=== PATIENT | male | born 1930 | race Caucasian/White ===

== ENCOUNTER 2017-07-09 13:32 | Inpatient (IN) ==
[2017-07-09] MEDS ORDERED: *HR* HYDROmorphone (PF) 1 MG/ML SYRINGE IM ONE (16:21)
--- NOTE | 2017-07-09 16:21 | Emergency Department Note ---
Disposition Clinical Impression: Fracture of hip Qualifiers: Encounter type: initial encounter Fracture type: closed Laterality: left Qualified Code(s): S72.002A - Fracture of unspecified part of neck of left femur , initial encounter for closed fracture Disposition: Admitted As Inpatient Condition: Good [facility]Primary Care Provider[facility] - Forms: ED Satisfaction Letter Time of Disposition: 19:13 General Adult HPI - General Chief complaint: ED Extremity Injury, Lower Stated complaint: Fall,left thigh pain Time Seen by Provider: 07/09/17 16:19 Source: patient Limitations: no limitations Nursing Notes Reviewed: Yes Vital Signs Reviewed: Yes - History of Present Illness HPI Narrative: Patient complaining of left hip pain after a fall that was about a week ago. He states today he was ambulating the felt a catch in the lateral part of his leg and fell. He denies any other trauma but does complain of pain to his left thigh area. Denies striking his head Denies any loss of consciousness. Since this was a mechanical fall. Pain Scale: 5 - Related Data Allergies Allergy/AdvReac Type Severity Reaction Status Date / Time No Known Allergies Allergy Verified 07/09/17 14:16 All systems ED: reviewed and negative except as stated. Constitutional: Denies: fever, chills ENT ED: Denies: congestion Cardiovascular: Denies: chest pain, palpitations, syncope Respiratory: Denies: cough, dyspnea, sputum production Gastrointestinal: Denies: abdominal pain, nausea, vomiting, diarrhea Genitourinary: Denies: urgency, dysuria, frequency, hematuria Musculoskeletal: Reports: other (Left thigh pain.). Denies: back pain, neck pain Integumentary: Denies: rash Neurological: Denies: headache, weakness Past Medical History - Past Medical History Attestation: Yes The following information was validated with the patient. Source: patient Medical history: Reports: diabetes, hypertension Psychiatric history: Reports: no psych history - Social History Smoking Status: Former smoker Smokeless Tobacco Status: No Alcohol use: Reports: none Drug use: Reports: none Physical Exam - General Limitations: no limitations General appearance: alert, in no apparent distress - Head Head exam: atraumatic, normocephalic, normal inspection - Eye Eye exam: Present: normal appearance, PERRL, EOMI - ENT ENT exam: normal exam, normal oropharynx, mucous membranes moist - Neck Neck exam: Present: normal inspection, full ROM, trachea midline - Chest Chest inspection: Present: normal inspection, symmetric chest wall rise - Respiratory Respiratory exam: Present: normal lung sounds bilaterally. Absent: respiratory distress - Cardiovascular Cardiovascular exam: Present: regular rate, normal rhythm, normal heart sounds - Abdominal Exam Abdominal exam: Present: soft, Non-Tender, normal bowel sounds. Absent: tenderness, distention, guarding, rebound, rigidity, organomegaly - Expanded Upper Extremity Exam Shoulder exam: Present: normal inspection, full ROM Arm exam: Present: normal inspection, full ROM Elbow exam: Present: normal inspection, full ROM Forearm/Wrist exam: Present: normal inspection, full ROM Hand exam: Present: normal inspection, full ROM Vascular exam: Normal: capillary refill, radial pulse - Expanded Lower Extremity Exam Hip/Pelvis exam: Present: normal inspection, full ROM, tenderness (To movement of left hip.) Upper leg exam: Present: normal inspection, full ROM, tenderness (To palpation of lateral aspect of left thigh.). Absent: swelling, abrasion, ecchymosis Knee exam: Present: normal inspection, full ROM Lower leg exam: Present: normal inspection, full ROM Ankle exam: Present: normal inspection, full ROM Foot/toe exam: Present: normal inspection, full ROM Neurovascular/Tendon exam: Absent: motor deficit, sensory deficit, tendon deficit - Back Exam Back exam: Present: normal inspection, full ROM. Absent: tenderness, CVA tenderness (R), CVA tenderness (L) - Neurological Exam Neurological exam: Present: alert, oriented X3 - Psychiatric Psychiatric exam: Present: normal affect, normal mood - Skin Skin exam: Present: warm, dry, intact, normal color. Absent: rash, cyanosis, diaphoresis, erythema Course Course Narrative: Male patient presenting to the emergency room complaining of left pain. He states that this began today after he fell. He states he has had a chronic hip pain since he fell one week ago. It has been x-rayed since he fell with no break noted. He states today he was ambulating and felt a pull in his thigh and he fell to the ground. He denies striking his head. He denies any other injuries. He denies any loss of consciousness. This was a mechanical fall. He reports to pain to his left thigh area. He grimaces whenever I attempt to flex his hip. He has strong pulses in both lower extremities. He is able to move his right lower extremity with no complication. I do not appreciate any swelling. We will provide patient pain medication and get an x-ray of this limb. He is agreeable to this at this time. He states that he does take an aspirin a day because he only blood thinner he takes. - Reevaluation(s) Reevaluation #1: Patient reassessed. He states that his pain has eased significantly with the pain medication. He believes that it is a pulled muscle. X-rays did not show an acute fracture however they are recommending further imaging due to the patient's significant osteopenia. We will order a CT of patient's left hip and left femur. He is agreeable to this at this time. Time: 17:43 Reevaluation #2: Patient has a left peritrochanteric fracture. We will admit patient to the hospital for this. I will consult orthopedics. He is agreeable to this. Time: 19:12 - Consultations Consultation #1: I spoke with Dr. Nagy. He states to admit the patient to the hospitalist and he will see the patient in the morning. Time: 19:14 Consultation #2: Rosio VAUGHN accepted Pt in stable condition. Time: 19:23 Vital Signs Temperature 97.4 F L 07/09/17 14:16 Pulse Rate 67 07/09/17 14:16 Respiratory Rate 18 07/09/17 14:16 Blood Pressure 173/74 07/09/17 14:16 O2 Sat by Pulse Oximetry 94 07/09/17 14:16 Temperature 97.4 F L 07/09/17 14:16 Pulse Rate 67 07/09/17 14:16 Respiratory Rate 18 07/09/17 14:16 Blood Pressure 173/74 07/09/17 14:16 O2 Sat by Pulse Oximetry 94 07/09/17 14:16 Oxygen Delivery Oxygen Delivery Room Air Medical Decision Making - Medical Records Medical records reviewed: Yes I reviewed the patient's medical records. - Radiology Data Radiology results reviewed: Yes I reviewed the patient's radiology results. Femur X-Ray 07/09/17 14:22 IMPRESSION: Osteopenia. No displaced fracture. Given the degree of osteopenia, nondisplaced fractures may be radiographically occult. If pain or concern for fracture persists, consider MR imaging. D/ / 07/09/2017 17:18:18 Timur Faulkner MD / ashlee Interpreting Provider: Timur Faulkner MD Pelvis X-Ray 07/09/17 14:22 IMPRESSION: Osteopenia. No displaced fracture. Given the degree of osteopenia, nondisplaced fractures may be radiographically occult. If pain or concern for fracture persists, consider MR imaging. D/ / 07/09/2017 17:18:18 Timur Faulkner MD / ashlee Interpreting Provider: Timur Faulkner MD Attestation Statement - Attestation Attestation: I examined this patient and my medical decision-making was reviewed with the Resident Physician. I agree with the documented findings, disposition and treatment plan as described except to the extent set forth below. 87-year-old male with leg pain after a fall. X-ray cannot exclude fracture. We will obtain CT scan to rule out a missed fracture on x-ray. There is evidence of fracture. We will proceed with admission and evaluation by orthopedics
[2017-07-09] MEDS ORDERED: hydrOXYzine pamoate 25 MG CAPSULE PO PRN (21:23)
--- NOTE | 2017-07-09 21:38 | Internal Med History&Physical ---
<Jonathan Washington - Last Filed: 07/09/17 21:43> Date of Encounter: 07/09/17 Time of Encounter: 21:37 Assessment and Plan (1) Fracture of hip Current visit: Yes Status: Acute Acute fracture of left greater trochanter status post fall today. Additionally patient reports swelling last week as well. Ortho has been consulted and is planning for surgery in the morning. Nothing by mouth Every 6 hours Accu-Cheks Bed rest Stat CBC, CMP, chest x-ray Consult psych social worker, PT/OT q4 vs Continuous telemetry continuous spo2 falls precautions Manage pain patient denies taking any narcotics, reports pain 2 out of 10 at this time. We will use acetaminophen and escalate as necessary. Qualifiers: Encounter type: initial encounter Fracture type: closed Laterality: left Qualified Code(s): S72.002A - Fracture of unspecified part of neck of left femur, initial encounter for closed fracture (2) Diabetes mellitus Current visit: Yes Status: Chronic Chronic type 2 diabetes with oral glycemic agents for management. Discontinue oral glycemic agents. He remains nothing by mouth for surgical intervention for fracture of left hip tomorrow. Every 6 hours Accu-Cheks with low-dose sliding scale insulin coverage. Hemoglobin A1c. Qualifiers: Diabetes mellitus type: type 2 Diabetes mellitus complication status: without complication Diabetes mellitus detention insulin use: without detention use Qualified Code(s): E11.9 - Type 2 diabetes mellitus without complications (3) HTN (hypertension) Current visit: Yes Status: Chronic History of essential hypertension. Blood pressure is mildly elevated at this time we will continue home doses of beta trice, Solomon inhibitor, and thiazide diuretics. Continue titrating blood pressure medications based on hemodynamic status Qualifiers: Hypertension type: essential hypertension Qualified Code(s): I10 - Essential (primary) hypertension (4) Frequent falls Current visit: Yes Status: Acute Patient reports 3-4 falls in the last 6 months. Most recently fell twice within the last week resulting in a left nondisplaced fracture through greater trochanter requiring surgical intervention. Consult psych social worker for potential placement consulting PT OT for evaluation (5) DVT prophylaxis Current visit: Yes Status: Acute Patient is at risk for DVT due to prolonged immobility, fracture, surgical intervention. We will start Lovenox per hip surgery protocol tomorrow following surgery. Internal Medicine - H&P: HPI Chief complaint: hip s/p fall today Admitted From: Home Plans for Post Hospital Care: Transfer Inp Rehab Fac History of present illness: Mr. Manzo is a 87 year old male with a PMH of fatality, DM 2, hypothyroidism, hypertension, polio, and GERD. He presents to [facility] today status post fall on left hip. Patient reports fall on left hip one week ago without head trauma. Admits that he was mildly sore status post fall from 1 week ago. However, today while at the [facility] he fell again striking his left knee and thigh area. Again he denies striking his head. Denies any dizziness, syncope, palpitations, vision changes, new fatigue or weakness. Admits that he has fallen 3-4 times in the last [address] completed in the emergency department revealed an acute nondisplaced fracture through left greater trochanter with adjacent soft tissue edema. Orthopedics has been consult and the plan is to do surgery in the morning. He is being admitted to [facility] for further monitoring Past Med Surg Social Fam HX - Past Medical History Medical history: diabetes, hypertension Psychiatric history: no psych history - Social History Smoking Status: Former smoker Smokeless Tobacco Status: No Alcohol use: none Drug use: none - Family History Mother Living Status: Hx Family Endocrine Disorder: Yes (DM) Internal Medicine - H&P: Meds Albuterol Sulfate [Albuterol Inhaler] 2 puff IH QID PRN 07/09/17 [History] Aspirin 325 mg PO DAILY 07/09/17 [History] Atenolol 100 mg PO DAILY 07/09/17 [History] Atorvastatin [Lipitor] 10 mg PO HS 07/09/17 [History] Betamethasone Dipropionate 1 appl TP TID 07/09/17 [History] Cyclobenzaprine [Flexeril] 10 mg PO BID 07/09/17 [History] Hydrocortisone 1% CREAM [Cortaid] 1 appl TP TID 07/09/17 [History] Ipratropium [Atrovent Inhaler] 2 puff IH QID 07/09/17 [History] Levothyroxine [Synthroid] 25 mcg PO 0630 07/09/17 [History] Lidocaine Viscous Oral Soln 15 ml MM TID PRN 07/09/17 [History] Lisinopril [Zestril] 10 mg PO DAILY 07/09/17 [History] Mag Hydrox/Al Hydrox/Simeth [Antacid Suspension] 15 ml PO TID PRN 07/09/17 [ History] Metformin HCl [Glucophage] 1,000 mg PO BID 07/09/17 [History] MethylPREDNISolone [MethylPREDNISolone Dose Pack] 4 mg PO PER PKG DI 07/09/17 [ History] Naproxen [Naprosyn] 500 mg PO BID PRN 07/09/17 [History] Omeprazole [PriLOSEC] 40 mg PO DAILY 07/09/17 [History] Pioglitazone [Actos] 30 mg PO DAILY 07/09/17 [History] Polyvinyl Alcohol [Artificial Tears] 1 drop OP QID PRN 07/09/17 [History] Potassium Chloride [K-Tab ER] 20 meq PO DAILY 07/09/17 [History] Rabeprazole Sodium [Aciphex] 20 mg PO DAILY 07/09/17 [History] Simethicone [Gas-X] 80 mg PO QID PRN 07/09/17 [History] Triamcinolone Acet 0.1% OINT [Kenalog] 1 appl TP BID PRN 07/09/17 [History] Triamterene/Hydrochlorothiazid [Triamterene-Hctz 75-50 mg Tab] 1 each PO DAILY 07/09/17 [History] glipiZIDE [Glucotrol] 5 mg PO 0800 07/09/17 [History] hydrOXYzine pamoate [HydrOXYzine Pamoate] 25 mg PO QID PRN 07/09/17 [History] 3 Allergy/AdvReac Type Severity Reaction Status Date / Time chlorhexidine AdvReac See Verified 07/09/17 20:13 Comments gabapentin AdvReac See Verified 07/09/17 20:13 Comments All Systems PM: A 10-system review of systems was performed and is negative for pertinent findings except as documented above in the HPI. - Constitutional Constitutional: falls (3-4 last 6 months), no chills, no fatigue, no fever(s), no night sweats, no weakness - EENT Eyes: no blurry vision, no change in vision, no discharge, no loss of peripheral vision, no loss of vision, no pain, no photophobia Ears: no ear discharge, no ear pain, no tinnitus Nose, mouth and throat: no dysphagia, no nasal discharge, no neck pain, no sore throat - Cardiovascular Cardiovascular ROS IM: no chest pain, no diaphoresis, no dyspnea, no lightheadedness, no palpitations, no syncope - Respiratory Respiratory: no cough, no dyspnea, no wheezing, no excessive phlegm production - Gastrointestinal Gastrointestinal: no abdominal pain, no diarrhea, no hematemesis, no hematochezia, no melena, no nausea, no vomiting - Musculoskeletal Musculoskeletal ROS IM: limited range of motion, myalgias, no joint swelling, no muscle cramps, no numbness, no stiffness, no tingling Additional comments: Admits to mild, limitations of range of motion, and pain status post fall on left hip. - Integumentary Integumentary IM: no rash, no unusual bruising - Neurological Neurological ROS: frequent falls, no abnormal gait, no abnormal movements, no confusion, no convulsions, no disequilibrium, no dizziness, no focal weakness, no lack of coordination, no loss of vision, no numbness, no tingling, no tremor( s), no vertigo, no weakness (3-4 in the last 6 months) - Hematologic/Lymphatic Hematologic/Lymphatic: no easy bruising - Constitutional Vitals: Temp Pulse Resp BP Pulse Ox 97.4 F L 67 18 149/86 94 07/09/17 14:16 07/09/17 14:16 07/09/17 19:35 07/09/17 19:35 07/09/17 14:16 General appearance: Present: cooperative, A&O X 3, no acute distress, answers questions appropriately - Head Head exam: Present: atraumatic, normocephalic - Eye Eye exam: Present: PERRL, conjuntiva pink, sclera anicteric Pupils: Present: PERRL - Neck Neck exam general surgery: Present: full ROM, normal inspection, supple, trachea midline. Absent: lymphadenopathy, tenderness - Respiratory Respiratory exam: Present: CTAB. Absent: accessory muscle use, rales, rhonchi, wheezes - Cardiovascular Cardiovascular exam: Present: RRR, +S1, +S2. Absent: diastolic murmur, gallop, rubs, systolic murmur - GI/Abdominal GI/Abdominal exam: Present: normal bowel sounds, soft, no peritoneal signs. Absent: distended, tenderness - Extremities Exam Extremities exam: Present: normal capillary refill, tenderness (Tenderness noted to left lower extremity from lateral left hip to left knee), warm, radial pulses palpable and symmetrical. Absent: calf tenderness, cyanotic, joint swelling, pedal edema - Expanded Lower Extremities Exam Lower Leg exam: Absent: crepitus, ecchymosis, full ROM (Limitations to range of motion due to pain status post fall and left femur fracture), swelling Gait: Present: not tested/not observed - Neurological Exam Neurological exam: Present: alert, CN II-XII intact, oriented X3, no focal deficits. Absent: pronater drift, facial droop, speech deficit - Skin Skin exam: Present: dry, intact Internal Med - H&P Results - Diagnostic Studies CT scan - pelvis Additional comments: Acute nondisplaced fracture through left greater trochanter <Connor Olivarez - Last Filed: 07/09/17 22:54> Date of Encounter: 07/09/17 Internal Medicine - H&P: HPI History of present illness: Mr. Manzo is a 87 year old male All Systems PM: A 10-system review of systems was performed and is negative for pertinent findings except as documented above in the HPI. - Constitutional Vitals: Temp Pulse Resp BP Pulse Ox 97.6 F 60 17 150/76 90 07/09/17 21:47 07/09/17 21:47 07/09/17 21:47 07/09/17 21:47 07/09/17 21:47 Internal Med - H&P Results - Labs CBC & Chem 7: 07/09/17 22:20 07/09/17 22:20 Labs: Short CBC 07/09/17 Range/Units 22:20 WBC 14.2 H (4.3-11.1) K/mcL Hgb 14.4 (12.9-16.9) g/dL Hct 44.5 (37.5-50.1) % Plt Count 239 (140-400) K/mcL Neutrophils # 8.1 (1.6-8.9) K/mcL BMP 07/09/17 22:20 Sodium 138 Potassium 4.4 Chloride 106 Carbon Dioxide 23 BUN 19 Creatinine 0.99 Glucose 181 H Calcium 8.9 Liver Function 07/09/17 Range/Units 22:20 Total Bilirubin 0.5 (0.2-1.2) mg/dL AST 14 (5-34) Units/L ALT 11 (0-55) Units/L Alkaline Phosphatase 95 (38-126) Units/L Albumin 3.3 L (3.5-5.0) g/dL - Impressions ITS Impressions Chest X-Ray 07/09/17 21:57 IMPRESSION: No acute process. D/ / Robert Rios MD / Robert Rios MD Interpreting Provider: Robert Rios MD - Attending Attestation I independently obtained history and examined this patient and my medical decision-making was reviewed with the nurse practitioner, Omega Washington. I agree with the documented findings, disposition and treatment plan as described. My findings are summarized below: Patient is in no acute distress, awake alert alert and oriented. Heart exam is regular S1-S2 no murmurs, lungs are clear extremities with no edema clubbing or cyanosis. Left hip CT reveals acute peritrochanteric fracture. Plan: We will check chemistries CBC and coags. Chest x-ray. Pain control. Nonweightbearing. Orthopedic consult. Nothing by mouth after midnight for surgical repair. High risk for morbidity and complications due to treatment with IV opiates. Otherwise patient is medically clear for surgery, no further workup needed other than mentioned above.
[2017-07-09] MEDS ORDERED: D5% in Water 1,000 ML IVC PRN (22:01)
[2017-07-09] MEDS ORDERED: *HR* Dextrose 50 % in Water (Syg) 50 ML SYRINGE IVP PRN (22:01)
[2017-07-09] MEDS ORDERED: Dextrose Gel 15 GM PO PRN ×2 (22:01)
[2017-07-09] MEDS ORDERED: Naloxone 0.4 MG/ML INJ IVP PRN (22:02)
[2017-07-09] MEDS ORDERED: Acetaminophen 325 MG TABLET PO PRN (22:02)
[2017-07-09 22:32] LABS: Basophils # 0.1 K/mcL (0.0-0.2); Basophils % 0.8 %; Eosinophils # 1.2 K/mcL (0.0-0.6); Eosinophils % 8.5 %; Hematocrit 44.5 % (37.5-50.1); Hemoglobin 14.4 g/dL (12.9-16.9); Immature Granulocytes % 0.8 % (0-4); Lymphocytes # 2.8 K/mcL (0.6-4.6); Lymphocytes % 19.9 %; Mean Corpuscular HGB Conc 32.4 g/dL (31.6-35.5); Mean Corpuscular Hemoglobin 28.9 pg (28.0-33.3); Mean Corpuscular Volume 89.4 fL (83.0-100.0); Monocytes # 1.8 K/mcL (0.0-1.3); Monocytes % 12.9 %; Neutrophils # 8.1 K/mcL (1.6-8.9); Platelet Count 239 K/mcL (140-400); Red Blood Count 4.98 M/mcL (4.19-5.50); Red Cell Distribution Width 12.8 % (11.5-14.5); Segmented Neutrophils % 57.1 %
[2017-07-09 22:46] LABS: Alanine Aminotransferase 11 Units/L (0-55); Albumin 3.3 g/dL (3.5-5.0); Albumin/Globulin Ratio 0.8 (1.1-2.2); Alkaline Phosphatase 95 Units/L (38-126); Aspartate Amino Transferase 14 Units/L (5-34); BUN/Creatinine Ratio 19 (6-26); Bilirubin,Total 0.5 mg/dL (0.2-1.2); Blood Urea Nitrogen 19 mg/dL (8-26); Calcium 8.9 mg/dL (8.6-10.8); Carbon Dioxide 23 mEq/L (19-29); Chloride 106 mEq/L (98-109); Globulin 3.9 g/dL (2.4-3.5); Glucose 181 mg/dL (70-99); Osmolality,Calculated 293 (280-300); Potassium 4.4 mEq/L (3.5-4.5); Sodium 138 mEq/L (136-145); Total Protein 7.2 g/dL (6.0-8.3); eGFR For African Americans > 60 (> 60); eGFR For Non-African Americans > 60 (> 60)
[2017-07-09 22:57] LABS: Hemoglobin A1C 8.1 %
[2017-07-09] MEDS: Ipratropium/Albuterol Neb 3 ML IH SCH (23:03)
[2017-07-10] MEDS: Ipratropium/Albuterol Neb 3 ML IH SCH ×6 (04:41→23:26)
[2017-07-10 06:06] LABS: Prothrombin Time 11.2 Seconds (9.4-12.1)
[2017-07-10] MEDS: Insulin LISPRO 300 UNITS/3 ML VIAL SQ SCH ×5 (06:23→21:39)
[2017-07-10] MEDS: Levothyroxine 25 MCG TABLET PO SCH (06:25)
[2017-07-10] MEDS: 0.9 % Sodium Chloride 1,000 ML IVC SCH ×2 (06:43→12:05)
--- NOTE | 2017-07-10 06:47 | Orthopedic Consult Note ---
Date of Encounter: 07/10/17 Time of Encounter: 06:46 History of Present Illness HPI: Mr. Manzo is a 87 year old male Status post 2 falls one Friday 1 yesterday. Patient presents with left hip pain. Difficulty in ambulating Left lower extremity Neurovascular intact Decreased range of motion secondary to pain X-ray no obvious fracture CT scan nondisplaced fracture greater trochanter Nonoperative fracture treated weightbearing assisted pain control Past Med Surg Social Fam HX - Past Medical History Medical history: diabetes, hypertension Psychiatric history: no psych history - Past Surgical History Surgical History: cholecystectomy - Social History Smoking Status: Former smoker Smokeless Tobacco Status: No Alcohol use: none Drug use: none - Family History Mother Living Status: Age at : 62 Cause of : gangrene Hx Family Endocrine Disorder: Yes (DM) Medications and Allergies Albuterol Sulfate [Albuterol Inhaler] 2 puff IH QID PRN 07/09/17 [History] Aspirin 325 mg PO DAILY 07/09/17 [History] Atenolol 100 mg PO DAILY 07/09/17 [History] Atorvastatin [Lipitor] 10 mg PO HS 07/09/17 [History] Betamethasone Dipropionate 1 appl TP TID 07/09/17 [History] Cyclobenzaprine [Flexeril] 10 mg PO BID 07/09/17 [History] Hydrocortisone 1% CREAM [Cortaid] 1 appl TP TID 07/09/17 [History] Ipratropium [Atrovent Inhaler] 2 puff IH QID 07/09/17 [History] Levothyroxine [Synthroid] 25 mcg PO 0630 07/09/17 [History] Lidocaine Viscous Oral Soln 15 ml MM TID PRN 07/09/17 [History] Lisinopril [Zestril] 10 mg PO DAILY 07/09/17 [History] Mag Hydrox/Al Hydrox/Simeth [Antacid Suspension] 15 ml PO TID PRN 07/09/17 [ History] Metformin HCl [Glucophage] 1,000 mg PO BID 07/09/17 [History] MethylPREDNISolone [MethylPREDNISolone Dose Pack] 4 mg PO PER PKG DI 07/09/17 [ History] Naproxen [Naprosyn] 500 mg PO BID PRN 07/09/17 [History] Omeprazole [PriLOSEC] 40 mg PO DAILY 07/09/17 [History] Pioglitazone [Actos] 30 mg PO DAILY 07/09/17 [History] Polyvinyl Alcohol [Artificial Tears] 1 drop OP QID PRN 07/09/17 [History] Potassium Chloride [K-Tab ER] 20 meq PO DAILY 07/09/17 [History] Rabeprazole Sodium [Aciphex] 20 mg PO DAILY 07/09/17 [History] Simethicone [Gas-X] 80 mg PO QID PRN 07/09/17 [History] Triamcinolone Acet 0.1% OINT [Kenalog] 1 appl TP BID PRN 07/09/17 [History] Triamterene/Hydrochlorothiazid [Triamterene-Hctz 75-50 mg Tab] 1 each PO DAILY 07/09/17 [History] glipiZIDE [Glucotrol] 5 mg PO 0800 07/09/17 [History] hydrOXYzine pamoate [HydrOXYzine Pamoate] 25 mg PO QID PRN 07/09/17 [History] 3 Allergy/AdvReac Type Severity Reaction Status Date / Time chlorhexidine AdvReac See Verified 07/09/17 20:13 Comments gabapentin AdvReac See Verified 07/09/17 20:13 Comments All Systems Reviewed: A 10-system review of systems was performed and is negative for pertinent findings except as documented above in the HPI. Physical Exam - Constitutional Vitals: Temp Pulse Resp BP Pulse Ox 98.5 F 69 20 147/81 95 07/10/17 04:58 07/10/17 04:58 07/10/17 04:58 07/10/17 04:58 07/10/17 04:58 Results - Labs Result Diagrams: 07/09/17 22:20 07/09/17 22:20 Labs: Abnormal lab results WBC 14.2 K/mcL (4.3-11.1) H 07/09/17 22:20 Monocytes # 1.8 K/mcL (0.0-1.3) H 07/09/17 22:20 Eosinophils # 1.2 K/mcL (0.0-0.6) H 07/09/17 22:20 Immature Plt Fraction 7.0 % (1.1-6.1) H 07/09/17 22:20 Glucose 181 mg/dL (70-99) H 07/09/17 22:20 POC Glucose 173 (58-89) H 07/10/17 05:43 Hemoglobin A1c 8.1 % (-5.6) H 07/09/17 22:20 Albumin 3.3 g/dL (3.5-5.0) L 07/09/17 22:20 Globulin 3.9 g/dL (2.4-3.5) H 07/09/17 22:20 Albumin/Globulin Ratio 0.8 (1.1-2.2) L 07/09/17 22:20 H & H 07/09/17 Range/Units 22:20 Hgb 14.4 (12.9-16.9) g/dL Hct 44.5 (37.5-50.1) % All other labs normal. Consult Discharge Plan - Plan [facility]errals: [facility] [Primary Care Provider] -
[2017-07-10] MEDS ORDERED: Insulin LISPRO 300 UNITS/3 ML VIAL SQ SCH ×2 (07:30→21:00)
[2017-07-10] MEDS: Aspirin 325 MG TABLET PO SCH (09:34)
--- NOTE | 2017-07-10 15:25 | Internal Med Progress Note ---
Date of Encounter: 07/10/17 Time of Encounter: 15:24 - Assessment and plan (1) Fracture of hip Current Visit: Yes Status: Acute Assessment and plan: Non displaced Left femur greater tronchanteric fx non operable fx as per Ortho recommend conservative care with PT / OT and weight baring as he tolerates cont analgesics PRN d/c IVF On Lovenox for DVT prophylaxis Qualifiers: Encounter type: initial encounter Fracture type: closed Laterality: left Qualified Code(s): S72.002A - Fracture of unspecified part of neck of left femur, initial encounter for closed fracture (2) HTN (hypertension) Current Visit: Yes Status: Chronic Assessment and plan: fairy controlled .may due to pain Cont home med Atenolol d/c IVF Hydralazine IV PRN Pain meds Qualifiers: Hypertension type: essential hypertension Qualified Code(s): I10 - Essential (primary) hypertension (3) Diabetes mellitus Current Visit: Yes Status: Chronic Assessment and plan: HbA1C 8.1 Cont ISS for now will resume home meds Qualifiers: Diabetes mellitus type: type 2 Diabetes mellitus complication status: without complication Diabetes mellitus usp insulin use: without usp use Qualified Code(s): E11.9 - Type 2 diabetes mellitus without complications (4) DVT prophylaxis Current Visit: Yes Status: Acute Assessment and plan: on Lovenox (5) Frequent falls Current Visit: Yes Status: Acute (6) Urinary retention Current Visit: Yes Status: Acute Assessment and plan: d/c sales this morning current bladder scan 800 cc Will encourage pt to urinate, if he is unable to void will do straight cath PRN - Subjective Interval history: Mr. Manzo is a 87 year old male with a PMH of fatality, DM 2, hypothyroidism, hypertension, polio, and GERD. He presents to [facility] today status post fall on left hip. Patient reports fall on left hip one week ago without head trauma. Admits that he was mildly sore status post fall from 1 week ago. However, today while at the [facility] he fell again striking his left knee and thigh area. Again he denies striking his head. Denies any dizziness, syncope, palpitations, vision changes, new fatigue or weakness. Admits that he has fallen 3-4 times in the last [address] completed in the emergency department revealed an acute non displaced fracture through left greater trochanter with adjacent soft tissue edema. Pt is alert, awake and O x3, denied any CP / SOB. d/c d sales this morning. Since then he did not urinate yet. Pain i left hip is tolerable with current medications - Constitutional Vitals: Temp Pulse Resp BP Pulse Ox 98.1 F 66 20 120/73 94 07/10/17 15:19 07/10/17 15:19 07/10/17 15:19 07/10/17 15:19 07/10/17 15:19 General appearance: Present: cooperative, A&O X 3, no acute distress, answers questions appropriately - Head Head exam: Present: atraumatic, normal inspection - Respiratory Respiratory exam: Present: decreased breath sounds, wheezes. Absent: rales, respiratory distress, rhonchi - Cardiovascular Cardiovascular exam: Present: RRR, +S1, +S2. Absent: systolic murmur - Extremities Exam Extremities exam: Present: tenderness (mild tenderness in limited ROM at Left hip). Absent: calf tenderness, pedal edema - Neurological Exam Neurological exam: Present: alert, oriented X3 - Psychiatric Psychiatric exam: Present: normal affect, normal mood Internal Medicine: Result - Labs CBC & Chem 7: 07/09/17 22:20 07/09/17 22:20 Labs: Short CBC 07/09/17 Range/Units 22:20 WBC 14.2 H (4.3-11.1) K/mcL Hgb 14.4 (12.9-16.9) g/dL Hct 44.5 (37.5-50.1) % Plt Count 239 (140-400) K/mcL Neutrophils # 8.1 (1.6-8.9) K/mcL BMP 07/09/17 22:20 Sodium 138 Potassium 4.4 Chloride 106 Carbon Dioxide 23 BUN 19 Creatinine 0.99 Glucose 181 H Calcium 8.9 Liver Function 07/09/17 Range/Units 22:20 Total Bilirubin 0.5 (0.2-1.2) mg/dL AST 14 (5-34) Units/L ALT 11 (0-55) Units/L Alkaline Phosphatase 95 (38-126) Units/L Albumin 3.3 L (3.5-5.0) g/dL - ABG Interpretation ABG results: PT/INR, D-dimer PT 11.2 Seconds (9.4-12.1) 07/10/17 05:22 - Impressions Impressions Chest X-Ray 07/09/17 21:57 IMPRESSION: No acute process. D/ / Robert Rios MD / Robert Rios MD Interpreting Provider: Robert Rios MD - VTE Documentation of Mechanical Device: Intermittent pneumatic compression device Consult Discharge Plan - Plan [facility]errals: [facility] [Primary Care Provider] -
[2017-07-10] MEDS: Ipratropium 1 PUFF INHALER IH SCH ×2 (16:17→22:11)
--- NOTE | 2017-07-10 18:09 | Electrocardiograph Report ---
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
[2017-07-10] MEDS ORDERED: *HR* Enoxaparin 30 MG/0.3 ML SYRINGE SQ SCH (20:00)
[2017-07-10] MEDS: *HR* Metformin 500 MG TABLET PO SCH (21:38)
[2017-07-11] MEDS: Ipratropium 1 PUFF INHALER IH SCH ×4 (03:53→20:03)
[2017-07-11] MEDS: Ipratropium/Albuterol Neb 3 ML IH SCH ×6 (03:53→23:02)
[2017-07-11] MEDS: *HR* Enoxaparin 40 MG/0.4 ML SYRINGE SQ SCH (05:26)
[2017-07-11] MEDS: Levothyroxine 25 MCG TABLET PO SCH (05:26)
[2017-07-11 05:44] LABS: Basophils # 0.1 K/mcL (0.0-0.2); Basophils % 0.7 %; Hematocrit 44.9 % (37.5-50.1); Hemoglobin 14.3 g/dL (12.9-16.9); Immature Granulocytes % 0.9 % (0-4); Lymphocytes # 2.3 K/mcL (0.6-4.6); Lymphocytes % 14.1 %; Mean Corpuscular HGB Conc 31.8 g/dL (31.6-35.5); Mean Corpuscular Hemoglobin 28.8 pg (28.0-33.3); Mean Corpuscular Volume 90.3 fL (83.0-100.0); Mean Platelet Volume 11.1 fL (9.4-12.4); Neutrophils # 10.9 K/mcL (1.6-8.9); Platelet Count 254 K/mcL (140-400); Red Blood Count 4.97 M/mcL (4.19-5.50); Segmented Neutrophils % 66.3 %
[2017-07-11] MEDS ORDERED: *HR* OxyCODONE/APAP 5/325 TABLET PO PRN (09:12)
[2017-07-11] MEDS: Aspirin 325 MG TABLET PO SCH (09:30)
[2017-07-11] MEDS: *HR* GlipiZIDE 5 MG TABLET PO SCH (09:30)
[2017-07-11] MEDS: *HR* Metformin 500 MG TABLET PO SCH ×2 (09:30→19:56)
[2017-07-11] MEDS: Insulin LISPRO 300 UNITS/3 ML VIAL SQ SCH ×4 (09:37→19:57)
--- NOTE | 2017-07-11 13:00 | Urology - Consult Note ---
Date of Encounter: 07/11/17 Time of Encounter: 12:57 - Assessment and Plan (1) Urinary retention Current Visit: Yes Status: Acute Assessment and plan: Based on the patient's history I do not suspect he has outlet obstruction as an outside cystoscopy did not show evidence of BPH. Potentially he has a neurogenic bladder. Few options exist for urinary retention secondary to neurogenic bladder especially in this patient with advanced age. I convinced the patient that he required an indwelling catheter and placed it myself. He can be discharged to rehabilitation at any time. If the catheter is bothersome ( she is concerned about) we can attempt to teach the patient intermittent catheterization as an outpatient. Follow-up in 1-2 weeks Urology CN:NAIMA Consult date: 07/11/17 Reason for consult Urology: Other History of present illness: 87-year-old male new patient to [facility]. Multiple episodes of urinary retention in the past. He underwent a cystoscopy at the [facility] which did not demonstrate outlet obstruction. It was thought he may have a neurogenic bladder. Currently admitted with a nonoperative hip fracture and he still developed retention again. He has been undergoing intermittent catheterization by the nursing staff for the last 2 days. Past Med Surg Social Fam HX - Past Medical History Medical history: diabetes, hypertension Psychiatric history: no psych history - Past Surgical History Surgical History: cholecystectomy - Social History Smoking Status: Former smoker Smokeless Tobacco Status: No Alcohol use: none Drug use: none - Family History Mother Living Status: Age at : 62 Cause of : gangrene Hx Family Endocrine Disorder: Yes (DM) Medications and Allergies Albuterol Sulfate [Albuterol Inhaler] 2 puff IH QID PRN 07/09/17 [History] Aspirin 325 mg PO DAILY 07/09/17 [History] Atenolol 100 mg PO DAILY 07/09/17 [History] Atorvastatin [Lipitor] 10 mg PO HS 07/09/17 [History] Betamethasone Dipropionate 1 appl TP TID 07/09/17 [History] Cyclobenzaprine [Flexeril] 10 mg PO BID 07/09/17 [History] Hydrocortisone 1% CREAM [Cortaid] 1 appl TP TID 07/09/17 [History] Ipratropium [Atrovent Inhaler] 2 puff IH QID 07/09/17 [History] Levothyroxine [Synthroid] 25 mcg PO 0630 07/09/17 [History] Lidocaine Viscous Oral Soln 15 ml MM TID PRN 07/09/17 [History] Lisinopril [Zestril] 10 mg PO DAILY 07/09/17 [History] Mag Hydrox/Al Hydrox/Simeth [Antacid Suspension] 15 ml PO TID PRN 07/09/17 [ History] Metformin HCl [Glucophage] 1,000 mg PO BID 07/09/17 [History] MethylPREDNISolone [MethylPREDNISolone Dose Pack] 4 mg PO PER PKG DI 07/09/17 [ History] Naproxen [Naprosyn] 500 mg PO BID PRN 07/09/17 [History] Omeprazole [PriLOSEC] 40 mg PO DAILY 07/09/17 [History] Pioglitazone [Actos] 30 mg PO DAILY 07/09/17 [History] Polyvinyl Alcohol [Artificial Tears] 1 drop OP QID PRN 07/09/17 [History] Potassium Chloride [K-Tab ER] 20 meq PO DAILY 07/09/17 [History] Rabeprazole Sodium [Aciphex] 20 mg PO DAILY 07/09/17 [History] Simethicone [Gas-X] 80 mg PO QID PRN 07/09/17 [History] Triamcinolone Acet 0.1% OINT [Kenalog] 1 appl TP BID PRN 07/09/17 [History] Triamterene/Hydrochlorothiazid [Triamterene-Hctz 75-50 mg Tab] 1 each PO DAILY 07/09/17 [History] glipiZIDE [Glucotrol] 5 mg PO 0800 07/09/17 [History] hydrOXYzine pamoate [HydrOXYzine Pamoate] 25 mg PO QID PRN 07/09/17 [History] 3 Allergy/AdvReac Type Severity Reaction Status Date / Time chlorhexidine AdvReac See Verified 07/09/17 20:13 Comments gabapentin AdvReac See Verified 07/09/17 20:13 Comments Review of Systems - Constitutional no chills, no fever(s) - EENT Nose, mouth and throat: no dizziness - Cardiovascular no chest pain - Respiratory no cough - Gastrointestinal no abdominal pain, no nausea, no vomiting - Genitourinary difficulty urinating - Musculoskeletal back pain - Integumentary no erythema - Neurological no confusion - Psychiatric no anxiety - Hematologic/Lymphatic no easy bleeding - Allergic/Immunologic no throat swelling Exam Initial Vital Signs Temp Pulse Resp BP Pulse Ox 97.4 F L 67 18 173/74 94 07/09/17 14:16 07/09/17 14:16 07/09/17 14:16 07/09/17 14:16 07/09/17 14:16 - General physical appearance Present: no distress, chronically ill - Eyes Present: PERRL - ENT Present: normal nares - Neck Present: no masses - Respiratory Present: normal respiratory effort - Cardiovascular Cardiovascular exam IM: RRR - Abdomen Abdomen: Present: soft - Genitourinary normal penis with no external lesions - Integumentary Present: no rash - Neurologic Absent: disoriented, confused - Musculoskeletal Absent: other - Additional Findings Unsteady gait. Hard of hearing Urology Results - Labs 07/11/17 05:08 07/09/17 22:20 Abnormal lab results WBC 16.4 K/mcL (4.3-11.1) H 07/11/17 05:08 Neutrophils # 10.9 K/mcL (1.6-8.9) H 07/11/17 05:08 Monocytes # 2.0 K/mcL (0.0-1.3) H 07/11/17 05:08 Eosinophils # 1.0 K/mcL (0.0-0.6) H 07/11/17 05:08 Immature Plt Fraction 7.0 % (1.1-6.1) H 07/09/17 22:20 Glucose 181 mg/dL (70-99) H 07/09/17 22:20 POC Glucose 154 (58-89) H 07/11/17 07:21 Hemoglobin A1c 8.1 % (-5.6) H 07/09/17 22:20 Albumin 3.3 g/dL (3.5-5.0) L 07/09/17 22:20 Globulin 3.9 g/dL (2.4-3.5) H 07/09/17 22:20 Albumin/Globulin Ratio 0.8 (1.1-2.2) L 07/09/17 22:20 All other labs normal. Consult Discharge Plan - Plan [facility]errals: [facility] [Primary Care Provider] -
[2017-07-11] MEDS ORDERED: *HR* Morphine 2 MG/ML SYRINGE IVP PRN (13:02)
[2017-07-11] MEDS: *HR* OxyCODONE/APAP 5/325 TABLET PO PRN (14:01)
--- NOTE | 2017-07-11 16:54 | Internal Med Progress Note ---
Date of Encounter: 07/11/17 Time of Encounter: 07:45 - Assessment and plan (1) Fracture of hip Current Visit: Yes Status: Acute Assessment and plan: Non displaced Left femur greater tronchanteric fx non operable fx as per Ortho recommend conservative care with PT / OT and weight baring as he tolerates Placed him on Percocet 5/325 Q6hr PRN fr moderate pain Morphine 4mg IV Q6hr PRN for Severe pain On Lovenox for DVT prophylaxis Qualifiers: Encounter type: initial encounter Fracture type: closed Laterality: left Qualified Code(s): S72.002A - Fracture of unspecified part of neck of left femur, initial encounter for closed fracture (2) Urinary retention Current Visit: Yes Status: Acute Assessment and plan: Consulted Urologist Will put a sales cath started him on Flomax (3) Leukocytosis Current Visit: Yes Status: Acute Assessment and plan: Could be reactive No fever Cont monitoring check UA Qualifiers: Qualified Code(s): D72.829 - Elevated white blood cell count, unspecified (4) HTN (hypertension) Current Visit: Yes Status: Chronic Assessment and plan: stable and well controlled Cont home med Atenolol Hydralazine IV PRN Pain meds Qualifiers: Hypertension type: essential hypertension Qualified Code(s): I10 - Essential (primary) hypertension (5) Diabetes mellitus Current Visit: Yes Status: Chronic Assessment and plan: HbA1C 8.1 Cont ISS for now Resumed home meds Qualifiers: Diabetes mellitus type: type 2 Diabetes mellitus complication status: without complication Diabetes mellitus residential insulin use: without residential use Qualified Code(s): E11.9 - Type 2 diabetes mellitus without complications (6) DVT prophylaxis Current Visit: Yes Status: Acute Assessment and plan: on Lovenox (7) Frequent falls Current Visit: Yes Status: Acute - Subjective Interval history: Mr. Manzo is a 87 year old male with a PMH of fatality, DM 2, hypothyroidism, hypertension, polio, and GERD. He presents to [facility] today status post fall on left hip. Patient reports fall on left hip one week ago without head trauma. Admits that he was mildly sore status post fall from 1 week ago. However, today while at the [facility] he fell again striking his left knee and thigh area. Again he denies striking his head. Denies any dizziness, syncope, palpitations, vision changes, new fatigue or weakness. Admits that he has fallen 3-4 times in the last [address] completed in the emergency department revealed an acute non displaced fracture through left greater trochanter with adjacent soft tissue edema. Pt is alert, awake and O x3, denied any CP / SOB. Still c/o pain in left hip and unable to ambulate or stand on his feet. Still has urinary retention, required 2 times straight cath y/d - Constitutional Vitals: Temp Pulse Resp BP Pulse Ox 97.5 F L 84 16 144/83 96 07/11/17 15:14 07/11/17 15:14 07/11/17 15:14 07/11/17 15:14 07/11/17 15:14 General appearance: Present: cooperative, A&O X 3, no acute distress, answers questions appropriately - Head Head exam: Present: atraumatic, normal inspection - Respiratory Respiratory exam: Present: decreased breath sounds, wheezes. Absent: rales, respiratory distress, rhonchi - Cardiovascular Cardiovascular exam: Present: RRR, +S1, +S2. Absent: systolic murmur - Extremities Exam Extremities exam: Absent: calf tenderness, pedal edema, tenderness Additional comments: Limited ROM in Left hip due to pain..Neuro vascular intact distally in both legs. Old bruise noticed over Rt knee - Psychiatric Psychiatric exam: Present: normal affect, normal mood Internal Medicine: Result - Labs CBC & Chem 7: 07/11/17 05:08 07/09/17 22:20 Labs: Short CBC 07/11/17 Range/Units 05:08 WBC 16.4 H (4.3-11.1) K/mcL Hgb 14.3 (12.9-16.9) g/dL Hct 44.9 (37.5-50.1) % Plt Count 254 (140-400) K/mcL Neutrophils # 10.9 H (1.6-8.9) K/mcL - ABG Interpretation ABG results: PT/INR, D-dimer PT 11.2 Seconds (9.4-12.1) 07/10/17 05:22 - VTE Documentation of Mechanical Device: Intermittent pneumatic compression device Consult Discharge Plan - Plan [facility]errals: [facility] [Primary Care Provider] -
[2017-07-11 22:07] LABS: Bilirubin,Urine Negative (Negative); Blood,Urine Large (Negative); Clarity,Urine Turbid (Clear); Color,Urine Dark Yellow (Yellow); Glucose,Urine (UA) Normal (Normal); Ketones,Urine Trace mg/dL (Negative); Leukocyte Esterase,Urine Large (Negative); Nitrite,Urine Negative (Negative); Protein,Urine 100 mg/dL (Neg-Trace); Specific Gravity,Urine 1.016 (1.010-1.025); Urobilinogen,Urine Normal (Normal)
[2017-07-11 22:09] LABS: Bacteria,Urine Many per hpf (None-Few); Hyaline Casts,Urine Few per lpf (None-Few); RBC,Urine TNTC per hpf (0-3); Squamous Epithelial Cell,Urine Moderate per lpf (None-Few); WBC,Urine TNTC per hpf (0-3)
[2017-07-12] MEDS: Ipratropium/Albuterol Neb 3 ML IH SCH ×6 (03:35→23:48)
[2017-07-12] MEDS: Ipratropium 1 PUFF INHALER IH SCH ×4 (03:35→23:48)
[2017-07-12 06:05] LABS: Basophils # 0.1 K/mcL (0.0-0.2); Basophils % 0.5 %; Eosinophils # 0.7 K/mcL (0.0-0.6); Eosinophils % 3.1 %; Hematocrit 45.5 % (37.5-50.1); Hemoglobin 14.1 g/dL (12.9-16.9); Immature Granulocytes % 0.8 % (0-4); Lymphocytes # 2.2 K/mcL (0.6-4.6); Lymphocytes % 9.5 %; Mean Corpuscular Hemoglobin 28.4 pg (28.0-33.3); Mean Corpuscular Volume 91.7 fL (83.0-100.0); Mean Platelet Volume 11.3 fL (9.4-12.4); Monocytes # 2.6 K/mcL (0.0-1.3); Monocytes % 11.3 %; Neutrophils # 16.9 K/mcL (1.6-8.9); Platelet Count 253 K/mcL (140-400); Red Blood Count 4.96 M/mcL (4.19-5.50); Red Cell Distribution Width 13.1 % (11.5-14.5); Segmented Neutrophils % 74.8 %
[2017-07-12] MEDS: *HR* Enoxaparin 40 MG/0.4 ML SYRINGE SQ SCH (06:28)
[2017-07-12] MEDS: Levothyroxine 25 MCG TABLET PO SCH (06:28)
[2017-07-12 07:39] LABS: BUN/Creatinine Ratio 18 (6-26); Blood Urea Nitrogen 20 mg/dL (8-26); Carbon Dioxide 22 mEq/L (19-29); Chloride 107 mEq/L (98-109); Glucose 158 mg/dL (70-99); Osmolality,Calculated 294 (280-300); Potassium 4.7 mEq/L (3.5-4.5); Sodium 139 mEq/L (136-145); eGFR For African Americans > 60 (> 60); eGFR For Non-African Americans > 60 (> 60)
[2017-07-12] MEDS: *HR* GlipiZIDE 5 MG TABLET PO SCH (08:33)
[2017-07-12] MEDS: *HR* Metformin 500 MG TABLET PO SCH ×2 (08:33→21:22)
[2017-07-12] MEDS: Aspirin 325 MG TABLET PO SCH (08:33)
[2017-07-12] MEDS: Insulin LISPRO 300 UNITS/3 ML VIAL SQ SCH ×4 (08:33→21:23)
[2017-07-12] MEDS: *HR* OxyCODONE/APAP 5/325 TABLET PO PRN ×2 (08:35→13:06)
--- NOTE | 2017-07-12 09:52 | Internal Med Progress Note ---
Date of Encounter: 07/12/17 Time of Encounter: 09:49 - Assessment and plan (1) Fracture of hip Current Visit: Yes Status: Acute Assessment and plan: Non displaced Left femur greater tronchanteric fx non operable fx as per Ortho recommend conservative care with PT / OT and weight baring as he tolerates Cont on Percocet 5/325 Q6hr PRN fr moderate pain Morphine 4mg IV Q6hr PRN for Severe pain On Lovenox for DVT prophylaxis Qualifiers: Encounter type: initial encounter Fracture type: closed Laterality: left Qualified Code(s): S72.002A - Fracture of unspecified part of neck of left femur, initial encounter for closed fracture (2) UTI (urinary tract infection) Current Visit: Yes Status: Acute Assessment and plan: His US - positive for many bacteria and WBC started him on empirical abx Rocephin will f/u on urine cx His elevated WBC also mostly due to UTI Qualifiers: Qualified Code(s): N39.0 - Urinary tract infection, site not specified (3) Urinary retention Current Visit: Yes Status: Acute Assessment and plan: Consulted Urologist placed a Watson cath y/d cont him on Flomax (4) Leukocytosis Current Visit: Yes Status: Acute Assessment and plan: His elevated WBC also mostly due to UTI No fever Cont monitoring will check CXR too Qualifiers: Qualified Code(s): D72.829 - Elevated white blood cell count, unspecified (5) HTN (hypertension) Current Visit: Yes Status: Chronic Assessment and plan: stable and well controlled Cont home med Atenolol Hydralazine IV PRN Pain meds Qualifiers: Hypertension type: essential hypertension Qualified Code(s): I10 - Essential (primary) hypertension (6) Diabetes mellitus Current Visit: Yes Status: Chronic Assessment and plan: HbA1C 8.1 Cont ISS for now Resumed home meds Qualifiers: Diabetes mellitus type: type 2 Diabetes mellitus complication status: without complication Diabetes mellitus nursing home insulin use: without director long term care use Qualified Code(s): E11.9 - Type 2 diabetes mellitus without complications (7) DVT prophylaxis Current Visit: Yes Status: Acute Assessment and plan: on Lovenox (8) Frequent falls Current Visit: Yes Status: Acute - Subjective Interval history: Mr. Mnazo is a 87 year old male with a PMH of fatality, DM 2, hypothyroidism, hypertension, polio, and GERD. He presents to [facility] today status post fall on left hip. Patient reports fall on left hip one week ago without head trauma. Admits that he was mildly sore status post fall from 1 week ago. However, today while at the [facility] he fell again striking his left knee and thigh area. Again he denies striking his head. Denies any dizziness, syncope, palpitations, vision changes, new fatigue or weakness. Admits that he has fallen 3-4 times in the last [address] completed in the emergency department revealed an acute non displaced fracture through left greater trochanter with adjacent soft tissue edema. Pt is alert, awake and O x3, denied any CP / SOB. Still c/o pain in left hip and unable to ambulate or stand on his feet. No events over night - Constitutional Vitals: Temp Pulse Resp BP Pulse Ox 98.8 F 83 16 116/69 94 07/12/17 07:44 07/12/17 07:44 07/12/17 07:44 07/12/17 07:44 07/12/17 07:44 General appearance: Present: cooperative, A&O X 3, no acute distress, answers questions appropriately - Head Head exam: Present: atraumatic. Absent: normal inspection - Eye Additional comments: chronic erythema over both lower eyelids.. no crusting / no purulent discharge noticed - Respiratory Respiratory exam: Present: decreased breath sounds, wheezes. Absent: rales, respiratory distress, rhonchi - Cardiovascular Cardiovascular exam: Present: RRR, +S1, +S2. Absent: systolic murmur - Extremities Exam Extremities exam: Absent: calf tenderness, pedal edema, tenderness - Neurological Exam Neurological exam: Present: alert, oriented X3 - Psychiatric Psychiatric exam: Present: normal affect, normal mood Internal Medicine: Result - Labs CBC & Chem 7: 07/12/17 05:25 07/12/17 06:40 Labs: Short CBC 07/12/17 Range/Units 05:25 WBC 22.7 H (4.3-11.1) K/mcL Hgb 14.1 (12.9-16.9) g/dL Hct 45.5 (37.5-50.1) % Plt Count 253 (140-400) K/mcL Neutrophils # 16.9 H (1.6-8.9) K/mcL BMP 07/12/17 06:40 Sodium 139 Potassium 4.7 H Chloride 107 Carbon Dioxide 22 BUN 20 Creatinine 1.13 Glucose 158 H Calcium 9.0 Urine 07/11/17 Range/Units 22:00 Urine Color Dark Yellow (Yellow) Urine Clarity Turbid A (Clear) Urine pH 6.0 (5.0-8.0) pH Units Ur Specific [place] 1.016 (1.010-1.025) Urine Protein 100 H (Neg-Trace) mg/dL Urine Glucose (UA) Normal (Normal) mg/dL - ABG Interpretation ABG results: PT/INR, D-dimer PT 11.2 Seconds (9.4-12.1) 07/10/17 05:22 - VTE Documentation of Mechanical Device: Intermittent pneumatic compression device Consult Discharge Plan - Plan Referrals: [facility] [Primary Care Provider] -
[2017-07-13] MEDS: Ipratropium/Albuterol Neb 3 ML IH SCH ×5 (04:14→20:17)
[2017-07-13] MEDS: Ipratropium 1 PUFF INHALER IH SCH ×4 (04:15→20:17)
[2017-07-13 05:42] LABS: Red Cell Distribution Width 13.2 % (11.5-14.5)
[2017-07-13 05:44] LABS: Hematocrit 42.1 % (37.5-50.1); Hemoglobin 13.7 g/dL (12.9-16.9); Mean Corpuscular HGB Conc 32.5 g/dL (31.6-35.5); Mean Corpuscular Hemoglobin 29.8 pg (28.0-33.3); Mean Corpuscular Volume 91.7 fL (83.0-100.0); Mean Platelet Volume 10.9 fL (9.4-12.4); Monocytes # 3.2 K/mcL (0.0-1.3); Platelet Count 238 K/mcL (140-400); Red Blood Count 4.59 M/mcL (4.19-5.50)
[2017-07-13] MEDS: *HR* Enoxaparin 40 MG/0.4 ML SYRINGE SQ SCH (06:42)
[2017-07-13] MEDS: Levothyroxine 25 MCG TABLET PO SCH (06:43)
[2017-07-13 06:44] LABS: Eosinophils # 1.1 K/mcL (0.0-0.6); Lymphocytes # 2.2 K/mcL (0.6-4.6); Neutrophils # 20.4 K/mcL (1.6-8.9); Platelet Estimate Normal (Normal)
[2017-07-13] MEDS: Insulin LISPRO 300 UNITS/3 ML VIAL SQ SCH ×4 (08:19→21:23)
[2017-07-13] MEDS: *HR* GlipiZIDE 5 MG TABLET PO SCH (09:12)
[2017-07-13] MEDS: *HR* OxyCODONE/APAP 5/325 TABLET PO PRN ×2 (09:12→20:40)
[2017-07-13] MEDS: *HR* Metformin 500 MG TABLET PO SCH ×2 (09:12→21:20)
[2017-07-13] MEDS: Aspirin 325 MG TABLET PO SCH (09:13)
--- NOTE | 2017-07-13 14:13 | Internal Med Progress Note ---
Date of Encounter: 07/13/17 Time of Encounter: 14:11 - Assessment and plan (1) Fracture of hip Current Visit: Yes Status: Acute Assessment and plan: Non displaced Left femur greater tronchanteric fx non operable fx as per Ortho recommended conservative care with PT / OT and weight baring as he tolerates Cont on Percocet 5/325 Q6hr PRN fr moderate pain Morphine 4mg IV Q6hr PRN for Severe pain On Lovenox for DVT prophylaxis Qualifiers: Encounter type: initial encounter Fracture type: closed Laterality: left Qualified Code(s): S72.002A - Fracture of unspecified part of neck of left femur, initial encounter for closed fracture (2) UTI (urinary tract infection) Current Visit: Yes Status: Acute Assessment and plan: Urincx - growing E. Coli Cont him on empirical abx Rocephin His elevated WBC also mostly due to UTI Qualifiers: Qualified Code(s): N39.0 - Urinary tract infection, site not specified (3) Urinary retention Current Visit: Yes Status: Acute Assessment and plan: Consulted Urologist placed Watson cath on 07/11/17 cont him on Flomax (4) Leukocytosis Current Visit: Yes Status: Acute Assessment and plan: His WBC still keep trending high no other source of infections other than UTI Remained afebrile Reviewed CXR - did not show any consolidations Cont monitoring and trend on WBC will check ESR and CRP in AM Qualifiers: Qualified Code(s): D72.829 - Elevated white blood cell count, unspecified (5) HTN (hypertension) Current Visit: Yes Status: Chronic Assessment and plan: stable and well controlled Cont home med Atenolol Qualifiers: Hypertension type: essential hypertension Qualified Code(s): I10 - Essential (primary) hypertension (6) Diabetes mellitus Current Visit: Yes Status: Chronic Assessment and plan: HbA1C 8.1 Cont ISS for now Resumed home meds Qualifiers: Diabetes mellitus type: type 2 Diabetes mellitus complication status: without complication Diabetes mellitus terminal gauger insulin use: without fdc use Qualified Code(s): E11.9 - Type 2 diabetes mellitus without complications (7) Allergic blepharitis Current Visit: Yes Status: Chronic Assessment and plan: Pt does mention 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 seems to be stable now no interventions needed Qualifiers: Laterality: unspecified laterality Qualified Code(s): H01.119 - Allergic dermatitis of unspecified eye, unspecified eyelid (8) DVT prophylaxis Current Visit: Yes Status: Acute Assessment and plan: on Lovenox (9) Frequent falls Current Visit: Yes Status: Acute - Subjective Interval history: Mr. Manzo is a 87 year old male with a PMH of fatality, DM 2, hypothyroidism, hypertension, polio, and GERD. He presents to [facility] today status post fall on left hip. Patient reports fall on left hip one week ago without head trauma. Admits that he was mildly sore status post fall from 1 week ago. However, today while at the [facility] he fell again striking his left knee and thigh area. Again he denies striking his head. Denies any dizziness, syncope, palpitations, vision changes, new fatigue or weakness. Admits that he has fallen 3-4 times in the last [address] completed in the emergency department revealed an acute non displaced fracture through left greater trochanter with adjacent soft tissue edema. Pt is alert, awake and O x3, denied any CP / SOB. Still c/o pain in left hip and unable to ambulate or stand on his feet. No events over night. - Constitutional Vitals: Temp Pulse Resp BP Pulse Ox 97.7 F 83 16 105/68 98 07/13/17 10:05 07/13/17 10:05 07/13/17 10:05 07/13/17 10:05 07/13/17 10:05 General appearance: Present: cooperative, A&O X 3, no acute distress, answers questions appropriately - Head Head exam: Present: atraumatic, normal inspection - Eye Additional comments: chronic erythematous rash over both lower eyelids - allergic blepharitis - Respiratory Respiratory exam: Present: decreased breath sounds, wheezes. Absent: rales, respiratory distress, rhonchi - Cardiovascular Cardiovascular exam: Present: RRR, +S1, +S2 - GI/Abdominal GI/Abdominal exam: Present: soft. Absent: rebound, rigid, tenderness - Extremities Exam Extremities exam: Present: tenderness (Left hip.. no swelling noticed..no signs of infection). Absent: calf tenderness, pedal edema - Neurological Exam Neurological exam: Present: alert, oriented X3 - Psychiatric Psychiatric exam: Present: normal affect, normal mood Internal Medicine: Result - Labs CBC & Chem 7: 07/13/17 05:15 07/12/17 06:40 Labs: Short CBC 07/13/17 Range/Units 05:15 WBC 26.9 H (4.3-11.1) K/mcL Hgb 13.7 (12.9-16.9) g/dL Hct 42.1 (37.5-50.1) % Plt Count 238 (140-400) K/mcL Neutrophils # 20.4 H (1.6-8.9) K/mcL - ABG Interpretation ABG results: PT/INR, D-dimer PT 11.2 Seconds (9.4-12.1) 07/10/17 05:22 - Impressions Impressions Chest X-Ray 07/12/17 09:49 IMPRESSION: Normal chest x-ray D/ / Duke Harris MD / Duke Harris MD Interpreting Provider: Duke Harris MD - VTE Documentation of Mechanical Device: Intermittent pneumatic compression device Consult Discharge Plan - Plan [facility]errals: [facility] [Primary Care Provider] -
[2017-07-13] MEDS: 0.9 % Sodium Chloride 1,000 ML IVC SCH (17:41)
[2017-07-14] MEDS: Ipratropium/Albuterol Neb 3 ML IH SCH ×6 (00:23→21:03)
[2017-07-14] MEDS: *HR* OxyCODONE/APAP 5/325 TABLET PO PRN ×3 (01:21→12:24)
[2017-07-14] MEDS: Ipratropium 1 PUFF INHALER IH SCH ×4 (03:21→22:24)
[2017-07-14 04:52] LABS: Basophils # 0.1 K/mcL (0.0-0.2); Basophils % 0.7 %; Eosinophils # 0.7 K/mcL (0.0-0.6); Eosinophils % 3.6 %; Hematocrit 41.5 % (37.5-50.1); Immature Granulocytes % 1.7 % (0-4); Lymphocytes # 2.3 K/mcL (0.6-4.6); Lymphocytes % 11.1 %; Mean Corpuscular HGB Conc 31.3 g/dL (31.6-35.5); Mean Corpuscular Hemoglobin 28.9 pg (28.0-33.3); Mean Corpuscular Volume 92.2 fL (83.0-100.0); Mean Platelet Volume 11.3 fL (9.4-12.4); Monocytes # 2.5 K/mcL (0.0-1.3); Neutrophils # 14.5 K/mcL (1.6-8.9); Platelet Count 228 K/mcL (140-400); Red Cell Distribution Width 12.9 % (11.5-14.5); Segmented Neutrophils % 70.9 %
[2017-07-14 05:04] LABS: BUN/Creatinine Ratio 26 (6-26); Blood Urea Nitrogen 23 mg/dL (8-26); Calcium 8.5 mg/dL (8.6-10.8); Carbon Dioxide 18 mEq/L (19-29); Chloride 107 mEq/L (98-109); Glucose 90 mg/dL (70-99); Osmolality,Calculated 285 (280-300); Potassium 4.6 mEq/L (3.5-4.5); Sodium 136 mEq/L (136-145); eGFR For African Americans > 60 (> 60); eGFR For Non-African Americans > 60 (> 60)
[2017-07-14] MEDS: Levothyroxine 25 MCG TABLET PO SCH (06:51)
[2017-07-14] MEDS: *HR* Enoxaparin 40 MG/0.4 ML SYRINGE SQ SCH (06:51)
[2017-07-14] MEDS: 0.9 % Sodium Chloride 1,000 ML IVC SCH (10:37)
[2017-07-14] MEDS: *HR* GlipiZIDE 5 MG TABLET PO SCH (10:38)
[2017-07-14] MEDS: Aspirin 325 MG TABLET PO SCH (10:38)
[2017-07-14] MEDS: *HR* Metformin 500 MG TABLET PO SCH ×2 (10:39→21:42)
[2017-07-14] MEDS: Insulin LISPRO 300 UNITS/3 ML VIAL SQ SCH ×4 (10:39→21:45)
--- NOTE | 2017-07-14 13:55 | Internal Med Progress Note ---
Date of Encounter: 07/14/17 Time of Encounter: 13:53 - Assessment and plan (1) Fracture of hip Current Visit: Yes Status: Acute Assessment and plan: Non displaced Left femur greater tronchanteric fx non operable fx as per Ortho recommended conservative care with PT / OT and weight baring as he tolerates Cont on Percocet 5/325 Q6hr PRN fr moderate pain Morphine 4mg IV Q6hr PRN for Severe pain On Lovenox for DVT prophylaxis Qualifiers: Encounter type: initial encounter Fracture type: closed Laterality: left Qualified Code(s): S72.002A - Fracture of unspecified part of neck of left femur, initial encounter for closed fracture (2) UTI (urinary tract infection) Current Visit: Yes Status: Acute Assessment and plan: Urincx - growing E. Coli Cont him on empirical abx Rocephin His elevated WBC also mostly due to UTI WBC started trending down Qualifiers: Qualified Code(s): N39.0 - Urinary tract infection, site not specified (3) Urinary retention Current Visit: Yes Status: Acute Assessment and plan: Due to neurogenic bladder Cont Watson cath will send him to ECF on Watson cath need to f/u with Urology as an out pt cont him on Flomax (4) Leukocytosis Current Visit: Yes Status: Acute Assessment and plan: His WBC started trending down now no other source of infections other than UTI Remained afebrile Reviewed CXR - did not show any consolidations Cont monitoring and trend on WBC Reviewed ESR and CRP Qualifiers: Qualified Code(s): D72.829 - Elevated white blood cell count, unspecified (5) HTN (hypertension) Current Visit: Yes Status: Chronic Assessment and plan: stable and well controlled Cont home med Atenolol Qualifiers: Hypertension type: essential hypertension Qualified Code(s): I10 - Essential (primary) hypertension (6) Diabetes mellitus Current Visit: Yes Status: Chronic Assessment and plan: HbA1C 8.1 Cont ISS for now Resumed home meds Qualifiers: Diabetes mellitus type: type 2 Diabetes mellitus complication status: without complication Diabetes mellitus halfway insulin use: without halfway use Qualified Code(s): E11.9 - Type 2 diabetes mellitus without complications (7) Allergic blepharitis Current Visit: Yes Status: Chronic Assessment and plan: Pt does mention he has this chronic allergic blepharitis for 6 yrs. seems to be stable now no interventions needed Qualifiers: Laterality: unspecified laterality Qualified Code(s): H01.119 - Allergic dermatitis of unspecified eye, unspecified eyelid (8) DVT prophylaxis Current Visit: Yes Status: Acute Assessment and plan: on Lovenox (9) Frequent falls Current Visit: Yes Status: Acute Assessment and plan: PT / OT eval done.. recommend SNF placement for short term PT / OT SW / CM are working on it Possible d/c tomorrow once his WBC gets better (10) Constipation due to opioid therapy Current Visit: Yes Status: Acute Assessment and plan: cont stool softners also added Lactulose 10gm BID x 2 doses - Subjective Interval history: Mr. Manzo is a 87 year old male with a PMH of fatality, DM 2, hypothyroidism, hypertension, polio, and GERD. He presents to [facility] today status post fall on left hip. Patient reports fall on left hip one week ago without head trauma. Admits that he was mildly sore status post fall from 1 week ago. However, today while at the [facility] he fell again striking his left knee and thigh area. Again he denies striking his head. Denies any dizziness, syncope, palpitations, vision changes, new fatigue or weakness. Admits that he has fallen 3-4 times in the last [address] completed in the emergency department revealed an acute non displaced fracture through left greater trochanter with adjacent soft tissue edema. Pt is alert, awake and O x3, denied any CP / SOB. Pain in left hip is little better now. Still no BM yet. No events over night. - Constitutional Vitals: Temp Pulse Resp BP Pulse Ox 97.9 F 72 18 133/77 97 07/14/17 11:29 07/14/17 11:29 07/14/17 11:29 07/14/17 11:29 07/14/17 11:29 General appearance: Present: cooperative, A&O X 3, no acute distress, answers questions appropriately - Head Head exam: Present: atraumatic, normal inspection - Eye Additional comments: chronic allergic blepharitis - Respiratory Respiratory exam: Present: decreased breath sounds. Absent: rales, respiratory distress, rhonchi, wheezes - Cardiovascular Cardiovascular exam: Present: RRR, +S1, +S2. Absent: systolic murmur - GI/Abdominal GI/Abdominal exam: Present: distended, normal bowel sounds, soft. Absent: rebound, rigid, tenderness - Extremities Exam Extremities exam: Absent: calf tenderness, pedal edema, tenderness Additional comments: Limited ROM in Left hip due to pain - Neurological Exam Neurological exam: Present: alert, oriented X3 - Psychiatric Psychiatric exam: Present: normal affect, normal mood Internal Medicine: Result - Labs CBC & Chem 7: 07/14/17 04:07 07/14/17 04:07 Labs: Short CBC 07/14/17 Range/Units 04:07 WBC 20.5 H (4.3-11.1) K/mcL Hgb 13.0 (12.9-16.9) g/dL Hct 41.5 (37.5-50.1) % Plt Count 228 (140-400) K/mcL Neutrophils # 14.5 H (1.6-8.9) K/mcL BMP 07/14/17 04:07 Sodium 136 Potassium 4.6 H Chloride 107 Carbon Dioxide 18 L BUN 23 Creatinine 0.89 Glucose 90 Calcium 8.5 L - ABG Interpretation ABG results: PT/INR, D-dimer PT 11.2 Seconds (9.4-12.1) 07/10/17 05:22 - VTE Documentation of Mechanical Device: Intermittent pneumatic compression device Consult Discharge Plan - Plan [facility]errals: [facility] [Primary Care Provider] -
[2017-07-14] MEDS: Lactulose Oral Soln 20 GM/30 ML UDC PO SCH ×2 (16:25→21:42)
[2017-07-14] MEDS: Ofloxacin OPTH Drops 5 ML BOTTLE LEFT EYE SCH ×2 (21:43→23:32)
[2017-07-15] MEDS: Ipratropium/Albuterol Neb 3 ML IH SCH ×5 (00:24→16:24)
[2017-07-15] MEDS: Ipratropium 1 PUFF INHALER IH SCH ×3 (03:15→10:20)
[2017-07-15] MEDS: Ofloxacin OPTH Drops 5 ML BOTTLE LEFT EYE SCH ×3 (04:06→12:28)
[2017-07-15 05:03] LABS: Basophils # 0.2 K/mcL (0.0-0.2); Eosinophils # 1.1 K/mcL (0.0-0.6); Eosinophils % 6.7 %; Hematocrit 40.7 % (37.5-50.1); Immature Granulocytes % 2.6 % (0-4); Lymphocytes # 2.3 K/mcL (0.6-4.6); Lymphocytes % 14.6 %; Mean Corpuscular HGB Conc 31.9 g/dL (31.6-35.5); Mean Corpuscular Volume 90.8 fL (83.0-100.0); Mean Platelet Volume 10.9 fL (9.4-12.4); Monocytes # 1.9 K/mcL (0.0-1.3); Monocytes % 11.8 %; Platelet Count 227 K/mcL (140-400); Red Blood Count 4.48 M/mcL (4.19-5.50); Red Cell Distribution Width 12.6 % (11.5-14.5); Segmented Neutrophils % 63.3 %
[2017-07-15] MEDS: Levothyroxine 25 MCG TABLET PO SCH (06:05)
[2017-07-15] MEDS: *HR* Enoxaparin 40 MG/0.4 ML SYRINGE SQ SCH (06:05)
[2017-07-15] MEDS: Insulin LISPRO 300 UNITS/3 ML VIAL SQ SCH ×2 (07:53→12:21)
[2017-07-15] MEDS: *HR* Metformin 500 MG TABLET PO SCH (08:48)
[2017-07-15] MEDS: *HR* GlipiZIDE 5 MG TABLET PO SCH (08:49)
[2017-07-15] MEDS: Aspirin 325 MG TABLET PO SCH (08:49)
[2017-07-15] MEDS: *HR* OxyCODONE/APAP 5/325 TABLET PO PRN (12:34)
--- NOTE | 2017-07-15 13:38 | Discharge Summary ---
Date of Encounter: 07/15/17 Time of Encounter: 08:20 - Discharge Diagnosis (1) Fracture of hip Priority: Primary Status: Acute Comments: Acute nondisplaced fracture of left greater trochanter femur - nonoperative fracture as per orthopedics Continue physical therapy/OT and weightbearing exercises at ECF Continue Percocet as needed for moderate to severe pain Continue Lovenox for DVT prophylaxis Qualifiers: Encounter type: initial encounter Fracture type: closed Laterality: left Qualified Code(s): S72.002A - Fracture of unspecified part of neck of left femur, initial encounter for closed fracture (2) UTI (urinary tract infection) Priority: Primary Status: Acute Comments: Urine tract infection present on admission, pansensitive Escherichia coli in cultures - IV Rocephin given in hospital Discharged to [facility] on Levaquin Qualifiers: Qualified Code(s): N39.0 - Urinary tract infection, site not specified (3) Urinary retention Priority: Primary Status: Acute Comments: Urinary retention likely secondary to neurogenic bladder Continue Watson catheter at the ECF, continue Flomax Follow-up with Dr. Gelacio Bullard, urology in 1-2 weeks (4) Diabetes mellitus Priority: Secondary Status: Chronic Comments: Diabetes mellitus type 2, [id number], hyperglycemia Continue usual home dose of metformin, glipizide and pioglitazone Qualifiers: Diabetes mellitus type: type 2 Diabetes mellitus complication status: without complication Diabetes mellitus [facility] insulin use: without [facility] use Qualified Code(s): E11.9 - Type 2 diabetes mellitus without complications (5) HTN (hypertension) Priority: Secondary Status: Chronic Comments: Essential hypertension, controlled, monitor Continue home dose of atenolol and lisinopril Qualifiers: Hypertension type: essential hypertension Qualified Code(s): I10 - Essential (primary) hypertension (6) Allergic blepharitis Priority: Secondary Status: Chronic Comments: Patient has history of chronic allergic blepharitis Continue home meds Qualifiers: Laterality: unspecified laterality Qualified Code(s): H01.119 - Allergic dermatitis of unspecified eye, unspecified eyelid (7) DVT prophylaxis Priority: Secondary Status: Acute Comments: Continue Lovenox subcutaneous for 10 days - Discharge Medications Prescriptions: RX: OxyCODONE/APAP 5/325 [Percocet 5/325 MG] 1 each PO Q4HR PRN #10 tab PRN Reason: Moderate Pain RX: Enoxaparin [Lovenox] 40 mg SQ 0600 10 Days RX: levoFLOXacin [Levaquin] 750 mg PO DAILY 7 Days RX: Tamsulosin [Flomax] 0.4 mg PO DAILY #30 Home Medications: RX: Albuterol Sulfate [Albuterol Inhaler] 2 puff IH QID PRN 07/09/17 [History] RX: Aspirin 325 mg PO DAILY 07/09/17 [History] RX: Atenolol 100 mg PO DAILY 07/09/17 [History] RX: Atorvastatin [Lipitor] 10 mg PO HS 07/09/17 [History] RX: Betamethasone Dipropionate 1 appl TP TID 07/09/17 [History] RX: Cyclobenzaprine [Flexeril] 10 mg PO BID 07/09/17 [History] RX: Hydrocortisone 1% CREAM [Cortaid] 1 appl TP TID 07/09/17 [History] RX: Ipratropium [ATROVENT Inhaler] 2 puff IH QID 07/09/17 [History] RX: Levothyroxine [Synthroid] 25 mcg PO 0630 07/09/17 [History] RX: Lidocaine Viscous Oral Soln 15 ml MM TID PRN 07/09/17 [History] RX: Lisinopril [Zestril] 10 mg PO DAILY 07/09/17 [History] RX: Mag Hydrox/Al Hydrox/Simeth [Antacid Suspension] 15 ml PO TID PRN 07/09/17 [ History] RX: Metformin HCl [Glucophage] 1,000 mg PO BID 07/09/17 [History] RX: MethylPREDNISolone [MethylPREDNISolone Dose Pack] 4 mg PO PER PKG DI [History] RX: Omeprazole [PriLOSEC] 40 mg PO DAILY 07/09/17 [History] RX: Pioglitazone [Actos] 30 mg PO DAILY 07/09/17 [History] RX: Polyvinyl Alcohol [Artificial Tears] 1 drop OP QID PRN 07/09/17 [History] RX: Potassium Chloride [K-Tab ER] 20 meq PO DAILY 07/09/17 [History] RX: Rabeprazole Sodium [Aciphex] 20 mg PO DAILY 07/09/17 [History] RX: Simethicone [Gas-X] 80 mg PO QID PRN 07/09/17 [History] RX: Triamcinolone Acet 0.1% OINT [Kenalog] 1 appl TP BID PRN 07/09/17 [History] RX: Triamterene/Hydrochlorothiazid [Triamterene-Hctz 75-50 mg Tab] 1 each PO DAILY 07/09/17 [History] RX: glipiZIDE [Glucotrol] 5 mg PO 0800 07/09/17 [History] RX: hydrOXYzine pamoate [HydrOXYzine Pamoate] 25 mg PO QID PRN 07/09/17 [History ] RX: Enoxaparin [Lovenox] 40 mg SQ 0600 10 Days 07/15/17 [Rx] RX: Ipratropium/Albuterol Neb [Duoneb] 3 ml IH [id number] inh 07/15/17 [Rx] RX: Ofloxacin OPTH Drops [Ocuflox] 2 drop LEFT EYE Q4HR bottle 07/15/17 [Rx] RX: OxyCODONE/APAP 5/325 [Percocet 5/325 MG] 1 each PO Q4HR PRN #10 tab [Rx] RX: Tamsulosin [Flomax] 0.4 mg PO DAILY #30 07/15/17 [Rx] RX: levoFLOXacin [Levaquin] 750 mg PO DAILY 7 Days 07/15/17 [Rx] Allergies/Adverse Reactions: 3 Allergy/AdvReac Type Severity Reaction Status Date / Time chlorhexidine AdvReac See Verified 07/09/17 20:13 Comments gabapentin AdvReac See Verified 07/09/17 20:13 Comments Date of admission: 07/09/17 19:32 [facility] care physician: [facility] Consults: 07/09/17 21:57 Consult to Occupational Therapy [CONS] Routine Comment: Evaluate, develop and implement POC Reason for Consult: Undergoing hip surgery and will likely need placement postoperatively Consult to Physical Therapy [CONS] Routine Comment: Evaluate, develop and implement POC Reason for Consult: Undergoing hip surgery and will likely need placement postoperatively Consult to Quality Internship [CONS] Routine Reason for SW Consult: Undergoing hip surgery and will likely need placement postoperatively 07/10/17 07:43 Consult to Nutrition [CONS] Routine Comment: Consulting Provider: NUTRITION Reason for Dietary Consult: MST Score 07/11/17 07:47 Consult to Urology [CONS] Routine Consulting Provider: Urologlarry Tean Reason for Consult: Urinary retention Call Completed: Yes Anticipated date of discharge: 07/15/17 - Patient Status Disposition: Transfer SNF Condition: Fair Functional capacity at discharge: uses cane/walker Overall status at discharge: patient is progressing back to baseline - Discharge Instructions Follow Up With: [facility],PCP [Primary Care Provider] - Gautam Nagy MD [Partnered Physician] - Gelacio Bullard MD [Partnered Physician] - Additional Instructions: - Continue physical therapy and weightbearing exercises at the ECF - Follow up with orthopedics as outpatient - Continue Watson catheter at ECF - Follow up with urology in 1-2 weeks - Continue Lovenox for DVT prophylaxis for 10 days - Return if symptoms worsen - Diet and Activity Activity: as per physical therapy, increase activity as tolerated Diet: advance to your usual diet Hospital course: Mr. Manzo is a 87 year old male with past medical history of diabetes, hypothyroidism, hypertension and GERD. He presented as a direct admit after a fall. Patient apparently fell striking his knee and thigh area. He was found to have a nondisplaced left femur greater trochanter fracture. Orthopedics has evaluated the patient and stated that the fracture is nonoperative. Can be treated conservatively with weightbearing exercises and physical therapy. They advised pain control. Patient also has multiple episodes of urinary retention in the past. He has undergone a cystoscopy at the [facility] which did not demonstrate any outlet obstruction. Urology has evaluated the patient. There is no evidence of BPH. Patient likely has a neurogenic bladder. The patient has been advised to continue Watson catheter. If the catheter is bothersome patient can undergo intermittent catheterization. Flomax has been continued. Patient does have chronic allergic blepharitis. Has been advised to continue home medications. Patient also has a UTI, with cultures positive for pansensitive Escherichia coli. He is being discharged with Levaquin. He is also advised continue his regular home medications for diabetes. Patient has not had any other acute events or complications during his stay in the hospital. He is tolerating oral diet well. He requires assistance for ambulation. Patient and have been explained about his condition and plan of care in detail. They understood and agreed. No unanswered questions. Patient is being discharged to the ECF in stable condition. Advised to return if symptoms worsen. - Time Spent with Patient Total time spent providing and/or coordinating discharge services: Greater than 30 minutes - Constitutional Vitals: Temp Pulse Resp BP Pulse Ox 97.4 F L 74 20 134/80 94 07/15/17 10:42 07/15/17 10:42 07/15/17 10:42 07/15/17 10:42 07/15/17 10:42 General appearance: Present: cooperative, A&O X 3, pleasant, no acute distress, answers questions appropriately - Head Head exam: Present: atraumatic - Eye Eye exam: Present: EOMI Additional comments: Blepharitis of both eyes - ENT ENT exam: Present: mucous membranes moist - Respiratory Respiratory exam: Present: CTAB. Absent: rales, rhonchi, wheezes, tachypnea - Cardiovascular Cardiovascular exam: Present: RRR, +S1, +S2 - GI/Abdominal GI/Abdominal exam: Present: soft. Absent: distended, firm, guarding, tenderness - Extremities Exam Extremities exam: Present: radial pulses palpable and symmetrical. Absent: calf tenderness, cyanotic, pedal edema Additional comments: Limited ROM in left hip secondary to pain due to fracture - Neurological Exam Neurological exam: Present: alert, oriented X3, no focal deficits. Absent: facial droop, speech deficit - VTE Documentation of Mechanical Device: Intermittent pneumatic compression device
--- NOTE | 2017-07-15 14:03 | Physician Discharge Referral ---
ExtendedCare Referral Info Provider in Charge after Transfer: PCP Institutional Level of Care: Skilled - Diagnosis (1) Fracture of hip Priority: Primary Status: Acute (2) UTI (urinary tract infection) Priority: Primary Status: Acute (3) Urinary retention Priority: Primary Status: Acute (4) Diabetes mellitus Priority: Secondary Status: Chronic (5) HTN (hypertension) Priority: Secondary Status: Chronic (6) Allergic blepharitis Priority: Secondary Status: Chronic (7) DVT prophylaxis Priority: Secondary Status: Acute - Transfer Medications Prescriptions: OxyCODONE/APAP 5/325 [Percocet 5/325 MG] 1 each PO Q4HR PRN #10 tab PRN Reason: Moderate Pain Enoxaparin [Lovenox] 40 mg SQ 0600 10 Days levoFLOXacin [Levaquin] 750 mg PO DAILY 7 Days Tamsulosin [Flomax] 0.4 mg PO DAILY #30 Home Medications: Albuterol Sulfate [Albuterol Inhaler] 2 puff IH QID PRN 07/09/17 [History] Aspirin 325 mg PO DAILY 07/09/17 [History] Atenolol 100 mg PO DAILY 07/09/17 [History] Atorvastatin [Lipitor] 10 mg PO HS 07/09/17 [History] Betamethasone Dipropionate 1 appl TP TID 07/09/17 [History] Cyclobenzaprine [Flexeril] 10 mg PO BID 07/09/17 [History] Hydrocortisone 1% CREAM [Cortaid] 1 appl TP TID 07/09/17 [History] Ipratropium [ATROVENT Inhaler] 2 puff IH QID 07/09/17 [History] Levothyroxine [Synthroid] 25 mcg PO 0630 07/09/17 [History] Lidocaine Viscous Oral Soln 15 ml MM TID PRN 07/09/17 [History] Lisinopril [Zestril] 10 mg PO DAILY 07/09/17 [History] Mag Hydrox/Al Hydrox/Simeth [Antacid Suspension] 15 ml PO TID PRN 07/09/17 [ History] Metformin HCl [Glucophage] 1,000 mg PO BID 07/09/17 [History] MethylPREDNISolone [MethylPREDNISolone Dose Pack] 4 mg PO PER PKG DI 07/09/17 [ History] Omeprazole [PriLOSEC] 40 mg PO DAILY 07/09/17 [History] Pioglitazone [Actos] 30 mg PO DAILY 07/09/17 [History] Polyvinyl Alcohol [Artificial Tears] 1 drop OP QID PRN 07/09/17 [History] Potassium Chloride [K-Tab ER] 20 meq PO DAILY 07/09/17 [History] Rabeprazole Sodium [Aciphex] 20 mg PO DAILY 07/09/17 [History] Simethicone [Gas-X] 80 mg PO QID PRN 07/09/17 [History] Triamcinolone Acet 0.1% OINT [Kenalog] 1 appl TP BID PRN 07/09/17 [History] Triamterene/Hydrochlorothiazid [Triamterene-Hctz 75-50 mg Tab] 1 each PO DAILY 07/09/17 [History] glipiZIDE [Glucotrol] 5 mg PO 0800 07/09/17 [History] hydrOXYzine pamoate [HydrOXYzine Pamoate] 25 mg PO QID PRN 07/09/17 [History] Enoxaparin [Lovenox] 40 mg SQ 0600 10 Days 07/15/17 [Rx] Ipratropium/Albuterol Neb [Duoneb] 3 ml IH [id number] inh 07/15/17 [Rx] Ofloxacin OPTH Drops [Ocuflox] 2 drop LEFT EYE Q4HR bottle 07/15/17 [Rx] OxyCODONE/APAP 5/325 [Percocet 5/325 MG] 1 each PO Q4HR PRN #10 tab 07/15/17 [Rx ] Tamsulosin [Flomax] 0.4 mg PO DAILY #30 07/15/17 [Rx] levoFLOXacin [Levaquin] 750 mg PO DAILY 7 Days 07/15/17 [Rx] Allergies/Adverse Reactions: 3 Allergy/AdvReac Type Severity Reaction Status Date / Time chlorhexidine AdvReac See Verified 07/09/17 20:13 Comments gabapentin AdvReac See Verified 07/09/17 20:13 Comments - Respiratory Orders Smoking Cessation: Smoking cessation has been advised. For more information, call the [place] Tobacco Quit Line at 1-302-MOXE-NOW. - Lab Orders Lab Orders: CBC - Ancillary Orders May use pressure relief devices daily prn, May go on OLESYA w/family/respon republican w /meds at nurse discretion PRN - Advance Directives Code Status: Full Code - Mobility Orders Ambulate - Rehabiliation Orders Rehab Orders: ROM Exercises, Evaluation for Physical Therapy, Evaluation for Occupational Therapy - Treatments Skin tear care topically daily PRN per policy - Diet Orders Regular (Diabetic diet) CERTIFICATION: I certify that the transfer of the above named patient to an Extended Care Facility is necessary for the continuing treatment of the diagnosis listed. The above information is true and accurate reflection of patient's current condition. Confidential - Redisclosure prohibited without a patient's written consent.
[2017-07-15 16:16] VITALS: BP 146/68
== END 2017-07-15 17:20 | DRG 536 ==
LOC: EDBD → EMEROO 13:32 → SUATTDRO 19:32 → 3NENU 19:32
PROVIDERS: ADMIT Internal Medicine; ATTEND Family Medicine

== ENCOUNTER 2017-07-22 18:00 | Inpatient (IN) ==
[2017-07-22] MEDS ORDERED: 0.9 % Sodium Chloride 1,000 ML IVC ONE ×2 (18:09→19:15)
--- NOTE | 2017-07-22 18:12 | Emergency Department Note ---
Disposition Clinical Impression: Encephalopathy acute, Weakness, Hypoglycemia Leukocytosis Qualifiers: Leukocytosis type: unspecified Qualified Code(s): D72.829 - Elevated white blood cell count, unspecified UTI (urinary tract infection) Qualifiers: Urinary tract infection type: catheter-associated UTI Indwelling urinary catheter type: indwelling urethral catheter Encounter type: subsequent encounter Qualified Code(s): T83.511D - Infection and inflammatory reaction due to indwelling urethral catheter, subsequent encounter; N39.0 - Urinary tract infection, site not specified Disposition: Still a Patient Condition: Serious Referrals: NONE,PCP [Primary Care Provider] - Forms: ED Satisfaction Letter Altered Mental Status HPI - General Chief Complaint: ED Recheck/Abnormal Lab/Rx Stated Complaint: High WBC count Time Seen by Provider: 07/22/17 18:04 Source: EMS Mode of arrival: EMS Limitations: altered mental status, age Nursing Notes Reviewed: Yes Vital Signs Reviewed: Yes - History of Present Illness HPI Narrative: 87-year-old male with diabetes, hypertension, recent left hip fracture 2016 who presents with altered mental status, and a leukocytosis of 25,000 from the nursing facility. He has an indwelling Sales catheter, he is unable to give a history only of history from EMS. The patient is a limited historian, he denies any chest or abdominal pain, when asked where he is He says "I am at home right?". Denies CP or Abd Pain. I spoke with the nurse at the nursing facility [facility], they state that the patient was acting differently throughout the afternoon generalized weakness no focal deficits but started saying odd things, he recently completed a course of Levaquin for UTI, he was hypoglycemic with a blood sugar of 56 and the given glucagon and this improved but they did not give me a rechecked sugar , they got the results back from his CBC and saw white blood cell count 25,000 elected to send to the ER for further eval at the request of the facility physician. His left Hip fx was non operative and he had no cough, hemoptysis or leg swelling at the facility. MD complaint: altered mental status, confusion Onset (ago): hour(s) - Related Data Home Medications Medication Instructions Recorded Confirmed Albuterol Sulfate [Albuterol 2 puff IH QID PRN 07/09/17 07/09/17 Inhaler] Aspirin 325 mg PO DAILY 07/09/17 07/09/17 Atenolol 100 mg PO DAILY 07/09/17 07/09/17 Atorvastatin [Lipitor] 10 mg PO HS 07/09/17 07/09/17 Betamethasone Dipropionate 1 appl TP TID 07/09/17 07/09/17 Cyclobenzaprine [Flexeril] 10 mg PO BID 07/09/17 07/09/17 Hydrocortisone 1% CREAM [Cortaid] 1 appl TP TID 07/09/17 07/09/17 Ipratropium [ATROVENT Inhaler] 2 puff IH QID 07/09/17 07/09/17 Levothyroxine [Synthroid] 25 mcg PO 0630 07/09/17 07/09/17 Lidocaine Viscous Oral Soln 15 ml MM TID PRN 07/09/17 07/09/17 Lisinopril [Zestril] 10 mg PO DAILY 07/09/17 07/09/17 Mag Hydrox/Al Hydrox/Simeth 15 ml PO TID PRN 07/09/17 07/09/17 [Antacid Suspension] Metformin HCl [Glucophage] 1,000 mg PO BID 07/09/17 07/09/17 MethylPREDNISolone 4 mg PO PER PKG DI 07/09/17 07/09/17 [MethylPREDNISolone Dose Pack] Omeprazole [PriLOSEC] 40 mg PO DAILY 07/09/17 07/09/17 Pioglitazone [Actos] 30 mg PO DAILY 07/09/17 07/09/17 Polyvinyl Alcohol [Artificial 1 drop OP QID PRN 07/09/17 07/09/17 Tears] Potassium Chloride [K-Tab ER] 20 meq PO DAILY 07/09/17 07/09/17 Rabeprazole Sodium [Aciphex] 20 mg PO DAILY 07/09/17 07/09/17 Simethicone [Gas-X] 80 mg PO QID PRN 07/09/17 07/09/17 Triamcinolone Acet 0.1% OINT 1 appl TP BID PRN 07/09/17 07/09/17 [Kenalog] Triamterene/Hydrochlorothiazid 1 each PO DAILY 07/09/17 07/09/17 [Triamterene-Hctz 75-50 mg Tab] glipiZIDE [Glucotrol] 5 mg PO 0800 07/09/17 07/09/17 hydrOXYzine pamoate [HydrOXYzine 25 mg PO QID PRN 07/09/17 07/09/17 Pamoate] Previous Rx's Medication Instructions Recorded Enoxaparin [Lovenox] 40 mg SQ 0600 10 Days 07/15/17 Ipratropium/Albuterol Neb [Duoneb] 3 ml IH [id number] inh 07/15/17 Ofloxacin OPTH Drops [Ocuflox] 2 drop LEFT EYE Q4HR bottle 07/15/17 OxyCODONE/APAP 5/325 [Percocet 1 each PO Q4HR PRN #10 tab 07/15/17 5/325 MG] Tamsulosin [Flomax] 0.4 mg PO DAILY #30 07/15/17 levoFLOXacin [Levaquin] 750 mg PO DAILY 7 Days 07/15/17 Allergies Allergy/AdvReac Type Severity Reaction Status Date / Time chlorhexidine AdvReac See Verified 07/09/17 20:13 Comments gabapentin AdvReac See Verified 07/09/17 20:13 Comments Limitations: ROS unobtainable due to patients medical condition Past Medical History - Past Medical History Source: old records reviewed, obtained from family, nursing notes reviewed Medical history: Reports: diabetes, hypertension Surgical history: Reports: cholecystectomy Psychiatric history: Reports: no psych history - Social History Smoking Status: Former smoker Smokeless Tobacco Status: No Alcohol use: Reports: none Drug use: Reports: none Physical Exam - General Limitations: altered mental status, age General appearance: lethargic - Head Head exam: atraumatic - Eye Eye exam: Present: normal appearance - ENT ENT exam: mucous membranes dry - Neck Neck exam: Present: normal inspection, full ROM - Chest Chest inspection: Present: normal inspection - Respiratory Respiratory exam: Present: normal lung sounds bilaterally - Cardiovascular Cardiovascular exam: Present: regular rate, normal rhythm - Abdominal Exam Abdominal exam: Present: soft, Non-Tender. Absent: tenderness, guarding - Male exam: Present: other (sales placed) - Expanded Lower Extremity Exam Hip/Pelvis exam: Present: tenderness (L Hip) Neurovascular/Tendon exam: Present: normal capillary refill. Absent: pulse deficit - Neurological Exam Neurological exam: Present: CN II-XII intact. Absent: oriented X3 (to self), normal gait (not tested 2/2 hip Fx) - Expanded Neurological Exam Coma Scale Eye Opening: Spontaneous Coma Scale Motor Response: Obeys Commands Coma Scale Verbal Response: Confused Coma Scale Total: 14 - Skin Skin exam: Present: other (Poor Turgor) Course Course Narrative: 87-year-old male with leukocytosis confusion and altered mental status, recent UTI plan to initiate septic workup initial blood pressure was 93/58 however he does not meet other SIRS criteria his white count was 25,000 and he had a recent UTI and new confusion, patient will likely be a readmission, ordered a CBC CMP, troponin EKG basic labs chest x-ray urinalysis head CT 1 L fluid bolus plan to treat with empiric broad-spectrum antibiotics after blood cultures and lactate. - Reevaluation(s) Reevaluation #1: Diane [phone] Reevaluation #2: Initially ordered Accu-Chek, the patient to CT scan, after returning from CT scan Accu-Chek read 56 this time we ordered a Of dextrose and 125 mL per hour of D5 half NS. Will recheck accucheck at sign out. Time: 18:49 Vital Signs Temperature 98.1 F 07/22/17 18:12 Pulse Rate 82 07/22/17 18:12 Respiratory Rate 17 07/22/17 18:12 Blood Pressure 121/69 07/22/17 18:12 O2 Sat by Pulse Oximetry 96 07/22/17 18:12 Temperature 98.1 F 07/22/17 18:12 Pulse Rate 82 07/22/17 18:12 Respiratory Rate 17 07/22/17 18:12 Blood Pressure 121/69 07/22/17 18:12 O2 Sat by Pulse Oximetry 98 07/22/17 18:12 Oxygen Delivery Oxygen Delivery Nasal Cannula Altered Mental Status - Medical Records Medical records reviewed: Yes I reviewed the patient's medical records. - EKG Data EKG attestation: Yes I reviewed and interpreted this EKG. EKG shows normal: sinus rhythm (80 bpm SC 148 QRS 81 QTc [address] segment elevations or depressions.) Q waves: III, aVF Interpretation: unchanged when compared to prior tracing (date) - Core Measures AMI Core Measures Followed: No TPA Checklist - LKW: 3-4.5 hrs Add. Warnings/Precautions Patient/family understanding: The patient/family members have been counseled and understood the risk, benefit , and alternatives of treatment. Heidi - Heidi Transition of Care: Pending Labs and Imaging, admission. Situation: Demographics, MOA Background: Presenting Complaint, Relevant PMH, Meds, & Allergies Assessment: Vital Signs, Course and respsone to treatment, Exam Concerns, Patient/Family Expectation, Pertinant Lab Results, Outstanding Labs Recommendation: Barrier(s) to disposition, Recommendation based on pending studies, treatments, or consults Heidi Report Given to: Rosalba Gordon Repor Time: 18:39
--- NOTE | 2017-07-22 18:17 | Emergency Department Note ---
START Narrative - START START: I examined this patient and my medical decision-making was reviewed with the Resident Physician. I agree with the documented findings, disposition and treatment plan as described except to the extent set forth below. Male patient with possible sepsis and pneumonia following hip fracture. Plan for full septic workup and admission for further evaluation.
[2017-07-22 18:31] LABS: Bilirubin,Urine Small (Negative); Blood,Urine Large (Negative); Clarity,Urine Turbid (Clear); Color,Urine Yellow (Yellow); Glucose,Urine (UA) Normal (Normal); Ketones,Urine Negative (Negative); Leukocyte Esterase,Urine Trace (Negative); Nitrite,Urine Negative (Negative); PH,Urine 5.5 pH Units (5.0-8.0); Protein,Urine 100 mg/dL (Neg-Trace); Specific Gravity,Urine 1.021 (1.010-1.025); Urobilinogen,Urine Normal (Normal)
[2017-07-22] MEDS ORDERED: Piperacillin/Tazobactam 3.375 GM in D5% in Water (Mini-Bag+) 100 ML IVPB ONE (18:31)
[2017-07-22 18:33] LABS: Squamous Epithelial Cell,Urine Many per lpf (None-Few); WBC,Urine 15-30 per hpf (0-3)
[2017-07-22 18:46] LABS: Basophils # 0.2 K/mcL (0.0-0.2); Eosinophils # 1.1 K/mcL (0.0-0.6); Eosinophils % 4.4 %; Hematocrit 44.9 % (37.5-50.1); Hemoglobin 14.2 g/dL (12.9-16.9); Immature Granulocytes % 3.2 % (0-4); Lymphocytes # 1.9 K/mcL (0.6-4.6); Lymphocytes % 7.8 %; Mean Corpuscular HGB Conc 31.6 g/dL (31.6-35.5); Mean Corpuscular Hemoglobin 28.8 pg (28.0-33.3); Mean Corpuscular Volume 91.1 fL (83.0-100.0); Mean Platelet Volume 10.3 fL (9.4-12.4); Monocytes # 2.5 K/mcL (0.0-1.3); Monocytes % 10.3 %; Neutrophils # 17.8 K/mcL (1.6-8.9); Platelet Count 378 K/mcL (140-400); Red Blood Count 4.93 M/mcL (4.19-5.50); Segmented Neutrophils % 73.3 %
[2017-07-22] MEDS ORDERED: *HR* Dextrose 50 % in Water (Syg) 50 ML SYRINGE IVP ONE (18:47)
[2017-07-22 18:51] LABS: INR 1.2
[2017-07-22 18:52] LABS: Amorphous Sediment,Urine Few (Few); Bacteria,Urine Few per hpf (None-Few); Hyaline Casts,Urine Few per lpf (None-Few); RBC,Urine 15-30 per hpf (0-3)
[2017-07-22 18:53] LABS: Activated Partial Thrombo Time 28.5 Seconds (26.0-36.0)
[2017-07-22] MEDS ORDERED: *HR* Dextrose 50 % in Water (Syg) 50 ML SYRINGE ONE (18:53)
[2017-07-22] MEDS: D5% in 0.45% NACL 1,000 ML IVC SCH (18:56)
[2017-07-22 19:00] LABS: Magnesium 0.8 mg/dL (1.6-2.6); Phosphorous 3.2 mg/dL (2.3-4.7)
--- NOTE | 2017-07-22 19:17 | Emergency Department Note ---
Disposition Clinical Impression: Encephalopathy acute, Weakness, Hypoglycemia, Hyperkalemia, Elevated troponin Leukocytosis Qualifiers: Leukocytosis type: unspecified Qualified Code(s): D72.829 - Elevated white blood cell count, unspecified UTI (urinary tract infection) Qualifiers: Urinary tract infection type: catheter-associated UTI Indwelling urinary catheter type: indwelling urethral catheter Encounter type: subsequent encounter Qualified Code(s): T83.511D - Infection and inflammatory reaction due to indwelling urethral catheter, subsequent encounter Sepsis Qualifiers: Sepsis type: sepsis due to unspecified organism Qualified Code(s): A41.9 - Sepsis, unspecified organism Disposition: Admitted As Inpatient Condition: Fair General Adult HPI - General Chief complaint: ED Recheck/Abnormal Lab/Rx Stated complaint: High WBC count Time Seen by Provider: 07/22/17 18:04 Source: EMS Mode of arrival: EMS Limitations: altered mental status, age - History of Present Illness HPI Narrative: Patient was signed out by the prior provider. Please see their history and physical for complete documentation. Pain Scale: 0 - Related Data Home Medications Medication Instructions Recorded Confirmed Albuterol Sulfate [Albuterol 2 puff IH QID PRN 07/09/17 07/22/17 Inhaler] Aspirin 325 mg PO DAILY 07/09/17 07/22/17 Atenolol 100 mg PO DAILY 07/09/17 07/22/17 Atorvastatin [Lipitor] 10 mg PO HS 07/09/17 07/22/17 Cyclobenzaprine [Flexeril] 10 mg PO BID 07/09/17 07/22/17 Levothyroxine [Synthroid] 25 mcg PO 0630 07/09/17 07/22/17 Lisinopril [Zestril] 10 mg PO DAILY 07/09/17 07/22/17 Mag Hydrox/Al Hydrox/Simeth 15 ml PO TID PRN 07/09/17 07/22/17 [Antacid Suspension] Metformin HCl [Glucophage] 1,000 mg PO BID 07/09/17 07/22/17 Omeprazole [PriLOSEC] 40 mg PO BID 07/09/17 07/22/17 Pioglitazone [Actos] 30 mg PO DAILY 07/09/17 07/22/17 Polyvinyl Alcohol [Artificial 2 drop OP QID PRN 07/09/17 07/22/17 Tears] Potassium Chloride [K-Tab ER] 20 meq PO DAILY 07/09/17 07/22/17 Simethicone [Gas-X] 80 mg PO QID PRN 07/09/17 07/22/17 Triamterene/Hydrochlorothiazid 1 each PO DAILY 07/09/17 07/22/17 [Triamterene-Hctz 75-50 mg Tab] glipiZIDE [Glucotrol] 5 mg PO 0800 07/09/17 07/22/17 hydrOXYzine pamoate [HydrOXYzine 25 mg PO QID PRN 07/09/17 07/22/17 Pamoate] Insulin LISPRO [HumaLOG] 2 - 12 unit SQ ACHS 07/22/17 07/22/17 Ipratropium/Albuterol Neb [Duoneb] 3 ml IH Q4H PRN 07/22/17 07/22/17 Naproxen [Naprosyn] 500 mg PO BID PRN 07/22/17 07/22/17 Previous Rx's Medication Instructions Recorded Enoxaparin [Lovenox] 40 mg SQ 0600 10 Days 07/15/17 Ofloxacin OPTH Drops [Ocuflox] 2 drop LEFT EYE Q4HR bottle 07/15/17 OxyCODONE/APAP 5/325 [Percocet 1 each PO Q4HR PRN #10 tab 07/15/17 5/325 MG] Tamsulosin [Flomax] 0.4 mg PO DAILY #30 07/15/17 Allergies Allergy/AdvReac Type Severity Reaction Status Date / Time chlorhexidine AdvReac See Verified 07/09/17 20:13 Comments gabapentin AdvReac See Verified 07/09/17 20:13 Comments Past Medical History - Past Medical History Medical history: Reports: diabetes, hypertension Surgical history: Reports: cholecystectomy Psychiatric history: Reports: no psych history - Social History Smoking Status: Former smoker Smokeless Tobacco Status: No Alcohol use: Reports: none Drug use: Reports: none Physical Exam - General Limitations: altered mental status, age General appearance: lethargic Course Course Narrative: Patient was recently evaluated for hip fracture. Patient was sent in from a nursing facility for leukocytosis and concerns for infection. As noted the patient to be sepsis with source likely with the indwelling Watson. Noted to be pansensitive. Recently completed Levaquin. - Reevaluation(s) Reevaluation #1: History chronic back elevated. Patient got a repeat EKG which shows normal sinus rhythm without any acute ST or T-wave changes. Patient denying in any chest pain. Elevated troponin likely secondary to patient's infection. Time: 20:04 Reevaluation #2: Patient's potassium came back elevated. Patients receiving calcium as well as bicarbonate and albuterol. Patient is also receiving Kayexalate. Patient does not have any EKG changes. Time: 20:36 Reevaluation #3: Patient became very combative with staff while attempting to place a second IV. Patient will be medicated appropriately for agitation. Is given Haldol and Ativan. Time: 20:42 Additional Reevaluation(s): Patient's blood sugar was low. Patient was given an amp of D50. - Consultations Consultation #1: Patient seen and examined initially upon arrival. Patient noted to be a poor historian. Denying any this time. She was found to be hypoglycemic with a blood glucose of 56. Likely secondary to sepsis. Patient was given an amp of D50 as well as started on a maintenance. Patients receiving 2 L IV fluid. Time: 19:20 Vital Signs Temperature 98.1 F 07/22/17 18:12 Pulse Rate 82 07/22/17 18:12 Respiratory Rate 17 07/22/17 18:12 Blood Pressure 121/69 07/22/17 18:12 O2 Sat by Pulse Oximetry 96 07/22/17 18:12 Temperature 98.9 F 07/23/17 03:47 Pulse Rate 97 07/23/17 03:47 Respiratory Rate 16 07/23/17 03:59 Blood Pressure 88/47 07/23/17 03:47 O2 Sat by Pulse Oximetry 100 07/23/17 05:03 Oxygen Delivery Oxygen Delivery Nasal Cannula Medical Decision Making - [facility] Narrative Medical decision making narrative: 87-year-old male presented for concerns of altered mental status from [place]. Patient does have a recent hip fracture diagnosed back in 2016. Evaluated by worse though and was nonoperative. Patient did have an indwelling Watson catheter placed. Patient did have a leukocytosis and concerns for sepsis. Patient sources likely in the urine. Patient was started on antibiotics and fluids by the prior provider. Patient does have a history of diabetes and hypertension and has had episodes of hypoglycemia treated with dextrose as well as started on a maintenance. She is denying any chest pain but is a poor story. Patient's labs showed that he has a urinary tract infection which was pansensitive in the past. Patient was started on Zosyn. Patient did have an elevated troponin likely secondary to overwhelming infection. Patient had repeat EKGs which showed no acute abnormalities. Patient was given aspirin rectally. Patient's head CT shows no acute intracranial pathology. Patient's chest x-ray does not show any signs of infection. Patient will be admitted to the hospital service for further care and monitoring. There is no family at bedside to provide any additional history. Patient was given Ativan and Haldol due to agitation. Patient has 2 peripheral IVs with IV fluids running. Patient received 2 IV fluid liter boluses. Concerns about fluid overload in a 7-year-old gentleman with unknown heart history and elevated troponin. Patient will need gradual fluid hydration and not immediately get to 30 mL/kg bolus because of elevated troponin and unknown heart function. Patient also treated for hyperkalemia with Kayexalate as well as albuterol and bicarbonate. Patient was also given calcium. She has had a most recent bedside glucose which was normal. Patient will be admitted to hospitalist for continued evaluation and monitoring. - Lab Data Lab results reviewed: Yes I reviewed the patient's lab results. Result diagrams: 07/23/17 01:26 07/23/17 01:26 Lab Results 07/22/17 07/22/17 07/22/17 Range/Units 18:21 18:30 18:38 WBC 24.4 H (4.3-11.1) K/mcL RBC 4.93 (4.19-5.50) M/mcL Hgb 14.2 (12.9-16.9) g/dL Hct 44.9 (37.5-50.1) % MCV 91.1 (83.0-100.0) fL MCH 28.8 (28.0-33.3) pg MCHC 31.6 (31.6-35.5) g/dL RDW 13.0 (11.5-14.5) % Plt Count 378 (140-400) K/mcL MPV 10.3 (9.4-12.4) fL Immature Gran % 3.2 (0-4) % Seg Neutrophils % 73.3 % Lymphocytes % 7.8 % Monocytes % 10.3 % Eosinophils % 4.4 % Basophils % 1.0 % Neutrophils # 17.8 H (1.6-8.9) K/mcL Lymphocytes # 1.9 (0.6-4.6) K/mcL Monocytes # 2.5 H (0.0-1.3) K/mcL Eosinophils # 1.1 H (0.0-0.6) K/mcL Basophils # 0.2 (0.0-0.2) K/mcL PT (9.4-12.1) Seconds INR APTT (26.0-36.0) Seconds Sodium 137 (136-145) mEq/L Potassium 7.1 H* (3.5-4.5) mEq/L Chloride 106 (98-109) mEq/L Carbon Dioxide 21 (19-29) mEq/L BUN 49 H (8-26) mg/dL Creatinine 1.81 H (0.72-1.25) mg/dL Est GFR ( Amer) 43 L (> 60) Est GFR (Non-Af Amer) 36 L (> 60) BUN/Creatinine Ratio 27 H (6-26) Glucose 37 L* (70-99) mg/dL POC Glucose (58-89) Calculated Osmolality 294 (280-300) Lactic Acid (0.5-2.2) mmol/L Calcium 9.3 (8.6-10.8) mg/dL Phosphorus (2.3-4.7) mg/dL Magnesium (1.6-2.6) mg/dL Total Bilirubin (0.2-1.2) mg/dL AST (5-34) Units/L ALT (0-55) Units/L Alkaline Phosphatase (38-126) Units/L Troponin I (0-0.03) ng/mL B-Natriuretic Peptide (0-100) pg/mL Serum Total Protein (6.0-8.3) g/dL Albumin (3.5-5.0) g/dL Globulin (2.4-3.5) g/dL Albumin/Globulin Ratio (1.1-2.2) Lipase (8-78) Units/L Urine Color Yellow (Yellow) Urine Clarity Turbid A (Clear) Urine pH 5.5 (5.0-8.0) pH Units Ur Specific [place] 1.021 (1.010-1.025) Urine Protein 100 H (Neg-Trace) mg/dL Urine Glucose (UA) Normal (Normal) mg/dL Urine Ketones Negative (Negative) mg/dL Urine Blood Large H (Negative) Urine Nitrite Negative (Negative) Urine Bilirubin Small H (Negative) Urine Urobilinogen Normal (Normal) mg/dL Ur Leukocyte Esterase Trace H (Negative) Urine Microscopic RBC 15-30 H (0-3) per hpf Urine Microscopic WBC 15-30 H (0-3) per hpf Ur Squamous Epith Cells Many H (None-Few) per lpf Amorphous Sediment Few (Few) Urine Bacteria Few (None-Few) per hpf Hyaline Casts Few (None-Few) per lpf Ur Culture Indicated? YES A (NO) Specimen Rejected 07/22/17 07/22/17 07/22/17 Range/Units 18:38 18:38 18:38 WBC (4.3-11.1) K/mcL RBC (4.19-5.50) M/mcL Hgb (12.9-16.9) g/dL Hct (37.5-50.1) % MCV (83.0-100.0) fL MCH (28.0-33.3) pg MCHC (31.6-35.5) g/dL RDW (11.5-14.5) % Plt Count (140-400) K/mcL MPV (9.4-12.4) fL Immature Gran % (0-4) % Seg Neutrophils % % Lymphocytes % % Monocytes % % Eosinophils % % Basophils % % Neutrophils # (1.6-8.9) K/mcL Lymphocytes # (0.6-4.6) K/mcL Monocytes # (0.0-1.3) K/mcL Eosinophils # (0.0-0.6) K/mcL Basophils # (0.0-0.2) K/mcL PT 13.0 H (9.4-12.1) Seconds INR 1.2 APTT 28.5 (26.0-36.0) Seconds Sodium 134 L (136-145) mEq/L Potassium 7.0 H* (3.5-4.5) mEq/L Chloride 105 (98-109) mEq/L Carbon Dioxide 19 (19-29) mEq/L BUN 49 H (8-26) mg/dL Creatinine 1.71 H (0.72-1.25) mg/dL Est GFR ( Amer) 46 L (> 60) Est GFR (Non-Af Amer) 38 L (> 60) BUN/Creatinine Ratio 29 H (6-26) Glucose 49 L (70-99) mg/dL POC Glucose (58-89) Calculated Osmolality 288 (280-300) Lactic Acid 2.3 H (0.5-2.2) mmol/L Calcium 9.2 (8.6-10.8) mg/dL Phosphorus 3.2 (2.3-4.7) mg/dL Magnesium 0.8 L (1.6-2.6) mg/dL Total Bilirubin 0.3 (0.2-1.2) mg/dL AST 26 (5-34) Units/L ALT 21 (0-55) Units/L Alkaline Phosphatase 109 (38-126) Units/L Troponin I (0-0.03) ng/mL B-Natriuretic Peptide (0-100) pg/mL Serum Total Protein 7.5 (6.0-8.3) g/dL Albumin 3.2 L (3.5-5.0) g/dL Globulin 4.3 H (2.4-3.5) g/dL Albumin/Globulin Ratio 0.7 L (1.1-2.2) Lipase 141 H (8-78) Units/L Urine Color (Yellow) Urine Clarity (Clear) Urine pH (5.0-8.0) pH Units Ur Specific [place] (1.010-1.025) Urine Protein (Neg-Trace) mg/dL Urine Glucose (UA) (Normal) mg/dL Urine Ketones (Negative) mg/dL Urine Blood (Negative) Urine Nitrite (Negative) Urine Bilirubin (Negative) Urine Urobilinogen (Normal) mg/dL Ur Leukocyte Esterase (Negative) Urine Microscopic RBC (0-3) per hpf Urine Microscopic WBC (0-3) per hpf Ur Squamous Epith Cells (None-Few) per lpf Amorphous Sediment (Few) Urine Bacteria (None-Few) per hpf Hyaline Casts (None-Few) per lpf Ur Culture Indicated? (NO) Specimen Rejected 07/22/17 07/22/17 07/22/17 Range/Units 18:38 18:38 18:47 WBC (4.3-11.1) K/mcL RBC (4.19-5.50) M/mcL Hgb (12.9-16.9) g/dL Hct (37.5-50.1) % MCV (83.0-100.0) fL MCH (28.0-33.3) pg MCHC (31.6-35.5) g/dL RDW (11.5-14.5) % Plt Count (140-400) K/mcL MPV (9.4-12.4) fL Immature Gran % (0-4) % Seg Neutrophils % % Lymphocytes % % Monocytes % % Eosinophils % % Basophils % % Neutrophils # (1.6-8.9) K/mcL Lymphocytes # (0.6-4.6) K/mcL Monocytes # (0.0-1.3) K/mcL Eosinophils # (0.0-0.6) K/mcL Basophils # (0.0-0.2) K/mcL PT (9.4-12.1) Seconds INR APTT (26.0-36.0) Seconds Sodium (136-145) mEq/L Potassium (3.5-4.5) mEq/L Chloride (98-109) mEq/L Carbon Dioxide (19-29) mEq/L BUN (8-26) mg/dL Creatinine (0.72-1.25) mg/dL Est GFR ( Amer) (> 60) Est GFR (Non-Af Amer) (> 60) BUN/Creatinine Ratio (6-26) Glucose (70-99) mg/dL POC Glucose 56 L (58-89) Calculated Osmolality (280-300) Lactic Acid (0.5-2.2) mmol/L Calcium (8.6-10.8) mg/dL Phosphorus (2.3-4.7) mg/dL Magnesium (1.6-2.6) mg/dL Total Bilirubin (0.2-1.2) mg/dL AST (5-34) Units/L ALT (0-55) Units/L Alkaline Phosphatase (38-126) Units/L Troponin I 0.46 H* (0-0.03) ng/mL B-Natriuretic Peptide 15 (0-100) pg/mL Serum Total Protein (6.0-8.3) g/dL Albumin (3.5-5.0) g/dL Globulin (2.4-3.5) g/dL Albumin/Globulin Ratio (1.1-2.2) Lipase (8-78) Units/L Urine Color (Yellow) Urine Clarity (Clear) Urine pH (5.0-8.0) pH Units Ur Specific [place] (1.010-1.025) Urine Protein (Neg-Trace) mg/dL Urine Glucose (UA) (Normal) mg/dL Urine Ketones (Negative) mg/dL Urine Blood (Negative) Urine Nitrite (Negative) Urine Bilirubin (Negative) Urine Urobilinogen (Normal) mg/dL Ur Leukocyte Esterase (Negative) Urine Microscopic RBC (0-3) per hpf Urine Microscopic WBC (0-3) per hpf Ur Squamous Epith Cells (None-Few) per lpf Amorphous Sediment (Few) Urine Bacteria (None-Few) per hpf Hyaline Casts (None-Few) per lpf Ur Culture Indicated? (NO) Specimen Rejected 07/22/17 07/22/17 07/22/17 Range/Units 21:15 21:20 22:30 WBC (4.3-11.1) K/mcL RBC (4.19-5.50) M/mcL Hgb (12.9-16.9) g/dL Hct (37.5-50.1) % MCV (83.0-100.0) fL MCH (28.0-33.3) pg MCHC (31.6-35.5) g/dL RDW (11.5-14.5) % Plt Count (140-400) K/mcL MPV (9.4-12.4) fL Immature Gran % (0-4) % Seg Neutrophils % % Lymphocytes % % Monocytes % % Eosinophils % % Basophils % % Neutrophils # (1.6-8.9) K/mcL Lymphocytes # (0.6-4.6) K/mcL Monocytes # (0.0-1.3) K/mcL Eosinophils # (0.0-0.6) K/mcL Basophils # (0.0-0.2) K/mcL PT (9.4-12.1) Seconds INR APTT (26.0-36.0) Seconds Sodium (136-145) mEq/L Potassium (3.5-4.5) mEq/L Chloride (98-109) mEq/L Carbon Dioxide (19-29) mEq/L BUN (8-26) mg/dL Creatinine (0.72-1.25) mg/dL Est GFR ( Amer) (> 60) Est GFR (Non-Af Amer) (> 60) BUN/Creatinine Ratio (6-26) Glucose (70-99) mg/dL POC Glucose 117 H (58-89) Calculated Osmolality (280-300) Lactic Acid 4.6 H* (0.5-2.2) mmol/L Calcium (8.6-10.8) mg/dL Phosphorus (2.3-4.7) mg/dL Magnesium (1.6-2.6) mg/dL Total Bilirubin (0.2-1.2) mg/dL AST (5-34) Units/L ALT (0-55) Units/L Alkaline Phosphatase (38-126) Units/L Troponin I (0-0.03) ng/mL B-Natriuretic Peptide (0-100) pg/mL Serum Total Protein (6.0-8.3) g/dL Albumin (3.5-5.0) g/dL Globulin (2.4-3.5) g/dL Albumin/Globulin Ratio (1.1-2.2) Lipase (8-78) Units/L Urine Color (Yellow) Urine Clarity (Clear) Urine pH (5.0-8.0) pH Units Ur Specific [place] (1.010-1.025) Urine Protein (Neg-Trace) mg/dL Urine Glucose (UA) (Normal) mg/dL Urine Ketones (Negative) mg/dL Urine Blood (Negative) Urine Nitrite (Negative) Urine Bilirubin (Negative) Urine Urobilinogen (Normal) mg/dL Ur Leukocyte Esterase (Negative) Urine Microscopic RBC (0-3) per hpf Urine Microscopic WBC (0-3) per hpf Ur Squamous Epith Cells (None-Few) per lpf Amorphous Sediment (Few) Urine Bacteria (None-Few) per hpf Hyaline Casts (None-Few) per lpf Ur Culture Indicated? (NO) Specimen Rejected Hemolyzed - Radiology Data Radiology results reviewed: Yes I reviewed the patient's radiology results. Chest X-Ray 07/22/17 18:09 IMPRESSION: No acute cardiopulmonary process. D/ / Nicola Allen MD / Nicola Allen MD Interpreting Provider: Nicola Allen MD Head CT 07/22/17 18:12 IMPRESSION: No acute intracranial hemorrhage or mass effect. Remote appearing ischemic changes and diffuse atrophy as detailed above. D/ / Gerson Avina MD / Gerson Avina MD Interpreting Provider: Gerson Avina MD - EKG Data EKG #1 EKG attestation: Yes I reviewed and interpreted this EKG. EKG shows normal: sinus rhythm Rate: normal Rhythm: NSR [place]/QRS: normal Q waves: III, aVR, v1 T wave inversions noted in: aVR When compared to previous EKG there are: no significant changes Interpretation: no acute changes Critical Care Time Critical Care Time: Yes Total Critical Care Time: 65 Attestation: The high probability of a clinically significant, sudden or life threatening deterioration of the 65 system(s) required my full and direct attention, intervention and personal management. The aggregate critical care time was 65 minutes. This time is in addition to time spent performing reported procedures but includes the following: x Data Review and interpretation x Patient assessment and monitoring of vital signs x Documentation x Medication orders and management S.B.A.R. - S.B.A.RDarren Situation: Demographics Background: Presenting Complaint Assessment: Vital Signs, Course and respsone to treatment, Patient/Family Expectation Recommendation: Barrier(s) to disposition, Recommendation based on pending studies, treatments, or consults S.B.A.RDarren Report Given to: Dr. Scott S.B.ASue Repor Time: 21:04 Attestation Statement - Attestation Attestation: I, Jhonatan Crawford, examined this patient and my medical decision-making was reviewed with the SMALL LOT OPERATOR/PA/Advanced Practice Nurse/Resident Physician. I agree with the documented findings, disposition and treatment plan as described except to the extent set forth below. 87-year-old male received in sign out at 7 PM pending laboratory evaluation and imaging studies. Patient was recently admitted to the hospital after a hip fracture and for a urinary tract infection within the past week. Patient is likely septic today secondary to persistent urinary tract infection. CT of his head was negative for acute fracture or intracranial hemorrhage. Patient has a lactic acidosis. +elevated potassium, patient given sodium bicarbonate and calcium gluconate in the emergency department for his hyperkalemia. Patient also had an elevated troponin of 0.46, this is likely secondary to ischemic demand the setting of likely urinary sepsis. Patient was given aspirin in the emergency department but was not started on heparin. Patient became agitated at one point during his emergency stay, he was given Haldol and Ativan for his safety as he was trying to get out of bed with a history of a hip fracture. Patient's altered mental status likely secondary to his urinary tract infection. Patient admitted to the hospital for further care and evaluation of his sepsis, hyperkalemia, elevated troponin
[2017-07-22 20:24] LABS: Albumin 3.2 g/dL (3.5-5.0); Albumin/Globulin Ratio 0.7 (1.1-2.2); Bilirubin,Total 0.3 mg/dL (0.2-1.2); Calcium 9.2 mg/dL (8.6-10.8); Globulin 4.3 g/dL (2.4-3.5); Total Protein 7.5 g/dL (6.0-8.3)
[2017-07-22] MEDS ORDERED: Calcium Gluconate 3,000 MG in D5% in Water 250 ML IVPB ONE (20:33)
[2017-07-22] MEDS ORDERED: Albuterol 2.5 MG/3 ML NEBULIZER IH ONE (20:34)
[2017-07-22] MEDS ORDERED: Sodium Bicarbonate 50 MEQ/50 ML VIAL IVP ONE (20:34)
[2017-07-22] MEDS ORDERED: Haloperidol Lactate 5 MG/ML VIAL IVP ONE (20:42)
[2017-07-22] MEDS ORDERED: *HR* LORazepam 2 MG/ML VIAL ONE (20:49)
[2017-07-22 21:12] LABS: Calcium 9.3 mg/dL (8.6-10.8)
[2017-07-22 21:14] LABS: Potassium 7.1 mEq/L (3.5-4.5)
[2017-07-22] MEDS ORDERED: *HR* Dextrose 50 % in Water (Vial) 50 ML VIAL IVP ONE (21:15)
--- NOTE | 2017-07-22 23:33 | Internal Med History&Physical ---
Date of Encounter: 07/23/17 Time of Encounter: 23:20 Assessment and Plan (1) Sepsis Current visit: Yes Status: Acute Sepsis present on admission - likely secondary to UTI, gram-negative bacilli - with acute encephalopathy and mild MOJGAN Continue IV Zosyn, IV Vancomycin, IV fluids WBC - 24.4 Lactic acid - 4.6 CT head - no acute intracranial hemorrhage or mass effect, remote-appearing ischemic changes CXR - no acute cardiopulmonary process Cardiac monitoring, continuous pulse ox, continue to monitor closely Repeat labs in a.m. Qualifiers: Sepsis type: sepsis due to unspecified organism Qualified Code(s): A41.9 - Sepsis, unspecified organism (2) Elevated troponin Current visit: Yes Status: Acute Elevated troponin - 0.72 - possibly due to sepsis - no anginal symptoms, cycle troponin EKG - sinus rhythm with no acute ST-T changes Start IV heparin standard dose, Aspirin, Zocor Cardiology consult Repeat labs in a.m., EKG in a.m. (3) Hyperkalemia Current visit: Yes Status: Acute Severe acute hyperkalemia - unclear etiology - possibly due to metabolic acidosis, MOJGAN or due to PO Potassium use IV calcium gluconate, IV insulin, rectal Kayexalate given EKG - sinus rhythm with no acute ST-T changes Repeat labs in a.m. (4) Fracture of hip Current visit: No Status: Acute Recently diagnosed Acute nondisplaced fracture of left greater trochanter femur - nonoperative fracture as per orthopedics Continue physical therapy/OT and weightbearing exercises Patient has been on Lovenox for DVT prophylaxis Qualifiers: Encounter type: initial encounter Fracture type: closed Laterality: left Qualified Code(s): S72.002A - Fracture of unspecified part of neck of left femur, initial encounter for closed fracture (5) Urinary retention Current visit: No Status: Chronic Urinary retention - secondary to neurogenic bladder Continue Watson catheter, continue Flomax Follow-up with Dr. Gelacio Bullard, urology in 1-2 weeks (6) UTI (urinary tract infection) Current visit: No Status: Acute Plan as above Qualifiers: Urinary tract infection type: acute cystitis Hematuria presence: without hematuria Qualified Code(s): N30.00 - Acute cystitis without hematuria (7) Allergic blepharitis Current visit: No Status: Chronic Chronic allergic blepharitis, continue eyedrops Qualifiers: Laterality: unspecified laterality Qualified Code(s): H01.119 - Allergic dermatitis of unspecified eye, unspecified eyelid (8) HTN (hypertension) Current visit: No Status: Chronic Qualifiers: Hypertension type: essential hypertension Qualified Code(s): I10 - Essential (primary) hypertension (9) Diabetes mellitus Current visit: No Status: Chronic Diabetes mellitus type 2, [id number], hypoglycemia Continue insulin sliding scale, glucose checks Qualifiers: Diabetes mellitus type: type 2 Diabetes mellitus complication status: without complication 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 Manzo is a 87 year old male Past Med Surg Social Fam HX - Past Medical History Medical history: diabetes, hypertension Psychiatric history: no psych history - Past Surgical History Surgical History: cholecystectomy - Social History Smoking Status: Former smoker Smokeless Tobacco Status: No Alcohol use: none Drug use: none - Family History Mother Living Status: Hx Family Endocrine Disorder: Yes (DM) Internal Medicine - H&P: Meds Albuterol Sulfate [Albuterol Inhaler] 2 puff IH QID PRN 07/09/17 [History] Aspirin 325 mg PO DAILY 07/09/17 [History] Atenolol 100 mg PO DAILY 07/09/17 [History] Atorvastatin [Lipitor] 10 mg PO HS 07/09/17 [History] Cyclobenzaprine [Flexeril] 10 mg PO BID 07/09/17 [History] Levothyroxine [Synthroid] 25 mcg PO 0630 07/09/17 [History] Lisinopril [Zestril] 10 mg PO DAILY 07/09/17 [History] Mag Hydrox/Al Hydrox/Simeth [Antacid Suspension] 15 ml PO TID PRN 07/09/17 [ History] Metformin HCl [Glucophage] 1,000 mg PO BID 07/09/17 [History] Omeprazole [PriLOSEC] 40 mg PO BID 07/09/17 [History] Pioglitazone [Actos] 30 mg PO DAILY 07/09/17 [History] Polyvinyl Alcohol [Artificial Tears] 2 drop OP QID PRN 07/09/17 [History] Potassium Chloride [K-Tab ER] 20 meq PO DAILY 07/09/17 [History] Simethicone [Gas-X] 80 mg PO QID PRN 07/09/17 [History] Triamterene/Hydrochlorothiazid [Triamterene-Hctz 75-50 mg Tab] 1 each PO DAILY 07/09/17 [History] glipiZIDE [Glucotrol] 5 mg PO 0800 07/09/17 [History] hydrOXYzine pamoate [HydrOXYzine Pamoate] 25 mg PO QID PRN 07/09/17 [History] Enoxaparin [Lovenox] 40 mg SQ 0600 10 Days 07/15/17 [Rx] Ofloxacin OPTH Drops [Ocuflox] 2 drop LEFT EYE Q4HR bottle 07/15/17 [Rx] OxyCODONE/APAP 5/325 [Percocet 5/325 MG] 1 each PO Q4HR PRN #10 tab 07/15/17 [Rx ] Tamsulosin [Flomax] 0.4 mg PO DAILY #30 07/15/17 [Rx] Insulin LISPRO [HumaLOG] 2 - 12 unit SQ ACHS 07/22/17 [History] Ipratropium/Albuterol Neb [Duoneb] 3 ml IH Q4H PRN 07/22/17 [History] Naproxen [Naprosyn] 500 mg PO BID PRN 07/22/17 [History] 3 Allergy/AdvReac Type Severity Reaction Status Date / Time chlorhexidine AdvReac See Verified 07/09/17 20:13 Comments gabapentin AdvReac See Verified 07/09/17 20:13 Comments All Systems PM: A 10-system review of systems was performed and is negative for pertinent findings except as documented above in the HPI. - Constitutional Vitals: Temp Pulse Resp BP Pulse Ox 101.4 F H 72 18 152/68 96 07/22/17 23:07 07/22/17 23:07 07/22/17 23:07 07/22/17 23:07 07/22/17 23:07 General appearance: Present: A&O X 1, mild distress. Absent: cooperative, answers questions appropriately Exam: Patient is drowsy but is arousable, does seem to be confused at times. - Head Head exam: Present: atraumatic - Eye Eye exam: Absent: scleral icterus Additional comments: Blepharitis of both eyes - ENT ENT exam: Present: mucous membranes dry - Respiratory Respiratory exam: Present: rhonchi (Mild bilateral). Absent: accessory muscle use, rales, wheezes, tachypnea - Cardiovascular Cardiovascular exam: Present: RRR, +S1, +S2 - GI/Abdominal GI/Abdominal exam: Present: soft, no peritoneal signs. Absent: distended, firm , guarding - Extremities Exam Extremities exam: Present: radial pulses palpable and symmetrical. Absent: calf tenderness, cyanotic, pedal edema - Neurological Exam Neurological exam: Present: no focal deficits. Absent: facial droop Additional comments: Patient is drowsy and confused, he is arousable. Does not verbalize well and does not follow verbal commands. Able to move all extremities. Unable to fully assess neuro status at this time Internal Med - H&P Results - Labs CBC & Chem 7: 07/23/17 01:26 07/23/17 01:26
[2017-07-23] MEDS ORDERED: Naloxone 0.4 MG/ML INJ IVP PRN (00:11)
[2017-07-23] MEDS ORDERED: *HR* Morphine 2 MG/ML SYRINGE IVP PRN ×2 (00:11→08:39)
[2017-07-23] MEDS ORDERED: Ondansetron 4 MG/2 ML VIAL IVP PRN (00:11)
[2017-07-23] MEDS ORDERED: Acetaminophen 325 MG TABLET PO PRN (00:11)
[2017-07-23] MEDS ORDERED: Artificial Tears SOLN 15 ML BOTTLE OP PRN (00:15)
[2017-07-23] MEDS ORDERED: Simethicone 80 MG TAB.CHEW PO PRN (00:15)
[2017-07-23] MEDS ORDERED: Magnesium Sulfate 2 GM in D5% in Water 100 ML IVPB ONE ×3 (00:20→15:53)
[2017-07-23 01:34] LABS: Basophils # 0.1 K/mcL (0.0-0.2); Basophils % 0.6 %; Eosinophils # 0.2 K/mcL (0.0-0.6); Eosinophils % 0.8 %; Hematocrit 39.7 % (37.5-50.1); Hemoglobin 12.9 g/dL (12.9-16.9); Immature Granulocytes % 2.6 % (0-4); Lymphocytes # 0.8 K/mcL (0.6-4.6); Lymphocytes % 3.6 %; Mean Corpuscular HGB Conc 32.5 g/dL (31.6-35.5); Mean Corpuscular Hemoglobin 29.6 pg (28.0-33.3); Mean Corpuscular Volume 91.1 fL (83.0-100.0); Mean Platelet Volume 10.4 fL (9.4-12.4); Monocytes # 1.5 K/mcL (0.0-1.3); Monocytes % 6.4 %; Neutrophils # 19.6 K/mcL (1.6-8.9); Platelet Count 288 K/mcL (140-400); Red Blood Count 4.36 M/mcL (4.19-5.50); Red Cell Distribution Width 12.9 % (11.5-14.5)
[2017-07-23 01:50] LABS: Albumin/Globulin Ratio 0.8 (1.1-2.2); Bilirubin,Total 0.4 mg/dL (0.2-1.2); Calcium 9.3 mg/dL (8.6-10.8); Globulin 3.9 g/dL (2.4-3.5); Magnesium 1.1 mg/dL (1.6-2.6); Total Protein 6.9 g/dL (6.0-8.3)
[2017-07-23 01:55] LABS: Potassium 6.8 mEq/L (3.5-4.5)
[2017-07-23] MEDS ORDERED: Heparin 25,000 UNIT/500 ML D5W 25,000 UNIT/500 ML MLS IVC SCH (02:15)
[2017-07-23] MEDS: D5% in 0.45% NACL 1,000 ML IVC SCH (02:58)
[2017-07-23] MEDS: Ipratropium/Albuterol Neb 3 ML IH SCH ×3 (03:31→07:46)
[2017-07-23] MEDS ORDERED: Vancomycin 1,500 MG in D5% in Water 250 ML IVPB ONE (05:00)
[2017-07-23] MEDS ORDERED: *HR* Enoxaparin 40 MG/0.4 ML SYRINGE SQ SCH (06:00)
[2017-07-23] MEDS ORDERED: Famotidine 20 MG/2 ML VIAL IVP SCH (06:00)
[2017-07-23] MEDS ORDERED: Vancomycin 1,000 MG in D5% in Water 250 ML IVPB SCH (06:00)
[2017-07-23] MEDS: Levothyroxine 25 MCG TABLET PO SCH (06:04)
[2017-07-23] MEDS: Ofloxacin OPTH Drops 5 ML BOTTLE LEFT EYE SCH ×6 (06:08→22:46)
[2017-07-23] MEDS ORDERED: Dextrose Gel 15 GM PO PRN ×2 (06:56)
[2017-07-23] MEDS ORDERED: D5% in Water 1,000 ML IVC PRN (06:56)
[2017-07-23] MEDS ORDERED: *HR* Dextrose 50 % in Water (Syg) 50 ML SYRINGE IVP PRN (06:56)
[2017-07-23] MEDS ORDERED: Piperacillin/Tazobactam 3.375 GM in D5% in Water (Mini-Bag+) 100 ML IVPB SCH (08:00)
[2017-07-23] MEDS ORDERED: *HR* HYDROcodone/Acet 7.5/325 mg TABLET PO PRN ×3 (08:14→08:38)
[2017-07-23] MEDS ORDERED: *HR* LORazepam 2 MG/ML VIAL ONE (08:18)
[2017-07-23] MEDS ORDERED: *HR* LORazepam 2 MG/ML VIAL IVP PRN ×2 (08:23→16:03)
[2017-07-23] MEDS ORDERED: Aspirin 325 MG TABLET PO SCH (09:00)
[2017-07-23] MEDS ORDERED: Haloperidol Lactate 5 MG/ML VIAL ONE (09:15)
[2017-07-23] MEDS ORDERED: Haloperidol Lactate 5 MG/ML VIAL IVP PRN (09:16)
--- NOTE | 2017-07-23 09:25 | Cardiology Consult Note ---
Date of Encounter: 07/23/17 Time of Encounter: 09:24 Assessment and Plan (1) Elevated troponin Current Visit: Yes Status: Acute Troponins 0.46, 0.72, 0.71 in setting of MOJGAN (creatinine 1.81 on admission, previously normal), sepsis, UTI, and hyperkalemia (K 7.2 on admission, now 6.8) . Suspect demand ischemia, nondiagnostic for ACS. Stop heparin gtt. Risk factors for CAD include HTN, DM. No documented hx of CAD. Pt has been combative and is currently sedated, so unable to obtain and symptoms. Check echo to evaluate structure and function. If no significant findings on echo, will sign off. (2) Hyperkalemia Current Visit: Yes Status: Acute K initially 7.2, 6.8 today. Management per primary team/nephrology. (3) HTN (hypertension) Current Visit: No Status: Chronic Controlled. Qualifiers: Hypertension type: essential hypertension Qualified Code(s): I10 - Essential (primary) hypertension Discussion w patient/family: The assessment and plan as outlined above was discussed with the patient and/or family members who expressed understanding and agreement. All questions were answered. Thank you for involving us in the care of your patient. Please call with any questions. I will discuss all the above with Dr. Sidhu and make changes as necessary. History of Present Illness Consult date: 07/23/17 Requesting physician: Jesse Rose Consult reason: Elevated troponin History of present illness: Mr. Manzo is a 87 year old male with documented PMH of HTN and DM that presented from [facility] due to concern of infection/leukocytosis. He had a recent hip fx. On presentation, found to have MOJGAN, sepsis secondary to UTI, hyperkalemia with K as high as 7.2, now 6.8, and elevated tropoinins. Troponins 0.46, 0.72, 0.71. Pt is sedated after receiving Ativan on my exam. Unable to obtain any information. All of the above was obtained from hospitalist H&P. Past Med Surg Social Fam HX - Past Medical History Medical history: diabetes, hypertension Psychiatric history: no psych history - Past Surgical History Surgical History: cholecystectomy - Social History Smoking Status: Former smoker Smokeless Tobacco Status: No Alcohol use: none Drug use: none - Family History Mother Living Status: Hx Family Endocrine Disorder: Yes (DM) Medications and Allergies Albuterol Sulfate [Albuterol Inhaler] 2 puff IH QID PRN 07/09/17 [History] Aspirin 325 mg PO DAILY 07/09/17 [History] Atenolol 100 mg PO DAILY 07/09/17 [History] Atorvastatin [Lipitor] 10 mg PO HS 07/09/17 [History] Cyclobenzaprine [Flexeril] 10 mg PO BID 07/09/17 [History] Levothyroxine [Synthroid] 25 mcg PO 0630 07/09/17 [History] Lisinopril [Zestril] 10 mg PO DAILY 07/09/17 [History] Mag Hydrox/Al Hydrox/Simeth [Antacid Suspension] 15 ml PO TID PRN 07/09/17 [ History] Metformin HCl [Glucophage] 1,000 mg PO BID 07/09/17 [History] Omeprazole [PriLOSEC] 40 mg PO BID 07/09/17 [History] Pioglitazone [Actos] 30 mg PO DAILY 07/09/17 [History] Polyvinyl Alcohol [Artificial Tears] 2 drop OP QID PRN 07/09/17 [History] Potassium Chloride [K-Tab ER] 20 meq PO DAILY 07/09/17 [History] Simethicone [Gas-X] 80 mg PO QID PRN 07/09/17 [History] Triamterene/Hydrochlorothiazid [Triamterene-Hctz 75-50 mg Tab] 1 each PO DAILY 07/09/17 [History] glipiZIDE [Glucotrol] 5 mg PO 0800 07/09/17 [History] hydrOXYzine pamoate [HydrOXYzine Pamoate] 25 mg PO QID PRN 07/09/17 [History] Enoxaparin [Lovenox] 40 mg SQ 0600 10 Days 07/15/17 [Rx] Ofloxacin OPTH Drops [Ocuflox] 2 drop LEFT EYE Q4HR bottle 07/15/17 [Rx] OxyCODONE/APAP 5/325 [Percocet 5/325 MG] 1 each PO Q4HR PRN #10 tab 07/15/17 [Rx ] Tamsulosin [Flomax] 0.4 mg PO DAILY #30 07/15/17 [Rx] Insulin LISPRO [HumaLOG] 2 - 12 unit SQ ACHS 07/22/17 [History] Ipratropium/Albuterol Neb [Duoneb] 3 ml IH Q4H PRN 07/22/17 [History] Naproxen [Naprosyn] 500 mg PO BID PRN 07/22/17 [History] 3 Allergy/AdvReac Type Severity Reaction Status Date / Time chlorhexidine AdvReac See Verified 07/09/17 20:13 Comments gabapentin AdvReac See Verified 07/09/17 20:13 Comments ROS unobtainable: due to mental status All Systems Review: A 10-system review of systems was performed and is negative for pertinent findings except as documented above in the HPI. Physical Examination Vital Signs, Last 4 Hours Temp Pulse Resp BP Pulse Ox 07/23/17 08:02 98.3 F 80 16 104/60 100 07/23/17 07:46 16 99 Vital Signs Temp Pulse Resp BP Pulse Ox 07/23/17 08:02 98.3 F 80 16 104/60 100 07/23/17 07:46 16 99 07/23/17 05:03 100 07/23/17 03:59 16 100 07/23/17 03:47 98.9 F 97 18 88/47 100 07/22/17 23:07 101.4 F H 72 18 152/68 96 07/22/17 21:54 20 121/98 07/22/17 21:01 30 100 07/22/17 20:33 77 18 119/69 100 07/22/17 18:50 80 17 105/58 100 07/22/17 18:12 98.1 F 81 17 117/65 98 Intake and Output 07/22/17 07/23/17 07/23/17 23:59 07:59 15:59 Intake Total 1100 / 1100 1000 / 1000 Output Total 750 / 750 775 / 775 Balance 350 / 350 225 / 225 Intake: IV Fluids 1100 / 1100 1000 / 1000 0.9 % Sodium Chloride 1, 1000 / 1000 000 ML @ 3750 mls/hr IVC .Q16M ONE Rx#:[id number] D5% And 0.45% Nacl 1000 1000 / 1000 Ml Bag 1,000 ML @ 125 mls /hr IVC .Q8H STANISLAV Rx#: [id number] Zosyn 3.375 GM In 100 / 100 Dextrose 5% (Minibag+) 100 ML 100 ML @ 25 mls/hr IVPB ONCE ONE Rx#: [id number] Output: Urine 0 / 0 Urethral (Watson) 0 / 0 Catheter 750 / 750 775 / 775 Other: Stool Size Large Stool Consistency liquid Stool Color Brown # Bowel Movement Diapers 1 Weight 81.5 kg Blood Glucose* 144 296 General: No Apparent Distress, Other (sedated) HEENT: Atraumatic, Normocephaly, Mucus Membranes Moist Neck: No JVD, Normal carotid pulses Cardiac: Reg Rate and Rhythm, Normal S1 and S2, No Murmur Lungs: Other (coarse) Neuro: Other (sedated) Abdomen: Soft, Non-Tender Skin: No rashes noted on visualized skin Musculoskeletal: No Chest Wall Tenderness Extremities: No Clubbing, No Cyanosis, No Edema, Normal Pulses Results 07/23/17 01:26 07/23/17 06:58 Lab Results 07/23/17 07/23/17 07/23/17 01:26 01:26 01:26 WBC 22.7 H Hgb 12.9 Hct 39.7 Plt Count 288 Sodium 134 L Potassium 6.8 H* Chloride 105 Carbon Dioxide 19 BUN 38 H D Creatinine 1.55 H Glucose 232 H Calcium 9.3 Magnesium 1.1 L Total Bilirubin 0.4 AST 24 ALT 20 Alkaline Phosphatase 100 Troponin I 0.72 H* 07/23/17 06:58 WBC Hgb Hct Plt Count Sodium Potassium Chloride Carbon Dioxide BUN Creatinine Glucose Calcium Magnesium Total Bilirubin AST ALT Alkaline Phosphatase Troponin I 0.71 H* - EKG Interpretation EKG results cardiology: personally reviewed (SR, no significant change from prior), other (12 hr tele AVG HR 98, SR, no significant pauses or arrhythmias) Consult Discharge Plan - Plan Referrals: NONE,PCP [Primary Care Provider] -
[2017-07-23] MEDS: 0.9 % Sodium Chloride 1,000 ML IVC SCH ×2 (09:27→17:36)
--- NOTE | 2017-07-23 09:47 | Nephrology Consult Note ---
Date of Encounter: 07/23/17 Time of Encounter: 09:44 Assessment and Plan (1) MOJGAN (acute kidney injury) Current Visit: Yes Status: Acute Will need more Kayexalate and IVF. He is too altered for oral Kayexalate, so I' ve had to order it per rectum. Hold the TEOFILO -- it was ordered but the floor RN said he has not received. If he were to be more still, then the IVF need to be started. Often correction of a pre-renal MOJGAN will help with hyperkalemia. Dose renally cleared Rx by GFR Will follow with you. Thank you. (2) Encephalopathy acute Current Visit: Yes Status: Acute (3) Hyperkalemia Current Visit: Yes Status: Acute (4) HTN (hypertension) Current Visit: No Status: Chronic Qualifiers: Hypertension type: essential hypertension Qualified Code(s): I10 - Essential (primary) hypertension History of Present Illness - Reason for Consult Consult date: 07/23/17 end stage renal disease Requesting physician: Avery Nash - Chief Complaint AMS, MOJGAN, Hyperkalemia - History of Present Illness 87 year old male with a pmh of HTN, DM and et al who presented from [facility] due to concern of infection/leukocytosis and was found to have an MOJGAN, sepsis secondary to UTI, hyperkalemia and elevated tropoinins. Nephrology was consulted for the MOJGAN and hyperkalemia. The pt had severe AMS and there was no family present, thus limiting any further HPI. I reviewed the progress notes, labs, meds, vitals and imaging. He has received on 15gm of Kayexalate per rectum thus far. Past Med Surg Social Fam HX - Past Medical History Medical history: diabetes, hypertension Psychiatric history: no psych history - Past Surgical History Surgical History: cholecystectomy - Social History Smoking Status: Former smoker Smokeless Tobacco Status: No Alcohol use: none Drug use: none - Family History Mother Living Status: Hx Family Endocrine Disorder: Yes (DM) Medications and Allergies Albuterol Sulfate [Albuterol Inhaler] 2 puff IH QID PRN 07/09/17 [History] Aspirin 325 mg PO DAILY 07/09/17 [History] Atenolol 100 mg PO DAILY 07/09/17 [History] Atorvastatin [Lipitor] 10 mg PO HS 07/09/17 [History] Cyclobenzaprine [Flexeril] 10 mg PO BID 07/09/17 [History] Levothyroxine [Synthroid] 25 mcg PO 0630 07/09/17 [History] Lisinopril [Zestril] 10 mg PO DAILY 07/09/17 [History] Mag Hydrox/Al Hydrox/Simeth [Antacid Suspension] 15 ml PO TID PRN 07/09/17 [ History] Metformin HCl [Glucophage] 1,000 mg PO BID 07/09/17 [History] Omeprazole [PriLOSEC] 40 mg PO BID 07/09/17 [History] Pioglitazone [Actos] 30 mg PO DAILY 07/09/17 [History] Polyvinyl Alcohol [Artificial Tears] 2 drop OP QID PRN 07/09/17 [History] Potassium Chloride [K-Tab ER] 20 meq PO DAILY 07/09/17 [History] Simethicone [Gas-X] 80 mg PO QID PRN 07/09/17 [History] Triamterene/Hydrochlorothiazid [Triamterene-Hctz 75-50 mg Tab] 1 each PO DAILY 07/09/17 [History] glipiZIDE [Glucotrol] 5 mg PO 0800 07/09/17 [History] hydrOXYzine pamoate [HydrOXYzine Pamoate] 25 mg PO QID PRN 07/09/17 [History] Enoxaparin [Lovenox] 40 mg SQ 0600 10 Days 07/15/17 [Rx] Ofloxacin OPTH Drops [Ocuflox] 2 drop LEFT EYE Q4HR bottle 07/15/17 [Rx] OxyCODONE/APAP 5/325 [Percocet 5/325 MG] 1 each PO Q4HR PRN #10 tab 07/15/17 [Rx ] Tamsulosin [Flomax] 0.4 mg PO DAILY #30 07/15/17 [Rx] Insulin LISPRO [HumaLOG] 2 - 12 unit SQ ACHS 07/22/17 [History] Ipratropium/Albuterol Neb [Duoneb] 3 ml IH Q4H PRN 07/22/17 [History] Naproxen [Naprosyn] 500 mg PO BID PRN 07/22/17 [History] 3 Allergy/AdvReac Type Severity Reaction Status Date / Time chlorhexidine AdvReac See Verified 07/09/17 20:13 Comments gabapentin AdvReac See Verified 07/09/17 20:13 Comments Review of Systems ROS unobtainable: due to mental status All Systems: reviewed and no additional remarkable complaints except as stated Exam - Vital Signs Vital signs: Initial Vital Signs Temp Pulse Resp BP Pulse Ox 98.1 F 82 17 121/69 96 07/22/17 18:12 07/22/17 18:12 07/22/17 18:12 07/22/17 18:12 07/22/17 18:12 Vital Signs - Last 8 Hours Temp Pulse Resp BP Pulse Ox 07/23/17 08:02 98.3 F 80 16 104/60 100 07/23/17 07:46 16 99 07/23/17 05:03 100 07/23/17 03:59 16 100 07/23/17 03:47 98.9 F 97 18 88/47 100 Intake and Output 07/22/17 07/23/17 07/23/17 23:59 07:59 15:59 Intake Total 1000 / 1000 Output Total 775 / 775 Balance 225 / 225 Intake: IV Fluids 1000 / 1000 D5% And 0.45% Nacl 1000 1000 / 1000 Ml Bag 1,000 ML @ 125 mls /hr IVC .Q8H STANISLAV Rx#: [id number] Output: Urine 0 / 0 Urethral (Watson) 0 / 0 Catheter 775 / 775 Other: Stool Size Large Stool Consistency liquid Stool Color Brown # Bowel Movement Diapers 1 Blood Glucose* 296 - General Appearance General appearance: well-developed, appears started age, moderate distress, chronically ill, anxious EENT: mucous membranes dry (visibly from across the room) Additional Comments: Pt was too combative/altered and swinging his arms, thus limiting the exam. Additional Comments: Pt was too combative/altered and swinging his arms, thus limiting the exam. Additional Comments: Pt was too combative/altered and swinging his arms, thus limiting the exam. Gastrointestinal: normoactive bowel sounds, no tenderness, no guarding, no organomegaly Additional Comments: Pt was too combative/altered and swinging his arms, thus limiting the exam. Neurologic: disoriented Additional Comments: Pt was too combative/altered and swinging his arms, thus limiting the exam. Psychiatric: agitated Results - Lab Results 07/23/17 01:26 07/23/17 17:29 Most recent lab results Calcium 9.3 mg/dL (8.6-10.8) 07/23/17 01:26 Phosphorus 3.2 mg/dL (2.3-4.7) 07/22/17 18:38 Magnesium 1.1 mg/dL (1.6-2.6) L 07/23/17 01:26 The above data madera were reviewed, and I reviewed progress notes, labs, meds, vitals, I/Os and imaging. Consult Discharge Plan - Plan Referrals: NONE,PCP [Primary Care Provider] - (patient is from [facility])
[2017-07-23] MEDS ORDERED: *HR* LORazepam 2 MG/ML VIAL IVP ONE (10:05)
[2017-07-23] MEDS ORDERED: Insulin LISPRO 300 UNITS/3 ML VIAL SQ SCH (12:00)
--- NOTE | 2017-07-23 15:02 | Electrocardiograph Report ---
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
--- NOTE | 2017-07-23 15:02 | Electrocardiograph Report ---
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
--- NOTE | 2017-07-23 15:04 | Electrocardiograph Report ---
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
--- NOTE | 2017-07-23 15:19 | Internal Med Progress Note ---
<CleojoaquinGregg gibbons - Last Filed: 07/23/17 15:16> Date of Encounter: 07/23/17 Time of Encounter: 08:00 - Assessment and plan (1) Septic shock Current Visit: Yes Status: Acute Assessment and plan: - Emergency department, patient had a white blood cell count of 24.4, fever of 101.4 overnight, lactic acid of 4.6 - Has received fluids, vancomycin and Zosyn - Further management as below - Patient not currently meeting SIRS criteria. Not tachypnic, tachycardic, lactic acid of 1.3. WBC count remains elevated at 22.7 - Possible sources include urine, pneumonia - Blood cultures, urine cultures pending (2) Encephalopathy acute Current Visit: Yes Status: Acute Assessment and plan: - Patient presented with acute encephalopathy with combative behavior, agitated - Noncooperative on exam, unable to assess alertness and orientation - Likely etiology is infection given leukocytosis. Other possibilities include acute coronary syndrome, acute kidney injury - Management as below (3) Leukocytosis Current Visit: Yes Status: Acute Assessment and plan: - WBC of 24.4 in emergency department, this morning of 22.7 -Likely etiologies include infection versus reactive. - Lactic acid of 4.6 emergency department, this morning of 1.3 - Urinalysis reveals small leukocyte esterase with microscopic WBC and culture pending - Chronic indwelling Villeda catheter secondary to neurogenic bladder, was recently treated for UTI with levofloxacin per admission notes. - Blood cultures pending - Chest x-ray negative for pneumonia in [facility] department - Continue vancomycin and Zosyn Qualifiers: Leukocytosis type: bandemia Qualified Code(s): D72.825 - Bandemia (4) Elevated troponin Current Visit: Yes Status: Acute Assessment and plan: - Troponin of 0.46 department, trended to 0.72, 0.71 - Cardiology consulted, most likely demand ischemia in combination with acute kidney injury with hyperkalemia - Recommending stopping heparin drip, will obtain an echocardiogram to examine structure and function - Pending results (5) Fracture of hip Current Visit: Yes Status: Chronic Assessment and plan: - Documented fracture of left hip on 07/09/17. Per orthopedic notes nonoperable - Continue management as documented - Physical therapy and occupational therapy once more cooperative Qualifiers: Encounter type: subsequent encounter Fracture type: closed Laterality: left Fracture healing: with routine healing Qualified Code(s): S72.002D - Fracture of unspecified part of neck of left femur, subsequent encounter for closed fracture with routine healing (6) Hyperkalemia Current Visit: Yes Status: Acute Assessment and plan: - Potassium on admission was 7.1. He received calcium gluconate, insulin, Kayexalate - No EKG changes noted - unable to obtain complaints of chest pain - Repeats potassium reveal downtrending to 6.8, most recently 5.9 - Per nephrology, recommends rectal Kayexalate - We will continue to monitor (7) MOJGAN (acute kidney injury) Current Visit: Yes Status: Acute Assessment and plan: - No history of chronic kidney disease - BUN/creatinine on admission was 49/1.81. Repeat labs this morning revealed 38 /1.55 - Possible etiologies include dehydration, hypoperfusion - Nephrology consulted, appreciate recommendations - Continue rectal Kayexalate, IV fluids, correct potassium, renally adjust medications (8) Diabetes mellitus Current Visit: Yes Status: Chronic Assessment and plan: - Blood sugar of 232,A1c of 8.1% most recently - Sliding Scale insulin - Patient was noted to be hypoglycemic emergency department, was started on D5 half-normal saline. We have changed to normal saline fluids - Continue to monitor Qualifiers: Diabetes mellitus type: type 2 Diabetes mellitus complication status: without complication Diabetes mellitus intermediate manager insulin use: without alf use Qualified Code(s): E11.9 - Type 2 diabetes mellitus without complications (9) Urinary retention Current Visit: No Status: Chronic Assessment and plan: - History of urinary retention secondary to neurogenic bladder per chart review - Villeda Catheter in place - Sees Dr. Mack Bullard as outpatient (10) HTN (hypertension) Current Visit: No Status: Chronic Assessment and plan: - BP this morning was 104/60 - Medication as pressure allows Qualifiers: Hypertension type: essential hypertension Qualified Code(s): I10 - Essential (primary) hypertension (11) DVT prophylaxis Current Visit: No Status: Acute Assessment and plan: SCDs - Time Spent With Patient 25 - 35 minutes - Subjective Interval history: Patient was seen and examined at bedside this morning. During time of interview , patient was very agitated and combative. He repeatedly stated and was yelling that he wants to leave and to "do not keep me here". He was unable to express his complaints at this time, and was not oriented or alert to person, place or time. He was attempting to get up and walk out of bed and broken left hip, and also grabbing at his IV lines and Villeda catheter. He was given 2 mg of Ativan and 5 mg of Haldol which was successful in calming him and putting him to sleep. - Constitutional Vitals: Temp Pulse Resp BP Pulse Ox 97.4 F L 74 17 95/64 100 07/23/17 13:35 07/23/17 13:35 07/23/17 13:35 07/23/17 13:35 07/23/17 13:35 General appearance: Present: A&O X 1, mild distress. Absent: cooperative, answers questions appropriately Exam: Limited physical exam findings secondary to noncooperation, combative attitude Gen.: Vitals noted. Apparent distress with combative and agitated attitude. Unable to assess mentation due to noncooperation HEENT: PERRL/EOMI, oropharynx clear, Normocephalic, atraumatic Cardiac: RRR, no murmur, +S1/S2 Pulmonary: CTA bilaterally, no wheezes, rales or rhonchi, equal chest expansion Abdomen: soft, nontender, BS noted, no guarding MSK: ROM intact, no joint swelling noted Extremities: no BLE edema, nontender calf, no cyanosis or clubbing Neuro: moves all extremities including left leg, no focal deficits Psych: Confused, combative Internal Medicine: Result - Labs CBC & Chem 7: 07/23/17 01:26 07/23/17 06:58 Labs: Short CBC 07/23/17 Range/Units 01:26 WBC 22.7 H (4.3-11.1) K/mcL Hgb 12.9 (12.9-16.9) g/dL Hct 39.7 (37.5-50.1) % Plt Count 288 (140-400) K/mcL Neutrophils # 19.6 H (1.6-8.9) K/mcL BMP 07/23/17 07/23/17 01:26 06:58 Sodium 134 L Potassium 6.8 H* 5.9 H Chloride 105 Carbon Dioxide 19 BUN 38 H D Creatinine 1.55 H Glucose 232 H Calcium 9.3 Cardiac Enzymes 07/23/17 07/23/17 07/23/17 Range/Units 01:26 06:58 13:03 Troponin I 0.72 H* 0.71 H* 0.63 H* (0-0.03) ng/mL Liver Function 07/23/17 Range/Units 01:26 Total Bilirubin 0.4 (0.2-1.2) mg/dL AST 24 (5-34) Units/L ALT 20 (0-55) Units/L Alkaline Phosphatase 100 (38-126) Units/L Albumin 3.0 L (3.5-5.0) g/dL - ABG Interpretation ABG results: PT/INR, D-dimer PT 13.0 Seconds (9.4-12.1) H 07/22/17 18:38 Consult Discharge Plan - Plan Referrals: NONE,PCP [Primary Care Provider] - (patient is from [facility]) <Avery Nash - Last Filed: 07/23/17 18:48> Date of Encounter: 07/23/17 - Assessment and plan (1) Acute metabolic encephalopathy Current Visit: Yes Status: Acute (2) Septic shock Current Visit: Yes Status: Acute (3) Hyperkalemia Current Visit: Yes Status: Acute (4) UTI (urinary tract infection) Current Visit: Yes Status: Suspected Assessment and plan: Present on admission. Qualifiers: Urinary tract infection type: catheter-associated UTI Indwelling urinary catheter type: indwelling urethral catheter Encounter type: subsequent encounter Qualified Code(s): T83.511D - Infection and inflammatory reaction due to indwelling urethral catheter, subsequent encounter; N39.0 - Urinary tract infection, site not specified (5) Diabetes mellitus Current Visit: Yes Status: Chronic Qualifiers: Diabetes mellitus type: type 2 Diabetes mellitus complication status: without complication Diabetes mellitus intermediate manager insulin use: without intermediate manager use Qualified Code(s): E11.9 - Type 2 diabetes mellitus without complications (6) Urinary retention Current Visit: No Status: Chronic (7) Fracture of hip Current Visit: Yes Status: Chronic Qualifiers: Encounter type: subsequent encounter Fracture type: closed Laterality: left Fracture healing: with routine healing Qualified Code(s): S72.002D - Fracture of unspecified part of neck of left femur, subsequent encounter for closed fracture with routine healing - Constitutional Vitals: Temp Pulse Resp BP Pulse Ox 97.4 F L 106 19 161/68 90 07/23/17 17:41 07/23/17 17:41 07/23/17 17:41 07/23/17 17:41 07/23/17 17:41 Internal Medicine: Result - Labs CBC & Chem 7: 07/23/17 01:26 07/23/17 17:29 Labs: Short CBC 07/23/17 Range/Units 01:26 WBC 22.7 H (4.3-11.1) K/mcL Hgb 12.9 (12.9-16.9) g/dL Hct 39.7 (37.5-50.1) % Plt Count 288 (140-400) K/mcL Neutrophils # 19.6 H (1.6-8.9) K/mcL BMP 07/23/17 07/23/17 07/23/17 01:26 06:58 17:29 Sodium 134 L 137 Potassium 6.8 H* 5.9 H 4.8 H D Chloride 105 106 Carbon Dioxide 19 22 BUN 38 H D 23 D Creatinine 1.55 H 1.26 H Glucose 232 H 221 H Calcium 9.3 8.9 Cardiac Enzymes 07/23/17 07/23/17 07/23/17 Range/Units 01:26 06:58 13:03 Troponin I 0.72 H* 0.71 H* 0.63 H* (0-0.03) ng/mL Liver Function 07/23/17 07/23/17 Range/Units 01:26 17:29 Total Bilirubin 0.4 (0.2-1.2) mg/dL AST 24 (5-34) Units/L ALT 20 (0-55) Units/L Alkaline Phosphatase 100 (38-126) Units/L Albumin 3.0 L 2.9 L (3.5-5.0) g/dL - ABG Interpretation ABG results: PT/INR, D-dimer PT 13.0 Seconds (9.4-12.1) H 07/22/17 18:38 - Attending Attestation I examined this patient and my medical decision-making was reviewed with the Resident Physician on 07/23/17. I agree with the documented findings, disposition and treatment plan as described except to the extent set forth below. Mr. Manzo is currently admitted for acute septic shock and encephalopathy. He remains high risk due to continued confusion and agitation as well as infectious issues. Mr Manzo has been agitated intermittently today. He relaxes with Ativan. No fever or chills. Exam Alert but very restless Mucus membranes dry Heart reg No wheeze abd soft No edema I/P 1. Septic shock 2. Encephalopathy Further diagnoses and plan as above.
[2017-07-23] MEDS: Insulin LISPRO 300 UNITS/3 ML VIAL SQ SCH ×2 (15:37→18:03)
[2017-07-23] MEDS: Aspirin Enteric Coated 325 MG Tablet PO SCH (15:37)
[2017-07-23] MEDS: Piperacillin/Tazobactam 3.375 GM in D5% in Water (Mini-Bag+) 100 ML IVPB SCH (15:42)
[2017-07-23 18:00] LABS: BUN/Creatinine Ratio 18 (6-26); Calcium 8.9 mg/dL (8.6-10.8); Carbon Dioxide 22 mEq/L (19-29); Chloride 106 mEq/L (98-109); Glucose 221 mg/dL (70-99); Osmolality,Calculated 294 (280-300); Sodium 137 mEq/L (136-145); eGFR For African Americans > 60 (> 60); eGFR For Non-African Americans 54 (> 60)
[2017-07-23 18:07] LABS: Blood Urea Nitrogen 23 mg/dL (8-26); Potassium 4.8 mEq/L (3.5-4.5)
[2017-07-23 18:18] LABS: Albumin 2.9 g/dL (3.5-5.0); Phosphorous 3.5 mg/dL (2.3-4.7)
[2017-07-23] MEDS ORDERED: Vancomycin 750 MG in D5% in Water 250 ML IVPB ONE (19:00)
[2017-07-24 01:04] LABS: Hematocrit 41.1 % (37.5-50.1); Hemoglobin 12.5 g/dL (12.9-16.9); Mean Corpuscular HGB Conc 30.4 g/dL (31.6-35.5); Mean Corpuscular Hemoglobin 28.7 pg (28.0-33.3); Mean Corpuscular Volume 94.3 fL (83.0-100.0); Mean Platelet Volume 10.5 fL (9.4-12.4); Platelet Count 318 K/mcL (140-400); Red Blood Count 4.36 M/mcL (4.19-5.50); Red Cell Distribution Width 12.9 % (11.5-14.5)
[2017-07-24 01:17] LABS: ABG Base Excess -6.6 mEq/L (-2.0 to 3.0); ABG HCO3 22 mEq/L (21-27); ABG Oxygen Saturation 100 % (95-98); ABG PCO2 58 mmHg (35-45); ABG PO2 280 mmHg (85-104)
[2017-07-24 01:18] LABS: ABG PH 7.19 pH Units (7.32-7.45); Blood Gas FiO2 100 %
[2017-07-24 01:18] LABS: BUN/Creatinine Ratio 17 (6-26); Blood Urea Nitrogen 21 mg/dL (8-26); Carbon Dioxide 20 mEq/L (19-29); Chloride 104 mEq/L (98-109); Sodium 137 mEq/L (136-145)
[2017-07-24 01:19] LABS: Glucose 357 mg/dL (70-99); Osmolality,Calculated 301 (280-300); eGFR For African Americans > 60 (> 60); eGFR For Non-African Americans 55 (> 60)
[2017-07-24 01:21] LABS: Calcium 10.4 mg/dL (8.6-10.8)
[2017-07-24 01:23] LABS: Eosinophils # 0.7 K/mcL (0.0-0.6); Lymphocytes # 2.9 K/mcL (0.6-4.6); Monocytes # 1.5 K/mcL (0.0-1.3); Neutrophils # 31.7 K/mcL (1.6-8.9); Platelet Estimate Normal (Normal)
[2017-07-24 01:27] LABS: Vancomycin,Random 16.1 mcg/mL
[2017-07-24] MEDS ORDERED: Calcium Gluconate 1,000 MG in D5% in Water 100 ML IVPB ONE (01:30)
[2017-07-24] MEDS ORDERED: Magnesium Sulfate 2 GM in D5% in Water 100 ML IVPB ONE (01:54)
[2017-07-24] MEDS ORDERED: Lacri-Lube 3.5 GM TUBE BOTH EYES PRN (01:54)
[2017-07-24 02:03] LABS: Magnesium 2.5 mg/dL (1.6-2.6)
--- NOTE | 2017-07-24 02:13 | Event Note ---
Date of Encounter: 07/24/17 Time of Encounter: 02:05 : Rodriguez pastor Was called around 12:30 AM. Let them overestimates is not very clear just because the patient is restless and agitated. Patient admitted with sepsis acute renal failure and hyperkalemia. Close of arrests as either hyperkalemia or electrolyte abnormalities such as severe hypoglycemia especially in the setting of antipsychotic use. Patient had approximately 10 to 12 minutes of CPR. Return of spontaneous circulation was achieved. Patient was found to have crepitus on the left side of the chest. X-ray shows subcutaneous emphysema. I suspect that he has a pneumothorax with subcutaneous emphysema related to rib fracture from chest compressions I have discussed with Dr. Sellers because most likely disappear emphysema has an underlying pneumothorax. This was not very clear on the chest x-ray probably related to the amount of subcutaneous air masking the pneumothorax. Dr. Sellers on it to wait until there is clear evidence of pneumothorax and chest x-ray before placement of testing. Follow oxygenation and hemodynamics on mechanical ventilator. Repeat potassium is 5 this is being corrected. Magnesium was replaced chest. He is already on broad-spectrum antibiotics with vancomycin and Zosyn. It also received 1 L bolus normal saline. Prognosis guarded.
[2017-07-24 02:24] LABS: Creatine Kinase 206 Units/L (30-200)
--- NOTE | 2017-07-24 02:24 | Procedure Note ---
Date of procedure: 07/24/17 Pre-op diagnosis: Cardiac arrest Post-op diagnosis: same Procedure: Central Venous Catheter (CVC, Central Line) Placement Date: 07/24/17 Time: 0130 Indication: Hemodynamic monitoring/Intravenous access Resident: Dr. Washington Attending: Dr. Edouard A time-out was completed verifying correct patient, procedure, site, positioning , and special equipment if applicable. The patient was placed in a dependent position appropriate for central line placement based on the vein to be cannulated. The patients right groin was prepped and draped in sterile fashion. 1% Lidocaine was used to anesthetize the surrounding skin area. A triple lumen <9-Yoruba> Cordis catheter was introduced into the the <subclavian/ internal jugular/common femoral vein> using the Seldinger technique and under ultrasound guidance. The catheter was threaded smoothly over the guide wire and appropriate blood return was obtained. Each lumen of the catheter was evacuated of air and flushed with sterile saline. The catheter was then sutured in place to the skin and a sterile dressing applied. Perfusion to the extremity distal to the point of catheter insertion was checked and found to be adequate. Estimated Blood Loss: 5 cc The patient tolerated the procedure well and there were no complications. Pathology: none sent Condition: critical Disposition: ICU
[2017-07-24] MEDS: Piperacillin/Tazobactam 3.375 GM in D5% in Water (Mini-Bag+) 100 ML IVPB SCH ×3 (02:25→15:38)
[2017-07-24] MEDS: Ofloxacin OPTH Drops 5 ML BOTTLE LEFT EYE SCH ×6 (02:27→20:49)
[2017-07-24] MEDS: 0.9 % Sodium Chloride 1,000 ML IVC SCH ×5 (02:33→23:03)
[2017-07-24] MEDS: FentaNYL (PF) 1,000 MCG in 0.9 % Sodium Chloride 80 ML IVC SCH ×2 (02:55→17:17)
[2017-07-24] MEDS: Norepinephrine 4 MG in D5% in Water 250 ML IVC SCH ×2 (03:00→16:31)
[2017-07-24] MEDS: Insulin LISPRO 300 UNITS/3 ML VIAL SQ SCH ×2 (03:01→07:06)
[2017-07-24] MEDS: Lacri-Lube 3.5 GM TUBE BOTH EYES SCH ×5 (03:11→20:49)
[2017-07-24 03:42] LABS: ABG Base Excess -4.7 mEq/L (-2.0 to 3.0); ABG HCO3 20 mEq/L (21-27); ABG Oxygen Saturation 99 % (95-98); ABG PCO2 37 mmHg (35-45); ABG PH 7.35 pH Units (7.32-7.45); ABG PO2 155 mmHg (85-104); ABG TCO2 21.5 mEq/L (20-26)
[2017-07-24 03:43] LABS: Blood Gas FiO2 50 %; Blood Gas PEEP 5 cm H2O; Blood Gas Respiration Rate 18; Blood Gas VT 400 cc
[2017-07-24] MEDS: Vancomycin 1,500 MG in D5% in Water 250 ML IVPB SCH (05:50)
[2017-07-24] MEDS: Pantoprazole 40 MG VIAL IVP SCH (06:08)
[2017-07-24] MEDS: Levothyroxine 25 MCG TABLET PO SCH (06:08)
[2017-07-24 06:18] LABS: Red Cell Distribution Width 12.9 % (11.5-14.5)
[2017-07-24 06:19] LABS: Hematocrit 37.8 % (37.5-50.1); Hemoglobin 12.4 g/dL (12.9-16.9); Mean Corpuscular HGB Conc 32.8 g/dL (31.6-35.5); Mean Corpuscular Hemoglobin 29.9 pg (28.0-33.3); Mean Corpuscular Volume 91.1 fL (83.0-100.0); Mean Platelet Volume 10.2 fL (9.4-12.4); Platelet Count 325 K/mcL (140-400); Red Blood Count 4.15 M/mcL (4.19-5.50)
[2017-07-24 06:27] LABS: INR 1.3; Prothrombin Time 13.7 Seconds (9.4-12.1)
[2017-07-24 06:37] LABS: Ionized Calcium 1.24 mmol/L (1.15-1.35)
[2017-07-24 06:39] LABS: Lymphocytes # 3.9 K/mcL (0.6-4.6); Neutrophils # 31.5 K/mcL (1.6-8.9); Platelet Clumps Few (Not Present)
[2017-07-24 06:44] LABS: BUN/Creatinine Ratio 17 (6-26); Blood Urea Nitrogen 18 mg/dL (8-26); Calcium 9.1 mg/dL (8.6-10.8); Carbon Dioxide 19 mEq/L (19-29); Chloride 105 mEq/L (98-109); Glucose 328 mg/dL (70-99); Osmolality,Calculated 301 (280-300); Potassium 4.6 mEq/L (3.5-4.5); Sodium 138 mEq/L (136-145); eGFR For African Americans > 60 (> 60); eGFR For Non-African Americans > 60 (> 60)
--- NOTE | 2017-07-24 07:46 | Pulmonology Consult Note ---
<Gerri Lawler - Last Filed: 07/24/17 08:24> Date of Encounter: 07/24/17 Time of Encounter: 07:30 Assessment and Plan (1) Septic shock Current Visit: Yes Status: Acute Patient came in with sepsis from UTI. On appropriate antibiotics at this time. Waiting for culture results. Will continue maintenance fluids. Will continue to trend electrolytes and lactic acid. (2) Cardiac arrest Current Visit: Yes Status: Acute Patient arrested last night. Most likely due to multiple electrolyte imbalances. Patient received ROSC and is currently intubated. Patient full code. Cardiology has been consulted along with cardiothoracic surgery. (3) NSTEMI (non-ST elevated myocardial infarction) Current Visit: Yes Status: Acute Increasing troponin even after MOJGAN has resolved. Most likely due to supply/ demand issue. Cardiology has been consulted. (4) DVT prophylaxis Current Visit: No Status: Acute Began subq heparin. No contraindications noted. History of Present Illness Consult date: 07/24/17 Chief complaint: Cardiac Arrest, Intubated History of present illness: 87-year-old male presented to the ED for AMS. Patient does have a recent hip fracture diagnosed back in 07/09/2017. Evaluated and was determined to be nonoperative. Patient did have an indwelling Sales catheter placed. Patient did have a leukocytosis and concerns for sepsis. Patient sources likely in the urine. He was admitted to the floor for treatment of the sepsis. On further work up patient was noted to have hyperkalemia and hypomagnasemia. Last night on the floor the patient coded, most likely due to electrolyte abnormalities and has ROSC. Patient was intubated and a central line placed and brought to the ICU. Patient is now intubated and the HPI was obtained from charts. We have been trying to get ahold of the patient's but have been unsuccessful. Will continue to try to contact her. Patient's chest x-ray showed subcutaneous air. Spoke with cardiothoracic surgery who agree to watch the patient but no further treatment is needed. No sign of pneumothorax. Sepsis seems to be from UTI and currently being treated with antibiotics. We will add 1/2 NS bolus now for fluid maintenance without drastically affecting the electrolye imbalances. Patient is no longer hyperkalemic although lactic acid continues to increase. MOJGAN now also resolved with creatinine and GFR WNL. Past Med Surg Social Fam HX - Past Medical History Medical history: diabetes, hypertension Psychiatric history: no psych history - Past Surgical History Surgical History: cholecystectomy - Social History Smoking Status: Former smoker Smokeless Tobacco Status: No Alcohol use: none Drug use: none - Family History Mother Living Status: Hx Family Endocrine Disorder: Yes (DM) Medications and Allergies Albuterol Sulfate [Albuterol Inhaler] 2 puff IH QID PRN 07/09/17 [History] Aspirin 325 mg PO DAILY 07/09/17 [History] Atenolol 100 mg PO DAILY 07/09/17 [History] Atorvastatin [Lipitor] 10 mg PO HS 07/09/17 [History] Cyclobenzaprine [Flexeril] 10 mg PO BID 07/09/17 [History] Levothyroxine [Synthroid] 25 mcg PO 30 07/09/17 [History] Lisinopril [Zestril] 10 mg PO DAILY 07/09/17 [History] Mag Hydrox/Al Hydrox/Simeth [Antacid Suspension] 15 ml PO TID PRN 07/09/17 [ History] Metformin HCl [Glucophage] 1,000 mg PO BID 07/09/17 [History] Omeprazole [PriLOSEC] 40 mg PO BID 07/09/17 [History] Pioglitazone [Actos] 30 mg PO DAILY 07/09/17 [History] Polyvinyl Alcohol [Artificial Tears] 2 drop OP QID PRN 07/09/17 [History] Potassium Chloride [K-Tab ER] 20 meq PO DAILY 07/09/17 [History] Simethicone [Gas-X] 80 mg PO QID PRN 07/09/17 [History] Triamterene/Hydrochlorothiazid [Triamterene-Hctz 75-50 mg Tab] 1 each PO DAILY 07/09/17 [History] glipiZIDE [Glucotrol] 5 mg PO 0800 07/09/17 [History] hydrOXYzine pamoate [HydrOXYzine Pamoate] 25 mg PO QID PRN 07/09/17 [History] Enoxaparin [Lovenox] 40 mg SQ 0600 10 Days 07/15/17 [Rx] Ofloxacin OPTH Drops [Ocuflox] 2 drop LEFT EYE Q4HR bottle 07/15/17 [Rx] OxyCODONE/APAP 5/325 [Percocet 5/325 MG] 1 each PO Q4HR PRN #10 tab 07/15/17 [Rx ] Tamsulosin [Flomax] 0.4 mg PO DAILY #30 07/15/17 [Rx] Insulin LISPRO [HumaLOG] 2 - 12 unit SQ ACHS 07/22/17 [History] Ipratropium/Albuterol Neb [Duoneb] 3 ml IH Q4H PRN 07/22/17 [History] Naproxen [Naprosyn] 500 mg PO BID PRN 07/22/17 [History] 3 Allergy/AdvReac Type Severity Reaction Status Date / Time chlorhexidine AdvReac See Verified 07/09/17 20:13 Comments gabapentin AdvReac See Verified 07/09/17 20:13 Comments ROS unobtainable: due to endotracheal tube All Systems: A 10-system review of systems was performed and is negative for pertinent findings except as documented above in the HPI. Physical Examination Vital Signs: Vital Signs, Last 4 Hours Pulse Resp BP Pulse Ox 07/24/17 07:00 76 22 98/64 98 07/24/17 06:00 80 18 101/66 98 07/24/17 05:22 18 98 07/24/17 05:00 82 18 135/87 100 07/24/17 04:01 18 100 07/24/17 04:00 82 18 127/87 100 General appearance: comatose Eyes: nonicteric ENT: oropharynx moist Neck: supple, no JVD Effort: normal Inspection: normal Auscultation: bilateral: clear Cardiovascular: regular rate and rhythm Gastrointestinal: normoactive bowel sounds, non-distended Integumentary: normal Extremities: no cyanosis Musculoskeletal: no deformities Gait: normal posture unable to assess due to mental status Ventilator Settings Ventilator Settings: Ventilator Settings, Last 8 Hours Ventilator Mode A/C Ventilator Mode A/C Ventilator Mode A/C Ventilator Mode A/C Ventilator Mode VC+ Ventilator Mode A/C Ventilator Mode VC+ Ventilator Tidal Volume 450 Setting Ventilator Tidal Volume 500 Setting Ventilator Tidal Volume 500 Setting Ventilator Tidal Volume 500 Setting Ventilator Tidal Volume 500 Setting Ventilator Tidal Volume 18 Setting Ventilator Tidal Volume 500 Setting Ventilator Respiratory Rate 22 Setting Ventilator Respiratory Rate 18 Setting Ventilator Respiratory Rate 18 Setting Ventilator Respiratory Rate 18 Setting Ventilator Respiratory Rate 18 Setting Ventilator Respiratory Rate 18 Setting Ventilator Respiratory Rate 18 Setting Actual Respiratory Rate 22 Actual Respiratory Rate 18 Actual Respiratory Rate 18 Actual Respiratory Rate 18 Actual Respiratory Rate 18 Actual Respiratory Rate 18 Positive End Expiratory 5 Pressure Positive End Expiratory 5 Pressure Positive End Expiratory 5 Pressure Positive End Expiratory 5 Pressure Positive End Expiratory 5 Pressure Positive End Expiratory 5 Pressure Positive End Expiratory 5 Pressure Peak Inspiratory Airway 20 Pressure Peak Inspiratory Airway 19 Pressure Peak Inspiratory Airway 19 Pressure Peak Inspiratory Airway 23 Pressure Peak Inspiratory Airway 21 Pressure Peak Inspiratory Airway 25 Pressure Results - Laboratory Findings CBC and BMP: 07/24/17 06:09 07/24/17 06:09 ABG ABG pH 7.35 pH Units (7.32-7.45) D 07/24/17 03:31 ABG pCO2 37 mmHg (35-45) D 07/24/17 03:31 ABG pO2 155 mmHg (85-104) H 07/24/17 03:31 ABG O2 Saturation 99 % (95-98) H 07/24/17 03:31 PT/INR, D-dimer PT 13.7 Seconds (9.4-12.1) H 07/24/17 06:09 Abnormal lab findings: Abnormal lab results WBC 39.4 K/mcL (4.3-11.1) H* 07/24/17 06:09 RBC 4.15 M/mcL (4.19-5.50) L 07/24/17 06:09 Hgb 12.4 g/dL (12.9-16.9) L 07/24/17 06:09 Neutrophils # 31.5 K/mcL (1.6-8.9) H 07/24/17 06:09 Monocytes # 1.5 K/mcL (0.0-1.3) H 07/24/17 00:56 Eosinophils # 0.7 K/mcL (0.0-0.6) H 07/24/17 00:56 Clumped Platelets Few (Not Present) A 07/24/17 06:09 PT 13.7 Seconds (9.4-12.1) H 07/24/17 06:09 APTT 100.3 Seconds (26.0-36.0) H 07/23/17 14:51 ABG pO2 155 mmHg (85-104) H 07/24/17 03:31 ABG HCO3 20 mEq/L (21-27) L 07/24/17 03:31 ABG O2 Saturation 99 % (95-98) H 07/24/17 03:31 ABG Base Excess -4.7 mEq/L (-2.0 to 3.0) L 07/24/17 03:31 Potassium 4.6 mEq/L (3.5-4.5) H 07/24/17 06:09 Glucose 328 mg/dL (70-99) H 07/24/17 06:09 POC Glucose 296 (58-89) H 07/23/17 05:59 Calculated Osmolality 301 (280-300) H 07/24/17 06:09 Lactic Acid 5.9 mmol/L (0.5-2.2) H* 07/24/17 00:56 Creatine Kinase 206 Units/L (30-200) H 07/24/17 00:56 Troponin I 0.85 ng/mL (0-0.03) H* 07/24/17 00:56 Albumin 2.9 g/dL (3.5-5.0) L 07/23/17 17:29 Globulin 3.9 g/dL (2.4-3.5) H 07/23/17 01:26 Albumin/Globulin Ratio 0.8 (1.1-2.2) L 07/23/17 01:26 Lipase 141 Units/L (8-78) H 07/22/17 18:38 Urine Clarity Turbid (Clear) A 07/22/17 18:21 Urine Protein 100 mg/dL (Neg-Trace) H 07/22/17 18:21 Urine Blood Large (Negative) H 07/22/17 18:21 Urine Bilirubin Small (Negative) H 07/22/17 18:21 Ur Leukocyte Esterase Trace (Negative) H 07/22/17 18:21 Urine Microscopic RBC 15-30 per hpf (0-3) H 07/22/17 18:21 Urine Microscopic WBC 15-30 per hpf (0-3) H 07/22/17 18:21 Ur Squamous Epith Cells Many per lpf (None-Few) H 07/22/17 18:21 Ur Culture Indicated? YES (NO) A 07/22/17 18:21 - Diagnostic Findings Chest x-ray: report reviewed, image reviewed - Clinical Findings Intake & Output: Intake & Output 07/23/17 07/23/17 07/24/17 15:59 23:59 07:59 Intake Total 1337 / 1337 1204 / 1204 1248 / 1248 Output Total 1800 / 1800 1650 / 1650 800 / 800 Balance -463 / -463 -446 / -446 448 / 448 Consult Discharge Plan - Plan Referrals: NONE,PCP [Primary Care Provider] - (patient is from [facility]) <William Vacaluzsteve Roblero - Last Filed: 07/24/17 18:33> Date of Encounter: 07/24/17 All Systems: A 10-system review of systems was performed and is negative for pertinent findings except as documented above in the HPI. Physical Examination Vital Signs: Vital Signs, Last 4 Hours Temp Pulse Resp BP Pulse Ox 07/24/17 17:05 22 104/56 98 07/24/17 17:00 78 22 99/56 98 07/24/17 16:00 98.4 F 76 22 92/57 98 07/24/17 15:57 78 07/24/17 15:20 22 97/61 97 07/24/17 15:00 78 22 101/58 98 Ventilator Settings Ventilator Settings: Ventilator Settings, Last 8 Hours Ventilator Mode A/C Ventilator Mode A/C Ventilator Mode A/C Ventilator Mode A/C Ventilator Mode A/C Ventilator Mode A/C Ventilator Mode A/C Ventilator Mode A/C Ventilator Mode A/C Ventilator Mode A/C Ventilator Mode A/C Ventilator Tidal Volume 450 Setting Ventilator Tidal Volume 450 Setting Ventilator Tidal Volume 450 Setting Ventilator Tidal Volume 450 Setting Ventilator Tidal Volume 450 Setting Ventilator Tidal Volume 450 Setting Ventilator Tidal Volume 450 Setting Ventilator Tidal Volume 450 Setting Ventilator Tidal Volume 450 Setting Ventilator Tidal Volume 450 Setting Ventilator Tidal Volume 450 Setting Ventilator Respiratory Rate 22 Setting Ventilator Respiratory Rate 22 Setting Ventilator Respiratory Rate 22 Setting Ventilator Respiratory Rate 22 Setting Ventilator Respiratory Rate 22 Setting Ventilator Respiratory Rate 22 Setting Ventilator Respiratory Rate 22 Setting Ventilator Respiratory Rate 22 Setting Ventilator Respiratory Rate 22 Setting Ventilator Respiratory Rate 22 Setting Ventilator Respiratory Rate 22 Setting Actual Respiratory Rate 22 Actual Respiratory Rate 22 Actual Respiratory Rate 22 Actual Respiratory Rate 22 Actual Respiratory Rate 22 Actual Respiratory Rate 22 Actual Respiratory Rate 22 Actual Respiratory Rate 22 Actual Respiratory Rate 22 Actual Respiratory Rate 22 Actual Respiratory Rate 22 Positive End Expiratory 5 Pressure Positive End Expiratory 5 Pressure Positive End Expiratory 5 Pressure Positive End Expiratory 5 Pressure Positive End Expiratory 5 Pressure Positive End Expiratory 5 Pressure Positive End Expiratory 5 Pressure Positive End Expiratory 5 Pressure Positive End Expiratory 5 Pressure Positive End Expiratory 5 Pressure Positive End Expiratory 5 Pressure Peak Inspiratory Airway 18 Pressure Peak Inspiratory Airway 18 Pressure Peak Inspiratory Airway 18 Pressure Peak Inspiratory Airway 18 Pressure Peak Inspiratory Airway 19 Pressure Peak Inspiratory Airway 18 Pressure Peak Inspiratory Airway 18 Pressure Peak Inspiratory Airway 19 Pressure Peak Inspiratory Airway 19 Pressure Peak Inspiratory Airway 19 Pressure Peak Inspiratory Airway 18 Pressure Results - Laboratory Findings CBC and BMP: 07/24/17 06:09 07/24/17 11:43 ABG ABG pH 7.35 pH Units (7.32-7.45) D 07/24/17 03:31 ABG pCO2 37 mmHg (35-45) D 07/24/17 03:31 ABG pO2 155 mmHg (85-104) H 07/24/17 03:31 ABG O2 Saturation 99 % (95-98) H 07/24/17 03:31 PT/INR, D-dimer PT 13.7 Seconds (9.4-12.1) H 07/24/17 06:09 Abnormal lab findings: Abnormal lab results WBC 39.4 K/mcL (4.3-11.1) H* 07/24/17 06:09 RBC 4.15 M/mcL (4.19-5.50) L 07/24/17 06:09 Hgb 12.4 g/dL (12.9-16.9) L 07/24/17 06:09 Neutrophils # 31.5 K/mcL (1.6-8.9) H 07/24/17 06:09 Monocytes # 1.5 K/mcL (0.0-1.3) H 07/24/17 00:56 Eosinophils # 0.7 K/mcL (0.0-0.6) H 07/24/17 00:56 Clumped Platelets Few (Not Present) A 07/24/17 06:09 PT 13.7 Seconds (9.4-12.1) H 07/24/17 06:09 APTT 100.3 Seconds (26.0-36.0) H 07/23/17 14:51 ABG pO2 155 mmHg (85-104) H 07/24/17 03:31 ABG HCO3 20 mEq/L (21-27) L 07/24/17 03:31 ABG O2 Saturation 99 % (95-98) H 07/24/17 03:31 ABG Base Excess -4.7 mEq/L (-2.0 to 3.0) L 07/24/17 03:31 Glucose 233 mg/dL (70-99) H 07/24/17 11:43 POC Glucose 343 (58-89) H 07/24/17 00:39 Lactic Acid 3.1 mmol/L (0.5-2.2) H 07/24/17 08:02 Calcium 8.5 mg/dL (8.6-10.8) L 07/24/17 11:43 Phosphorus 1.4 mg/dL (2.3-4.7) L D 07/24/17 11:43 Magnesium 1.2 mg/dL (1.6-2.6) L 07/24/17 08:02 Creatine Kinase 206 Units/L (30-200) H 07/24/17 00:56 Troponin I 1.14 ng/mL (0-0.03) H* 07/24/17 08:02 Albumin 2.9 g/dL (3.5-5.0) L 07/23/17 17:29 Globulin 3.9 g/dL (2.4-3.5) H 07/23/17 01:26 Albumin/Globulin Ratio 0.8 (1.1-2.2) L 07/23/17 01:26 Lipase 141 Units/L (8-78) H 07/22/17 18:38 Urine Clarity Turbid (Clear) A 07/22/17 18:21 Urine Protein 100 mg/dL (Neg-Trace) H 07/22/17 18:21 Urine Blood Large (Negative) H 07/22/17 18:21 Urine Bilirubin Small (Negative) H 07/22/17 18:21 Ur Leukocyte Esterase Trace (Negative) H 07/22/17 18:21 Urine Microscopic RBC 15-30 per hpf (0-3) H 07/22/17 18:21 Urine Microscopic WBC 15-30 per hpf (0-3) H 07/22/17 18:21 Ur Squamous Epith Cells Many per lpf (None-Few) H 07/22/17 18:21 Ur Culture Indicated? YES (NO) A 07/22/17 18:21 - Clinical Findings Intake & Output: Intake & Output 07/24/17 07/24/17 07/24/17 07:59 15:59 23:59 Intake Total 1281 / 1281 2597.37 / 2597.37 1070.94 / 1070.94 Output Total 1100 / 1100 600 / 600 Balance 181 / 181 / 1070.94 / 1070.94 - Attending Attestation i saw the patient with the resident agree with History and Physical exam findings. 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 came from longterm initiallly had sepsis because of possible complicated UTI , patient developed MOJGAN with electrolyte imbalalnces that possible lead to arrest .patient has some scattered rales Labs and Radiology were reviewed improving lactic acidosis Ventilator data were reviewed- decreased the tidal volume and increased RR , kept the PEEP minimal VENEER CLIPPER HELPER: Patient when his sedation is lightened patient can respond to painful stimuli patient has a gag reflex , patient has pin point fixed pupil possible VENEER CLIPPER HELPER event paitien is unstable to go for a CT scan NECK : No JVD appreciated Pulmonary : Patient is on ventilatory support during the cardiac arrest due to chest compression patient had multiple rib fractures which lead to subcutaneous emphysema and some apical pneumothorax , I could not personally appreciated pneumothorax consulted Cardiolthoracic surgery ddint recommend any chest tube for now , if pneumothorax occurs will consider putting chest tube . Cardiac : Patient vasopressors , patient had an ECHO yesterday because for concern for obstructive CAD cardiology evaluated for more like type II AR heparin was switched off , cardiology signed off , put now septic shock vs some stunned myocardium will continue vasopressor support. Nutrition/GI: Tube feeds , GI prophylaxis Renal : Labs reviewed , renal following , will closely follow with electrolytes. ID : To continue broad spectrum antibiotics will follow cultures , there is no clear source . Musculo skeletal / skin iss,ues : Poor skin hygiene Disposition : Critically ill Code status: Full Code Family/POA: is the next of kin doesnt have decision making capacity , the couple doesnt have children , no brothers and sister will need to start process for court appointed guardian .
--- NOTE | 2017-07-24 08:31 | Cardiothoracic Consult Note ---
Date of Encounter: 07/24/17 Time of Encounter: 08:29 Assessment and Plan (1) Diabetes mellitus Current Visit: Yes Status: Chronic The assessment and plan as outlined above was discussed with the patient and/or family members who expressed understanding and agreement. All questions were answered. I am unable to see a pneumothorax on either chest x-ray. They have not been officially read, but at most he could have a very tiny pneumothorax. I do not favor a chest tube at this point. I would follow vital signs and O2 sats ration and daily chest x-rays. If the patient develops a significant pneumothorax, a chest tube could be placed at that time. The subcutaneous emphysema will resolve , but this may take several weeks. Hopefully, the family can be reached and CODE STATUS can be clarified. Qualifiers: Diabetes mellitus type: type 2 Diabetes mellitus complication status: without complication Diabetes mellitus buttermaker insulin use: without buttermaker use Qualified Code(s): E11.9 - Type 2 diabetes mellitus without complications - History of Present Illness History of present illness: Mr. Manzo is a 87 year old male History of present illness. The patient is sedated and on a ventilator and so the history was obtained from the chart. Apparently, the family cannot be reached. The patient is an 87-year-old gentleman who presented with sepsis and altered mental status. He has a hip fracture which is apparently being treated conservatively. He did have a chronic indwelling Watson and presented with a UTI with increased white blood cell count. He did have a positive troponin of 0.7 to and was seen by cardiology. Last night he developed a cardiac arrest with a code with chest compressions. This apparently lasted approximately 10 minutes. After this, he was found to have crepitus over his left chest wall. Past medical history is positive for diabetes and hypertension. Past Med Surg Social Fam HX - Past Medical History Medical history: diabetes, hypertension Psychiatric history: no psych history - Past Surgical History Surgical History: cholecystectomy - Social History Smoking Status: Former smoker Smokeless Tobacco Status: No Alcohol use: none Drug use: none - Family History Mother Living Status: Hx Family Endocrine Disorder: Yes (DM) Medications and Allergies Albuterol Sulfate [Albuterol Inhaler] 2 puff IH QID PRN 07/09/17 [History] Aspirin 325 mg PO DAILY 07/09/17 [History] Atenolol 100 mg PO DAILY 07/09/17 [History] Atorvastatin [Lipitor] 10 mg PO HS 07/09/17 [History] Cyclobenzaprine [Flexeril] 10 mg PO BID 07/09/17 [History] Levothyroxine [Synthroid] 25 mcg PO 0630 07/09/17 [History] Lisinopril [Zestril] 10 mg PO DAILY 07/09/17 [History] Mag Hydrox/Al Hydrox/Simeth [Antacid Suspension] 15 ml PO TID PRN 07/09/17 [ History] Metformin HCl [Glucophage] 1,000 mg PO BID 07/09/17 [History] Omeprazole [PriLOSEC] 40 mg PO BID 07/09/17 [History] Pioglitazone [Actos] 30 mg PO DAILY 07/09/17 [History] Polyvinyl Alcohol [Artificial Tears] 2 drop OP QID PRN 07/09/17 [History] Potassium Chloride [K-Tab ER] 20 meq PO DAILY 07/09/17 [History] Simethicone [Gas-X] 80 mg PO QID PRN 07/09/17 [History] Triamterene/Hydrochlorothiazid [Triamterene-Hctz 75-50 mg Tab] 1 each PO DAILY 07/09/17 [History] glipiZIDE [Glucotrol] 5 mg PO 0800 07/09/17 [History] hydrOXYzine pamoate [HydrOXYzine Pamoate] 25 mg PO QID PRN 07/09/17 [History] Enoxaparin [Lovenox] 40 mg SQ 0600 10 Days 07/15/17 [Rx] Ofloxacin OPTH Drops [Ocuflox] 2 drop LEFT EYE Q4HR bottle 07/15/17 [Rx] OxyCODONE/APAP 5/325 [Percocet 5/325 MG] 1 each PO Q4HR PRN #10 tab 07/15/17 [Rx ] Tamsulosin [Flomax] 0.4 mg PO DAILY #30 07/15/17 [Rx] Insulin LISPRO [HumaLOG] 2 - 12 unit SQ ACHS 07/22/17 [History] Ipratropium/Albuterol Neb [Duoneb] 3 ml IH Q4H PRN 07/22/17 [History] Naproxen [Naprosyn] 500 mg PO BID PRN 07/22/17 [History] 3 Allergy/AdvReac Type Severity Reaction Status Date / Time chlorhexidine AdvReac See Verified 07/09/17 20:13 Comments gabapentin AdvReac See Verified 07/09/17 20:13 Comments All Systems Review: A 10-system review of systems was performed and is negative for pertinent findings except as documented above in the HPI. Physical Examination Vital Signs, Last 4 Hours Temp Pulse Resp BP Pulse Ox 07/24/17 08:00 97.9 F 79 22 91/61 98 07/24/17 07:00 76 22 98/64 98 07/24/17 06:00 80 18 101/66 98 07/24/17 05:22 18 98 07/24/17 05:00 82 18 135/87 100 O2 saturation is 98 on the vent. He is sedated on IV medication. Lungs are clear to percussion and auscultation. Heart is in a normal sinus rhythm. He does have crepitus which seems to be limited to his left chest wall. No crepitus over his face her eyes and no crepitus over his abdomen or testicles. Abdomen is benign. No tenderness, rebound or guarding. Results 07/24/17 06:09 07/24/17 06:09 Lab Results, Last 24 hours 07/23/17 07/23/17 07/23/17 06:58 08:55 13:03 WBC Hgb Hct Plt Count INR APTT 78.2 H D Sodium Potassium 5.9 H Chloride Carbon Dioxide BUN Creatinine Glucose Calcium Magnesium Troponin I 0.63 H* 07/23/17 07/23/17 07/24/17 14:51 17:29 00:56 WBC 36.8 H* D Hgb 12.5 L Hct 41.1 Plt Count 318 INR APTT 100.3 H Sodium 137 Potassium 4.8 H D Chloride 106 Carbon Dioxide 22 BUN 23 D Creatinine 1.26 H Glucose 221 H Calcium 8.9 Magnesium Troponin I 07/24/17 07/24/17 07/24/17 00:56 00:56 06:09 WBC 39.4 H* Hgb 12.4 L Hct 37.8 Plt Count 325 INR APTT Sodium 137 Potassium 5.0 H Chloride 104 Carbon Dioxide 20 BUN 21 Creatinine 1.25 Glucose 357 H Calcium 10.4 D Magnesium 2.5 Troponin I 0.85 H* 07/24/17 07/24/17 07/24/17 06:09 06:09 08:02 WBC Hgb Hct Plt Count INR 1.3 APTT Sodium 138 Potassium 4.6 H Chloride 105 Carbon Dioxide 19 BUN 18 Creatinine 1.08 Glucose 328 H Calcium 9.1 Magnesium 1.2 L Troponin I Consult Discharge Plan - Plan Referrals: NONE,PCP [Primary Care Provider] - (patient is from [facility])
[2017-07-24] MEDS ORDERED: *HR* EPINEPHrine 1 MG/10 ML SYRINGE IVP ONE (08:35)
[2017-07-24] MEDS ORDERED: *HR* Magnesium Sulfate 2 GM/50 ML PIGGYBACK IVPB ONE (08:35)
[2017-07-24] MEDS ORDERED: Famotidine 20 MG/2 ML VIAL IVP SCH (09:00)
[2017-07-24] MEDS ORDERED: Chlorhexidine Rinse 15 ML MOUTHWASH MM SCH (09:00)
[2017-07-24] MEDS ORDERED: Calcium Gluconate 1,000 MG in D5% in Water 100 ML IVPB PRN (09:00)
[2017-07-24] MEDS: Aspirin Enteric Coated 325 MG Tablet PO SCH (09:08)
[2017-07-24] MEDS: *HR* Heparin 5,000 UNIT/ML VIAL SQ SCH ×2 (09:25→17:18)
--- NOTE | 2017-07-24 09:39 | Cardiology Progress Note ---
Date of Encounter: 07/24/17 Time of Encounter: 09:34 Assessment and Plan (1) Elevated troponin Current Visit: Yes Status: Acute Troponins 0.46, 0.72, 0.71, 0.63, 0.85, 1,14 in setting of MOJGAN (creatinine 1.81 on admission, previously normal), sepsis, UTI, and hyperkalemia (K 7.2 on admission, now 6.8) and now s/p arrest last night . Suspect demand ischemia, nondiagnostic for ACS. Risk factors for CAD include HTN, DM. No documented hx of CAD. Pt has been combative and is sedated/intubated s/p arrest last night, so unable to obtain and symptoms. Echo was suboptimal, but overall EF appears normal. Prognosis is poor, do not recommend any further cardiac work-up at this time. Would recommend palliative care consult to discuss goals with family. Cardiology signing off. Reconsult PRN. (2) Hyperkalemia Current Visit: Yes Status: Acute K initially 7.2, 4.6 today. Discussion w patient/family: The assessment and plan as outlined above was discussed with the patient and/or family members who expressed understanding and agreement. All questions were answered. Thank you for involving us in the care of your patient. Please call with any questions. I will discuss all the above with Dr. Sidhu and make changes as necessary. Subjective Principal diagnosis: Sepsis, elevated troponin, s/p arrest Interval history: Reviewed notes from [facility]. [facility] pastor was called around 12:30 AM. Per hospitalist, cause of arrest thought to be due to electrolyte abnormalities or severe hypoglycemia in the setting of antipsychotic use. Patient had approximately 10 to 12 minutes of CPR with ROSC, currently intubated and sedated in ICU. There was concern for pneumothorax--seen and evaluated by CT surgery who do not see any definitive pneumo, but CXR has not been officially read. Echo resulted. Echo was suboptimal due to poor echo windows. Pt was uncooperative and some segments were not visualized, but overall fx was normal EF 60-65%. Mild LVDD. Valves not well assessed, but no obvious significant valve issues noted. Objective Vital Signs, Last 4 Hours Temp Pulse Resp BP Pulse Ox 07/24/17 09:00 86 22 121/66 98 07/24/17 08:00 97.9 F 81 22 91/61 98 07/24/17 07:00 76 22 98/64 98 07/24/17 06:00 80 18 101/66 98 Vital Signs Temp Pulse Pulse Pulse Pulse Resp BP 07/24/17 09:00 86 22 121/66 07/24/17 08:00 97.9 F 81 22 91/61 07/24/17 07:00 76 22 98/64 07/24/17 06:00 80 18 101/66 07/24/17 05:22 18 07/24/17 05:00 82 18 135/87 07/24/17 04:01 18 07/24/17 04:00 82 18 127/87 07/24/17 03:29 75 07/24/17 03:00 79 18 120/79 07/24/17 02:53 97 F L 79 18 70/51 07/24/17 02:00 18 07/24/17 01:49 0 0 153 07/24/17 01:41 118 18 106/56 07/24/17 00:55 16 07/24/17 00:52 174/113 07/23/17 23:41 98.3 F 114 20 144/61 07/23/17 20:13 97.6 F 119 16 154/75 07/23/17 17:41 97.4 F L 106 19 161/68 07/23/17 13:35 97.4 F L 74 17 95/64 Pulse Ox Pulse Ox Pulse Ox Pulse Ox Pulse Ox 07/24/17 09:00 98 07/24/17 08:00 98 07/24/17 07:00 98 07/24/17 06:00 98 07/24/17 05:22 98 07/24/17 05:00 100 07/24/17 04:01 100 07/24/17 04:00 100 07/24/17 03:29 07/24/17 03:00 100 07/24/17 02:53 100 07/24/17 02:00 100 07/24/17 01:49 86 99 100 100 07/24/17 01:41 99 07/24/17 00:55 100 07/24/17 00:52 07/23/17 23:41 97 07/23/17 20:13 91 07/23/17 17:41 90 07/23/17 13:35 100 Intake and Output 07/23/17 07/24/17 07/24/17 23:59 07:59 15:59 Intake Total 1204 / 1204 1281 / 1281 274.9 / 274.9 Output Total 1650 / 1650 1100 / 1100 Balance -446 / -446 181 / 181 274.9 / 274.9 Intake: IV Fluids 1204 / 1204 1281 / 1281 274.9 / 274.9 0.9 % Sodium Chloride 1, 1000 / 1000 1000 / 1000 000 ML @ 150 mls/hr IVC . Q6H40M [facility], [facility]1983 Rx#:[id number] FentaNYL (PF) 1,000 MCG 25 / 25 In 0.9 % Sodium Chloride 80 ML @ 50 MCG/HR 5 mls/ hr IVC CONT [facility], [facility] Rx#: [id number] Versed 50 MG In 0.9 % 8 / 8 Sodium Chloride 90 ML @ 2 MG/HR 4 mls/hr IVC CONT [facility], [facility] Rx#:[id number] Levophed 4 MG In Dextrose 148 / 148 24.9 / 24.9 5% 250 ML @ 8 MCG/MIN 30 .48 mls/hr IVC CONT [facility], [facility] Rx#:[id number] Magnesium Sulfate 2 GM In 104 / 104 Dextrose 5% 100 ML @ 100 mls/hr IVPB ONCE ONE Rx# :[id number] Zosyn 3.375 GM In 100 / 100 100 / 100 Dextrose 5% (Minibag+) 100 ML 100 ML @ 25 mls/hr IVPB Q8HR [facility], [facility]–1983 Rx#: [id number] Vancocin 1,500 MG In 250 / 250 Dextrose 5% 250 ML @ 166. 667 mls/hr IVPB Q24H [facility], [facility] Rx#:[id number] Output: Catheter 1650 / 1650 1100 / 1100 Other: Meal NPO Percent of Meal Consumed 0% Blood Glucose* 313 326 General: Other (intubated and sedated) HEENT: Atraumatic, Normocephaly, Mucus Membranes Moist Neck: No JVD, Normal carotid pulses Cardiac: Reg Rate and Rhythm, Normal S1 and S2, No Murmur Lungs: Normal Breath Sounds, No Wheeze, Rales, Rhonchi Neuro: Other (intubated and sedated) Abdomen: Soft, Non-Tender Skin: No rashes noted on visualized skin Musculoskeletal: No Chest Wall Tenderness Extremities: No Clubbing, No Cyanosis, No Edema, Normal Pulses Results 07/24/17 06:09 07/24/17 06:09 Lab Results 07/23/17 07/23/17 07/23/17 06:58 08:55 13:03 WBC Hgb Hct Plt Count INR APTT 78.2 H D Sodium Potassium 5.9 H Chloride Carbon Dioxide BUN Creatinine Glucose Calcium Magnesium Troponin I 0.63 H* 07/23/17 07/23/17 07/24/17 14:51 17:29 00:56 WBC 36.8 H* D Hgb 12.5 L Hct 41.1 Plt Count 318 INR APTT 100.3 H Sodium 137 Potassium 4.8 H D Chloride 106 Carbon Dioxide 22 BUN 23 D Creatinine 1.26 H Glucose 221 H Calcium 8.9 Magnesium Troponin I 07/24/17 07/24/17 07/24/17 00:56 00:56 06:09 WBC 39.4 H* Hgb 12.4 L Hct 37.8 Plt Count 325 INR APTT Sodium 137 Potassium 5.0 H Chloride 104 Carbon Dioxide 20 BUN 21 Creatinine 1.25 Glucose 357 H Calcium 10.4 D Magnesium 2.5 Troponin I 0.85 H* 07/24/17 07/24/17 07/24/17 06:09 06:09 08:02 WBC Hgb Hct Plt Count INR 1.3 APTT Sodium 138 Potassium 4.6 H Chloride 105 Carbon Dioxide 19 BUN 18 Creatinine 1.08 Glucose 328 H Calcium 9.1 Magnesium Troponin I 1.14 H* 07/24/17 08:02 WBC Hgb Hct Plt Count INR APTT Sodium Potassium Chloride Carbon Dioxide BUN Creatinine Glucose Calcium Magnesium 1.2 L Troponin I Short CBC 07/24/17 07/24/17 Range/Units 06:09 00:56 WBC 39.4 H* 36.8 H* D (4.3-11.1) K/mcL Hgb 12.4 L 12.5 L (12.9-16.9) g/dL Hct 37.8 41.1 (37.5-50.1) % Plt Count 325 318 (140-400) K/mcL Neutrophils # 31.5 H 31.7 H (1.6-8.9) K/mcL BMP 07/24/17 07/24/17 07/23/17 Range/Units 06:09 00:56 17:29 Sodium 138 137 137 (136-145) mEq/L Potassium 4.6 H 5.0 H 4.8 H D (3.5-4.5) mEq/L Chloride 105 104 106 (98-109) mEq/L Carbon Dioxide 19 20 22 (19-29) mEq/L BUN 18 21 23 D (8-26) mg/dL Creatinine 1.08 1.25 1.26 H (0.72-1.25) mg/dL Glucose 328 H 357 H 221 H (70-99) mg/dL Calcium 9.1 10.4 D 8.9 (8.6-10.8) mg/dL 07/23/17 Range/Units 06:58 Sodium (136-145) mEq/L Potassium 5.9 H (3.5-4.5) mEq/L Chloride (98-109) mEq/L Carbon Dioxide (19-29) mEq/L BUN (8-26) mg/dL Creatinine (0.72-1.25) mg/dL Glucose (70-99) mg/dL Calcium (8.6-10.8) mg/dL Cardiac Enzymes 07/24/17 07/24/17 07/23/17 Range/Units 08:02 00:56 13:03 Troponin I 1.14 H* 0.85 H* 0.63 H* (0-0.03) ng/mL Liver Function 07/23/17 Range/Units 17:29 Albumin 2.9 L (3.5-5.0) g/dL Active Medications Acetaminophen (Tylenol) 650 mg PO Q6HR PRN PRN Reason: Mild Pain (1-3) Stop: 01/22/18 00:12 Hydrocodone Bitart/Acetaminophen (Dedham 7.5-325 Mg) 1 tab PO Q6HR PRN PRN Reason: Moderate Pain (4-6) Stop: 01/22/18 08:15 Al Hydrox/Mg Hydrox/Simethicone (Mi Acid Suspension) 15 ml PO TID PRN PRN Reason: Heartburn Albuterol Sulfate (Albuterol Inhaler) 4 puff IH [id number] [facility] Stop: 01/23/18 04:01 Last Admin: 07/24/17 07:50 Dose: 4 puff Albuterol/Ipratropium (Duoneb) 3 ml IH [id number] PRN PRN Reason: Shortness Of Breath/Wheezing Stop: 01/22/18 12:01 Artificial Tears (Akwa Tears) 2 drop OP QID PRN; Protocol PRN Reason: Dry Eye(s) Stop: 01/22/18 00:16 Artificial Tears (Lacri-Lube) 1 appl BOTH EYES Q4HR [facility] PRN Reason: Protocol Stop: 01/23/18 04:01 Last Admin: 07/24/17 08:07 Dose: 1 appl Artificial Tears (Lacri-Lube) 1 appl BOTH EYES Q2HR PRN; Protocol PRN Reason: Dry Eyes Stop: 01/23/18 01:55 Aspirin (Aspirin Ec) 325 mg PO DAILY [facility] Stop: 01/22/18 09:01 Last Admin: 07/24/17 09:08 Dose: Not Given Chlorhexidine Gluconate (Chlorhexidine Rinse) 15 ml MM BID [facility], [facility] Stop: 01/23/18 09:01 Last Admin: 07/24/17 07:44 Dose: Not Given Dextrose/Water (Dextrose 50% (Syg)) 25 ml IVP AD PRN PRN Reason: Hypoglycemia Stop: 01/22/18 06:57 Famotidine (Pepcid) 20 mg IVP DAILY [facility], [facility] Stop: 01/23/18 09:01 Last Admin: 07/24/17 08:07 Dose: 20 mg Glucagon (Glucagen) 1 mg IM ONCE PRN PRN Reason: Hypoglycemia Stop: 01/22/18 06:57 Glucose (Gluctose) 15 gm PO ONCE PRN PRN Reason: Hypoglycemia Stop: 01/22/18 06:57 Glucose (Gluctose) 30 gm PO ONCE PRN PRN Reason: Hypoglycemia Stop: 01/22/18 06:57 Heparin Sodium (Porcine) (Heparin) 5,000 unit SQ Q12HCO [facility] Stop: 01/23/18 08:16 Last Admin: 07/24/17 09:25 Dose: 5,000 unit Dextrose (Dextrose 5%) 1,000 mls @ 100 mls/hr IVC .Q10H PRN PRN Reason: HYPOGLYCEMIA Stop: 01/22/18 06:57 Piperacillin Sod/Tazobactam (Sod 3.375 gm/ Dextrose) 100 mls @ 25 mls/hr IVPB Q8HR [facility] Stop: 01/22/18 16:01 Last Admin: 07/24/17 07:57 Dose: 25 mls/hr Sodium Chloride (0.9 % Sodium Chloride) 1,000 mls @ 150 mls/hr IVC .Q6H40M [facility] Stop: 01/23/18 01:59 Last Admin: 07/24/17 03:11 Dose: 150 mls/hr Fentanyl Citrate 1,000 mcg/ (Sodium Chloride) 100 mls @ 5 mls/hr IVC CONT [facility]; 50 MCG/HR PRN Reason: Protocol Stop: 01/23/18 02:01 Last Titration: 07/24/17 07:46 Dose: 25 mcg/hr, 2.5 mls/hr Midazolam HCl 50 mg/ Sodium (Chloride) 100 mls @ 4 mls/hr IVC CONT [facility]; 2 MG/HR PRN Reason: Protocol Stop: 01/23/18 02:01 Last Titration: 07/24/17 07:46 Dose: 1 mg/hr, 2 mls/hr Norepinephrine Bitartrate 4 mg (/ Dextrose) 254 mls @ 30.48 mls/hr IVC CONT [facility] ; 8 MCG/MIN PRN Reason: Protocol Stop: 01/23/18 02:01 Last Titration: 07/24/17 09:03 Dose: 0 mcg/min, 0 mls/hr Vancomycin HCl 1,500 mg/ (Dextrose) 250 mls @ 166.667 mls/hr IVPB Q24H [facility] Stop: 01/23/18 06:01 Last Infusion: 07/24/17 08:17 Dose: Infused Sodium Chloride (0.45% Sodium Chloride 1000 Ml 1000 Ml) 1,000 mls @ 500 mls/hr IVC .Q2H [facility] Stop: 07/24/17 09:44 Last Admin: 07/24/17 08:09 Dose: 500 mls/hr Calcium Gluconate 1,000 mg/ (Dextrose) 110 mls @ 50 mls/hr IVPB Q6HR PRN PRN Reason: Hypocalcemia Stop: 01/23/18 09:01 Magnesium Sulfate 2 gm/ (Dextrose) 104 mls @ 50 mls/hr IVPB Q6H PRN PRN Reason: Hypomagnesemia Stop: 01/23/18 09:01 Potassium Chloride (Potassium Chloride 20 Meq/100 Ml) 40 meq in 200 mls @ 100 mls/hr IVPB Q1H PRN PRN Reason: Potassium less than 4 Stop: 01/23/18 09:01 Insulin Human Lispro (Humalog) 0 units SQ Q6HR [facility] PRN Reason: Protocol Stop: 01/22/18 12:01 Last Admin: 07/24/17 07:06 Dose: 12 units Levothyroxine Sodium (Synthroid) 25 mcg PO 0630 [facility] Stop: 01/22/18 06:31 Last Admin: 07/24/17 06:08 Dose: 25 mcg Lorazepam (Ativan) 1 mg IVP Q4HR PRN PRN Reason: Delerium Stop: 01/22/18 20:01 Last Admin: 07/23/17 16:22 Dose: 1 mg Morphine Sulfate (Morphine Sulfate) 2 mg IVP Q4HR PRN PRN Reason: Chest Pain Stop: 01/22/18 00:12 Naloxone HCl (Narcan) 0.4 mg IVP Q2MIN PRN PRN Reason: Opioid Reversal Stop: 01/22/18 00:12 Ofloxacin (Ocuflox) 2 drop LEFT EYE Q4HR [facility] Stop: 01/22/18 04:01 Last Admin: 07/24/17 08:07 Dose: 2 drop Pantoprazole Sodium (Protonix) 40 mg IVP 0630 [facility] Stop: 01/23/18 06:31 Last Admin: 07/24/17 06:08 Dose: 40 mg Simethicone (Gas-X) 80 mg PO QID PRN PRN Reason: Gas Stop: 01/22/18 00:16 Simvastatin (Zocor) 10 mg PO HS [facility] Stop: 01/22/18 21:01 Last Admin: 07/23/17 19:46 Dose: Not Given Tamsulosin HCl (Flomax) 0.4 mg PO DAILY [facility] PRN Reason: Protocol Stop: 01/22/18 09:01 Last Admin: 07/23/17 15:37 Dose: Not Given - Imaging and Cardiology Echo: report reviewed - EKG Interpretation EKG results cardiology: other (12 hr tele AVG HR 79, SR, no significant pauses) Consult Discharge Plan - Plan Referrals: NONE,PCP [Primary Care Provider] - (patient is from [facility])
[2017-07-24] MEDS: Magnesium Sulfate 2 GM in D5% in Water 100 ML IVPB PRN (09:41)
[2017-07-24] MEDS ORDERED: Insulin Human Regular 100 UNIT in 0.9 % Sodium Chloride 100 ML IVC SCH (10:00)
--- NOTE | 2017-07-24 10:18 | Nephrology Progress Note ---
Date of Encounter: 07/24/17 Time of Encounter: 10:15 - Assessment and Plan (1) MOJGAN (acute kidney injury) Current Visit: Yes Status: Acute Resolving MOJGAN, and along with the IVF plus kayexalte his hyperkalemia has improved. His serum K+ was actually significantly improved by the time he had the cardiac arrest, so I would not suspect the cardiac arrest was just from acute renal failure and hyperkalemia. Replete the magnesium. AMS s/p code and acute respiratory failure, as per ICU Will be available if needed, but he has already significantly improved from a nephrology perspective. (2) Encephalopathy acute Current Visit: Yes Status: Acute AMS s/p code (3) Hyperkalemia Current Visit: Yes Status: Acute Rapidily improving (4) HTN (hypertension) Current Visit: No Status: Chronic Now hypotensive. Cont to hold the TEOFILO Qualifiers: Hypertension type: essential hypertension Qualified Code(s): I10 - Essential (primary) hypertension Subjective Principal diagnosis: Sepsis, elevated troponin, s/p arrest Interval history: Pt was s/e earlier today. He developed a cardiac arrest and required intubation and transfer to the ICU. [facility] reported that the ICU has not been able reach the patient's . He was intubated and not able to provide any subjective history. Objective - Vital Signs Vital signs: Vital Signs Temp Pulse Pulse Pulse Pulse Resp BP 07/24/17 09:55 22 80/50 07/24/17 09:00 86 22 121/66 07/24/17 08:00 97.9 F 81 22 91/61 07/24/17 07:50 22 94/59 07/24/17 07:00 76 22 98/64 07/24/17 06:00 80 18 101/66 07/24/17 05:22 18 07/24/17 05:00 82 18 135/87 07/24/17 04:01 18 07/24/17 04:00 82 18 127/87 07/24/17 03:29 75 07/24/17 03:00 79 18 120/79 07/24/17 02:53 97 F L 79 18 70/51 07/24/17 02:00 18 07/24/17 01:49 0 0 153 07/24/17 01:41 118 18 106/56 07/24/17 00:55 16 07/24/17 00:52 174/113 07/23/17 23:41 98.3 F 114 20 144/61 07/23/17 20:13 97.6 F 119 16 154/75 07/23/17 17:41 97.4 F L 106 19 161/68 07/23/17 13:35 97.4 F L 74 17 95/64 Pulse Ox Pulse Ox Pulse Ox Pulse Ox Pulse Ox 07/24/17 09:55 98 07/24/17 09:00 98 07/24/17 08:00 98 07/24/17 07:50 98 07/24/17 07:00 98 07/24/17 06:00 98 07/24/17 05:22 98 07/24/17 05:00 100 07/24/17 04:01 100 07/24/17 04:00 100 07/24/17 03:29 07/24/17 03:00 100 07/24/17 02:53 100 07/24/17 02:00 100 07/24/17 01:49 86 99 100 100 07/24/17 01:41 99 07/24/17 00:55 100 07/24/17 00:52 07/23/17 23:41 97 07/23/17 20:13 91 07/23/17 17:41 90 07/23/17 13:35 100 Intake and Output 07/23/17 07/24/17 07/24/17 23:59 07:59 15:59 Intake Total 1204 / 1204 1281 / 1281 1274.9 / 1274.9 Output Total 1650 / 1650 1100 / 1100 Balance -446 / -446 181 / 181 1274.9 / 1274.9 Intake: IV Fluids 1204 / 1204 1281 / 1281 1274.9 / 1274.9 0.9 % Sodium Chloride 1, 1000 / 1000 1000 / 1000 1000 / 1000 000 ML @ 150 mls/hr IVC . Q6H40M [facility] Rx#:[id number] FentaNYL (PF) 1,000 MCG 25 / 25 In 0.9 % Sodium Chloride 80 ML @ 50 MCG/HR 5 mls/ hr IVC CONT [facility] Rx#: [id number] Versed 50 MG In 0.9 % 8 / 8 Sodium Chloride 90 ML @ 2 MG/HR 4 mls/hr IVC CONT [facility] Rx#:[id number] Levophed 4 MG In Dextrose 148 / 148 24.9 / 24.9 5% 250 ML @ 8 MCG/MIN 30 .48 mls/hr IVC CONT [facility] Rx#:[id number] Magnesium Sulfate 2 GM In 104 / 104 Dextrose 5% 100 ML @ 100 mls/hr IVPB ONCE ONE Rx# :[id number] Zosyn 3.375 GM In 100 / 100 100 / 100 Dextrose 5% (Minibag+) 100 ML 100 ML @ 25 mls/hr IVPB Q8HR [facility] Rx#: [id number] Vancocin 1,500 MG In 250 / 250 Dextrose 5% 250 ML @ 166. 667 mls/hr IVPB Q24H [facility] Rx#:[id number] Output: Catheter 1650 / 1650 1100 / 1100 Other: Meal NPO Percent of Meal Consumed 0% Blood Glucose* 313 326 - General Appearance General appearance: Present: appears started age, chronically ill, sedated on ventilator, intubated EENT: Present: ATNC, mucous membranes moist Neck: Present: supple Respiratory: Present: course breath sounds Cardiology: Present: no edema, regular rate, normal S1, normal S2 Gastrointestinal: Present: normoactive bowel sounds, no guarding Integumentary: Present: ecchymotic Neurologic: Present: obtunded Musculoskeletal: Present: no cyanosis - Lab 07/24/17 06:09 07/24/17 11:43 Most recent lab results ABG pH 7.35 pH Units (7.32-7.45) D 07/24/17 03:31 ABG pCO2 37 mmHg (35-45) D 07/24/17 03:31 ABG pO2 155 mmHg (85-104) H 07/24/17 03:31 ABG HCO3 20 mEq/L (21-27) L 07/24/17 03:31 ABG O2 Saturation 99 % (95-98) H 07/24/17 03:31 Calcium 9.1 mg/dL (8.6-10.8) 07/24/17 06:09 Phosphorus 3.5 mg/dL (2.3-4.7) 07/23/17 17:29 Magnesium 1.2 mg/dL (1.6-2.6) L 07/24/17 08:02 Consult Discharge Plan - Plan Referrals: NONE,PCP [Primary Care Provider] - (patient is from [facility])
[2017-07-24] MEDS: Aspirin 81 MG TAB.CHEW PO SCH (11:38)
[2017-07-24 12:00] LABS: Ionized Calcium 1.21 mmol/L (1.15-1.35)
[2017-07-24 12:06] LABS: BUN/Creatinine Ratio 17 (6-26); Blood Urea Nitrogen 15 mg/dL (8-26); Calcium 8.5 mg/dL (8.6-10.8); Carbon Dioxide 22 mEq/L (19-29); Chloride 106 mEq/L (98-109); Glucose 233 mg/dL (70-99); Osmolality,Calculated 290 (280-300); Potassium 3.8 mEq/L (3.5-4.5); Sodium 136 mEq/L (136-145); eGFR For African Americans > 60 (> 60); eGFR For Non-African Americans > 60 (> 60)
[2017-07-24 12:07] LABS: Phosphorous 1.4 mg/dL (2.3-4.7)
[2017-07-24] MEDS ORDERED: Sodium Phosphate 30 MMOL in D5% in Water 100 ML IVPB PRN (13:03)
--- NOTE | 2017-07-24 16:56 | Venous Imaging Report ---
LE Venous Duplex Patient Name:Rommel Manzo Order Number:[id number] Procedure Date:07/24/2017 Date:1930Age:87 yrs Gender:Male Location:[facility] Room #: ICU03 Electronic Typesetting Machine Operator:Shai Chun RN, RDCS Referring MD:Gerri Lawler DO journalism internship:None Reading MD:Christopher Pereira MD Primary Indications:Immobility Secondary Indications: Risk Factors Yes/No Anticoagulants Unknown Previous Vascular Surgery Unknown Hx of DVT Unknown Hx of Chemotherapy Unknown Recent Surgery Unknown Trauma to Veins Unknown Hx of Superficial Phlebitis Unknown Impressions: Normal bilateral lower extremity deep and superficial venous exam. Recommendations: Test completed on 07/24/2017 at 9:45:00 am. Findings Venous Duplex Results: Right: Venous imaging of the lower extremity reveals full patency and normal vessel compressibility of the right distal iliac, right common femoral, right superficial femoral, right popliteal, right posterior tibial, right peroneal, right great saphenous and right lesser saphenous. Doppler signals in the evaluated veins were normal. Left: Venous imaging of the lower extremity reveals full patency and normal vessel compressibility of the left distal iliac, left common femoral, left superficial femoral, left popliteal, left posterior tibial, left peroneal, left great saphenous and left lesser saphenous. Doppler signals in the evaluated veins were normal. Prior Study: No prior study available for comparison. Lower Extremity Venous Duplex Side Vein Compress Spontaneous Flow Augment Diameter (cm) Depth (cm) Right Distal Iliac Normal Yes Phasic Yes Right Common Femoral Normal Yes Phasic Yes Right Superficial Femoral Normal Yes Phasic Yes Right Popliteal Normal Yes Phasic Yes Right Posterior Tibial Normal Yes Phasic Yes Right Peroneal Normal Yes Phasic Yes Right Great Saphenous Normal Yes Phasic Yes Right Lesser Saphenous Normal Yes Phasic Yes Left Distal Iliac Normal Yes Phasic Yes Left Common Femoral Normal Yes Phasic Yes Left Superficial Femoral Normal Yes Phasic Yes Left Popliteal Normal Yes Phasic Yes Left Posterior Tibial Normal Yes Phasic Yes Left Peroneal Normal Yes Phasic Yes Left Great Saphenous Normal Yes Phasic Yes Left Lesser Saphenous Normal Yes Phasic Yes Updated by Christopher Pereira MD on 07/24/2017 4:49:37 PM electronically signed on 07/24/2017 4:49:55 PM with status of Final
[2017-07-24 23:27] LABS: Magnesium 1.1 mg/dL (1.6-2.6)
[2017-07-25] MEDS: Lacri-Lube 3.5 GM TUBE BOTH EYES SCH ×7 (00:17→23:13)
[2017-07-25] MEDS: Insulin LISPRO 300 UNITS/3 ML VIAL SQ SCH ×8 (00:21→23:11)
[2017-07-25] MEDS: Ofloxacin OPTH Drops 5 ML BOTTLE LEFT EYE SCH ×7 (00:22→23:12)
[2017-07-25] MEDS: Piperacillin/Tazobactam 3.375 GM in D5% in Water (Mini-Bag+) 100 ML IVPB SCH ×4 (00:24→23:12)
[2017-07-25] MEDS: Magnesium Sulfate 2 GM in D5% in Water 100 ML IVPB PRN ×4 (00:48→21:00)
[2017-07-25 04:22] LABS: Basophils # 0.1 K/mcL (0.0-0.2); Basophils % 0.5 %; Eosinophils # 0.2 K/mcL (0.0-0.6); Eosinophils % 0.9 %; Hematocrit 33.3 % (37.5-50.1); Hemoglobin 10.9 g/dL (12.9-16.9); Immature Granulocytes % 1.1 % (0-4); Lymphocytes # 1.9 K/mcL (0.6-4.6); Lymphocytes % 8.6 %; Mean Corpuscular HGB Conc 32.7 g/dL (31.6-35.5); Mean Corpuscular Hemoglobin 29.1 pg (28.0-33.3); Mean Platelet Volume 10.1 fL (9.4-12.4); Monocytes # 2.2 K/mcL (0.0-1.3); Neutrophils # 17.3 K/mcL (1.6-8.9); Platelet Count 223 K/mcL (140-400); Red Blood Count 3.74 M/mcL (4.19-5.50); Red Cell Distribution Width 13.1 % (11.5-14.5); Segmented Neutrophils % 78.9 %
[2017-07-25 04:31] LABS: BUN/Creatinine Ratio 14 (6-26); Blood Urea Nitrogen 12 mg/dL (8-26); Carbon Dioxide 20 mEq/L (19-29); Chloride 107 mEq/L (98-109); Glucose 193 mg/dL (70-99); Magnesium 1.5 mg/dL (1.6-2.6); Osmolality,Calculated 289 (280-300); Potassium 3.5 mEq/L (3.5-4.5); Sodium 137 mEq/L (136-145); eGFR For African Americans > 60 (> 60); eGFR For Non-African Americans > 60 (> 60)
[2017-07-25] MEDS: Levothyroxine 25 MCG TABLET PO SCH (04:58)
[2017-07-25] MEDS: Potassium Chloride 40 MEQ/200 ML BAG IVPB PRN ×2 (05:01→14:38)
[2017-07-25] MEDS: Pantoprazole 40 MG VIAL IVP SCH (05:01)
[2017-07-25] MEDS: Vancomycin 1,500 MG in D5% in Water 250 ML IVPB SCH (05:01)
[2017-07-25] MEDS: *HR* Heparin 5,000 UNIT/ML VIAL SQ SCH ×2 (05:02→18:25)
[2017-07-25 05:15] LABS: ABG Base Excess -4.2 mEq/L (-2.0 to 3.0); ABG HCO3 20 mEq/L (21-27); ABG Oxygen Saturation 93 % (95-98); ABG PCO2 32 mmHg (35-45); ABG PO2 68 mmHg (85-104); ABG TCO2 20.8 mEq/L (20-26)
[2017-07-25 05:16] LABS: Blood Gas FiO2 30 %
[2017-07-25] MEDS: 0.9 % Sodium Chloride 1,000 ML IVC SCH (05:21)
--- NOTE | 2017-07-25 08:08 | Cardiothoracic Progress Note ---
Date of Encounter: 07/25/17 Time of Encounter: 08:05 - Assessment and plan (1) Diabetes mellitus Current Visit: Yes Status: Chronic The patient has no indications for a chest tube. His prognosis is quite poor and guarded. I will sign off please call if needed. Qualifiers: Diabetes mellitus type: type 2 Diabetes mellitus complication status: without complication Diabetes mellitus fpc insulin use: without fpc use Qualified Code(s): E11.9 - Type 2 diabetes mellitus without complications - Subjective Interval history: The patient is intubated and sedated on the ventilator. Vital Signs, Last 4 Hours Pulse Resp BP Pulse Ox 07/25/17 06:15 22 90/55 98 07/25/17 06:00 76 22 102/55 99 07/25/17 05:00 81 22 99/69 96 07/25/17 04:44 22 81/54 98 Oxgyen Flow Rate Oxygen Flow Rate (LPM) 15 Weight 07/23/17 07/24/17 07/25/17 23:59 23:59 23:59 Weight 82.1 kg Lungs are clear to percussion and auscultation. The subcutaneous emphysema over his left chest wall appears slightly improved although this is difficult to meter/relay technician. The most recent chest x-ray reveals a tiny, improved left pneumothorax. - Labs 07/25/17 04:10 07/25/17 04:10 Lab Results, Last 24 hours 07/24/17 07/24/17 07/24/17 06:09 08:02 08:02 WBC 39.4 H* Hgb 12.4 L Hct 37.8 Plt Count 325 Sodium Potassium Chloride Carbon Dioxide BUN Creatinine Glucose Calcium Magnesium 1.2 L Troponin I 1.14 H* 07/24/17 07/24/17 07/25/17 11:43 23:04 04:10 WBC 21.9 H Hgb 10.9 L D Hct 33.3 L Plt Count 223 Sodium 136 Potassium 3.8 Chloride 106 Carbon Dioxide 22 BUN 15 Creatinine 0.88 Glucose 233 H Calcium 8.5 L Magnesium 1.1 L Troponin I 07/25/17 07/25/17 04:10 04:10 WBC Hgb Hct Plt Count Sodium 137 Potassium 3.5 Chloride 107 Carbon Dioxide 20 BUN 12 Creatinine 0.86 Glucose 193 H Calcium 8.0 L Magnesium 1.5 L Troponin I 0.74 H* Consult Discharge Plan - Plan Referrals: NONE,PCP [Primary Care Provider] - (patient is from [facility])
[2017-07-25] MEDS: Aspirin 81 MG TAB.CHEW PO SCH (08:36)
--- NOTE | 2017-07-25 11:52 | Pulmonology Progress Note ---
<Elbert Oneil - Last Filed: 07/25/17 13:26> Date of Encounter: 07/25/17 Time of Encounter: 11:00 Assessment and Plan (1) Cardiac arrest Current Visit: Yes Status: Acute Patient arrested 2 nights ago with ROSC and continues to be intubated. Patient' s advanced directive indicates that he wishes to remain DNR, and his wishes have been discussed with his POA/. reports that she understands and respect his wishes. CODE STATUS changing to DNR-CCA-DNI. Currently weaning sedation. Extubation indicated when patient resumes self respiration. Cardiothoracic surgeon states that patient has stable left pneumothorax and does not recommend chest tube at this time. Continue to monitor ventilator settings. The patient's is accompanied by Maddy, who is a family friend. (2) Septic shock Current Visit: Yes Status: Acute White blood cell count trending down. The urine culture/blood culture x2 are negative. Sputum culture currently pending. We will continue Zosyn and vancomycin at this point. Continue to monitor vital signs and CBC. Blood pressure appears to be stable on 1mcg/min levophed. We will wean off levophed completely. (3) Hyperglycemia Current Visit: Yes Status: Acute Continue SSI (4) Elevated troponin Current Visit: Yes Status: Acute Troponin levels have stopped trending up, K+ levels are normalized. Cardiology suspects that elevated troponin is due to demand ischemia, nondiagnostic for ACS. They do not recommend any further cardiac workup at this time. (5) DVT prophylaxis Current Visit: No Status: Acute Continue heparin subcutaneous for DVT prophylaxis. Subjective Principal diagnosis: Sepsis, elevated troponin, s/p arrest Interval history: Patient was placed placed on Life pack with the pads in place yesterday night due to bounding pulse in the 40s. Today his vitals are normal and stable. His Levophed is down to 1 Mcg per minute. Patient's is at bedside and currently considering CODE STATUS change. Advanced directive from patient indicates that he wishes to be DNR but would like him to be in full code. Objective PUL Vital signs: Last Vital Signs Temp 98.3 F 07/25/17 11:36 Pulse 75 07/25/17 11:00 Resp 22 07/25/17 11:10 BP 87/54 07/25/17 11:10 Pulse Ox 97 07/25/17 11:10 General appearance: comatose, other (intubated) Neck: supple Effort: normal, other (intubated, left sided rib fracture from chest compressions. ) Auscultation: bilateral: clear Cardiovascular: regular rate and rhythm (diminished heart sounds) Gastrointestinal: hypoactive bowel sounds, non-distended Integumentary: normal Extremities: no cyanosis, edema Musculoskeletal: no deformities Ventilator Settings Ventilator Settings: Ventilator Settings, Last 8 Hours Ventilator Mode VC+ Ventilator Mode VC+ Ventilator Mode VC+ Ventilator Mode VC+ Ventilator Mode VC+ Ventilator Mode VC+ Ventilator Mode VC+ Ventilator Mode VC+ Ventilator Mode VC+ Ventilator Tidal Volume 450 Setting Ventilator Tidal Volume 450 Setting Ventilator Tidal Volume 450 Setting Ventilator Tidal Volume 450 Setting Ventilator Tidal Volume 450 Setting Ventilator Tidal Volume 450 Setting Ventilator Tidal Volume 450 Setting Ventilator Tidal Volume 450 Setting Ventilator Tidal Volume 450 Setting Ventilator Respiratory Rate 22 Setting Ventilator Respiratory Rate 22 Setting Ventilator Respiratory Rate 22 Setting Ventilator Respiratory Rate 22 Setting Ventilator Respiratory Rate 22 Setting Ventilator Respiratory Rate 22 Setting Ventilator Respiratory Rate 22 Setting Ventilator Respiratory Rate 22 Setting Ventilator Respiratory Rate 22 Setting Actual Respiratory Rate 22 Actual Respiratory Rate 22 Actual Respiratory Rate 22 Actual Respiratory Rate 22 Actual Respiratory Rate 22 Positive End Expiratory 5 Pressure Positive End Expiratory 5 Pressure Positive End Expiratory 5 Pressure Positive End Expiratory 5 Pressure Positive End Expiratory 5 Pressure Positive End Expiratory 5 Pressure Positive End Expiratory 5 Pressure Positive End Expiratory 5 Pressure Positive End Expiratory 5 Pressure Peak Inspiratory Airway 19 Pressure Peak Inspiratory Airway 19 Pressure Peak Inspiratory Airway 19 Pressure Peak Inspiratory Airway 19 Pressure Peak Inspiratory Airway 19 Pressure Results - Laboratory Findings CBC and BMP: 07/25/17 04:10 07/25/17 13:09 ABG ABG pH 7.40 pH Units (7.32-7.45) 07/25/17 05:07 ABG pCO2 32 mmHg (35-45) L 07/25/17 05:07 ABG pO2 68 mmHg (85-104) L 07/25/17 05:07 ABG O2 Saturation 93 % (95-98) L 07/25/17 05:07 PT/INR, D-dimer PT 13.7 Seconds (9.4-12.1) H 07/24/17 06:09 Abnormal lab findings: Abnormal lab results WBC 21.9 K/mcL (4.3-11.1) H 07/25/17 04:10 RBC 3.74 M/mcL (4.19-5.50) L 07/25/17 04:10 Hgb 10.9 g/dL (12.9-16.9) L D 07/25/17 04:10 Hct 33.3 % (37.5-50.1) L 07/25/17 04:10 Neutrophils # 17.3 K/mcL (1.6-8.9) H 07/25/17 04:10 Monocytes # 2.2 K/mcL (0.0-1.3) H 07/25/17 04:10 Clumped Platelets Few (Not Present) A 07/24/17 06:09 PT 13.7 Seconds (9.4-12.1) H 07/24/17 06:09 APTT 100.3 Seconds (26.0-36.0) H 07/23/17 14:51 ABG pCO2 32 mmHg (35-45) L 07/25/17 05:07 ABG pO2 68 mmHg (85-104) L 07/25/17 05:07 ABG HCO3 20 mEq/L (21-27) L 07/25/17 05:07 ABG O2 Saturation 93 % (95-98) L 07/25/17 05:07 ABG Base Excess -4.2 mEq/L (-2.0 to 3.0) L 07/25/17 05:07 Glucose 193 mg/dL (70-99) H 07/25/17 04:10 POC Glucose 162 (58-89) H 07/24/17 23:26 Calcium 8.0 mg/dL (8.6-10.8) L 07/25/17 04:10 Magnesium 1.5 mg/dL (1.6-2.6) L 07/25/17 04:10 Creatine Kinase 206 Units/L (30-200) H 07/24/17 00:56 Troponin I 0.74 ng/mL (0-0.03) H* 07/25/17 04:10 Albumin 2.9 g/dL (3.5-5.0) L 07/23/17 17:29 Globulin 3.9 g/dL (2.4-3.5) H 07/23/17 01:26 Albumin/Globulin Ratio 0.8 (1.1-2.2) L 07/23/17 01:26 Lipase 141 Units/L (8-78) H 07/22/17 18:38 Urine Clarity Turbid (Clear) A 07/22/17 18:21 Urine Protein 100 mg/dL (Neg-Trace) H 07/22/17 18:21 Urine Blood Large (Negative) H 07/22/17 18:21 Urine Bilirubin Small (Negative) H 07/22/17 18:21 Ur Leukocyte Esterase Trace (Negative) H 07/22/17 18:21 Urine Microscopic RBC 15-30 per hpf (0-3) H 07/22/17 18:21 Urine Microscopic WBC 15-30 per hpf (0-3) H 07/22/17 18:21 Ur Squamous Epith Cells Many per lpf (None-Few) H 07/22/17 18:21 Ur Culture Indicated? YES (NO) A 07/22/17 18:21 - Microbiology Findings Microbiology Findings: Microbiology, Last 48 Hours 07/24/17 21:40 Sputum Culture - Preliminary Sputum - Clinical Findings Intake & Output: Intake & Output 07/24/17 07/25/17 07/25/17 23:59 07:59 15:59 Intake Total 2372.94 / 2372.94 1304 / 1304 Output Total 275 / 275 100 / 100 350 / 350 Balance 2097.94 / 2097.94 1204 / 1204 -350 / -350 Weight 82.1 kg Consult Discharge Plan - Plan Referrals: NONE,PCP [Primary Care Provider] - (patient is from [facility]) <Shawn Vaca S - Last Filed: 07/25/17 18:25> Date of Encounter: 07/25/17 Objective PUL Vital signs: Last Vital Signs Temp 98.3 F 07/25/17 11:36 Pulse 84 07/25/17 18:00 Resp 17 07/25/17 18:00 BP 104/59 07/25/17 18:00 Pulse Ox 98 07/25/17 18:00 Ventilator Settings Ventilator Settings: Ventilator Settings, Last 8 Hours Ventilator Mode VC+ Ventilator Mode VC+ Ventilator Mode VC+ Ventilator Mode VC+ Ventilator Tidal Volume 420 Setting Ventilator Tidal Volume 420 Setting Ventilator Tidal Volume 420 Setting Ventilator Tidal Volume 450 Setting Ventilator Respiratory Rate 16 Setting Ventilator Respiratory Rate 16 Setting Ventilator Respiratory Rate 16 Setting Ventilator Respiratory Rate 22 Setting Actual Respiratory Rate 17 Actual Respiratory Rate 17 Actual Respiratory Rate 17 Actual Respiratory Rate 22 Positive End Expiratory 5 Pressure Positive End Expiratory 5 Pressure Positive End Expiratory 5 Pressure Positive End Expiratory 5 Pressure Peak Inspiratory Airway 16 Pressure Peak Inspiratory Airway 17 Pressure Peak Inspiratory Airway 19 Pressure Peak Inspiratory Airway 19 Pressure Results - Laboratory Findings CBC and BMP: 07/25/17 04:10 07/25/17 13:09 ABG ABG pH 7.40 pH Units (7.32-7.45) 07/25/17 05:07 ABG pCO2 32 mmHg (35-45) L 07/25/17 05:07 ABG pO2 68 mmHg (85-104) L 07/25/17 05:07 ABG O2 Saturation 93 % (95-98) L 07/25/17 05:07 PT/INR, D-dimer PT 13.7 Seconds (9.4-12.1) H 07/24/17 06:09 Abnormal lab findings: Abnormal lab results WBC 21.9 K/mcL (4.3-11.1) H 07/25/17 04:10 RBC 3.74 M/mcL (4.19-5.50) L 07/25/17 04:10 Hgb 10.9 g/dL (12.9-16.9) L D 07/25/17 04:10 Hct 33.3 % (37.5-50.1) L 07/25/17 04:10 Neutrophils # 17.3 K/mcL (1.6-8.9) H 07/25/17 04:10 Monocytes # 2.2 K/mcL (0.0-1.3) H 07/25/17 04:10 Clumped Platelets Few (Not Present) A 07/24/17 06:09 PT 13.7 Seconds (9.4-12.1) H 07/24/17 06:09 APTT 100.3 Seconds (26.0-36.0) H 07/23/17 14:51 ABG pCO2 32 mmHg (35-45) L 07/25/17 05:07 ABG pO2 68 mmHg (85-104) L 07/25/17 05:07 ABG HCO3 20 mEq/L (21-27) L 07/25/17 05:07 ABG O2 Saturation 93 % (95-98) L 07/25/17 05:07 ABG Base Excess -4.2 mEq/L (-2.0 to 3.0) L 07/25/17 05:07 Glucose 193 mg/dL (70-99) H 07/25/17 04:10 POC Glucose 162 (58-89) H 07/24/17 23:26 Calcium 8.0 mg/dL (8.6-10.8) L 07/25/17 04:10 Magnesium 1.5 mg/dL (1.6-2.6) L 07/25/17 13:09 Creatine Kinase 206 Units/L (30-200) H 07/24/17 00:56 Troponin I 0.74 ng/mL (0-0.03) H* 07/25/17 04:10 Albumin 2.9 g/dL (3.5-5.0) L 07/23/17 17:29 Globulin 3.9 g/dL (2.4-3.5) H 07/23/17 01:26 Albumin/Globulin Ratio 0.8 (1.1-2.2) L 07/23/17 01:26 Lipase 141 Units/L (8-78) H 07/22/17 18:38 Urine Clarity Turbid (Clear) A 07/22/17 18:21 Urine Protein 100 mg/dL (Neg-Trace) H 07/22/17 18:21 Urine Blood Large (Negative) H 07/22/17 18:21 Urine Bilirubin Small (Negative) H 07/22/17 18:21 Ur Leukocyte Esterase Trace (Negative) H 07/22/17 18:21 Urine Microscopic RBC 15-30 per hpf (0-3) H 07/22/17 18:21 Urine Microscopic WBC 15-30 per hpf (0-3) H 07/22/17 18:21 Ur Squamous Epith Cells Many per lpf (None-Few) H 07/22/17 18:21 Ur Culture Indicated? YES (NO) A 07/22/17 18:21 - Microbiology Findings Microbiology Findings: Microbiology, Last 48 Hours 07/24/17 21:40 Sputum Culture - Preliminary Sputum - Clinical Findings Intake & Output: Intake & Output 07/25/17 07/25/17 07/25/17 07:59 15:59 23:59 Intake Total 1608 / 1608 0 / 0 100 / 100 Output Total 100 / 100 350 / 350 Balance 1508 / 1508 -350 / -350 100 / 100 Weight 82.1 kg - Attending Attestation i saw the patient with the resident agree with History and Physical exam findings. 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 Patient has gag reflex and breathing over the vent will wait for 3 half lives for the sedation to wear off . NECK : No JVD appreciated Pulmonary : Patient is on ventilatory support during the cardiac arrest due to chest compression patient had multiple rib fractures which lead to subcutaneous emphysema and some apical pneumothorax . Chest X ray stable , subcutaneous emphysema stable decreased the tidal volume and PEEP Cardiac : Patient is off vasopressors hemodynamically stable Nutrition/GI: Tube feeds To start feeding . Renal : Labs reviewed ID : To continue broad spectrum antibiotics will follow cultures , there is no clear source . Musculo skeletal / skin iss,ues : Poor skin hygiene Disposition : Critically ill Code status: DNRA-I Family/POA: Spoke with and Friend Reina and social work nurse was there we had 20 minutes of goals of care of discussion .According to patient's living will if there is no meaningful recovery of functional status patient doesnt want to be on any life support , and friend reina decided if in next 48 hrs doesnt recover neurologically will make him comfortable and extubate . Spent 32 minutes of Crtical care time
[2017-07-25 13:25] LABS: Magnesium 1.5 mg/dL (1.6-2.6); Potassium 3.7 mEq/L (3.5-4.5)
--- NOTE | 2017-07-25 14:38 | Palliative - Consult Note ---
Date of Encounter: 07/25/17 Time of Encounter: 14:30 - Assessment and Plan (1) Cardiac arrest Current Visit: Yes Status: Acute Assessment and plan: Patient remains minimally responsive without sedation. No purposeful movements. Will follow closely. (2) UTI (urinary tract infection) Current Visit: No Status: Acute Assessment and plan: Continues treatment per ICU campground hand with IV antibiotic therapy Qualifiers: Urinary tract infection type: acute cystitis Hematuria presence: without hematuria Qualified Code(s): N30.00 - Acute cystitis without hematuria (3) Counseling regarding advanced care planning and goals of care Current Visit: Yes Status: Acute Assessment and plan: ICU team met with pt today - code status was changed to DNRCC-Arrest. We discussed longer term goals of care and his wishes as expressed on his advanced directives. Patient's understands that he would not want mcc life support. She would like to give him a couple of days and see if his mental status improves. We discussed re-evaluating on Friday and discussing extubation if he is not improved. I did discuss with her, that he is still critical, and he could possibly deteriorate again at any time. She verbalized understanding. Provided emotional support. Palliative-CN HPI - Data of Consult Consult date: 07/25/17 Requesting Physician: Avery Nash DO Primary Care Provider: PCP NONE - Consult Narrative History of present illness: Mr. Manzo is a 87 year old male who had recent history of hip fracture, that was found to be inoperable. He was sent to [facility] for rehab, and transferred back to hospital with concerns of possible infection. He had several electrolyte abnormalities and was being treated for suspected UTI with sepsis. He coded on 2A on 07/25 during the night, and underwent about 10-12 minutes of resuscitation and ACLS. He was transferred to ICU and is currently on the vent. Suffered multiple left rib fractures and pleural laceration, with significant subcutaneous emphysema, but did not require chest tube. He has no sedatives infusing, and pt not responding to verbal or tactile stimuli. He does flinch extremities occasionally and has + gag reflex. According to ICU staff, meeting was held with ICU team and pt , precision mechanical instrument maker, and friend Beryl earlier today. He was made DNRCC-Arrest at that time. Upon my visit, Cintia is at bedside, along with friend Beryl. She is tearful, states multiple times, "I hope he makes it, he's not underground yet". States they live in [place] in the winter and he in summer. [facility]. No children. His advanced directive is on file here, and is stated as his decision maker. CC: Avery Nash, DO Past Med Surg Social Fam HX - Past Medical History Medical history: diabetes, hypertension Psychiatric history: no psych history - Past Surgical History Surgical History: cholecystectomy - Social History Smoking Status: Former smoker Smokeless Tobacco Status: No Alcohol use: none Drug use: none - Family History Mother Living Status: Hx Family Endocrine Disorder: Yes (DM) Medications and Allergies Albuterol Sulfate [Albuterol Inhaler] 2 puff IH QID PRN 07/09/17 [History] Aspirin 325 mg PO DAILY 07/09/17 [History] Atenolol 100 mg PO DAILY 07/09/17 [History] Atorvastatin [Lipitor] 10 mg PO HS 07/09/17 [History] Cyclobenzaprine [Flexeril] 10 mg PO BID 07/09/17 [History] Levothyroxine [Synthroid] 25 mcg PO 0630 07/09/17 [History] Lisinopril [Zestril] 10 mg PO DAILY 07/09/17 [History] Mag Hydrox/Al Hydrox/Simeth [Antacid Suspension] 15 ml PO TID PRN 07/09/17 [ History] Metformin HCl [Glucophage] 1,000 mg PO BID 07/09/17 [History] Omeprazole [PriLOSEC] 40 mg PO BID 07/09/17 [History] Pioglitazone [Actos] 30 mg PO DAILY 07/09/17 [History] Polyvinyl Alcohol [Artificial Tears] 2 drop OP QID PRN 07/09/17 [History] Potassium Chloride [K-Tab ER] 20 meq PO DAILY 07/09/17 [History] Simethicone [Gas-X] 80 mg PO QID PRN 07/09/17 [History] Triamterene/Hydrochlorothiazid [Triamterene-Hctz 75-50 mg Tab] 1 each PO DAILY 07/09/17 [History] glipiZIDE [Glucotrol] 5 mg PO 0800 07/09/17 [History] hydrOXYzine pamoate [HydrOXYzine Pamoate] 25 mg PO QID PRN 07/09/17 [History] Enoxaparin [Lovenox] 40 mg SQ 0600 10 Days 07/15/17 [Rx] Ofloxacin OPTH Drops [Ocuflox] 2 drop LEFT EYE Q4HR bottle 07/15/17 [Rx] OxyCODONE/APAP 5/325 [Percocet 5/325 MG] 1 each PO Q4HR PRN #10 tab 07/15/17 [Rx ] Tamsulosin [Flomax] 0.4 mg PO DAILY #30 07/15/17 [Rx] Insulin LISPRO [HumaLOG] 2 - 12 unit SQ ACHS 07/22/17 [History] Ipratropium/Albuterol Neb [Duoneb] 3 ml IH Q4H PRN 07/22/17 [History] Naproxen [Naprosyn] 500 mg PO BID PRN 07/22/17 [History] 3 Allergy/AdvReac Type Severity Reaction Status Date / Time chlorhexidine AdvReac See Verified 07/09/17 20:13 Comments gabapentin AdvReac See Verified 07/09/17 20:13 Comments ROS unobtainable: due to endotracheal tube Palliative Care-Exam - Constitutional Vitals: Temp Pulse Resp BP Pulse Ox 98.3 F 78 19 105/61 97 07/25/17 11:36 07/25/17 14:00 07/25/17 14:00 07/25/17 14:00 07/25/17 14:00 General appearance: Present: no acute distress - Head Head Exam: Present: normal inspection, normocephalic - Respiratory Respiratory exam: Present: decreased breath sounds, CTAB - Cardiovascular Cardiovascular exam: Present: +S1, +S2 - GI/Abdominal Exam GI/Abdominal exam: Present: diminished bowel sounds, soft additional comments: subcutaneous emphysema noted - Catheter Type: Urethral (Watson) - Neurological Exam Additional comments: Patient not opening eyes, or responding to tactile or verbal stimuli. Does flinch feet occasionally. - Expanded Neurological Exam DTR: brachioradialis (L): 0 - Skin Skin exam: Present: dry, pallor, warm Internal Medicine - CN: Reslt - Labs CBC & Chem 7: 07/25/17 04:10 07/25/17 13:09 Labs: Short CBC 07/25/17 Range/Units 04:10 WBC 21.9 H (4.3-11.1) K/mcL Hgb 10.9 L D (12.9-16.9) g/dL Hct 33.3 L (37.5-50.1) % Plt Count 223 (140-400) K/mcL Neutrophils # 17.3 H (1.6-8.9) K/mcL BMP 07/25/17 07/25/17 04:10 13:09 Sodium 137 Potassium 3.5 3.7 Chloride 107 Carbon Dioxide 20 BUN 12 Creatinine 0.86 Glucose 193 H Calcium 8.0 L Cardiac Enzymes 07/25/17 Range/Units 04:10 Troponin I 0.74 H* (0-0.03) ng/mL - ABG Interpretation ABG results: ABG ABG pH 7.40 pH Units (7.32-7.45) 07/25/17 05:07 ABG pCO2 32 mmHg (35-45) L 07/25/17 05:07 ABG pO2 68 mmHg (85-104) L 07/25/17 05:07 ABG O2 Saturation 93 % (95-98) L 07/25/17 05:07 PT/INR, D-dimer PT 13.7 Seconds (9.4-12.1) H 07/24/17 06:09 - Impressions Impressions Chest X-Ray 07/25/17 08:09 IMPRESSION: 1. Significant interval improvement of left chest wall subcutaneous emphysema. 2. Stable mild patchy lung base opacities and mild left lateral lung base pneumothorax. D/ / 07/25/2017 11:06:42 Dave Perdomo MD / kerline Interpreting Provider: Dave Perdomo MD Consult Discharge Plan - Plan Referrals: NONE,PCP [Primary Care Provider] - (patient is from [facility]) Palliative Quality Palliative Quality: Screen for Code Status: Yes, Screen for Goals of Care: Yes, Screen for Pain: NA, If Pain Regimen Started, Initiate Bowel Regimen: NA, Screen for Nausea/Vomitting: NA Code Status: 07/25/17 13:52 DNR [Resuscitation Status: Active] [RES] Routine Comment: With intubation patient on ventilator Resuscitation Status: DNR-Comfort Care-Arrest
[2017-07-25] MEDS: FentaNYL (PF) 1,000 MCG in 0.9 % Sodium Chloride 80 ML IVC SCH (19:41)
[2017-07-25 20:31] LABS: Magnesium 1.5 mg/dL (1.6-2.6); Potassium 4.4 mEq/L (3.5-4.5)
[2017-07-25] MEDS: Norepinephrine 4 MG in D5% in Water 250 ML IVC SCH (23:13)
[2017-07-26] MEDS: Ofloxacin OPTH Drops 5 ML BOTTLE LEFT EYE SCH ×6 (03:18→23:16)
[2017-07-26] MEDS: Lacri-Lube 3.5 GM TUBE BOTH EYES SCH ×6 (03:19→23:16)
[2017-07-26 03:36] LABS: BUN/Creatinine Ratio 12 (6-26); Blood Urea Nitrogen 10 mg/dL (8-26); Calcium 8.3 mg/dL (8.6-10.8); Carbon Dioxide 21 mEq/L (19-29); Chloride 106 mEq/L (98-109); Glucose 216 mg/dL (70-99); Osmolality,Calculated 282 (280-300); Potassium 4.2 mEq/L (3.5-4.5); Sodium 133 mEq/L (136-145); eGFR For African Americans > 60 (> 60); eGFR For Non-African Americans > 60 (> 60)
[2017-07-26] MEDS: Insulin LISPRO 300 UNITS/3 ML VIAL SQ SCH ×6 (03:38→23:17)
[2017-07-26] MEDS: Magnesium Sulfate 2 GM in D5% in Water 100 ML IVPB PRN ×3 (04:36→23:37)
[2017-07-26] MEDS: *HR* Heparin 5,000 UNIT/ML VIAL SQ SCH ×2 (05:00→18:25)
[2017-07-26] MEDS: Vancomycin 1,500 MG in D5% in Water 250 ML IVPB SCH (05:01)
[2017-07-26] MEDS: Levothyroxine 25 MCG TABLET PO SCH (05:18)
[2017-07-26] MEDS: Pantoprazole 40 MG VIAL IVP SCH (05:18)
[2017-07-26 05:56] LABS: ABG HCO3 25 mEq/L (21-27); ABG Oxygen Saturation 95 % (95-98); ABG PCO2 40 mmHg (35-45); ABG PO2 78 mmHg (85-104); Blood Gas FiO2 30 %
[2017-07-26] MEDS: Aspirin 81 MG TAB.CHEW PO SCH (08:45)
[2017-07-26] MEDS: Piperacillin/Tazobactam 3.375 GM in D5% in Water (Mini-Bag+) 100 ML IVPB SCH ×3 (08:45→23:19)
--- NOTE | 2017-07-26 09:35 | Pulmonology Progress Note ---
<Elbert Oneil - Last Filed: 07/26/17 10:30> Date of Encounter: 07/26/17 Time of Encounter: 07:45 Assessment and Plan (1) Cardiac arrest Current Visit: Yes Status: Acute Patient arrested 3 nights ago with ROSC and continues to be intubated. Patient' s advanced directive indicates that he wishes to remain DNR, and his wishes have been discussed with his POA/. reports that she understands and respect his wishes. CODE STATUS DNR-CCA-DNI. Gretta from palliative is on board and they will follow-up on her on Friday. Currently weaning sedation. Extubation indicated when patient resumes self respiration. Continue to monitor ventilator settings. Blood pressure is stable without levophed. The urine culture/blood culture are negative. Sputum culture preliminary is negative; follow-up on final report. Continue Zosyn and vancomycin. Continue to monitor vital signs. No labs were obtained today, CBC tomorrow and follow up on white cell count. Plan is to keep the patient intubated until Friday and extubate if patient does not improve. (2) Hyperglycemia Current Visit: Yes Status: Acute Continue SSI (3) Leukocytosis Current Visit: Yes Status: Acute Follow-up with CBC. Continue with antibiotics. Qualifiers: Leukocytosis type: bandemia Qualified Code(s): D72.825 - Bandemia (4) Urinary retention Current Visit: No Status: Chronic Patient has a catheter with clear yellow urine. Continue to monitor in and outs. (5) DVT prophylaxis Current Visit: No Status: Acute Continue heparin subcutaneous for DVT prophylaxis. Subjective Principal diagnosis: Sepsis, elevated troponin, s/p arrest Interval history: Patient started to feeding yesterday. Patient remains on ventilator and he is hemodynamically stable. Palliative rounded on the patient and discussed CODE STATUS with ; CODE STATUS remains DNR CCA. Patient to remain on mechanical ventilator until Friday. Patient is currently weaning on Versed in hopes of improved mental status. The plan is to start CPAP trial when he improves. Objective PUL Vital signs: Last Vital Signs Temp 98.0 F 07/26/17 07:36 Pulse 75 07/26/17 08:00 Resp 19 07/26/17 08:16 BP 116/66 07/26/17 08:00 Pulse Ox 98 07/26/17 08:16 General appearance: other (intubated. Not arousable.) Eyes: nonicteric Effort: normal Auscultation: left: clear, right: rales (Right upper lobe, possibly due to rib fracture from CPR. ) Cardiovascular: regular rate and rhythm Gastrointestinal: absent bowel sounds, soft, other (distended) Integumentary: erythema (throughout body ), other Extremities: no cyanosis, no edema Musculoskeletal: no deformities other (nonarousable (intubated and sedated) ) Ventilator Settings Ventilator Settings: Ventilator Settings, Last 8 Hours Ventilator Mode VC+ Ventilator Mode VC+ Ventilator Mode VC+ Ventilator Mode VC+ Ventilator Mode VC+ Ventilator Mode VC+ Ventilator Mode VC+ Ventilator Mode VC+ Ventilator Mode VC+ Ventilator Mode VC+ Ventilator Mode VC+ Ventilator Mode VC+ Ventilator Tidal Volume 420 Setting Ventilator Tidal Volume 420 Setting Ventilator Tidal Volume 420 Setting Ventilator Tidal Volume 420 Setting Ventilator Tidal Volume 420 Setting Ventilator Tidal Volume 420 Setting Ventilator Tidal Volume 420 Setting Ventilator Tidal Volume 420 Setting Ventilator Tidal Volume 420 Setting Ventilator Tidal Volume 420 Setting Ventilator Tidal Volume 420 Setting Ventilator Tidal Volume 420 Setting Ventilator Respiratory Rate 16 Setting Ventilator Respiratory Rate 16 Setting Ventilator Respiratory Rate 16 Setting Ventilator Respiratory Rate 16 Setting Ventilator Respiratory Rate 16 Setting Ventilator Respiratory Rate 16 Setting Ventilator Respiratory Rate 16 Setting Ventilator Respiratory Rate 16 Setting Ventilator Respiratory Rate 16 Setting Ventilator Respiratory Rate 16 Setting Ventilator Respiratory Rate 16 Setting Ventilator Respiratory Rate 16 Setting Actual Respiratory Rate 18 Actual Respiratory Rate 16 Actual Respiratory Rate 17 Actual Respiratory Rate 16 Actual Respiratory Rate 16 Actual Respiratory Rate 18 Actual Respiratory Rate 18 Actual Respiratory Rate 18 Actual Respiratory Rate 18 Actual Respiratory Rate 18 Actual Respiratory Rate 18 Positive End Expiratory 5 Pressure Positive End Expiratory 5 Pressure Positive End Expiratory 5 Pressure Positive End Expiratory 5 Pressure Positive End Expiratory 5 Pressure Positive End Expiratory 5 Pressure Positive End Expiratory 5 Pressure Positive End Expiratory 5 Pressure Positive End Expiratory 5 Pressure Positive End Expiratory 5 Pressure Positive End Expiratory 5 Pressure Positive End Expiratory 5 Pressure Peak Inspiratory Airway 17 Pressure Peak Inspiratory Airway 17 Pressure Peak Inspiratory Airway 18 Pressure Peak Inspiratory Airway 17 Pressure Peak Inspiratory Airway 17 Pressure Peak Inspiratory Airway 17 Pressure Peak Inspiratory Airway 16 Pressure Peak Inspiratory Airway 17 Pressure Peak Inspiratory Airway 16 Pressure Results - Laboratory Findings CBC and BMP: 07/25/17 04:10 07/26/17 03:20 ABG ABG pH 7.40 pH Units (7.32-7.45) 07/26/17 05:45 ABG pCO2 40 mmHg (35-45) 07/26/17 05:45 ABG pO2 78 mmHg (85-104) L 07/26/17 05:45 ABG O2 Saturation 95 % (95-98) 07/26/17 05:45 PT/INR, D-dimer PT 13.7 Seconds (9.4-12.1) H 07/24/17 06:09 Abnormal lab findings: Abnormal lab results WBC 21.9 K/mcL (4.3-11.1) H 07/25/17 04:10 RBC 3.74 M/mcL (4.19-5.50) L 07/25/17 04:10 Hgb 10.9 g/dL (12.9-16.9) L D 07/25/17 04:10 Hct 33.3 % (37.5-50.1) L 07/25/17 04:10 Neutrophils # 17.3 K/mcL (1.6-8.9) H 07/25/17 04:10 Monocytes # 2.2 K/mcL (0.0-1.3) H 07/25/17 04:10 Clumped Platelets Few (Not Present) A 07/24/17 06:09 PT 13.7 Seconds (9.4-12.1) H 07/24/17 06:09 APTT 100.3 Seconds (26.0-36.0) H 07/23/17 14:51 ABG pO2 78 mmHg (85-104) L 07/26/17 05:45 Sodium 133 mEq/L (136-145) L 07/26/17 03:20 Glucose 216 mg/dL (70-99) H 07/26/17 03:20 POC Glucose 167 (58-89) H 07/25/17 23:11 Calcium 8.3 mg/dL (8.6-10.8) L 07/26/17 03:20 Creatine Kinase 206 Units/L (30-200) H 07/24/17 00:56 Troponin I 0.74 ng/mL (0-0.03) H* 07/25/17 04:10 Albumin 2.9 g/dL (3.5-5.0) L 07/23/17 17:29 Globulin 3.9 g/dL (2.4-3.5) H 07/23/17 01:26 Albumin/Globulin Ratio 0.8 (1.1-2.2) L 07/23/17 01:26 Lipase 141 Units/L (8-78) H 07/22/17 18:38 Urine Clarity Turbid (Clear) A 07/22/17 18:21 Urine Protein 100 mg/dL (Neg-Trace) H 07/22/17 18:21 Urine Blood Large (Negative) H 07/22/17 18:21 Urine Bilirubin Small (Negative) H 07/22/17 18:21 Ur Leukocyte Esterase Trace (Negative) H 07/22/17 18:21 Urine Microscopic RBC 15-30 per hpf (0-3) H 07/22/17 18:21 Urine Microscopic WBC 15-30 per hpf (0-3) H 07/22/17 18:21 Ur Squamous Epith Cells Many per lpf (None-Few) H 07/22/17 18:21 Ur Culture Indicated? YES (NO) A 07/22/17 18:21 - Microbiology Findings Microbiology Findings: Microbiology, Last 48 Hours 07/24/17 21:40 Sputum Culture - Preliminary Sputum 07/24/17 18:42 Urine Culture - Final Urine,Clean Catch No growth. - Clinical Findings Intake & Output: Intake & Output 07/25/17 07/26/17 07/26/17 23:59 07:59 15:59 Intake Total 825.5 / 825.5 578 / 578 Output Total 450 / 450 500 / 500 Balance 375.5 / 375.5 78 / 78 Weight 84 kg Consult Discharge Plan - Plan Referrals: NONE,PCP [Primary Care Provider] - (patient is from [facility]) <Shawn Vaca S - Last Filed: 07/26/17 13:03> Date of Encounter: 07/26/17 Objective PUL Vital signs: Last Vital Signs Temp 98.0 F 07/26/17 07:36 Pulse 80 07/26/17 12:00 Resp 16 07/26/17 12:00 BP 95/58 07/26/17 12:00 Pulse Ox 97 07/26/17 12:00 Ventilator Settings Ventilator Settings: Ventilator Settings, Last 8 Hours Ventilator Mode VC+ Ventilator Mode VC+ Ventilator Mode VC+ Ventilator Mode VC+ Ventilator Mode VC+ Ventilator Mode VC+ Ventilator Mode VC+ Ventilator Mode VC+ Ventilator Mode VC+ Ventilator Mode VC+ Ventilator Mode VC+ Ventilator Mode VC+ Ventilator Mode VC+ Ventilator Tidal Volume 420 Setting Ventilator Tidal Volume 420 Setting Ventilator Tidal Volume 420 Setting Ventilator Tidal Volume 420 Setting Ventilator Tidal Volume 420 Setting Ventilator Tidal Volume 420 Setting Ventilator Tidal Volume 420 Setting Ventilator Tidal Volume 420 Setting Ventilator Tidal Volume 420 Setting Ventilator Tidal Volume 420 Setting Ventilator Tidal Volume 420 Setting Ventilator Tidal Volume 420 Setting Ventilator Tidal Volume 420 Setting Ventilator Respiratory Rate 16 Setting Ventilator Respiratory Rate 16 Setting Ventilator Respiratory Rate 16 Setting Ventilator Respiratory Rate 16 Setting Ventilator Respiratory Rate 16 Setting Ventilator Respiratory Rate 16 Setting Ventilator Respiratory Rate 16 Setting Ventilator Respiratory Rate 16 Setting Ventilator Respiratory Rate 16 Setting Ventilator Respiratory Rate 16 Setting Ventilator Respiratory Rate 16 Setting Ventilator Respiratory Rate 16 Setting Ventilator Respiratory Rate 16 Setting Actual Respiratory Rate 17 Actual Respiratory Rate 16 Actual Respiratory Rate 19 Actual Respiratory Rate 18 Actual Respiratory Rate 16 Actual Respiratory Rate 17 Actual Respiratory Rate 16 Actual Respiratory Rate 16 Actual Respiratory Rate 18 Positive End Expiratory 5 Pressure Positive End Expiratory 5 Pressure Positive End Expiratory 5 Pressure Positive End Expiratory 5 Pressure Positive End Expiratory 5 Pressure Positive End Expiratory 5 Pressure Positive End Expiratory 5 Pressure Positive End Expiratory 5 Pressure Positive End Expiratory 5 Pressure Positive End Expiratory 5 Pressure Positive End Expiratory 5 Pressure Positive End Expiratory 5 Pressure Positive End Expiratory 5 Pressure Peak Inspiratory Airway 17 Pressure Peak Inspiratory Airway 16 Pressure Peak Inspiratory Airway 17 Pressure Peak Inspiratory Airway 17 Pressure Peak Inspiratory Airway 18 Pressure Peak Inspiratory Airway 17 Pressure Results - Laboratory Findings CBC and BMP: 07/25/17 04:10 07/26/17 03:20 ABG ABG pH 7.40 pH Units (7.32-7.45) 07/26/17 05:45 ABG pCO2 40 mmHg (35-45) 07/26/17 05:45 ABG pO2 78 mmHg (85-104) L 07/26/17 05:45 ABG O2 Saturation 95 % (95-98) 07/26/17 05:45 PT/INR, D-dimer PT 13.7 Seconds (9.4-12.1) H 07/24/17 06:09 Abnormal lab findings: Abnormal lab results WBC 21.9 K/mcL (4.3-11.1) H 07/25/17 04:10 RBC 3.74 M/mcL (4.19-5.50) L 07/25/17 04:10 Hgb 10.9 g/dL (12.9-16.9) L D 07/25/17 04:10 Hct 33.3 % (37.5-50.1) L 07/25/17 04:10 Neutrophils # 17.3 K/mcL (1.6-8.9) H 07/25/17 04:10 Monocytes # 2.2 K/mcL (0.0-1.3) H 07/25/17 04:10 Clumped Platelets Few (Not Present) A 07/24/17 06:09 PT 13.7 Seconds (9.4-12.1) H 07/24/17 06:09 APTT 100.3 Seconds (26.0-36.0) H 07/23/17 14:51 ABG pO2 78 mmHg (85-104) L 07/26/17 05:45 Sodium 133 mEq/L (136-145) L 07/26/17 03:20 Glucose 216 mg/dL (70-99) H 07/26/17 03:20 POC Glucose 167 (58-89) H 07/25/17 23:11 Calcium 8.3 mg/dL (8.6-10.8) L 07/26/17 03:20 Magnesium 1.5 mg/dL (1.6-2.6) L 07/26/17 12:27 Creatine Kinase 206 Units/L (30-200) H 07/24/17 00:56 Troponin I 0.74 ng/mL (0-0.03) H* 07/25/17 04:10 Albumin 2.9 g/dL (3.5-5.0) L 07/23/17 17:29 Globulin 3.9 g/dL (2.4-3.5) H 07/23/17 01:26 Albumin/Globulin Ratio 0.8 (1.1-2.2) L 07/23/17 01:26 Lipase 141 Units/L (8-78) H 07/22/17 18:38 Urine Clarity Turbid (Clear) A 07/22/17 18:21 Urine Protein 100 mg/dL (Neg-Trace) H 07/22/17 18:21 Urine Blood Large (Negative) H 07/22/17 18:21 Urine Bilirubin Small (Negative) H 07/22/17 18:21 Ur Leukocyte Esterase Trace (Negative) H 07/22/17 18:21 Urine Microscopic RBC 15-30 per hpf (0-3) H 07/22/17 18:21 Urine Microscopic WBC 15-30 per hpf (0-3) H 07/22/17 18:21 Ur Squamous Epith Cells Many per lpf (None-Few) H 07/22/17 18:21 Ur Culture Indicated? YES (NO) A 07/22/17 18:21 - Microbiology Findings Microbiology Findings: Microbiology, Last 48 Hours 07/24/17 21:40 Sputum Culture - Preliminary Sputum 07/24/17 18:42 Urine Culture - Final Urine,Clean Catch No growth. - Clinical Findings Intake & Output: Intake & Output 07/25/17 07/26/17 07/26/17 23:59 07:59 15:59 Intake Total 825.5 / 825.5 578 / 578 198 / 198 Output Total 450 / 450 500 / 500 Balance 375.5 / 375.5 78 / 78 198 / 198 Weight 84 kg - Attending Attestation i saw the patient with the resident agree with History and Physical exam findings. 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 Patient has gag reflex and breathing over the vent. Will try wake him up and will do spontaneous breathing trial NECK : No JVD appreciated Pulmonary : Patient is on ventilatory support during the cardiac arrest due to chest compression patient had multiple rib fractures which lead to subcutaneous emphysema and some apical pneumothorax . Chest X ray stable , subcutaneous emphysema stable. Will continue the current settings Cardiac : Patient is off vasopressors hemodynamically stable Nutrition/GI: Tube feeds Renal : Labs reviewed ID : To continue broad spectrum antibiotics will follow cultures , there is no clear source .Will deescalate vancomycin tomorrow Musculo skeletal / skin iss,ues : Poor skin hygiene Disposition : Critically ill anticipating poor neurological recovery Code status: DNRA-I Family/POA: wants to see how he recovers over the weekend if he doesnt is leaning towards making him comfortable
[2017-07-26] MEDS: FentaNYL (PF) 1,000 MCG in 0.9 % Sodium Chloride 80 ML IVC SCH (20:09)
[2017-07-26 23:01] LABS: CK-BB (CK isoenzymes) 6 % (0-0); CK-MB (CK isoenzymes) 4 % (0-4); CK-MM (CK-isoenzymes) 90 % (96-100)
[2017-07-26] MEDS: Norepinephrine 4 MG in D5% in Water 250 ML IVC SCH (23:17)
[2017-07-27 03:06] LABS: Basophils # 0.1 K/mcL (0.0-0.2); Basophils % 0.4 %; Eosinophils # 0.7 K/mcL (0.0-0.6); Eosinophils % 3.4 %; Hematocrit 33.8 % (37.5-50.1); Hemoglobin 10.9 g/dL (12.9-16.9); Immature Granulocytes % 1.2 % (0-4); Lymphocytes # 1.8 K/mcL (0.6-4.6); Lymphocytes % 8.7 %; Mean Corpuscular HGB Conc 32.2 g/dL (31.6-35.5); Mean Corpuscular Hemoglobin 29.1 pg (28.0-33.3); Mean Corpuscular Volume 90.4 fL (83.0-100.0); Mean Platelet Volume 10.5 fL (9.4-12.4); Monocytes # 2.4 K/mcL (0.0-1.3); Platelet Count 236 K/mcL (140-400); Red Blood Count 3.74 M/mcL (4.19-5.50); Red Cell Distribution Width 13.2 % (11.5-14.5); Segmented Neutrophils % 74.3 %
[2017-07-27] MEDS: Ofloxacin OPTH Drops 5 ML BOTTLE LEFT EYE SCH ×6 (03:15→23:50)
[2017-07-27] MEDS: Lacri-Lube 3.5 GM TUBE BOTH EYES SCH ×6 (03:15→23:50)
[2017-07-27 03:18] LABS: Alanine Aminotransferase 45 Units/L (0-55); Albumin/Globulin Ratio 0.6 (1.1-2.2); Alkaline Phosphatase 90 Units/L (38-126); Aspartate Amino Transferase 16 Units/L (5-34); BUN/Creatinine Ratio 13 (6-26); Bilirubin,Total 0.4 mg/dL (0.2-1.2); Blood Urea Nitrogen 11 mg/dL (8-26); Calcium 8.2 mg/dL (8.6-10.8); Carbon Dioxide 24 mEq/L (19-29); Chloride 102 mEq/L (98-109); Globulin 3.5 g/dL (2.4-3.5); Glucose 351 mg/dL (70-99); Osmolality,Calculated 287 (280-300); Potassium 4.4 mEq/L (3.5-4.5); Sodium 132 mEq/L (136-145); Total Protein 5.5 g/dL (6.0-8.3); eGFR For African Americans > 60 (> 60); eGFR For Non-African Americans > 60 (> 60)
[2017-07-27] MEDS: Insulin LISPRO 300 UNITS/3 ML VIAL SQ SCH ×6 (03:23→23:50)
[2017-07-27] MEDS: Magnesium Sulfate 2 GM in D5% in Water 100 ML IVPB PRN (03:40)
[2017-07-27] MEDS: Vancomycin 1,500 MG in D5% in Water 250 ML IVPB SCH (05:00)
[2017-07-27] MEDS: *HR* Heparin 5,000 UNIT/ML VIAL SQ SCH ×2 (05:22→17:34)
[2017-07-27] MEDS: Levothyroxine 25 MCG TABLET PO SCH (05:22)
[2017-07-27] MEDS: Pantoprazole 40 MG VIAL IVP SCH (05:22)
[2017-07-27 05:28] LABS: ABG Base Excess -0.1 mEq/L (-2.0 to 3.0); ABG HCO3 25 mEq/L (21-27); ABG Oxygen Saturation 97 % (95-98); ABG PCO2 44 mmHg (35-45); ABG PH 7.37 pH Units (7.32-7.45); ABG PO2 95 mmHg (85-104); ABG TCO2 26.8 mEq/L (20-26); Blood Gas FiO2 30 %
--- NOTE | 2017-07-27 08:26 | Pulmonology Progress Note ---
<Elbert Oneil - Last Filed: 07/27/17 08:24> Date of Encounter: 07/27/17 Time of Encounter: 07:30 Assessment and Plan (1) Cardiac arrest Current Visit: Yes Status: Acute Patient arrested 4 nights ago with ROSC and continues to be intubated. His advanced directive indicates that he wishes to remain DNR, and his wishes have been discussed with his POA/. reports that she understands and respect his wishes. CODE STATUS [id number] Glynn from palliative is on board and they will follow-up on her on Friday. Patient has myoclonic jerks yesterday night and today. Versed for sedation. Consult neurology to access his mental status. Blood pressure is stable without levophed. The urine culture/blood/sputum cultures are negative. Continue Zosyn and vancomycin. Start spontaneous breathing trial as appropriate. Plan is to keep the patient intubated until Friday and extubate if patient does not improve. (2) Hyperglycemia Current Visit: Yes Status: Acute Continue SSI (3) Leukocytosis Current Visit: Yes Status: Acute Leukocytosis trending down 20.2/21.9/39.4. Continue with antibiotics. Qualifiers: Leukocytosis type: bandemia Qualified Code(s): D72.825 - Bandemia (4) Urinary retention Current Visit: No Status: Chronic Patient has a catheter with clear yellow urine. Continue to monitor in and outs. (5) DVT prophylaxis Current Visit: No Status: Acute Continue heparin subcutaneous for DVT prophylaxis. Subjective Principal diagnosis: Sepsis, elevated troponin, s/p arrest Interval history: Patient remains on ventilator and he is hemodynamically stable. Patient to remain on mechanical ventilator until Friday. Patient has myoclonic jerks overnight and this morning. He is unresponsive and does not follow commands. Plan is to consult neurology to assess mental status tomorrow and obtain an EEG. Start spontaneous breathing trial today. Objective PUL Vital signs: Last Vital Signs Temp 98.6 F 07/27/17 07:36 Pulse 85 07/27/17 06:00 Resp 16 07/27/17 08:01 BP 104/60 07/27/17 06:00 Pulse Ox 95 07/27/17 08:01 General appearance: other (ventilated, unresponsive, uncomfortable with myoclonic jerks. responds to sternal rub. ) Eyes: injected Neck: supple Auscultation: left: rales Cardiovascular: regular rate and rhythm Gastrointestinal: hypoactive bowel sounds, non-distended Integumentary: normal Extremities: no cyanosis, no edema, no clubbing Musculoskeletal: no deformities unable to assess due to mental status, other (pupils reactive to light bilaterally ) Ventilator Settings Ventilator Settings: Ventilator Settings, Last 8 Hours Ventilator Mode VC+ Ventilator Mode VC+ Ventilator Mode VC+ Ventilator Mode VC+ Ventilator Mode VC+ Ventilator Mode VC+ Ventilator Mode VC+ Ventilator Mode VC+ Ventilator Mode VC+ Ventilator Mode VC+ Ventilator Mode VC+ Ventilator Tidal Volume 420 Setting Ventilator Tidal Volume 420 Setting Ventilator Tidal Volume 420 Setting Ventilator Tidal Volume 420 Setting Ventilator Tidal Volume 420 Setting Ventilator Tidal Volume 420 Setting Ventilator Tidal Volume 420 Setting Ventilator Tidal Volume 420 Setting Ventilator Tidal Volume 420 Setting Ventilator Tidal Volume 420 Setting Ventilator Tidal Volume 420 Setting Ventilator Respiratory Rate 16 Setting Ventilator Respiratory Rate 16 Setting Ventilator Respiratory Rate 16 Setting Ventilator Respiratory Rate 16 Setting Ventilator Respiratory Rate 16 Setting Ventilator Respiratory Rate 16 Setting Ventilator Respiratory Rate 16 Setting Ventilator Respiratory Rate 16 Setting Ventilator Respiratory Rate 16 Setting Ventilator Respiratory Rate 16 Setting Ventilator Respiratory Rate 16 Setting Actual Respiratory Rate 16 Actual Respiratory Rate 17 Actual Respiratory Rate 17 Actual Respiratory Rate 17 Actual Respiratory Rate 17 Actual Respiratory Rate 17 Actual Respiratory Rate 17 Actual Respiratory Rate 17 Actual Respiratory Rate 17 Actual Respiratory Rate 17 Positive End Expiratory 5 Pressure Positive End Expiratory 5 Pressure Positive End Expiratory 5 Pressure Positive End Expiratory 5 Pressure Positive End Expiratory 5 Pressure Positive End Expiratory 5 Pressure Positive End Expiratory 5 Pressure Positive End Expiratory 5 Pressure Positive End Expiratory 5 Pressure Positive End Expiratory 5 Pressure Positive End Expiratory 5 Pressure Peak Inspiratory Airway 17 Pressure Peak Inspiratory Airway 17 Pressure Peak Inspiratory Airway 18 Pressure Peak Inspiratory Airway 17 Pressure Peak Inspiratory Airway 16 Pressure Peak Inspiratory Airway 18 Pressure Peak Inspiratory Airway 19 Pressure Peak Inspiratory Airway 18 Pressure Peak Inspiratory Airway 17 Pressure Peak Inspiratory Airway 17 Pressure Results - Laboratory Findings CBC and BMP: 07/27/17 03:00 07/27/17 03:00 ABG ABG pH 7.37 pH Units (7.32-7.45) 07/27/17 05:20 ABG pCO2 44 mmHg (35-45) 07/27/17 05:20 ABG pO2 95 mmHg (85-104) 07/27/17 05:20 ABG O2 Saturation 97 % (95-98) 07/27/17 05:20 PT/INR, D-dimer PT 13.7 Seconds (9.4-12.1) H 07/24/17 06:09 Abnormal lab findings: Abnormal lab results WBC 20.2 K/mcL (4.3-11.1) H 07/27/17 03:00 RBC 3.74 M/mcL (4.19-5.50) L 07/27/17 03:00 Hgb 10.9 g/dL (12.9-16.9) L 07/27/17 03:00 Hct 33.8 % (37.5-50.1) L 07/27/17 03:00 Neutrophils # 15.0 K/mcL (1.6-8.9) H 07/27/17 03:00 Monocytes # 2.4 K/mcL (0.0-1.3) H 07/27/17 03:00 Eosinophils # 0.7 K/mcL (0.0-0.6) H 07/27/17 03:00 Clumped Platelets Few (Not Present) A 07/24/17 06:09 PT 13.7 Seconds (9.4-12.1) H 07/24/17 06:09 APTT 100.3 Seconds (26.0-36.0) H 07/23/17 14:51 ABG Total CO2 26.8 mEq/L (20-26) H 07/27/17 05:20 Sodium 132 mEq/L (136-145) L 07/27/17 03:00 Glucose 351 mg/dL (70-99) H 07/27/17 03:00 POC Glucose 204 (58-89) H 07/26/17 23:11 Calcium 8.2 mg/dL (8.6-10.8) L 07/27/17 03:00 Creatine Kinase 206 Units/L (30-200) H 07/24/17 00:56 Troponin I 0.74 ng/mL (0-0.03) H* 07/25/17 04:10 Serum Total Protein 5.5 g/dL (6.0-8.3) L 07/27/17 03:00 Albumin 2.0 g/dL (3.5-5.0) L 07/27/17 03:00 Albumin/Globulin Ratio 0.6 (1.1-2.2) L 07/27/17 03:00 Lipase 141 Units/L (8-78) H 07/22/17 18:38 Urine Clarity Turbid (Clear) A 07/22/17 18:21 Urine Protein 100 mg/dL (Neg-Trace) H 07/22/17 18:21 Urine Blood Large (Negative) H 07/22/17 18:21 Urine Bilirubin Small (Negative) H 07/22/17 18:21 Ur Leukocyte Esterase Trace (Negative) H 07/22/17 18:21 Urine Microscopic RBC 15-30 per hpf (0-3) H 07/22/17 18:21 Urine Microscopic WBC 15-30 per hpf (0-3) H 07/22/17 18:21 Ur Squamous Epith Cells Many per lpf (None-Few) H 07/22/17 18:21 Ur Culture Indicated? YES (NO) A 07/22/17 18:21 - Microbiology Findings Microbiology Findings: Microbiology, Last 48 Hours 07/24/17 21:40 Sputum Culture - Final Sputum 07/24/17 18:42 Urine Culture - Final Urine,Clean Catch No growth. - Clinical Findings Intake & Output: Intake & Output 07/26/17 07/27/17 07/27/17 23:59 07:59 15:59 Intake Total 963 / 963 204 / 204 Output Total 200 / 200 625 / 625 Balance 763 / 763 -421 / -421 Weight 84.5 kg 84.5 kg Consult Discharge Plan - Plan Referrals: NONE,PCP [Primary Care Provider] - (patient is from [facility]) <Shawn Vaca - Last Filed: 07/27/17 14:55> Date of Encounter: 07/27/17 Objective PUL Vital signs: Last Vital Signs Temp 98.8 F 07/27/17 11:49 Pulse 87 07/27/17 13:30 Resp 12 07/27/17 13:30 BP 112/60 07/27/17 13:30 Pulse Ox 97 07/27/17 13:30 Ventilator Settings Ventilator Settings: Ventilator Settings, Last 8 Hours Ventilator Mode CPAP Ventilator Mode CPAP Ventilator Mode VC+ Ventilator Mode VC+ Ventilator Mode VC+ Ventilator Mode VC+ Ventilator Mode VC+ Ventilator Mode VC+ Ventilator Mode VC+ Ventilator Mode VC+ Ventilator Tidal Volume 420 Setting Ventilator Tidal Volume 420 Setting Ventilator Tidal Volume 420 Setting Ventilator Tidal Volume 420 Setting Ventilator Tidal Volume 420 Setting Ventilator Tidal Volume 420 Setting Ventilator Tidal Volume 420 Setting Ventilator Tidal Volume 420 Setting Ventilator Tidal Volume 420 Setting Ventilator Tidal Volume 420 Setting Ventilator Respiratory Rate 16 Setting Ventilator Respiratory Rate 16 Setting Ventilator Respiratory Rate 16 Setting Ventilator Respiratory Rate 16 Setting Ventilator Respiratory Rate 16 Setting Ventilator Respiratory Rate 16 Setting Ventilator Respiratory Rate 16 Setting Ventilator Respiratory Rate 16 Setting Ventilator Respiratory Rate 16 Setting Ventilator Respiratory Rate 16 Setting Actual Respiratory Rate 12 Actual Respiratory Rate 13 Actual Respiratory Rate 16 Actual Respiratory Rate 16 Actual Respiratory Rate 16 Actual Respiratory Rate 16 Actual Respiratory Rate 17 Actual Respiratory Rate 17 Actual Respiratory Rate 16 Actual Respiratory Rate 22 Positive End Expiratory 5 Pressure Positive End Expiratory 5 Pressure Positive End Expiratory 5 Pressure Positive End Expiratory 5 Pressure Positive End Expiratory 5 Pressure Positive End Expiratory 5 Pressure Positive End Expiratory 5 Pressure Positive End Expiratory 5 Pressure Positive End Expiratory 5 Pressure Positive End Expiratory 5 Pressure Peak Inspiratory Airway 21 Pressure Peak Inspiratory Airway 19 Pressure Peak Inspiratory Airway 18 Pressure Peak Inspiratory Airway 18 Pressure Peak Inspiratory Airway 19 Pressure Peak Inspiratory Airway 17 Pressure Results - Laboratory Findings CBC and BMP: 07/27/17 03:00 07/27/17 03:00 ABG ABG pH 7.37 pH Units (7.32-7.45) 07/27/17 05:20 ABG pCO2 44 mmHg (35-45) 07/27/17 05:20 ABG pO2 95 mmHg (85-104) 07/27/17 05:20 ABG O2 Saturation 97 % (95-98) 07/27/17 05:20 PT/INR, D-dimer PT 13.7 Seconds (9.4-12.1) H 07/24/17 06:09 Abnormal lab findings: Abnormal lab results WBC 20.2 K/mcL (4.3-11.1) H 07/27/17 03:00 RBC 3.74 M/mcL (4.19-5.50) L 07/27/17 03:00 Hgb 10.9 g/dL (12.9-16.9) L 07/27/17 03:00 Hct 33.8 % (37.5-50.1) L 07/27/17 03:00 Neutrophils # 15.0 K/mcL (1.6-8.9) H 07/27/17 03:00 Monocytes # 2.4 K/mcL (0.0-1.3) H 07/27/17 03:00 Eosinophils # 0.7 K/mcL (0.0-0.6) H 07/27/17 03:00 Clumped Platelets Few (Not Present) A 07/24/17 06:09 PT 13.7 Seconds (9.4-12.1) H 07/24/17 06:09 APTT 100.3 Seconds (26.0-36.0) H 07/23/17 14:51 ABG Total CO2 26.8 mEq/L (20-26) H 07/27/17 05:20 Sodium 132 mEq/L (136-145) L 07/27/17 03:00 Glucose 351 mg/dL (70-99) H 07/27/17 03:00 POC Glucose 204 (58-89) H 07/26/17 23:11 Calcium 8.2 mg/dL (8.6-10.8) L 07/27/17 03:00 Creatine Kinase 206 Units/L (30-200) H 07/24/17 00:56 Troponin I 0.74 ng/mL (0-0.03) H* 07/25/17 04:10 Serum Total Protein 5.5 g/dL (6.0-8.3) L 07/27/17 03:00 Albumin 2.0 g/dL (3.5-5.0) L 07/27/17 03:00 Albumin/Globulin Ratio 0.6 (1.1-2.2) L 07/27/17 03:00 Lipase 141 Units/L (8-78) H 07/22/17 18:38 Urine Clarity Turbid (Clear) A 07/22/17 18:21 Urine Protein 100 mg/dL (Neg-Trace) H 07/22/17 18:21 Urine Blood Large (Negative) H 07/22/17 18:21 Urine Bilirubin Small (Negative) H 07/22/17 18:21 Ur Leukocyte Esterase Trace (Negative) H 07/22/17 18:21 Urine Microscopic RBC 15-30 per hpf (0-3) H 07/22/17 18:21 Urine Microscopic WBC 15-30 per hpf (0-3) H 07/22/17 18:21 Ur Squamous Epith Cells Many per lpf (None-Few) H 07/22/17 18:21 Ur Culture Indicated? YES (NO) A 07/22/17 18:21 - Microbiology Findings Microbiology Findings: Microbiology, Last 48 Hours 07/24/17 21:40 Sputum Culture - Final Sputum 07/24/17 18:42 Urine Culture - Final Urine,Clean Catch No growth. - Clinical Findings Intake & Output: Intake & Output 07/26/17 07/27/17 07/27/17 23:59 07:59 15:59 Intake Total 963 / 963 204 / 204 681 / 681 Output Total 200 / 200 625 / 625 200 / 200 Balance 763 / 763 -421 / -421 481 / 481 Weight 84.5 kg 84.5 kg - Attending Attestation i saw the patient with the resident agree with History and Physical exam findings. 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 Patient has gag reflex and breathing over the vent . Patient has some myoclonic jerks , consulted neurology to assess neurological recovery . Dr Friend to asess him tomorrow will stop Versed in the morning will get EEG after that will order a 2 hr EEG . NECK : No JVD appreciated Pulmonary : Patient is on ventilatory support during the cardiac arrest due to chest compression patient had multiple rib fractures which lead to subcutaneous emphysema and some apical pneumothorax . Chest X ray stable , subcutaneous emphysema stable. Will continue the current settings Cardiac : Patient is off vasopressors hemodynamically stable Nutrition/GI: Tube feeds Renal : Labs reviewed ID : To continue broad spectrum antibiotics will follow cultures , there is no clear source . Stopped Vancomycin today will discontinue Zosyn tomorrow . Musculo skeletal / skin iss,ues : Poor skin hygiene Disposition : Critically ill anticipating poor neurological recovery Code status: DNRA-I Family/POA: Spoke with not sure if she understands his wishes she has poor insight about neurological recovery , she is not ready to make him comfort care according to wishes , she says that she is hopeful for a miracle . Told her i am calling the neurologist tomorrow will be doing investigations to assess brain damage . Very complicated social situation , social work and palliative care involved .
[2017-07-27] MEDS: Piperacillin/Tazobactam 3.375 GM in D5% in Water (Mini-Bag+) 100 ML IVPB SCH ×2 (09:03→16:54)
[2017-07-27] MEDS: Aspirin 81 MG TAB.CHEW PO SCH (09:03)
--- NOTE | 2017-07-27 09:21 | Electrocardiograph Report ---
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
[2017-07-27] MEDS ORDERED: Aminoglycoside Consult 1 EACH MC ONE (13:04)
[2017-07-28] MEDS: Piperacillin/Tazobactam 3.375 GM in D5% in Water (Mini-Bag+) 100 ML IVPB SCH ×4 (00:12→23:19)
[2017-07-28] MEDS: Norepinephrine 4 MG in D5% in Water 250 ML IVC SCH ×2 (00:12→23:21)
[2017-07-28] MEDS: FentaNYL (PF) 1,000 MCG in 0.9 % Sodium Chloride 80 ML IVC SCH ×2 (00:13→23:21)
[2017-07-28 03:24] LABS: Basophils # 0.1 K/mcL (0.0-0.2); Basophils % 0.6 %; Eosinophils # 1.1 K/mcL (0.0-0.6); Eosinophils % 5.4 %; Hematocrit 33.8 % (37.5-50.1); Hemoglobin 10.9 g/dL (12.9-16.9); Immature Granulocytes % 1.4 % (0-4); Lymphocytes # 1.8 K/mcL (0.6-4.6); Lymphocytes % 8.9 %; Mean Corpuscular HGB Conc 32.2 g/dL (31.6-35.5); Mean Corpuscular Hemoglobin 29.3 pg (28.0-33.3); Mean Corpuscular Volume 90.9 fL (83.0-100.0); Mean Platelet Volume 10.3 fL (9.4-12.4); Monocytes # 3.1 K/mcL (0.0-1.3); Monocytes % 15.3 %; Neutrophils # 13.9 K/mcL (1.6-8.9); Platelet Count 263 K/mcL (140-400); Red Blood Count 3.72 M/mcL (4.19-5.50); Red Cell Distribution Width 13.1 % (11.5-14.5); Segmented Neutrophils % 68.4 %
[2017-07-28 03:35] LABS: BUN/Creatinine Ratio 16 (6-26); Blood Urea Nitrogen 13 mg/dL (8-26); Calcium 8.6 mg/dL (8.6-10.8); Carbon Dioxide 27 mEq/L (19-29); Chloride 100 mEq/L (98-109); Glucose 264 mg/dL (70-99); Magnesium 1.2 mg/dL (1.6-2.6); Osmolality,Calculated 287 (280-300); Potassium 4.3 mEq/L (3.5-4.5); Sodium 134 mEq/L (136-145); eGFR For African Americans > 60 (> 60); eGFR For Non-African Americans > 60 (> 60)
[2017-07-28] MEDS: Insulin LISPRO 300 UNITS/3 ML VIAL SQ SCH ×6 (03:45→23:19)
[2017-07-28] MEDS: Ofloxacin OPTH Drops 5 ML BOTTLE LEFT EYE SCH (03:45)
[2017-07-28] MEDS: Lacri-Lube 3.5 GM TUBE BOTH EYES SCH ×6 (03:45→23:02)
[2017-07-28] MEDS: Levothyroxine 25 MCG TABLET PO SCH (05:08)
[2017-07-28] MEDS: Pantoprazole 40 MG VIAL IVP SCH (05:08)
[2017-07-28] MEDS: *HR* Heparin 5,000 UNIT/ML VIAL SQ SCH ×2 (05:08→18:03)
[2017-07-28 05:09] LABS: ABG Base Excess 5.1 mEq/L (-2.0 to 3.0); ABG HCO3 30 mEq/L (21-27); ABG Oxygen Saturation 97 % (95-98); ABG PCO2 44 mmHg (35-45); ABG PH 7.44 pH Units (7.32-7.45); ABG PO2 91 mmHg (85-104); ABG TCO2 31.3 mEq/L (20-26)
[2017-07-28 05:10] LABS: Blood Gas FiO2 30 %
[2017-07-28] MEDS: Magnesium Sulfate 2 GM in D5% in Water 100 ML IVPB PRN ×2 (06:17→18:03)
--- NOTE | 2017-07-28 07:16 | Pulmonology Progress Note ---
<Gerri Lawler - Last Filed: 07/28/17 07:51> Date of Encounter: 07/28/17 Time of Encounter: 07:00 Assessment and Plan (1) Cardiac arrest Current Visit: Yes Status: Acute Patient arrested 5 nights ago with ROSC and continues to be intubated. His advanced directive indicates that he wishes to remain DNR, and his wishes have been discussed with his POA/. reports that she understands and respect his wishes. CODE STATUS DNR-CCA-DNIDarren Glynn from palliative is on board and they will follow-up on her today. Neurology was consulted and they wish to do a CT head and EEG today. After these results, the plan is to extubate the patient. Will try CPAP trial after sedation is removed. Blood pressure is stable without levophed. The urine culture/blood/sputum cultures are negative. Continue Zosyn and vancomycin. (2) Leukocytosis Current Visit: Yes Status: Acute WBC 20.4 on latest CBC. Continue to trend and treating with broad spectrum antibiotics. Qualifiers: Leukocytosis type: bandemia Qualified Code(s): D72.825 - Bandemia (3) Urinary retention Current Visit: Yes Status: Chronic Patient has history of neurogenic bladder. Watson currently in place with appropriate output recorded. Continue to monitor. (4) Hyperglycemia Current Visit: Yes Status: Acute Continue SSI (5) DVT prophylaxis Current Visit: Yes Status: Acute Continue heparin subcutaneous for DVT prophylaxis. Subjective Principal diagnosis: Sepsis, elevated troponin, s/p arrest Interval history: Patient remains on ventilator and he is hemodynamically stable. Patient has myoclonic jerks overnight and this morning. He is unresponsive and does not follow commands. Neurology has been consulted and a CT head and EEG will be completed today. Plan to extubate patient and start spontaneous breathing trial today. Objective PUL Vital signs: Last Vital Signs Temp 97.9 F 07/27/17 23:53 Pulse 77 07/28/17 06:05 Resp 16 07/28/17 06:05 BP 102/58 07/28/17 06:05 Pulse Ox 95 07/28/17 06:05 General appearance: comatose Eyes: nonicteric, injected ENT: oropharynx moist Neck: supple, no JVD Effort: normal Auscultation: bilateral: diminished breath sounds Cardiovascular: regular rate and rhythm Gastrointestinal: hypoactive bowel sounds, soft, non-distended Integumentary: normal Extremities: no cyanosis, pulses normal Musculoskeletal: no deformities unable to assess due to mental status Ventilator Settings Ventilator Settings: Ventilator Settings, Last 8 Hours Ventilator Mode VC+ Ventilator Mode VC+ Ventilator Mode VC+ Ventilator Mode VC+ Ventilator Mode VC+ Ventilator Mode VC+ Ventilator Mode VC+ Ventilator Mode VC+ Ventilator Mode VC+ Ventilator Mode VC+ Ventilator Mode VC+ Ventilator Mode VC+ Ventilator Tidal Volume 420 Setting Ventilator Tidal Volume 420 Setting Ventilator Tidal Volume 420 Setting Ventilator Tidal Volume 420 Setting Ventilator Tidal Volume 420 Setting Ventilator Tidal Volume 420 Setting Ventilator Tidal Volume 420 Setting Ventilator Tidal Volume 420 Setting Ventilator Tidal Volume 420 Setting Ventilator Tidal Volume 420 Setting Ventilator Tidal Volume 420 Setting Ventilator Tidal Volume 420 Setting Ventilator Respiratory Rate 16 Setting Ventilator Respiratory Rate 16 Setting Ventilator Respiratory Rate 16 Setting Ventilator Respiratory Rate 16 Setting Ventilator Respiratory Rate 16 Setting Ventilator Respiratory Rate 16 Setting Ventilator Respiratory Rate 16 Setting Ventilator Respiratory Rate 16 Setting Ventilator Respiratory Rate 16 Setting Ventilator Respiratory Rate 16 Setting Ventilator Respiratory Rate 16 Setting Ventilator Respiratory Rate 16 Setting Actual Respiratory Rate 19 Actual Respiratory Rate 16 Actual Respiratory Rate 19 Actual Respiratory Rate 19 Actual Respiratory Rate 18 Actual Respiratory Rate 19 Actual Respiratory Rate 19 Actual Respiratory Rate 16 Actual Respiratory Rate 16 Actual Respiratory Rate 16 Actual Respiratory Rate 16 Positive End Expiratory 5 Pressure Positive End Expiratory 5 Pressure Positive End Expiratory 5 Pressure Positive End Expiratory 5 Pressure Positive End Expiratory 5 Pressure Positive End Expiratory 5 Pressure Positive End Expiratory 5 Pressure Positive End Expiratory 5 Pressure Positive End Expiratory 5 Pressure Positive End Expiratory 5 Pressure Positive End Expiratory 5 Pressure Positive End Expiratory 5 Pressure Peak Inspiratory Airway 17 Pressure Peak Inspiratory Airway 18 Pressure Peak Inspiratory Airway 17 Pressure Peak Inspiratory Airway 17 Pressure Peak Inspiratory Airway 18 Pressure Peak Inspiratory Airway 17 Pressure Peak Inspiratory Airway 17 Pressure Peak Inspiratory Airway 18 Pressure Peak Inspiratory Airway 18 Pressure Peak Inspiratory Airway 17 Pressure Results - Laboratory Findings CBC and BMP: 07/28/17 03:10 07/28/17 03:10 ABG ABG pH 7.44 pH Units (7.32-7.45) 07/28/17 04:55 ABG pCO2 44 mmHg (35-45) 07/28/17 04:55 ABG pO2 91 mmHg (85-104) 07/28/17 04:55 ABG O2 Saturation 97 % (95-98) 07/28/17 04:55 PT/INR, D-dimer PT 13.7 Seconds (9.4-12.1) H 07/24/17 06:09 Abnormal lab findings: Abnormal lab results WBC 20.4 K/mcL (4.3-11.1) H 07/28/17 03:10 RBC 3.72 M/mcL (4.19-5.50) L 07/28/17 03:10 Hgb 10.9 g/dL (12.9-16.9) L 07/28/17 03:10 Hct 33.8 % (37.5-50.1) L 07/28/17 03:10 Neutrophils # 13.9 K/mcL (1.6-8.9) H 07/28/17 03:10 Monocytes # 3.1 K/mcL (0.0-1.3) H 07/28/17 03:10 Eosinophils # 1.1 K/mcL (0.0-0.6) H 07/28/17 03:10 Clumped Platelets Few (Not Present) A 07/24/17 06:09 PT 13.7 Seconds (9.4-12.1) H 07/24/17 06:09 APTT 100.3 Seconds (26.0-36.0) H 07/23/17 14:51 ABG HCO3 30 mEq/L (21-27) H 07/28/17 04:55 ABG Total CO2 31.3 mEq/L (20-26) H 07/28/17 04:55 ABG Base Excess 5.1 mEq/L (-2.0 to 3.0) H 07/28/17 04:55 Sodium 134 mEq/L (136-145) L 07/28/17 03:10 Glucose 264 mg/dL (70-99) H 07/28/17 03:10 POC Glucose 252 (58-89) H 07/27/17 23:39 Magnesium 1.2 mg/dL (1.6-2.6) L 07/28/17 03:10 Creatine Kinase 206 Units/L (30-200) H 07/24/17 00:56 Troponin I 0.74 ng/mL (0-0.03) H* 07/25/17 04:10 Serum Total Protein 5.5 g/dL (6.0-8.3) L 07/27/17 03:00 Albumin 2.0 g/dL (3.5-5.0) L 07/27/17 03:00 Albumin/Globulin Ratio 0.6 (1.1-2.2) L 07/27/17 03:00 Lipase 141 Units/L (8-78) H 07/22/17 18:38 Urine Clarity Turbid (Clear) A 07/22/17 18:21 Urine Protein 100 mg/dL (Neg-Trace) H 07/22/17 18:21 Urine Blood Large (Negative) H 07/22/17 18:21 Urine Bilirubin Small (Negative) H 07/22/17 18:21 Ur Leukocyte Esterase Trace (Negative) H 07/22/17 18:21 Urine Microscopic RBC 15-30 per hpf (0-3) H 07/22/17 18:21 Urine Microscopic WBC 15-30 per hpf (0-3) H 07/22/17 18:21 Ur Squamous Epith Cells Many per lpf (None-Few) H 07/22/17 18:21 Ur Culture Indicated? YES (NO) A 07/22/17 18:21 - Microbiology Findings Microbiology Findings: Microbiology, Last 48 Hours 07/24/17 21:40 Sputum Culture - Final Sputum 07/24/17 18:42 Urine Culture - Final Urine,Clean Catch No growth. - Diagnostic Findings Chest x-ray: report reviewed, image reviewed - Clinical Findings Intake & Output: Intake & Output 07/27/17 07/27/17 07/28/17 15:59 23:59 07:59 Intake Total 1361 / 1361 660 / 660 238 / 238 Output Total 200 / 200 800 / 800 250 / 250 Balance 1161 / 1161 -140 / -140 -12 / -12 Weight 83.7 kg Consult Discharge Plan - Plan Referrals: NONE,PCP [Primary Care Provider] - (patient is from [facility]) <Ulises Oliveira - Last Filed: 07/28/17 08:06> Date of Encounter: 07/28/17 Objective PUL Vital signs: Last Vital Signs Temp 97.5 F L 07/28/17 07:22 Pulse 80 07/28/17 07:00 Resp 13 07/28/17 07:46 BP 140/66 07/28/17 07:46 Pulse Ox 96 07/28/17 07:46 Ventilator Settings Ventilator Settings: Ventilator Settings, Last 8 Hours Ventilator Mode VC+ Ventilator Mode VC+ Ventilator Mode VC+ Ventilator Mode VC+ Ventilator Mode VC+ Ventilator Mode VC+ Ventilator Mode VC+ Ventilator Mode VC+ Ventilator Mode VC+ Ventilator Mode VC+ Ventilator Mode VC+ Ventilator Mode VC+ Ventilator Tidal Volume 400 Setting Ventilator Tidal Volume 420 Setting Ventilator Tidal Volume 420 Setting Ventilator Tidal Volume 420 Setting Ventilator Tidal Volume 420 Setting Ventilator Tidal Volume 420 Setting Ventilator Tidal Volume 420 Setting Ventilator Tidal Volume 420 Setting Ventilator Tidal Volume 420 Setting Ventilator Tidal Volume 420 Setting Ventilator Tidal Volume 420 Setting Ventilator Tidal Volume 420 Setting Ventilator Respiratory Rate 12 Setting Ventilator Respiratory Rate 16 Setting Ventilator Respiratory Rate 16 Setting Ventilator Respiratory Rate 16 Setting Ventilator Respiratory Rate 16 Setting Ventilator Respiratory Rate 16 Setting Ventilator Respiratory Rate 16 Setting Ventilator Respiratory Rate 16 Setting Ventilator Respiratory Rate 16 Setting Ventilator Respiratory Rate 16 Setting Ventilator Respiratory Rate 16 Setting Ventilator Respiratory Rate 16 Setting Actual Respiratory Rate 15 Actual Respiratory Rate 19 Actual Respiratory Rate 16 Actual Respiratory Rate 19 Actual Respiratory Rate 19 Actual Respiratory Rate 18 Actual Respiratory Rate 19 Actual Respiratory Rate 19 Actual Respiratory Rate 16 Actual Respiratory Rate 16 Actual Respiratory Rate 16 Positive End Expiratory 5 Pressure Positive End Expiratory 5 Pressure Positive End Expiratory 5 Pressure Positive End Expiratory 5 Pressure Positive End Expiratory 5 Pressure Positive End Expiratory 5 Pressure Positive End Expiratory 5 Pressure Positive End Expiratory 5 Pressure Positive End Expiratory 5 Pressure Positive End Expiratory 5 Pressure Positive End Expiratory 5 Pressure Positive End Expiratory 5 Pressure Peak Inspiratory Airway 15 Pressure Peak Inspiratory Airway 17 Pressure Peak Inspiratory Airway 18 Pressure Peak Inspiratory Airway 17 Pressure Peak Inspiratory Airway 17 Pressure Peak Inspiratory Airway 18 Pressure Peak Inspiratory Airway 17 Pressure Peak Inspiratory Airway 17 Pressure Peak Inspiratory Airway 18 Pressure Peak Inspiratory Airway 18 Pressure Results - Laboratory Findings CBC and BMP: 07/28/17 03:10 07/28/17 03:10 ABG ABG pH 7.44 pH Units (7.32-7.45) 07/28/17 04:55 ABG pCO2 44 mmHg (35-45) 07/28/17 04:55 ABG pO2 91 mmHg (85-104) 07/28/17 04:55 ABG O2 Saturation 97 % (95-98) 07/28/17 04:55 PT/INR, D-dimer PT 13.7 Seconds (9.4-12.1) H 07/24/17 06:09 Abnormal lab findings: Abnormal lab results WBC 20.4 K/mcL (4.3-11.1) H 07/28/17 03:10 RBC 3.72 M/mcL (4.19-5.50) L 07/28/17 03:10 Hgb 10.9 g/dL (12.9-16.9) L 07/28/17 03:10 Hct 33.8 % (37.5-50.1) L 07/28/17 03:10 Neutrophils # 13.9 K/mcL (1.6-8.9) H 07/28/17 03:10 Monocytes # 3.1 K/mcL (0.0-1.3) H 07/28/17 03:10 Eosinophils # 1.1 K/mcL (0.0-0.6) H 07/28/17 03:10 Clumped Platelets Few (Not Present) A 07/24/17 06:09 PT 13.7 Seconds (9.4-12.1) H 07/24/17 06:09 APTT 100.3 Seconds (26.0-36.0) H 07/23/17 14:51 ABG HCO3 30 mEq/L (21-27) H 07/28/17 04:55 ABG Total CO2 31.3 mEq/L (20-26) H 07/28/17 04:55 ABG Base Excess 5.1 mEq/L (-2.0 to 3.0) H 07/28/17 04:55 Sodium 134 mEq/L (136-145) L 07/28/17 03:10 Glucose 264 mg/dL (70-99) H 07/28/17 03:10 POC Glucose 252 (58-89) H 07/27/17 23:39 Magnesium 1.2 mg/dL (1.6-2.6) L 07/28/17 03:10 Creatine Kinase 222 U/L (20-200) H 07/24/17 00:56 CK-MM (CK-3) 90 % (96-100) L 07/24/17 00:56 CK-BB (CK-1) 6 % (0-0) H 07/24/17 00:56 Troponin I 0.74 ng/mL (0-0.03) H* 07/25/17 04:10 Serum Total Protein 5.5 g/dL (6.0-8.3) L 07/27/17 03:00 Albumin 2.0 g/dL (3.5-5.0) L 07/27/17 03:00 Albumin/Globulin Ratio 0.6 (1.1-2.2) L 07/27/17 03:00 Lipase 141 Units/L (8-78) H 07/22/17 18:38 Urine Clarity Turbid (Clear) A 07/22/17 18:21 Urine Protein 100 mg/dL (Neg-Trace) H 07/22/17 18:21 Urine Blood Large (Negative) H 07/22/17 18:21 Urine Bilirubin Small (Negative) H 07/22/17 18:21 Ur Leukocyte Esterase Trace (Negative) H 07/22/17 18:21 Urine Microscopic RBC 15-30 per hpf (0-3) H 07/22/17 18:21 Urine Microscopic WBC 15-30 per hpf (0-3) H 07/22/17 18:21 Ur Squamous Epith Cells Many per lpf (None-Few) H 07/22/17 18:21 Ur Culture Indicated? YES (NO) A 07/22/17 18:21 - Microbiology Findings Microbiology Findings: Microbiology, Last 48 Hours 07/24/17 21:40 Sputum Culture - Final Sputum 07/24/17 18:42 Urine Culture - Final Urine,Clean Catch No growth. - Clinical Findings Intake & Output: Intake & Output 07/27/17 07/28/17 07/28/17 23:59 07:59 15:59 Intake Total 660 / 660 238 / 238 Output Total 800 / 800 700 / 700 Balance -140 / -140 -462 / -462 Weight 83.7 kg - Attending Attestation I examined this patient and my medical decision-making was reviewed with the Resident Physician. I agree with the documented findings, disposition and treatment plan as described except to the extent set forth below. Patient seen and examined. Labs, radiology, chart personally reviewed. Agree with resident's history and physical, assessment, plan with following comments: NAVIGATION OFFICER: Patient does not follows commands, neurology follow-up. Prognosis could be poor post resuscitation. Pulmonary: Acceptable oxygenation and ventilation. Change in setting due to mixed respiratory and metabolic alkalosis. Decreased tidal volume and respiratory rate. If patient tolerated CPAP trial will consider extubation. Cardiovascular: stable GI: Nutrition per dietary and GI prophylaxis per routine Heme: DVT prophylaxis per routine ID: Continue antibiotics and plan to de-escalation Renal; urine out put and renal funtion reviewed Endorcine: blood glucose is monitored Lines: all lines checked and no evidence of infections Skin: skin care to prevent pressure ulcers per nursing routine care I suspect overall prognosis is poor.
[2017-07-28 07:35] LABS: CK Total (Ck Isoenzymes) 222 U/L (20-200)
[2017-07-28] MEDS: Aspirin 81 MG TAB.CHEW PO SCH (09:11)
--- NOTE | 2017-07-28 10:25 | Electrocardiograph Report ---
[address] [place] [address] Test Date: 2017-07-25 Pat Name: Rommel Manzo Department: 109 Room: [facility] Gender: Slide Developer: GREGORY : 1930 Requested By: Avery Nash Order Number: [id number] Reading MD: Jose Lauren MD Measurements Intervals [place] Rate: 106 P: 30 MI: 145 QRS: -3 QRSD: 85 T: -31 QT: 367 QTc: 429 Interpretive Statements SINUS TACHYCARDIA WITH FREQUENT ECTOPIC PREMATURE COMPLEXES ANTEROSEPTAL ISCHEMIA NOT MEETING STEMI CRITERIA (1.5mV) Electronically Signed On 07-28-2017 10:24:00 EDT by Jose Lauren MD
--- NOTE | 2017-07-28 13:27 | EEG/EMG/Oth Biometrics Report ---
EEG Procedure Report Date of procedure: 07/28/17 Procedure Note: Report: This prolonged EEG was acquired with standard international 10-20 electrode placement system with EKG recording. Total recording time was 1:35 hours The background activity during this EEG was replaced by a mixture of diffuse alpha activity intermixed with posterior alpha rhythm with best frequency up to 8 Hz. The background activity was reactive to movements. Sleep stages were identified during the study due to presence of diffuse delta activity, usually occurring intermittently lasting few seconds in duration, intermixed with diffuse alpha activity representing wakefulness. There are no electricographic seizures identified during this tracing. There are no epileptiform discharges and focal slowing noted during this recording. Photic stimulation produced no abnormalities. HV not performed during this study. EKG tracing showed no significant cardiac dysarrhythmia. Impression: This is a mildly abnormal EEG due to presence of mixed diffuse delta activity inter-mixed with diffuse alpha rhythm with mild background slowing. Clinical Correlation: This EEG is consistent with mild to moderate diffuse cerebral dysfunction that can be seen in patients with encephalopathy, metabolic/toxic, electrolyte derangement, or other causes. The presence of intermixed, alternating diffuse delta and alpha activity is likely the result of the use of sedatives. Clinical correlation suggested.
--- NOTE | 2017-07-28 13:54 | Palliative Progress Note ---
Date of Encounter: 07/28/17 Time of Encounter: 13:05 - Assessment and plan (1) Cardiac arrest Current Visit: Yes Status: Acute Assessment and plan: Day 5 post arrest. Did CPAP yesterday for about 2 hours. EEG/CT head today. He may be extubated later. I spoke with , and we discussed that we will not put the ET tube back down if he does poorly, but at that point would keep him comfortable (2) Dyspnea Current Visit: Yes Status: Acute Assessment and plan: If he is extubated later today, he does have Morphine order on his MAR. I did change the "reason" for this to Dyspnea, and did increase the frequency if he is short of breath or air hungry. (3) Counseling regarding advanced care planning and goals of care Current Visit: Yes Status: Acute Assessment and plan: still states she is "hoping for a miracle". Discussed that we are unsure of his ability to communicate, eat/drink, or clear his airway after extubation. She understands that he may be extubated today and will not be re-intubated. Provided emotional support. We will have to take decisions one at a time with the , as she does not seem to comprehend the complexity of the issues we may have if it appears he has neurological issues r/t code. D/W ICU resident and primary nurse. Will continue to follow closely. (4) UTI (urinary tract infection) Current Visit: No Status: Acute Qualifiers: Urinary tract infection type: acute cystitis Hematuria presence: without hematuria Qualified Code(s): N30.00 - Acute cystitis without hematuria - Time Spent With Patient Total time spent is greater than 50% in coordination of care (as documented) at patient's floor/unit and/or counseling patient: - Subjective Interval history: Patient continues on vent - EEG and CT head just completed and awaiting results. He remains on small amount sedation. Tolerated CPAP x2 hours yesterday per ICU staff. Occasionally flinches feet, does not respond to verbal or tactile stimuli and does not follow commands. Chart reviewed from weekend. has been staying here on site. - Constitutional Vitals: Abnormal lab results WBC 20.4 K/mcL (4.3-11.1) H 07/28/17 03:10 RBC 3.72 M/mcL (4.19-5.50) L 07/28/17 03:10 Hgb 10.9 g/dL (12.9-16.9) L 07/28/17 03:10 Hct 33.8 % (37.5-50.1) L 07/28/17 03:10 Neutrophils # 13.9 K/mcL (1.6-8.9) H 07/28/17 03:10 Monocytes # 3.1 K/mcL (0.0-1.3) H 07/28/17 03:10 Eosinophils # 1.1 K/mcL (0.0-0.6) H 07/28/17 03:10 Clumped Platelets Few (Not Present) A 07/24/17 06:09 PT 13.7 Seconds (9.4-12.1) H 07/24/17 06:09 APTT 100.3 Seconds (26.0-36.0) H 07/23/17 14:51 ABG HCO3 30 mEq/L (21-27) H 07/28/17 04:55 ABG Total CO2 31.3 mEq/L (20-26) H 07/28/17 04:55 ABG Base Excess 5.1 mEq/L (-2.0 to 3.0) H 07/28/17 04:55 Sodium 134 mEq/L (136-145) L 07/28/17 03:10 Glucose 264 mg/dL (70-99) H 07/28/17 03:10 POC Glucose 252 (58-89) H 07/27/17 23:39 Magnesium 1.2 mg/dL (1.6-2.6) L 07/28/17 03:10 Creatine Kinase 222 U/L (20-200) H 07/24/17 00:56 CK-MM (CK-3) 90 % (96-100) L 07/24/17 00:56 CK-BB (CK-1) 6 % (0-0) H 07/24/17 00:56 Troponin I 0.74 ng/mL (0-0.03) H* 07/25/17 04:10 Serum Total Protein 5.5 g/dL (6.0-8.3) L 07/27/17 03:00 Albumin 2.0 g/dL (3.5-5.0) L 07/27/17 03:00 Albumin/Globulin Ratio 0.6 (1.1-2.2) L 07/27/17 03:00 Lipase 141 Units/L (8-78) H 07/22/17 18:38 Urine Clarity Turbid (Clear) A 07/22/17 18:21 Urine Protein 100 mg/dL (Neg-Trace) H 07/22/17 18:21 Urine Blood Large (Negative) H 07/22/17 18:21 Urine Bilirubin Small (Negative) H 07/22/17 18:21 Ur Leukocyte Esterase Trace (Negative) H 07/22/17 18:21 Urine Microscopic RBC 15-30 per hpf (0-3) H 07/22/17 18:21 Urine Microscopic WBC 15-30 per hpf (0-3) H 07/22/17 18:21 Ur Squamous Epith Cells Many per lpf (None-Few) H 07/22/17 18:21 Ur Culture Indicated? YES (NO) A 07/22/17 18:21 General appearance: Present: no acute distress - Respiratory Respiratory exam: Present: decreased breath sounds, CTAB - Cardiovascular Cardiovascular exam: Present: +S1, +S2 - GI/Abdominal GI/Abdominal exam: Present: normal bowel sounds, soft - Additional comments: Watson with clear yellow urine - Extremities Exam Additional comments: generalized edema to all extremities - Neurological Exam Additional comments: Remains on Midolazam/ on vent - Skin Skin exam: Present: dry, warm Palliative Quality Palliative Quality: Screen for Code Status: Yes, Screen for Goals of Care: Yes, Screen for Pain: NA, If Pain Regimen Started, Initiate Bowel Regimen: NA, Screen for Nausea/Vomitting: NA Code Status: 07/25/17 13:52 DNR [Resuscitation Status: Active] [RES] Routine Comment: With intubation patient on ventilator Resuscitation Status: DNR-Comfort Care-Arrest - Labs CBC & Chem 7: 07/28/17 03:10 07/28/17 03:10 Labs: Laboratory Results - last 24 hr 07/24/17 07/27/17 07/27/17 00:56 07:13 11:07 WBC RBC Hgb Hct MCV MCH MCHC RDW Plt Count MPV Immature Gran % Seg Neutrophils % Lymphocytes % Monocytes % Eosinophils % Basophils % Neutrophils # Lymphocytes # Monocytes # Eosinophils # Basophils # ABG pH ABG pCO2 ABG pO2 ABG HCO3 ABG Total CO2 ABG O2 Saturation ABG Base Excess Blood Gas Modality Inspired O2 Sodium Potassium Chloride Carbon Dioxide BUN Creatinine Est GFR ( Amer) Est GFR (Non-Af Amer) BUN/Creatinine Ratio Glucose POC Glucose 227 H 242 H Calculated Osmolality Calcium Magnesium Creatine Kinase 222 H CK-MM (CK-3) 90 L CK-MB (CK-2) 4 CK-BB (CK-1) 6 H Macro CK Type I 0 Macro CK Type II 0 07/27/17 07/27/17 07/27/17 15:28 19:43 23:39 WBC RBC Hgb Hct MCV MCH MCHC RDW Plt Count MPV Immature Gran % Seg Neutrophils % Lymphocytes % Monocytes % Eosinophils % Basophils % Neutrophils # Lymphocytes # Monocytes # Eosinophils # Basophils # ABG pH ABG pCO2 ABG pO2 ABG HCO3 ABG Total CO2 ABG O2 Saturation ABG Base Excess Blood Gas Modality Inspired O2 Sodium Potassium Chloride Carbon Dioxide BUN Creatinine Est GFR ( Amer) Est GFR (Non-Af Amer) BUN/Creatinine Ratio Glucose POC Glucose 217 H 330 H 252 H Calculated Osmolality Calcium Magnesium Creatine Kinase CK-MM (CK-3) CK-MB (CK-2) CK-BB (CK-1) Macro CK Type I Macro CK Type II 07/28/17 07/28/17 07/28/17 03:10 03:10 04:55 WBC 20.4 H RBC 3.72 L Hgb 10.9 L Hct 33.8 L MCV 90.9 MCH 29.3 MCHC 32.2 RDW 13.1 Plt Count 263 MPV 10.3 Immature Gran % 1.4 Seg Neutrophils % 68.4 Lymphocytes % 8.9 Monocytes % 15.3 Eosinophils % 5.4 Basophils % 0.6 Neutrophils # 13.9 H Lymphocytes # 1.8 Monocytes # 3.1 H Eosinophils # 1.1 H Basophils # 0.1 ABG pH 7.44 ABG pCO2 44 ABG pO2 91 ABG HCO3 30 H ABG Total CO2 31.3 H ABG O2 Saturation 97 ABG Base Excess 5.1 H Blood Gas Modality VCT Inspired O2 30 Sodium 134 L Potassium 4.3 Chloride 100 Carbon Dioxide 27 BUN 13 Creatinine 0.81 Est GFR ( Amer) > 60 Est GFR (Non-Af Amer) > 60 BUN/Creatinine Ratio 16 Glucose 264 H POC Glucose Calculated Osmolality 287 Calcium 8.6 Magnesium 1.2 L Creatine Kinase CK-MM (CK-3) CK-MB (CK-2) CK-BB (CK-1) Macro CK Type I Macro CK Type II - ABG Interpretation ABG results: ABG ABG pH 7.44 pH Units (7.32-7.45) 07/28/17 04:55 ABG pCO2 44 mmHg (35-45) 07/28/17 04:55 ABG pO2 91 mmHg (85-104) 07/28/17 04:55 ABG O2 Saturation 97 % (95-98) 07/28/17 04:55 PT/INR, D-dimer PT 13.7 Seconds (9.4-12.1) H 07/24/17 06:09 Consult Discharge Plan - Plan Referrals: NONE,PCP [Primary Care Provider] - (patient is from [facility])
[2017-07-28] MEDS ORDERED: *HR* Morphine 2 MG/ML SYRINGE IVP PRN (14:08)
--- NOTE | 2017-07-28 17:28 | Neurology - Consult Note ---
Date of Encounter: 07/28/17 Time of Encounter: 17:25 Assessment and Plan (1) Altered mental status Current Visit: Yes Status: Acute Patient likely has acute encephalopathy secondary multiple medical conditions. Patient currently not responsive but brain stem function preserved and he does respond to painful stimuli. Has been off versed since the morning and mental status may continue to improve as sedative continues to wean from the system. Did not see significant focal deficits but legs are weak . EEG showed mild background slowing with intermixed diffuse slowing likely the result of sedation. This could also be the result of anoxic brain injury. No EDs noted. Likely of seizure is low. CT of head showed no acute intracranial abnormality. Patient has had prolonged hospital course and multiple medical conditions and his laboratory status appears to be improving and if not CSF study may be helpful to exclude [employer] infection/encephalitis. Continue medical and supportive care. Qualifiers: Altered mental status type: coma Coma depth: other Coma timin hours or more after hospital admission Qualified Code(s): R40.2444 - Other coma, without documented Knox coma scale score, or with partial score reported, 24 hours or more after hospital admission History of Present Illness Chief complaint: altered mental status, seizure like activity HPI: Mr. Manzo is a 87 year old male H significant for recent hip fracture 2016, DM, HTN, DVT, frequent falls who initially admitted from nursing facility on 07/22/2017 due to development of generalized weakness and confusion and was found to have UTI, leucocytosis and subsequently he apparently developed septic shock, cardiac arrest, acuter respiratory failure and is currently intubated. Neurology consulted due to staff witnessed some posturing and tremorous activity Friday night and the patient was started on Versed drip which helped the posturing and stiffening. Patient carries no history of seizure disorder. Patient remained on sedation through Friday and today he completed CT of head which showed no acute intracranial abnormality. EEG was completed and demonstrated intermixed diffuse slowing and wakefulness with diffuse alpha activity quite reactive. No electrographic seizure or focal slowing noted. Currently the patient is off sedation but only on Fentanyl. per nursing staff so far no response to verbal commands but he withdrawal and moves his left arm when stimulated. both arms are restrained. Past Med Surg Social Fam HX - Past Medical History Medical history: diabetes, hypertension Psychiatric history: no psych history - Past Surgical History Surgical History: cholecystectomy - Social History Smoking Status: Former smoker Smokeless Tobacco Status: No Alcohol use: none Drug use: none - Family History Mother Living Status: Hx Family Endocrine Disorder: Yes (DM) Medications and Allergies Albuterol Sulfate [Albuterol Inhaler] 2 puff IH QID PRN 07/09/17 [History] Aspirin 325 mg PO DAILY 07/09/17 [History] Atenolol 100 mg PO DAILY 07/09/17 [History] Atorvastatin [Lipitor] 10 mg PO HS 07/09/17 [History] Cyclobenzaprine [Flexeril] 10 mg PO BID 07/09/17 [History] Levothyroxine [Synthroid] 25 mcg PO 0630 07/09/17 [History] Lisinopril [Zestril] 10 mg PO DAILY 07/09/17 [History] Mag Hydrox/Al Hydrox/Simeth [Antacid Suspension] 15 ml PO TID PRN 07/09/17 [ History] Metformin HCl [Glucophage] 1,000 mg PO BID 07/09/17 [History] Omeprazole [PriLOSEC] 40 mg PO BID 07/09/17 [History] Pioglitazone [Actos] 30 mg PO DAILY 07/09/17 [History] Polyvinyl Alcohol [Artificial Tears] 2 drop OP QID PRN 07/09/17 [History] Potassium Chloride [K-Tab ER] 20 meq PO DAILY 07/09/17 [History] Simethicone [Gas-X] 80 mg PO QID PRN 07/09/17 [History] Triamterene/Hydrochlorothiazid [Triamterene-Hctz 75-50 mg Tab] 1 each PO DAILY 07/09/17 [History] glipiZIDE [Glucotrol] 5 mg PO 0800 07/09/17 [History] hydrOXYzine pamoate [HydrOXYzine Pamoate] 25 mg PO QID PRN 07/09/17 [History] Enoxaparin [Lovenox] 40 mg SQ 0600 10 Days 07/15/17 [Rx] Ofloxacin OPTH Drops [Ocuflox] 2 drop LEFT EYE Q4HR bottle 07/15/17 [Rx] OxyCODONE/APAP 5/325 [Percocet 5/325 MG] 1 each PO Q4HR PRN #10 tab 07/15/17 [Rx ] Tamsulosin [Flomax] 0.4 mg PO DAILY #30 07/15/17 [Rx] Insulin LISPRO [HumaLOG] 2 - 12 unit SQ ACHS 07/22/17 [History] Ipratropium/Albuterol Neb [Duoneb] 3 ml IH Q4H PRN 07/22/17 [History] Naproxen [Naprosyn] 500 mg PO BID PRN 07/22/17 [History] 3 Allergy/AdvReac Type Severity Reaction Status Date / Time chlorhexidine AdvReac See Verified 07/09/17 20:13 Comments gabapentin AdvReac See Verified 07/09/17 20:13 Comments All Systems: A 10-system review of systems was performed and is negative for pertinent findings except as documented above in the HPI. Physical Examination - Vital Signs Vital Signs: Initial Vital Signs Temp Pulse Resp BP Pulse Ox 98.1 F 82 17 121/69 96 07/22/17 18:12 07/22/17 18:12 07/22/17 18:12 07/22/17 18:12 07/22/17 18:12 - Constitutional General appearance: chronically ill - Neurologic Sensorimotor examination: other (Unable to assess. ) Detailed motor examination: other (Both arms are restrained. Moves both arms when stimulated. No spontaneous movements to his legs ) Detailed sensory examination: other (Unable to assess due to reduced mental status) Reflex and gait examination: other (Tone was flaccid in his legs bilaterally) Reflexes: Biceps: 1+, Triceps: 1+, Brachioradialis: 1+, Patella: 0, Achilles: 0 Mental Status Examination: coma (withdrawal and flex ams when giving painful stimuli) Cranial nerve examination: PERRL (eyes closed, refused passive opening. ), EOMI (Unable to assess), visual madera intact (Unable to assess), corneal reflexes brisk symmetrically (Unable to assess), sensory to face intact, no facial asymmetry is present, no dysarthria (Unable to assess), tongue protrudes midline (Unable to assess) Results - Laboratory Findings CBC and BMP: 07/28/17 03:10 07/28/17 03:10 Abnormal lab findings: Abnormal lab results WBC 20.4 K/mcL (4.3-11.1) H 07/28/17 03:10 RBC 3.72 M/mcL (4.19-5.50) L 07/28/17 03:10 Hgb 10.9 g/dL (12.9-16.9) L 07/28/17 03:10 Hct 33.8 % (37.5-50.1) L 07/28/17 03:10 Neutrophils # 13.9 K/mcL (1.6-8.9) H 07/28/17 03:10 Monocytes # 3.1 K/mcL (0.0-1.3) H 07/28/17 03:10 Eosinophils # 1.1 K/mcL (0.0-0.6) H 07/28/17 03:10 Clumped Platelets Few (Not Present) A 07/24/17 06:09 PT 13.7 Seconds (9.4-12.1) H 07/24/17 06:09 APTT 100.3 Seconds (26.0-36.0) H 07/23/17 14:51 ABG HCO3 30 mEq/L (21-27) H 07/28/17 04:55 ABG Total CO2 31.3 mEq/L (20-26) H 07/28/17 04:55 ABG Base Excess 5.1 mEq/L (-2.0 to 3.0) H 07/28/17 04:55 Sodium 134 mEq/L (136-145) L 07/28/17 03:10 Glucose 264 mg/dL (70-99) H 07/28/17 03:10 POC Glucose 252 (58-89) H 07/27/17 23:39 Magnesium 1.1 mg/dL (1.6-2.6) L 07/28/17 16:00 Creatine Kinase 222 U/L (20-200) H 07/24/17 00:56 CK-MM (CK-3) 90 % (96-100) L 07/24/17 00:56 CK-BB (CK-1) 6 % (0-0) H 07/24/17 00:56 Troponin I 0.74 ng/mL (0-0.03) H* 07/25/17 04:10 Serum Total Protein 5.5 g/dL (6.0-8.3) L 07/27/17 03:00 Albumin 2.0 g/dL (3.5-5.0) L 07/27/17 03:00 Albumin/Globulin Ratio 0.6 (1.1-2.2) L 07/27/17 03:00 Lipase 141 Units/L (8-78) H 07/22/17 18:38 Urine Clarity Turbid (Clear) A 07/22/17 18:21 Urine Protein 100 mg/dL (Neg-Trace) H 07/22/17 18:21 Urine Blood Large (Negative) H 07/22/17 18:21 Urine Bilirubin Small (Negative) H 07/22/17 18:21 Ur Leukocyte Esterase Trace (Negative) H 07/22/17 18:21 Urine Microscopic RBC 15-30 per hpf (0-3) H 07/22/17 18:21 Urine Microscopic WBC 15-30 per hpf (0-3) H 07/22/17 18:21 Ur Squamous Epith Cells Many per lpf (None-Few) H 07/22/17 18:21 Ur Culture Indicated? YES (NO) A 07/22/17 18:21 Consult Discharge Plan - Plan Referrals: NONE,PCP [Primary Care Provider] - (patient is from [facility])
[2017-07-28] MEDS ORDERED: *HR* LORazepam 2 MG/ML VIAL IVP ONE (17:46)
[2017-07-28] MEDS ORDERED: *HR* LORazepam 2 MG/ML VIAL IVP PRN (18:08)
[2017-07-28] MEDS: Ipratropium/Albuterol Neb 3 ML IH PRN ×2 (19:59→23:35)
[2017-07-29 03:34] LABS: Basophils # 0.1 K/mcL (0.0-0.2); Basophils % 0.6 %; Eosinophils # 1.1 K/mcL (0.0-0.6); Eosinophils % 4.7 %; Hematocrit 35.3 % (37.5-50.1); Hemoglobin 11.3 g/dL (12.9-16.9); Immature Granulocytes % 1.7 % (0-4); Lymphocytes # 1.7 K/mcL (0.6-4.6); Mean Corpuscular Hemoglobin 29.2 pg (28.0-33.3); Mean Corpuscular Volume 91.2 fL (83.0-100.0); Mean Platelet Volume 10.4 fL (9.4-12.4); Monocytes # 3.5 K/mcL (0.0-1.3); Monocytes % 14.7 %; Neutrophils # 16.8 K/mcL (1.6-8.9); Platelet Count 298 K/mcL (140-400); Red Blood Count 3.87 M/mcL (4.19-5.50); Red Cell Distribution Width 13.2 % (11.5-14.5); Segmented Neutrophils % 71.3 %
[2017-07-29] MEDS: Ipratropium/Albuterol Neb 3 ML IH PRN ×2 (03:38→07:46)
[2017-07-29] MEDS: Lacri-Lube 3.5 GM TUBE BOTH EYES SCH (03:45)
[2017-07-29] MEDS: Levothyroxine 25 MCG TABLET PO SCH (03:46)
[2017-07-29 03:51] LABS: Alanine Aminotransferase 26 Units/L (0-55); Albumin 2.1 g/dL (3.5-5.0); Albumin/Globulin Ratio 0.5 (1.1-2.2); Alkaline Phosphatase 88 Units/L (38-126); Aspartate Amino Transferase 14 Units/L (5-34); BUN/Creatinine Ratio 13 (6-26); Bilirubin,Total 0.6 mg/dL (0.2-1.2); Blood Urea Nitrogen 10 mg/dL (8-26); Carbon Dioxide 28 mEq/L (19-29); Chloride 99 mEq/L (98-109); Globulin 3.9 g/dL (2.4-3.5); Glucose 173 mg/dL (70-99); Magnesium 1.6 mg/dL (1.6-2.6); Osmolality,Calculated 281 (280-300); Potassium 4.4 mEq/L (3.5-4.5); Sodium 134 mEq/L (136-145); eGFR For African Americans > 60 (> 60); eGFR For Non-African Americans > 60 (> 60)
[2017-07-29] MEDS: Magnesium Sulfate 2 GM in D5% in Water 100 ML IVPB PRN (03:53)
[2017-07-29] MEDS: Insulin LISPRO 300 UNITS/3 ML VIAL SQ SCH ×5 (03:56→21:34)
[2017-07-29] MEDS: *HR* Heparin 5,000 UNIT/ML VIAL SQ SCH ×2 (05:01→18:43)
[2017-07-29] MEDS: Pantoprazole 40 MG VIAL IVP SCH (05:01)
[2017-07-29] MEDS: Aspirin 81 MG TAB.CHEW PO SCH (06:04)
[2017-07-29] MEDS ORDERED: Levothyroxine Sodium 100 MCG VIAL IVP SCH (06:30)
--- NOTE | 2017-07-29 07:53 | Pulmonology Progress Note ---
<Gerri Lawler - Last Filed: 07/29/17 07:55> Date of Encounter: 07/29/17 Time of Encounter: 07:00 Assessment and Plan (1) Cardiac arrest Current Visit: Yes Status: Acute Patient arrested with ROSC and is now extubated. Cardaic arrest most likely due to hyperkalemia and hypomagnasemia. Continue electrolyte protocols. His advanced directive indicates that he wishes to remain DNR, and his wishes have been discussed with his POA/. reports that she understands and respect his wishes. CODE STATUS DNR-CCA-DNI. Gretta from palliative is on board and they will follow-up on her today. EEG and CT head WNL. Blood pressure is stable without levophed. The urine culture/blood/sputum cultures are negative. Continue Zosyn and vancomycin. (2) Leukocytosis Current Visit: Yes Status: Acute WBC 23.6 on latest CBC. Continue to trend and treating with broad spectrum antibiotics. Qualifiers: Leukocytosis type: bandemia Qualified Code(s): D72.825 - Bandemia (3) Urinary retention Current Visit: Yes Status: Chronic Patient has history of neurogenic bladder. Watson currently in place with appropriate output recorded. Continue to monitor. (4) Hyperglycemia Current Visit: Yes Status: Acute Continue SSI (5) DVT prophylaxis Current Visit: Yes Status: Acute Continue heparin subcutaneous for DVT prophylaxis. Subjective Principal diagnosis: Sepsis, elevated troponin, s/p arrest Interval history: No issues overnight. Yesterday's EEG and CT head were WNL. Patient was extubated last evening with no complications. Patient hemodynamically stable and now a DNR/DNI. Patient to be transferred to the floor after speech consult to determine swallow ability. Objective PUL Vital signs: Last Vital Signs Temp 98.4 F 07/29/17 03:29 Pulse 95 07/29/17 06:05 Resp 18 07/29/17 06:05 BP 119/66 07/29/17 06:05 Pulse Ox 93 07/29/17 06:05 General appearance: no acute distress Eyes: nonicteric, injected ENT: oropharynx moist Neck: supple Effort: normal Auscultation: bilateral: clear Cardiovascular: regular rate and rhythm Gastrointestinal: normoactive bowel sounds, soft Integumentary: normal Extremities: no cyanosis, no edema Musculoskeletal: no deformities Gait: normal posture unable to assess due to mental status Results - Laboratory Findings CBC and BMP: 07/29/17 03:25 07/29/17 03:25 ABG ABG pH 7.44 pH Units (7.32-7.45) 07/28/17 04:55 ABG pCO2 44 mmHg (35-45) 07/28/17 04:55 ABG pO2 91 mmHg (85-104) 07/28/17 04:55 ABG O2 Saturation 97 % (95-98) 07/28/17 04:55 PT/INR, D-dimer PT 13.7 Seconds (9.4-12.1) H 07/24/17 06:09 Abnormal lab findings: Abnormal lab results WBC 23.6 K/mcL (4.3-11.1) H 07/29/17 03:25 RBC 3.87 M/mcL (4.19-5.50) L 07/29/17 03:25 Hgb 11.3 g/dL (12.9-16.9) L 07/29/17 03:25 Hct 35.3 % (37.5-50.1) L 07/29/17 03:25 Neutrophils # 16.8 K/mcL (1.6-8.9) H 07/29/17 03:25 Monocytes # 3.5 K/mcL (0.0-1.3) H 07/29/17 03:25 Eosinophils # 1.1 K/mcL (0.0-0.6) H 07/29/17 03:25 Clumped Platelets Few (Not Present) A 07/24/17 06:09 PT 13.7 Seconds (9.4-12.1) H 07/24/17 06:09 APTT 100.3 Seconds (26.0-36.0) H 07/23/17 14:51 ABG HCO3 30 mEq/L (21-27) H 07/28/17 04:55 ABG Total CO2 31.3 mEq/L (20-26) H 07/28/17 04:55 ABG Base Excess 5.1 mEq/L (-2.0 to 3.0) H 07/28/17 04:55 Sodium 134 mEq/L (136-145) L 07/29/17 03:25 Glucose 173 mg/dL (70-99) H 07/29/17 03:25 POC Glucose 196 (58-89) H 07/28/17 23:14 Creatine Kinase 222 U/L (20-200) H 07/24/17 00:56 CK-MM (CK-3) 90 % (96-100) L 07/24/17 00:56 CK-BB (CK-1) 6 % (0-0) H 07/24/17 00:56 Troponin I 0.74 ng/mL (0-0.03) H* 07/25/17 04:10 Albumin 2.1 g/dL (3.5-5.0) L 07/29/17 03:25 Globulin 3.9 g/dL (2.4-3.5) H 07/29/17 03:25 Albumin/Globulin Ratio 0.5 (1.1-2.2) L 07/29/17 03:25 Lipase 141 Units/L (8-78) H 07/22/17 18:38 Urine Clarity Turbid (Clear) A 07/22/17 18:21 Urine Protein 100 mg/dL (Neg-Trace) H 07/22/17 18:21 Urine Blood Large (Negative) H 07/22/17 18:21 Urine Bilirubin Small (Negative) H 07/22/17 18:21 Ur Leukocyte Esterase Trace (Negative) H 07/22/17 18:21 Urine Microscopic RBC 15-30 per hpf (0-3) H 07/22/17 18:21 Urine Microscopic WBC 15-30 per hpf (0-3) H 07/22/17 18:21 Ur Squamous Epith Cells Many per lpf (None-Few) H 07/22/17 18:21 Ur Culture Indicated? YES (NO) A 07/22/17 18:21 - Microbiology Findings Microbiology Findings: Microbiology, Last 48 Hours 07/24/17 21:40 Sputum Culture - Final Sputum - Clinical Findings Intake & Output: Intake & Output 07/28/17 07/28/17 07/29/17 15:59 23:59 07:59 Intake Total 200 / 200 334 / 334 204 / 204 Output Total 700 / 700 925 / 925 650 / 650 Balance -500 / -500 -591 / -591 -446 / -446 Weight 82.4 kg Consult Discharge Plan - Plan Referrals: NONE,PCP [Primary Care Provider] - (patient is from [facility]) <Ulises Oliveira M - Last Filed: 07/29/17 08:45> Date of Encounter: 07/29/17 Objective PUL Vital signs: Last Vital Signs Temp 99.3 F 07/29/17 07:53 Pulse 95 07/29/17 06:05 Resp 15 07/29/17 07:35 BP 156/83 07/29/17 07:35 Pulse Ox 94 07/29/17 07:35 Results - Laboratory Findings CBC and BMP: 07/29/17 03:25 07/29/17 03:25 ABG ABG pH 7.44 pH Units (7.32-7.45) 07/28/17 04:55 ABG pCO2 44 mmHg (35-45) 07/28/17 04:55 ABG pO2 91 mmHg (85-104) 07/28/17 04:55 ABG O2 Saturation 97 % (95-98) 07/28/17 04:55 PT/INR, D-dimer PT 13.7 Seconds (9.4-12.1) H 07/24/17 06:09 Abnormal lab findings: Abnormal lab results WBC 23.6 K/mcL (4.3-11.1) H 07/29/17 03:25 RBC 3.87 M/mcL (4.19-5.50) L 07/29/17 03:25 Hgb 11.3 g/dL (12.9-16.9) L 07/29/17 03:25 Hct 35.3 % (37.5-50.1) L 07/29/17 03:25 Neutrophils # 16.8 K/mcL (1.6-8.9) H 07/29/17 03:25 Monocytes # 3.5 K/mcL (0.0-1.3) H 07/29/17 03:25 Eosinophils # 1.1 K/mcL (0.0-0.6) H 07/29/17 03:25 Clumped Platelets Few (Not Present) A 07/24/17 06:09 PT 13.7 Seconds (9.4-12.1) H 07/24/17 06:09 APTT 100.3 Seconds (26.0-36.0) H 07/23/17 14:51 ABG HCO3 30 mEq/L (21-27) H 07/28/17 04:55 ABG Total CO2 31.3 mEq/L (20-26) H 07/28/17 04:55 ABG Base Excess 5.1 mEq/L (-2.0 to 3.0) H 07/28/17 04:55 Sodium 134 mEq/L (136-145) L 07/29/17 03:25 Glucose 173 mg/dL (70-99) H 07/29/17 03:25 POC Glucose 196 (58-89) H 07/28/17 23:14 Creatine Kinase 222 U/L (20-200) H 07/24/17 00:56 CK-MM (CK-3) 90 % (96-100) L 07/24/17 00:56 CK-BB (CK-1) 6 % (0-0) H 07/24/17 00:56 Troponin I 0.74 ng/mL (0-0.03) H* 07/25/17 04:10 Albumin 2.1 g/dL (3.5-5.0) L 07/29/17 03:25 Globulin 3.9 g/dL (2.4-3.5) H 07/29/17 03:25 Albumin/Globulin Ratio 0.5 (1.1-2.2) L 07/29/17 03:25 Lipase 141 Units/L (8-78) H 07/22/17 18:38 Urine Clarity Turbid (Clear) A 07/22/17 18:21 Urine Protein 100 mg/dL (Neg-Trace) H 07/22/17 18:21 Urine Blood Large (Negative) H 07/22/17 18:21 Urine Bilirubin Small (Negative) H 07/22/17 18:21 Ur Leukocyte Esterase Trace (Negative) H 07/22/17 18:21 Urine Microscopic RBC 15-30 per hpf (0-3) H 07/22/17 18:21 Urine Microscopic WBC 15-30 per hpf (0-3) H 07/22/17 18:21 Ur Squamous Epith Cells Many per lpf (None-Few) H 07/22/17 18:21 Ur Culture Indicated? YES (NO) A 07/22/17 18:21 - Microbiology Findings Microbiology Findings: Microbiology, Last 48 Hours 07/24/17 21:40 Sputum Culture - Final Sputum - Clinical Findings Intake & Output: Intake & Output 07/28/17 07/29/17 07/29/17 23:59 07:59 15:59 Intake Total 334 / 334 204 / 204 Output Total 925 / 925 1100 / 1100 Balance -591 / -591 -896 / -896 Weight 82.4 kg - Attending Attestation I examined this patient and my medical decision-making was reviewed with the Resident Physician. I agree with the documented findings, disposition and treatment plan as described except to the extent set forth below. Patient seen and examined. Labs, radiology, chart personally reviewed. Agree with resident's history and physical, assessment, plan with following comments: KETTLE GIRL: Patient doesn't follows commands, however he is more awake now and responsive. Pulmonary: Acceptable oxygenation and ventilation. Concern of aspiration and speech to evaluate. Cardiovascular: stable GI: Nutrition per dietary and GI prophylaxis per routine, NPO for now Heme: DVT prophylaxis per routine ID: Continue antibiotics and plan to de-escalation Renal; urine out put and renal funtion reviewed Endorcine: blood glucose is monitored. Change his levothyroxine to IV. Lines: all lines checked and no evidence of infections Skin: skin care to prevent pressure ulcers per nursing routine care Patient can be transferred to the floor.
[2017-07-29] MEDS: Piperacillin/Tazobactam 3.375 GM in D5% in Water (Mini-Bag+) 100 ML IVPB SCH ×2 (09:00→17:02)
[2017-07-29] MEDS ORDERED: Erythromycin OPTH Oint BOTH EYES SCH (09:00)
[2017-07-29] MEDS ORDERED: D5% in Water 1,000 ML IVC PRN (10:05)
[2017-07-29] MEDS ORDERED: Magnesium Sulfate 2 GM in D5% in Water 100 ML IVPB PRN (10:05)
[2017-07-29] MEDS ORDERED: Ipratropium/Albuterol Neb 3 ML IH PRN (10:05)
[2017-07-29] MEDS ORDERED: Sodium Phosphate 30 MMOL in D5% in Water 100 ML IVPB PRN (10:05)
[2017-07-29] MEDS ORDERED: Potassium Chloride 40 MEQ/200 ML BAG IVPB PRN (10:05)
[2017-07-29] MEDS ORDERED: Artificial Tears SOLN 15 ML BOTTLE OP PRN (10:05)
[2017-07-29] MEDS ORDERED: *HR* HYDROcodone/Acet 7.5/325 mg TABLET PO PRN (10:05)
[2017-07-29] MEDS ORDERED: Dextrose Gel 15 GM PO PRN ×2 (10:05)
[2017-07-29] MEDS ORDERED: Acetaminophen 325 MG TABLET PO PRN (10:05)
[2017-07-29] MEDS ORDERED: *HR* Dextrose 50 % in Water (Syg) 50 ML SYRINGE IVP PRN (10:05)
[2017-07-29] MEDS: *HR* LORazepam 2 MG/ML VIAL IVP PRN ×2 (11:14→23:36)
[2017-07-29] MEDS: Ipratropium/Albuterol Neb 3 ML IH SCH ×4 (11:19→23:46)
--- NOTE | 2017-07-29 11:27 | Palliative Progress Note ---
Date of Encounter: 07/29/17 Time of Encounter: 11:25 - Assessment and plan (1) Cardiac arrest Current Visit: Yes Status: Acute (2) Dyspnea Current Visit: Yes Status: Acute (3) Counseling regarding advanced care planning and goals of care Current Visit: Yes Status: Acute Assessment and plan: Discussed plan of care with . He should transfer out of ICU today when bed available. Discussed that we will have to closely monitor his mental status and ability to communicate, follow commands, and evaluate for swallowing issues. He is somewhat alert today, but not following any commands and speech unable to work with him at this time. verbalized understanding and wants to give him a few days. I did discuss that if his mental status did not improve , we would need to re-evaluate goals of care in regards to artificial nutrition. She verbalized understanding. (4) UTI (urinary tract infection) Current Visit: No Status: Acute Qualifiers: Urinary tract infection type: acute cystitis Hematuria presence: without hematuria Qualified Code(s): N30.00 - Acute cystitis without hematuria - Time Spent With Patient Total time spent is greater than 50% in coordination of care (as documented) at patient's floor/unit and/or counseling patient: 25 - 35 minutes - Subjective Interval history: Patient has been extubated and currently oxygenating well on 1L O2. Appears in no distress. He has eyes open intermittently and is restless. Vitals stable. Leukocytosis continues - all cultures negative and continues on IV Zosyn. CT head/EEG results yesterday noted. Neurology input appreciated. in waiting area. - Constitutional Vitals: Abnormal lab results WBC 23.6 K/mcL (4.3-11.1) H 07/29/17 03:25 RBC 3.87 M/mcL (4.19-5.50) L 07/29/17 03:25 Hgb 11.3 g/dL (12.9-16.9) L 07/29/17 03:25 Hct 35.3 % (37.5-50.1) L 07/29/17 03:25 Neutrophils # 16.8 K/mcL (1.6-8.9) H 07/29/17 03:25 Monocytes # 3.5 K/mcL (0.0-1.3) H 07/29/17 03:25 Eosinophils # 1.1 K/mcL (0.0-0.6) H 07/29/17 03:25 Clumped Platelets Few (Not Present) A 07/24/17 06:09 PT 13.7 Seconds (9.4-12.1) H 07/24/17 06:09 APTT 100.3 Seconds (26.0-36.0) H 07/23/17 14:51 ABG HCO3 30 mEq/L (21-27) H 07/28/17 04:55 ABG Total CO2 31.3 mEq/L (20-26) H 07/28/17 04:55 ABG Base Excess 5.1 mEq/L (-2.0 to 3.0) H 07/28/17 04:55 Sodium 134 mEq/L (136-145) L 07/29/17 03:25 Glucose 173 mg/dL (70-99) H 07/29/17 03:25 POC Glucose 196 (58-89) H 07/28/17 23:14 Creatine Kinase 222 U/L (20-200) H 07/24/17 00:56 CK-MM (CK-3) 90 % (96-100) L 07/24/17 00:56 CK-BB (CK-1) 6 % (0-0) H 07/24/17 00:56 Troponin I 0.74 ng/mL (0-0.03) H* 07/25/17 04:10 Albumin 2.1 g/dL (3.5-5.0) L 07/29/17 03:25 Globulin 3.9 g/dL (2.4-3.5) H 07/29/17 03:25 Albumin/Globulin Ratio 0.5 (1.1-2.2) L 07/29/17 03:25 Lipase 141 Units/L (8-78) H 07/22/17 18:38 Urine Clarity Turbid (Clear) A 07/22/17 18:21 Urine Protein 100 mg/dL (Neg-Trace) H 07/22/17 18:21 Urine Blood Large (Negative) H 07/22/17 18:21 Urine Bilirubin Small (Negative) H 07/22/17 18:21 Ur Leukocyte Esterase Trace (Negative) H 07/22/17 18:21 Urine Microscopic RBC 15-30 per hpf (0-3) H 07/22/17 18:21 Urine Microscopic WBC 15-30 per hpf (0-3) H 07/22/17 18:21 Ur Squamous Epith Cells Many per lpf (None-Few) H 07/22/17 18:21 Ur Culture Indicated? YES (NO) A 07/22/17 18:21 General appearance: Present: no acute distress - Respiratory Additional comments: Occasional rhonchi noted throughout anterior chest. - Cardiovascular Cardiovascular exam: Present: +S1, +S2 - GI/Abdominal GI/Abdominal exam: Present: normal bowel sounds, soft - Additional comments: Watson with yellow urine - Neurological Exam Additional comments: Awake and restless. Opened eyes and looked at me when spoken to. Does not follow any commands. PAGE. Occasional jerking movements noted. Palliative Quality Palliative Quality: Screen for Code Status: Yes, Screen for Goals of Care: Yes, Screen for Pain: NA, If Pain Regimen Started, Initiate Bowel Regimen: NA, Screen for Nausea/Vomitting: NA Code Status: 07/25/17 13:52 DNR [Resuscitation Status: Active] [RES] Routine Comment: With intubation patient on ventilator Resuscitation Status: DNR-Comfort Care-Arrest 07/28/17 18:53 CODE [Resuscitation Status: Active] [RES] Routine Comment: Resuscitation Status: [id number] - Labs CBC & Chem 7: 07/29/17 03:25 07/29/17 03:25 Labs: Laboratory Results - last 24 hr 07/28/17 07/28/17 07/28/17 07:18 11:17 15:55 WBC RBC Hgb Hct MCV MCH MCHC RDW Plt Count MPV Immature Gran % Seg Neutrophils % Lymphocytes % Monocytes % Eosinophils % Basophils % Neutrophils # Lymphocytes # Monocytes # Eosinophils # Basophils # Sodium Potassium Chloride Carbon Dioxide BUN Creatinine Est GFR ( Amer) Est GFR (Non-Af Amer) BUN/Creatinine Ratio Glucose POC Glucose 212 H 185 H 123 H Calculated Osmolality Calcium Magnesium Total Bilirubin AST ALT Alkaline Phosphatase Serum Total Protein Albumin Globulin Albumin/Globulin Ratio 07/28/17 07/28/17 07/28/17 16:00 19:45 23:14 WBC RBC Hgb Hct MCV MCH MCHC RDW Plt Count MPV Immature Gran % Seg Neutrophils % Lymphocytes % Monocytes % Eosinophils % Basophils % Neutrophils # Lymphocytes # Monocytes # Eosinophils # Basophils # Sodium Potassium Chloride Carbon Dioxide BUN Creatinine Est GFR ( Amer) Est GFR (Non-Af Amer) BUN/Creatinine Ratio Glucose POC Glucose 129 H 196 H Calculated Osmolality Calcium Magnesium 1.1 L Total Bilirubin AST ALT Alkaline Phosphatase Serum Total Protein Albumin Globulin Albumin/Globulin Ratio 07/29/17 07/29/17 03:25 03:25 WBC 23.6 H RBC 3.87 L Hgb 11.3 L Hct 35.3 L MCV 91.2 MCH 29.2 MCHC 32.0 RDW 13.2 Plt Count 298 MPV 10.4 Immature Gran % 1.7 Seg Neutrophils % 71.3 Lymphocytes % 7.0 Monocytes % 14.7 Eosinophils % 4.7 Basophils % 0.6 Neutrophils # 16.8 H Lymphocytes # 1.7 Monocytes # 3.5 H Eosinophils # 1.1 H Basophils # 0.1 Sodium 134 L Potassium 4.4 Chloride 99 Carbon Dioxide 28 BUN 10 Creatinine 0.76 Est GFR ( Amer) > 60 Est GFR (Non-Af Amer) > 60 BUN/Creatinine Ratio 13 Glucose 173 H POC Glucose Calculated Osmolality 281 Calcium 9.0 Magnesium 1.6 Total Bilirubin 0.6 AST 14 ALT 26 Alkaline Phosphatase 88 Serum Total Protein 6.0 Albumin 2.1 L Globulin 3.9 H Albumin/Globulin Ratio 0.5 L - Impressions Impressions Head CT 07/28/17 12:00 IMPRESSION: No acute intracranial abnormality. D/ / Heriberto Blank MD / Heriberto Blank MD Interpreting Provider: Heriberto Blank MD - ABG Interpretation ABG results: ABG ABG pH 7.44 pH Units (7.32-7.45) 07/28/17 04:55 ABG pCO2 44 mmHg (35-45) 07/28/17 04:55 ABG pO2 91 mmHg (85-104) 07/28/17 04:55 ABG O2 Saturation 97 % (95-98) 07/28/17 04:55 PT/INR, D-dimer PT 13.7 Seconds (9.4-12.1) H 07/24/17 06:09 Consult Discharge Plan - Plan Referrals: NONE,PCP [Primary Care Provider] - (patient is from [facility])
[2017-07-29] MEDS: Erythromycin OPTH Oint BOTH EYES SCH ×2 (17:02→23:36)
[2017-07-30] MEDS: Insulin LISPRO 300 UNITS/3 ML VIAL SQ SCH ×5 (03:28→16:06)
[2017-07-30] MEDS: *HR* LORazepam 2 MG/ML VIAL IVP PRN ×3 (03:32→17:29)
[2017-07-30] MEDS: Piperacillin/Tazobactam 3.375 GM in D5% in Water (Mini-Bag+) 100 ML IVPB SCH ×3 (03:32→17:28)
[2017-07-30] MEDS: Ipratropium/Albuterol Neb 3 ML IH SCH ×5 (04:19→20:20)
[2017-07-30] MEDS: Levothyroxine Sodium 100 MCG VIAL IVP SCH (05:43)
[2017-07-30] MEDS: *HR* Heparin 5,000 UNIT/ML VIAL SQ SCH ×2 (06:44→16:06)
--- NOTE | 2017-07-30 07:40 | Palliative Progress Note ---
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 Culture is neg pt still on atbx. no defininte etiology of increased wbc known at this time Qualifiers: Urinary tract infection type: acute cystitis Hematuria presence: without hematuria Qualified Code(s): N30.00 - Acute cystitis without hematuria (4) Constipation due to opioid therapy Current Visit: No Status: Acute Assessment and plan: no bm recorded last tube feed on the 10th will start bowel regimen (5) Acute metabolic encephalopathy Current Visit: Yes Status: Acute Assessment and plan: prob sceondary to cardiac arrest, eeg and ct normal neuro is following per nurseing staff he seems very nervous at times will make the ativan more frequent prn rather than increase dose to help pt to wake up better. wound specialist not yet able to do formal swallow eval may need tube feeds if not able to eat will discuss with family (6) Cardiac arrest Current Visit: Yes Status: Acute Assessment and plan: may be source of encephalopathy, but this far out doubt it is the caruse of the persistant leukocytosis (7) Counseling regarding advanced care planning and goals of care Current Visit: Yes Status: Acute Assessment and plan: family sleeping this am will d/w them after they awaken code status is dnr a dni pt is responding to some stimulation and therefore may be a candidate for artificial feeding and return to [facility]. pt not yancy for hospice at this time as he needs more time to awaken, and cause of leukocytoisis needs further investigated. No palliative coverage this weekend so will need to remain on hospitalist service in any case - Time Spent With Patient Total time spent is greater than 50% in coordination of care (as documented) at patient's floor/unit and/or counseling patient: - Subjective Interval history: no events overnight per nurses report, pt does respond with eye opening and trying to mouth words. seems to have increased anxiety per nursing staff. - Constitutional Vitals: Abnormal lab results WBC 23.6 K/mcL (4.3-11.1) H 07/29/17 03:25 RBC 3.87 M/mcL (4.19-5.50) L 07/29/17 03:25 Hgb 11.3 g/dL (12.9-16.9) L 07/29/17 03:25 Hct 35.3 % (37.5-50.1) L 07/29/17 03:25 Neutrophils # 16.8 K/mcL (1.6-8.9) H 07/29/17 03:25 Monocytes # 3.5 K/mcL (0.0-1.3) H 07/29/17 03:25 Eosinophils # 1.1 K/mcL (0.0-0.6) H 07/29/17 03:25 Clumped Platelets Few (Not Present) A 07/24/17 06:09 PT 13.7 Seconds (9.4-12.1) H 07/24/17 06:09 APTT 100.3 Seconds (26.0-36.0) H 07/23/17 14:51 ABG HCO3 30 mEq/L (21-27) H 07/28/17 04:55 ABG Total CO2 31.3 mEq/L (20-26) H 07/28/17 04:55 ABG Base Excess 5.1 mEq/L (-2.0 to 3.0) H 07/28/17 04:55 Sodium 134 mEq/L (136-145) L 07/29/17 03:25 Glucose 173 mg/dL (70-99) H 07/29/17 03:25 POC Glucose 168 (58-89) H 07/30/17 00:19 Creatine Kinase 222 U/L (20-200) H 07/24/17 00:56 CK-MM (CK-3) 90 % (96-100) L 07/24/17 00:56 CK-BB (CK-1) 6 % (0-0) H 07/24/17 00:56 Troponin I 0.74 ng/mL (0-0.03) H* 07/25/17 04:10 Albumin 2.1 g/dL (3.5-5.0) L 07/29/17 03:25 Globulin 3.9 g/dL (2.4-3.5) H 07/29/17 03:25 Albumin/Globulin Ratio 0.5 (1.1-2.2) L 07/29/17 03:25 Lipase 141 Units/L (8-78) H 07/22/17 18:38 Urine Clarity Turbid (Clear) A 07/22/17 18:21 Urine Protein 100 mg/dL (Neg-Trace) H 07/22/17 18:21 Urine Blood Large (Negative) H 07/22/17 18:21 Urine Bilirubin Small (Negative) H 07/22/17 18:21 Ur Leukocyte Esterase Trace (Negative) H 07/22/17 18:21 Urine Microscopic RBC 15-30 per hpf (0-3) H 07/22/17 18:21 Urine Microscopic WBC 15-30 per hpf (0-3) H 07/22/17 18:21 Ur Squamous Epith Cells Many per lpf (None-Few) H 07/22/17 18:21 Ur Culture Indicated? YES (NO) A 07/22/17 18:21 General appearance: Present: no acute distress - Head Head exam: Present: atraumatic, normal inspection - Eye Eye exam: Present: normal appearance - ENT ENT exam: Present: mucous membranes moist - Respiratory Respiratory exam: Present: decreased breath sounds, rhonchi - Cardiovascular Cardiovascular exam: Present: RRR - GI/Abdominal GI/Abdominal exam: Present: normal bowel sounds, soft. Absent: tenderness - Extremities Exam Extremities exam: Present: normal inspection. Absent: pedal edema, tenderness - Neurological Exam Neurological exam: Present: altered (pt allowed to sleep d/w nursing pt has been responsive, but altered ) - Skin Skin exam: Present: dry, warm Palliative Quality Palliative Quality: Screen for Code Status: Yes, Screen for Goals of Care: Yes, Screen for Pain: Yes, If Pain Regimen Started, Initiate Bowel Regimen: NA, Screen for Nausea/Vomitting: Yes Code Status: 07/25/17 13:52 DNR [Resuscitation Status: Active] [RES] Routine Comment: With intubation patient on ventilator Resuscitation Status: DNR-Comfort Care-Arrest 07/28/17 18:53 CODE [Resuscitation Status: Active] [RES] Routine Comment: Resuscitation Status: [id number] - Labs CBC & Chem 7: 07/29/17 03:25 07/29/17 03:25 Labs: Laboratory Results - last 24 hr 07/29/17 07/29/17 07/29/17 07:19 11:19 16:09 POC Glucose 183 H 148 H 102 H 07/29/17 07/30/17 18:02 00:19 POC Glucose 140 H 168 H - ABG Interpretation ABG results: ABG ABG pH 7.44 pH Units (7.32-7.45) 07/28/17 04:55 ABG pCO2 44 mmHg (35-45) 07/28/17 04:55 ABG pO2 91 mmHg (85-104) 07/28/17 04:55 ABG O2 Saturation 97 % (95-98) 07/28/17 04:55 PT/INR, D-dimer PT 13.7 Seconds (9.4-12.1) H 07/24/17 06:09 Consult Discharge Plan - Plan Referrals: NONE,PCP [Primary Care Provider] - (patient is from [facility])
[2017-07-30] MEDS: Erythromycin OPTH Oint BOTH EYES SCH ×3 (07:44→22:16)
[2017-07-30] MEDS: Aspirin 81 MG TAB.CHEW PO SCH (07:48)
[2017-07-30] MEDS: Bisacodyl 10 MG RECTAL SUPPOSITORY RC SCH (10:01)
--- NOTE | 2017-07-30 10:09 | Internal Med Progress Note ---
<King Palumbo - Last Filed: 07/30/17 16:06> Date of Encounter: 07/30/17 Time of Encounter: 10:09 - Assessment and plan (1) Cardiac arrest Current Visit: Yes Status: Acute Assessment and plan: Patient coded on 07/24 for Cardiac arrest likely secondary to hyperkalemia and hypomagnasemia. ROSC achieved. Patient admitted to the ICU 07/24 and intubated. Extubated 07/29 and transferred out of the ICU on 07/30 Stable off pressors, breathing on his own. Patien is DNR CC Arrest DNI. Paliative on board. (2) Acute metabolic encephalopathy Current Visit: Yes Status: Acute Assessment and plan: likely secondary to anoxic injury secondary to cardiac arrest. EEG and CT head showed no abnormalities. Neurology is on board. Will continue to monitor to see if mentation improves. As of now does not follow commands or appear aware of his surroundings, but does localize to pain. (3) Leukocytosis Current Visit: Yes Status: Acute Assessment and plan: Etiology unclear WBC improved today down to 18.8 from 23.6 Ucx, Bcx, sputum cx all negative partially likely reactive secondary to cardiac arrest, and stress reaction continue zosyn Qualifiers: Leukocytosis type: unspecified Qualified Code(s): D72.829 - Elevated white blood cell count, unspecified (4) Hematuria Current Visit: Yes Status: Acute Assessment and plan: Patient's Sales full of Red urine this morning. Urine was yellow yesterday Hgb stable. Rechecking Hgb again this afternoon. Ucx negative from admission consider repeat UA/UCx Continue to monitor Consider Urology consult. 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 Does not follow commands. Localizes to painful stimuli, Opens eyes spontaneously but does not open to voice. Patient's present in the room. When questioned if she feels like the patient recognizes her or responds to her she denies noticing this, but states she is preoccupied by financial concerns right now. - Constitutional Vitals: Temp Pulse Resp BP Pulse Ox 98.6 F 99 15 137/69 94 07/30/17 07:05 07/30/17 07:05 07/30/17 07:52 07/30/17 07:05 07/30/17 07:52 General appearance: Present: A&O X 0. Absent: cooperative, answers questions appropriately - Head Head exam: Present: atraumatic, normocephalic - Eye Eye exam: Present: PERRL - ENT ENT exam: Present: mucous membranes dry - Respiratory Respiratory exam: Present: decreased breath sounds, rhonchi - Cardiovascular Cardiovascular exam: Present: RRR, +S1, +S2. Absent: diastolic murmur, gallop, rubs, systolic murmur - GI/Abdominal GI/Abdominal exam: Present: diminished bowel sounds, distended, soft. Absent: mass, tenderness - Extremities Exam Extremities exam: Present: pedal edema - Neurological Exam Neurological exam: Absent: alert, oriented X3 Additional comments: down going babinski on the Left equivocal on the Right Patient nonverbal. Does not follow commands. Localizes to painful stimuli, Opens eyes spontaneously but does not open to voice. Increased tone in b/l upper extremities. Resting tremor present. Internal Medicine: Result - Labs CBC & Chem 7: 07/30/17 10:15 07/30/17 10:15 - ABG Interpretation ABG results: ABG ABG pH 7.44 pH Units (7.32-7.45) 07/28/17 04:55 ABG pCO2 44 mmHg (35-45) 07/28/17 04:55 ABG pO2 91 mmHg (85-104) 07/28/17 04:55 ABG O2 Saturation 97 % (95-98) 07/28/17 04:55 PT/INR, D-dimer PT 13.7 Seconds (9.4-12.1) H 07/24/17 06:09 Consult Discharge Plan - Plan Referrals: NONE,PCP [Primary Care Provider] - (patient is from [facility]) <Khurram Antony P - Last Filed: 07/30/17 18:01> Date of Encounter: 07/30/17 - Constitutional Vitals: Temp Pulse Resp BP Pulse Ox 99.4 F 101 18 148/97 94 07/30/17 16:00 07/30/17 16:00 07/30/17 16:03 07/30/17 16:00 07/30/17 16:03 Internal Medicine: Result - Labs CBC & Chem 7: 07/30/17 16:10 07/30/17 10:15 Labs: Short CBC 07/30/17 07/30/17 Range/Units 10:15 16:10 WBC 18.8 H 20.6 H (4.3-11.1) K/mcL Hgb 10.9 L 11.7 L (12.9-16.9) g/dL Hct 33.7 L 35.9 L (37.5-50.1) % Plt Count 381 387 (140-400) K/mcL Neutrophils # 12.6 H (1.6-8.9) K/mcL BMP 07/30/17 10:15 Sodium 136 Potassium 4.2 Chloride 99 Carbon Dioxide 29 BUN 11 Creatinine 0.82 Glucose 192 H Calcium 9.2 - ABG Interpretation ABG results: ABG ABG pH 7.44 pH Units (7.32-7.45) 07/28/17 04:55 ABG pCO2 44 mmHg (35-45) 07/28/17 04:55 ABG pO2 91 mmHg (85-104) 07/28/17 04:55 ABG O2 Saturation 97 % (95-98) 07/28/17 04:55 PT/INR, D-dimer PT 13.7 Seconds (9.4-12.1) H 07/24/17 06:09 - Attending Attestation I examined this patient and my medical decision-making was reviewed with the Resident Physician. I agree with the documented findings, disposition and treatment plan as described except to the extent set forth below. Will follow recommendations from palliative care.
[2017-07-30 10:22] LABS: Basophils # 0.2 K/mcL (0.0-0.2); Basophils % 0.9 %; Eosinophils # 1.1 K/mcL (0.0-0.6); Hematocrit 33.7 % (37.5-50.1); Hemoglobin 10.9 g/dL (12.9-16.9); Immature Granulocytes % 1.7 % (0-4); Immature Platelets 3.7 % (1.1-6.1); Lymphocytes # 1.7 K/mcL (0.6-4.6); Lymphocytes % 8.9 %; Mean Corpuscular HGB Conc 32.3 g/dL (31.6-35.5); Mean Corpuscular Hemoglobin 28.8 pg (28.0-33.3); Mean Corpuscular Volume 88.9 fL (83.0-100.0); Mean Platelet Volume 9.8 fL (9.4-12.4); Monocytes % 15.8 %; Neutrophils # 12.6 K/mcL (1.6-8.9); Platelet Count 381 K/mcL (140-400); Red Blood Count 3.79 M/mcL (4.19-5.50); Red Cell Distribution Width 13.2 % (11.5-14.5); Segmented Neutrophils % 66.7 %
[2017-07-30 10:33] LABS: BUN/Creatinine Ratio 13 (6-26); Blood Urea Nitrogen 11 mg/dL (8-26); Calcium 9.2 mg/dL (8.6-10.8); Carbon Dioxide 29 mEq/L (19-29); Chloride 99 mEq/L (98-109); Glucose 192 mg/dL (70-99); Osmolality,Calculated 287 (280-300); Potassium 4.2 mEq/L (3.5-4.5); Sodium 136 mEq/L (136-145); eGFR For African Americans > 60 (> 60); eGFR For Non-African Americans > 60 (> 60)
[2017-07-30] MEDS: *HR* Morphine 2 MG/ML SYRINGE IVP PRN (16:02)
[2017-07-30 16:35] LABS: Hematocrit 35.9 % (37.5-50.1); Hemoglobin 11.7 g/dL (12.9-16.9); Mean Corpuscular HGB Conc 32.6 g/dL (31.6-35.5); Mean Corpuscular Volume 88.9 fL (83.0-100.0); Platelet Count 387 K/mcL (140-400); Red Blood Count 4.04 M/mcL (4.19-5.50)
[2017-07-31] MEDS: Piperacillin/Tazobactam 3.375 GM in D5% in Water (Mini-Bag+) 100 ML IVPB SCH ×3 (03:00→20:21)
[2017-07-31] MEDS: Ipratropium/Albuterol Neb 3 ML IH SCH ×7 (04:41→23:36)
[2017-07-31 04:49] LABS: Basophils # 0.2 K/mcL (0.0-0.2); Basophils % 0.7 %; Eosinophils # 1.2 K/mcL (0.0-0.6); Eosinophils % 5.8 %; Hematocrit 34.6 % (37.5-50.1); Hemoglobin 11.1 g/dL (12.9-16.9); Immature Granulocytes % 2.2 % (0-4); Immature Platelets 4.3 % (1.1-6.1); Lymphocytes # 1.8 K/mcL (0.6-4.6); Lymphocytes % 8.9 %; Mean Corpuscular HGB Conc 32.1 g/dL (31.6-35.5); Mean Corpuscular Hemoglobin 29.1 pg (28.0-33.3); Mean Corpuscular Volume 90.8 fL (83.0-100.0); Mean Platelet Volume 10.4 fL (9.4-12.4); Monocytes # 3.2 K/mcL (0.0-1.3); Monocytes % 15.5 %; Neutrophils # 13.7 K/mcL (1.6-8.9); Platelet Count 412 K/mcL (140-400); Red Blood Count 3.81 M/mcL (4.19-5.50); Red Cell Distribution Width 13.2 % (11.5-14.5); Segmented Neutrophils % 66.9 %
[2017-07-31] MEDS: Insulin LISPRO 300 UNITS/3 ML VIAL SQ SCH ×7 (04:51→20:22)
[2017-07-31] MEDS: *HR* Heparin 5,000 UNIT/ML VIAL SQ SCH ×2 (04:53→15:23)
[2017-07-31] MEDS: Levothyroxine Sodium 100 MCG VIAL IVP SCH (05:24)
[2017-07-31 06:09] LABS: BUN/Creatinine Ratio 16 (6-26); Blood Urea Nitrogen 12 mg/dL (8-26); Calcium 9.1 mg/dL (8.6-10.8); Carbon Dioxide 25 mEq/L (19-29); Chloride 99 mEq/L (98-109); Glucose 165 mg/dL (70-99); Osmolality,Calculated 285 (280-300); Potassium 3.9 mEq/L (3.5-4.5); Sodium 136 mEq/L (136-145); eGFR For African Americans > 60 (> 60); eGFR For Non-African Americans > 60 (> 60)
--- NOTE | 2017-07-31 07:47 | Palliative Progress Note ---
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 Need to watch plan per hospitalist team Qualifiers: Leukocytosis type: bandemia Qualified Code(s): D72.825 - Bandemia (3) UTI (urinary tract infection) Current Visit: No Status: Acute Assessment and plan: urine is red today Culture is neg pt still on atbx. no defininte etiology of increased wbc known at this time Qualifiers: Urinary tract infection type: acute cystitis Hematuria presence: without hematuria Qualified Code(s): N30.00 - Acute cystitis without hematuria (4) Constipation due to opioid therapy Current Visit: No Status: Acute Assessment and plan: no bm recorded last tube feed on the 10th will start bowel regimen Genu bowel regimen. The patient is not eating, and feeding tube will not be entertained per discussion with family this morning. (5) Acute metabolic encephalopathy Current Visit: Yes Status: Acute Assessment and plan: prob sceondary to cardiac arrest, eeg and ct normal neuro is following per nurseing staff he seems very nervous at times will make the ativan more frequent prn rather than increase dose to help pt to wake up better. Still not able to swallow, family does not wish to have a feeding tube placed. (6) Cardiac arrest Current Visit: Yes Status: Acute Assessment and plan: may be source of encephalopathy, but this far out doubt it is the caruse of the persistant leukocytosis (7) Counseling regarding advanced care planning and goals of care Current Visit: Yes Status: Acute Assessment and plan: Status changes this morning to DNR comfort care. State form filled out and put on the chart. Schedule patient's I believe that she is understanding what is going on fairly well, seeing staff seems to feel the patient may possibly be responding a little bit more and patient's thinks he might be too. Us with her if he does not have any purposeful movement cannot cooperate and there will not be able to be any rehabilitation done. [facility] at [facility] point [facility] However he the family would like to give him today and that makes getting him out tomorrow to [place] unlikely. Patient will probably be here for the weekend and then we can [facility]. I believe that the patient is hospice appropriate she is not waking up to eat. In the family does not want have artificial feeding done. All discuss further with the treatment team. - Time Spent With Patient Total time spent is greater than 50% in coordination of care (as documented) at patient's floor/unit and/or counseling patient: - Subjective Interval history: no events overnight per nurses report, pt does respond with eye opening and trying to mouth words. He seems to try to talk when he is spoken to. According to was he really does not like to do anything without his teeth and and they are trying to find his dentures. Over overall patient is not responding in any purposeful way. - Constitutional Vitals: Abnormal lab results WBC 20.5 K/mcL (4.3-11.1) H 07/31/17 03:55 RBC 3.81 M/mcL (4.19-5.50) L 07/31/17 03:55 Hgb 11.1 g/dL (12.9-16.9) L 07/31/17 03:55 Hct 34.6 % (37.5-50.1) L 07/31/17 03:55 Plt Count 412 K/mcL (140-400) H 07/31/17 03:55 Neutrophils # 13.7 K/mcL (1.6-8.9) H 07/31/17 03:55 Monocytes # 3.2 K/mcL (0.0-1.3) H 07/31/17 03:55 Eosinophils # 1.2 K/mcL (0.0-0.6) H 07/31/17 03:55 Clumped Platelets Few (Not Present) A 07/24/17 06:09 PT 13.7 Seconds (9.4-12.1) H 07/24/17 06:09 APTT 100.3 Seconds (26.0-36.0) H 07/23/17 14:51 ABG HCO3 30 mEq/L (21-27) H 07/28/17 04:55 ABG Total CO2 31.3 mEq/L (20-26) H 07/28/17 04:55 ABG Base Excess 5.1 mEq/L (-2.0 to 3.0) H 07/28/17 04:55 Glucose 165 mg/dL (70-99) H 07/31/17 03:55 POC Glucose 173 (58-89) H 07/30/17 16:10 Creatine Kinase 222 U/L (20-200) H 07/24/17 00:56 CK-MM (CK-3) 90 % (96-100) L 07/24/17 00:56 CK-BB (CK-1) 6 % (0-0) H 07/24/17 00:56 Troponin I 0.74 ng/mL (0-0.03) H* 07/25/17 04:10 Albumin 2.1 g/dL (3.5-5.0) L 07/29/17 03:25 Globulin 3.9 g/dL (2.4-3.5) H 07/29/17 03:25 Albumin/Globulin Ratio 0.5 (1.1-2.2) L 07/29/17 03:25 Lipase 141 Units/L (8-78) H 07/22/17 18:38 Urine Clarity Turbid (Clear) A 07/22/17 18:21 Urine Protein 100 mg/dL (Neg-Trace) H 07/22/17 18:21 Urine Blood Large (Negative) H 07/22/17 18:21 Urine Bilirubin Small (Negative) H 07/22/17 18:21 Ur Leukocyte Esterase Trace (Negative) H 07/22/17 18:21 Urine Microscopic RBC 15-30 per hpf (0-3) H 07/22/17 18:21 Urine Microscopic WBC 15-30 per hpf (0-3) H 07/22/17 18:21 Ur Squamous Epith Cells Many per lpf (None-Few) H 07/22/17 18:21 Ur Culture Indicated? YES (NO) A 07/22/17 18:21 General appearance: Present: no acute distress - Head Head exam: Present: atraumatic, normal inspection - Eye Eye exam: Present: normal appearance - ENT ENT exam: Present: mucous membranes moist - Respiratory Respiratory exam: Present: decreased breath sounds, rhonchi - Cardiovascular Cardiovascular exam: Present: RRR - GI/Abdominal GI/Abdominal exam: Present: normal bowel sounds, soft. Absent: tenderness - Extremities Exam Extremities exam: Present: normal inspection. Absent: pedal edema, tenderness - Neurological Exam Neurological exam: Present: altered (Does awaken, and does seem to want to try to talk.) - Psychiatric Psychiatric exam: Present: agitated (At times), anxious (At times) - Skin Skin exam: Present: dry, warm Palliative Quality Palliative Quality: Screen for Code Status: Yes, Screen for Goals of Care: Yes, Screen for Pain: Yes, If Pain Regimen Started, Initiate Bowel Regimen: Yes, Screen for Nausea/Vomitting: Yes Code Status: 07/25/17 13:52 DNR [Resuscitation Status: Active] [RES] Routine Comment: With intubation patient on ventilator Resuscitation Status: DNR-Comfort Care-Arrest 07/28/17 18:53 CODE [Resuscitation Status: Active] [RES] Routine Comment: Resuscitation Status: [id number] - Labs CBC & Chem 7: 07/31/17 03:55 07/31/17 03:55 Labs: Laboratory Results - last 24 hr 07/30/17 07/30/17 07/30/17 07:41 10:15 10:15 WBC 18.8 H RBC 3.79 L Hgb 10.9 L Hct 33.7 L MCV 88.9 MCH 28.8 MCHC 32.3 RDW 13.2 Plt Count 381 MPV 9.8 Immature Gran % 1.7 Seg Neutrophils % 66.7 Lymphocytes % 8.9 Monocytes % 15.8 Eosinophils % 6.0 Basophils % 0.9 Neutrophils # 12.6 H Lymphocytes # 1.7 Monocytes # 3.0 H Eosinophils # 1.1 H Basophils # 0.2 Immature Plt Fraction 3.7 Sodium 136 Potassium 4.2 Chloride 99 Carbon Dioxide 29 BUN 11 Creatinine 0.82 Est GFR ( Amer) > 60 Est GFR (Non-Af Amer) > 60 BUN/Creatinine Ratio 13 Glucose 192 H POC Glucose 192 H Calculated Osmolality 287 Calcium 9.2 07/30/17 07/30/17 07/30/17 10:33 16:10 16:10 WBC 20.6 H RBC 4.04 L Hgb 11.7 L Hct 35.9 L MCV 88.9 MCH 29.0 MCHC 32.6 RDW 13.0 Plt Count 387 MPV 10.0 Immature Gran % Seg Neutrophils % Lymphocytes % Monocytes % Eosinophils % Basophils % Neutrophils # Lymphocytes # Monocytes # Eosinophils # Basophils # Immature Plt Fraction Sodium Potassium Chloride Carbon Dioxide BUN Creatinine Est GFR ( Amer) Est GFR (Non-Af Amer) BUN/Creatinine Ratio Glucose POC Glucose 184 H 173 H Calculated Osmolality Calcium 07/31/17 07/31/17 03:55 03:55 WBC 20.5 H RBC 3.81 L Hgb 11.1 L Hct 34.6 L MCV 90.8 MCH 29.1 MCHC 32.1 RDW 13.2 Plt Count 412 H MPV 10.4 Immature Gran % 2.2 Seg Neutrophils % 66.9 Lymphocytes % 8.9 Monocytes % 15.5 Eosinophils % 5.8 Basophils % 0.7 Neutrophils # 13.7 H Lymphocytes # 1.8 Monocytes # 3.2 H Eosinophils # 1.2 H Basophils # 0.2 Immature Plt Fraction 4.3 Sodium 136 Potassium 3.9 Chloride 99 Carbon Dioxide 25 BUN 12 Creatinine 0.77 Est GFR ( Amer) > 60 Est GFR (Non-Af Amer) > 60 BUN/Creatinine Ratio 16 Glucose 165 H POC Glucose Calculated Osmolality 285 Calcium 9.1 - ABG Interpretation ABG results: ABG ABG pH 7.44 pH Units (7.32-7.45) 07/28/17 04:55 ABG pCO2 44 mmHg (35-45) 07/28/17 04:55 ABG pO2 91 mmHg (85-104) 07/28/17 04:55 ABG O2 Saturation 97 % (95-98) 07/28/17 04:55 PT/INR, D-dimer PT 13.7 Seconds (9.4-12.1) H 07/24/17 06:09 Consult Discharge Plan - Plan Referrals: NONE,PCP [Primary Care Provider] - (patient is from [facility])
--- NOTE | 2017-07-31 08:38 | Internal Med Progress Note ---
<King Palumbo - Last Filed: 07/31/17 14:25> Date of Encounter: 07/31/17 Time of Encounter: 09:45 - Assessment and plan (1) Cardiac arrest Current Visit: Yes Status: Acute Assessment and plan: Patient coded on 07/24 for Cardiac arrest likely secondary to hyperkalemia and hypomagnasemia. ROSC achieved. Patient admitted to the ICU 07/24 and intubated. Extubated 07/29 and transferred out of the ICU on 07/30 Stable off pressors, breathing on his own. Patien is DNR CC Paliative on board. Patient's has agreed to ID hospice. (2) Acute metabolic encephalopathy Current Visit: Yes Status: Acute Assessment and plan: likely secondary to anoxic injury secondary to cardiac arrest. EEG shows diffuse slowing and CT head showed no acute abnormalities. Neurology is on board. Will continue to monitor to see if mentation improves. As of now does not follow commands or appear aware of his surroundings. Paliative on board. has agreed to ID hospice. Patient DNRCC. Awaiting placement. (3) Leukocytosis Current Visit: Yes Status: Acute Assessment and plan: Etiology unclear WBC 20.5 today from 18.8 yesterday Ucx, Bcx, sputum cx all negative partially likely reactive secondary to cardiac arrest, and stress reaction continue zosyn Qualifiers: Leukocytosis type: unspecified Qualified Code(s): D72.829 - Elevated white blood cell count, unspecified (4) Hematuria Current Visit: Yes Status: Acute Assessment and plan: Patient's Sales full of Red urine -Hgb stable. -Ucx negative -Continue to monitor Qualifiers: Hematuria type: gross Qualified Code(s): R31.0 - Gross hematuria (5) Diabetes mellitus Current Visit: Yes Status: Chronic Assessment and plan: Chronic, stable -Continue SSI, acuchecks Qualifiers: Diabetes mellitus type: type 2 Diabetes mellitus complication status: without complication Diabetes mellitus fpc insulin use: without fpc use Qualified Code(s): E11.9 - Type 2 diabetes mellitus without complications (6) Urinary retention Current Visit: Yes Status: Chronic Assessment and plan: History of urinary retention secondary to neurogenic bladder -sales Catheter in place (7) Constipation due to opioid therapy Current Visit: No Status: Acute Assessment and plan: -Continue bowel regimen - Subjective Interval history: Patient nonverbal. Does not follow commands. Withdrawls to painful stimuli, Opens eyes spontaneously. Patient's present in the room. Patient does track across midline. Had lengthy discussion with patient's about patient' s prognosis and options going forward. Had second lengthy discussion with patient's with paliative care. - Constitutional Vitals: Temp Pulse Resp BP Pulse Ox 98.5 F 84 15 134/71 100 07/31/17 07:51 07/31/17 07:51 07/31/17 07:51 07/31/17 07:51 07/31/17 07:51 General appearance: Present: A&O X 0. Absent: cooperative, answers questions appropriately - Head Head exam: Present: atraumatic, normocephalic - Eye Eye exam: Present: PERRL, conjuntiva pink Pupils: Present: PERRL - Neck Neck exam general surgery: Present: supple, trachea midline - Respiratory Respiratory exam: Present: decreased breath sounds, rhonchi. Absent: accessory muscle use, rales, wheezes - Cardiovascular Cardiovascular exam: Present: RRR, +S1, +S2. Absent: diastolic murmur, gallop, rubs, systolic murmur - GI/Abdominal GI/Abdominal exam: Present: diminished bowel sounds, distended, soft, no peritoneal signs. Absent: tenderness - Extremities Exam Extremities exam: Absent: cyanotic, pedal edema - Neurological Exam Neurological exam: Absent: alert, oriented X3 Additional comments: Patient nonverbal. Does not follow commands. Withdrawls to painful stimuli, Opens eyes spontaneously. Moves upper extremities spontaneously but not purposefully. Increased tone in b/l upper extremities. Resting tremor present. down going babinski on the Left equivocal on the Right - Skin Skin exam: Present: dry, intact Internal Medicine: Result - Labs CBC & Chem 7: 07/31/17 03:55 07/31/17 03:55 Labs: Short CBC 07/30/17 07/30/17 07/31/17 Range/Units 10:15 16:10 03:55 WBC 18.8 H 20.6 H 20.5 H (4.3-11.1) K/mcL Hgb 10.9 L 11.7 L 11.1 L (12.9-16.9) g/dL Hct 33.7 L 35.9 L 34.6 L (37.5-50.1) % Plt Count 381 387 412 H (140-400) K/mcL Neutrophils # 12.6 H 13.7 H (1.6-8.9) K/mcL BMP 07/30/17 07/31/17 10:15 03:55 Sodium 136 136 Potassium 4.2 3.9 Chloride 99 99 Carbon Dioxide 29 25 BUN 11 12 Creatinine 0.82 0.77 Glucose 192 H 165 H Calcium 9.2 9.1 - ABG Interpretation ABG results: ABG ABG pH 7.44 pH Units (7.32-7.45) 07/28/17 04:55 ABG pCO2 44 mmHg (35-45) 07/28/17 04:55 ABG pO2 91 mmHg (85-104) 07/28/17 04:55 ABG O2 Saturation 97 % (95-98) 07/28/17 04:55 PT/INR, D-dimer PT 13.7 Seconds (9.4-12.1) H 07/24/17 06:09 Consult Discharge Plan - Plan Referrals: NONE,PCP [Primary Care Provider] - (patient is from [facility]) <Khurram Antony P - Last Filed: 07/31/17 17:53> Date of Encounter: 07/31/17 - Constitutional Vitals: Temp Pulse Resp BP Pulse Ox 98.5 F 84 18 134/71 94 07/31/17 07:51 07/31/17 07:51 07/31/17 15:28 07/31/17 07:51 07/31/17 15:28 Internal Medicine: Result - Labs CBC & Chem 7: 07/31/17 03:55 07/31/17 03:55 Labs: Short CBC 07/31/17 Range/Units 03:55 WBC 20.5 H (4.3-11.1) K/mcL Hgb 11.1 L (12.9-16.9) g/dL Hct 34.6 L (37.5-50.1) % Plt Count 412 H (140-400) K/mcL Neutrophils # 13.7 H (1.6-8.9) K/mcL BMP 07/31/17 03:55 Sodium 136 Potassium 3.9 Chloride 99 Carbon Dioxide 25 BUN 12 Creatinine 0.77 Glucose 165 H Calcium 9.1 - ABG Interpretation ABG results: ABG ABG pH 7.44 pH Units (7.32-7.45) 07/28/17 04:55 ABG pCO2 44 mmHg (35-45) 07/28/17 04:55 ABG pO2 91 mmHg (85-104) 07/28/17 04:55 ABG O2 Saturation 97 % (95-98) 07/28/17 04:55 PT/INR, D-dimer PT 13.7 Seconds (9.4-12.1) H 07/24/17 06:09 - Attending Attestation I examined this patient and my medical decision-making was reviewed with the Resident Physician. I agree with the documented findings, disposition and treatment plan as described except to the extent set forth below. Palliative care input appreciated
[2017-07-31] MEDS: Bisacodyl 10 MG RECTAL SUPPOSITORY RC SCH (08:55)
[2017-07-31] MEDS: Erythromycin OPTH Oint BOTH EYES SCH ×3 (09:00→20:23)
[2017-07-31] MEDS: Aspirin 81 MG TAB.CHEW PO SCH (09:00)
[2017-07-31] MEDS ORDERED: *HR* LORazepam 2 MG/ML VIAL IVP ONE (12:32)
[2017-07-31] MEDS ORDERED: *HR* LORazepam 2 MG/ML VIAL ONE (12:35)
[2017-07-31] MEDS: *HR* LORazepam 2 MG/ML VIAL IVP SCH ×2 (15:17→20:22)
[2017-08-01] MEDS: *HR* LORazepam 2 MG/ML VIAL IVP SCH ×3 (01:16→08:42)
[2017-08-01] MEDS: Insulin LISPRO 300 UNITS/3 ML VIAL SQ SCH ×3 (01:18→08:46)
[2017-08-01] MEDS: *HR* Morphine 2 MG/ML SYRINGE IVP PRN (03:16)
[2017-08-01] MEDS: Piperacillin/Tazobactam 3.375 GM in D5% in Water (Mini-Bag+) 100 ML IVPB SCH (03:16)
[2017-08-01] MEDS: Levothyroxine Sodium 100 MCG VIAL IVP SCH (05:38)
[2017-08-01] MEDS: *HR* Heparin 5,000 UNIT/ML VIAL SQ SCH (05:49)
[2017-08-01] MEDS: Ipratropium/Albuterol Neb 3 ML IH SCH ×6 (06:24→23:43)
[2017-08-01] MEDS: Erythromycin OPTH Oint BOTH EYES SCH ×3 (08:46→22:51)
[2017-08-01] MEDS: Aspirin 81 MG TAB.CHEW PO SCH (08:46)
[2017-08-01] MEDS: Bisacodyl 10 MG RECTAL SUPPOSITORY RC SCH (08:46)
[2017-08-01] MEDS ORDERED: Haloperidol Lactate 5 MG/ML VIAL IVP PRN (09:03)
[2017-08-01] MEDS ORDERED: *HR* Morphine 2 MG/ML SYRINGE IVP PRN (09:16)
--- NOTE | 2017-08-01 09:40 | Internal Med Progress Note ---
<FarrahFaraz romero - Last Filed: 08/01/17 09:38> Date of Encounter: 08/01/17 Time of Encounter: 09:38 - Assessment and plan (1) Acute metabolic encephalopathy Current Visit: Yes Status: Acute Assessment and plan: likely secondary to anoxic injury secondary to cardiac arrest. EEG shows diffuse slowing and CT head showed no acute abnormalities. Mentation is stable but does not appear to be improving. As of now does not follow commands or appear aware of his surroundings. (2) Cardiac arrest Current Visit: Yes Status: Acute Assessment and plan: Patient coded on 07/24 for Cardiac arrest likely secondary to hyperkalemia and hypomagnasemia. ROSC achieved. Patient admitted to the ICU 07/24 and intubated. Extubated 07/29 and transferred out of the ICU on 07/30 Stable off pressors, breathing on his own. Patient is DNR CC (3) Counseling regarding advanced care planning and goals of care Current Visit: Yes Status: Acute Assessment and plan: Discussion was held between the patient's daughter, hospitalist team, and palliative care team. It is the family's wishes that the patient be made DNR CC and hospice options pursued. Patient was transitioned to DNRCC yesterday. Comfort measures only have been instituted. Daughter wishes for the patient to be enrolled in hospice to the [facility]. Patient apparently has been accepted to the [facility] were just awaiting bed availability which will likely come early next week. Continue comfort measures. - Subjective Interval history: Patient seen and examined at bedside. Patient is nonverbal at this time. He does move all 4 limbs spontaneously. He does not appear to be in any acute distress. - Constitutional Vitals: Temp Pulse Resp BP Pulse Ox 99.9 F H 107 18 175/88 96 08/01/17 07:21 08/01/17 07:21 08/01/17 08:09 08/01/17 07:21 08/01/17 08:09 General appearance: Present: A&O X 0, no acute distress. Absent: cooperative, answers questions appropriately - Respiratory Respiratory exam: Present: decreased breath sounds, wheezes (Occasional scattered). Absent: rales, rhonchi - Cardiovascular Cardiovascular exam: Present: RRR. Absent: gallop, rubs, systolic murmur - GI/Abdominal GI/Abdominal exam: Present: normal bowel sounds, soft. Absent: distended, tenderness - Extremities Exam Extremities exam: Present: warm. Absent: pedal edema, tenderness - Neurological Exam Neurological exam: Present: altered. Absent: oriented X3, no focal deficits Internal Medicine: Result - Labs CBC & Chem 7: 07/31/17 03:55 07/31/17 03:55 - ABG Interpretation ABG results: ABG ABG pH 7.44 pH Units (7.32-7.45) 07/28/17 04:55 ABG pCO2 44 mmHg (35-45) 07/28/17 04:55 ABG pO2 91 mmHg (85-104) 07/28/17 04:55 ABG O2 Saturation 97 % (95-98) 07/28/17 04:55 PT/INR, D-dimer PT 13.7 Seconds (9.4-12.1) H 07/24/17 06:09 Consult Discharge Plan - Plan Referrals: NONE,PCP [Primary Care Provider] - (patient is from [facility]) <Khurram Antony P - Last Filed: 08/01/17 17:58> Date of Encounter: 08/01/17 - Constitutional Vitals: Temp Pulse Resp BP Pulse Ox 99.9 F H 107 22 175/88 92 08/01/17 07:21 08/01/17 07:21 08/01/17 16:13 08/01/17 07:21 08/01/17 16:13 Internal Medicine: Result - Labs CBC & Chem 7: 07/31/17 03:55 07/31/17 03:55 - ABG Interpretation ABG results: ABG ABG pH 7.44 pH Units (7.32-7.45) 07/28/17 04:55 ABG pCO2 44 mmHg (35-45) 07/28/17 04:55 ABG pO2 91 mmHg (85-104) 07/28/17 04:55 ABG O2 Saturation 97 % (95-98) 07/28/17 04:55 PT/INR, D-dimer PT 13.7 Seconds (9.4-12.1) H 07/24/17 06:09 - Attending Attestation I examined this patient and my medical decision-making was reviewed with the Resident Physician. I agree with the documented findings, disposition and treatment plan as described except to the extent set forth below.
--- NOTE | 2017-08-01 10:25 | Palliative Progress Note ---
Date of Encounter: 08/01/17 Time of Encounter: 09:00 - Assessment and plan (1) Diabetes mellitus Current Visit: Yes Status: Chronic Assessment and plan: blood sugar 173 cont to monitor plan per hospitalist team Patient is going care only. An awaiting bed at the [facility] I would recommend relaxed and sugar requirements avoiding hypoglycemia and allowing hyper glycemia as long as it is not exceeding 300. Qualifiers: Diabetes mellitus type: type 2 Diabetes mellitus complication status: without complication Diabetes mellitus longterm insulin use: without termite renewal inspector use Qualified Code(s): E11.9 - Type 2 diabetes mellitus without complications (2) Leukocytosis Current Visit: Yes Status: Acute Assessment and plan: Still elevated, however may be starting to trend down? Need to watch plan per hospitalist team Patient is now going comfort care only. Would recommend no further blood draws. No further interventions are planned. Plan is for the patient could have [facility]. Qualifiers: Leukocytosis type: bandemia Qualified Code(s): D72.825 - Bandemia (3) UTI (urinary tract infection) Current Visit: No Status: Acute Assessment and plan: urine is red today Culture is neg pt still on atbx. no defininte etiology of increased wbc known at this time ANIYAH per hospitalist team, culture is negative stopping antibiotics is not the least bit unreasonable. Qualifiers: Urinary tract infection type: acute cystitis Hematuria presence: without hematuria Qualified Code(s): N30.00 - Acute cystitis without hematuria (4) Constipation due to opioid therapy Current Visit: No Status: Acute Assessment and plan: no bm recorded last tube feed on the 10th Continue bowel regimen. Patient's family has refused at least one suppository. (5) Acute metabolic encephalopathy Current Visit: Yes Status: Acute Assessment and plan: prob sceondary to cardiac arrest, eeg and ct normal neuro is following per nurseing staff he seems very nervous at times will make the ativan more frequent prn rather than increase dose to help pt to wake up better. Still not able to swallow, family does not wish to have a feeding tube placed. No significant changes today. Patient is fully hospice eligible and family has agreed to hospice at the [facility]. There is no bed available at this time. (6) Cardiac arrest Current Visit: Yes Status: Acute Assessment and plan: may be source of encephalopathy, but this far out doubt it is the caruse of the persistant leukocytosis (7) Counseling regarding advanced care planning and goals of care Current Visit: Yes Status: Acute Assessment and plan: Status changes this morning to DNR comfort care. State form filled out and put on the chart. Since has now agreed to hospice care if we can make it happen at the [facility]. The [facility] is interested, however has no beds at this time. We will need to talk to them and hopefully have a decision by early next week. - Time Spent With Patient Total time spent is greater than 50% in coordination of care (as documented) at patient's floor/unit and/or counseling patient: - Subjective Interval history: no events overnight per nurses report, pt does respond with eye opening and trying to mouth words. He seems to try to talk when he is spoken to. If has decided on hospice care at the [facility], however at this time there is no bed available. - Constitutional Vitals: Abnormal lab results WBC 20.5 K/mcL (4.3-11.1) H 07/31/17 03:55 RBC 3.81 M/mcL (4.19-5.50) L 07/31/17 03:55 Hgb 11.1 g/dL (12.9-16.9) L 07/31/17 03:55 Hct 34.6 % (37.5-50.1) L 07/31/17 03:55 Plt Count 412 K/mcL (140-400) H 07/31/17 03:55 Neutrophils # 13.7 K/mcL (1.6-8.9) H 07/31/17 03:55 Monocytes # 3.2 K/mcL (0.0-1.3) H 07/31/17 03:55 Eosinophils # 1.2 K/mcL (0.0-0.6) H 07/31/17 03:55 Clumped Platelets Few (Not Present) A 07/24/17 06:09 PT 13.7 Seconds (9.4-12.1) H 07/24/17 06:09 APTT 100.3 Seconds (26.0-36.0) H 07/23/17 14:51 ABG HCO3 30 mEq/L (21-27) H 07/28/17 04:55 ABG Total CO2 31.3 mEq/L (20-26) H 07/28/17 04:55 ABG Base Excess 5.1 mEq/L (-2.0 to 3.0) H 07/28/17 04:55 Glucose 165 mg/dL (70-99) H 07/31/17 03:55 POC Glucose 145 (58-89) H 07/31/17 20:28 Creatine Kinase 222 U/L (20-200) H 07/24/17 00:56 CK-MM (CK-3) 90 % (96-100) L 07/24/17 00:56 CK-BB (CK-1) 6 % (0-0) H 07/24/17 00:56 Troponin I 0.74 ng/mL (0-0.03) H* 07/25/17 04:10 Albumin 2.1 g/dL (3.5-5.0) L 07/29/17 03:25 Globulin 3.9 g/dL (2.4-3.5) H 07/29/17 03:25 Albumin/Globulin Ratio 0.5 (1.1-2.2) L 07/29/17 03:25 Lipase 141 Units/L (8-78) H 07/22/17 18:38 Urine Clarity Turbid (Clear) A 07/22/17 18:21 Urine Protein 100 mg/dL (Neg-Trace) H 07/22/17 18:21 Urine Blood Large (Negative) H 07/22/17 18:21 Urine Bilirubin Small (Negative) H 07/22/17 18:21 Ur Leukocyte Esterase Trace (Negative) H 07/22/17 18:21 Urine Microscopic RBC 15-30 per hpf (0-3) H 07/22/17 18:21 Urine Microscopic WBC 15-30 per hpf (0-3) H 07/22/17 18:21 Ur Squamous Epith Cells Many per lpf (None-Few) H 07/22/17 18:21 Ur Culture Indicated? YES (NO) A 07/22/17 18:21 General appearance: Present: no acute distress - Head Head exam: Present: atraumatic, normal inspection - Eye Eye exam: Present: normal appearance - ENT ENT exam: Present: mucous membranes moist - Respiratory Respiratory exam: Present: decreased breath sounds - Cardiovascular Cardiovascular exam: Present: RRR, tachycardia - GI/Abdominal GI/Abdominal exam: Present: normal bowel sounds, soft. Absent: tenderness - Extremities Exam Extremities exam: Present: normal inspection, pedal edema. Absent: tenderness - Neurological Exam Neurological exam: Present: altered - Psychiatric Psychiatric exam: Absent: agitated, anxious (It has had episodes of anxiety and agitation) - Skin Skin exam: Present: dry, warm Palliative Quality Palliative Quality: Screen for Code Status: Yes, Screen for Goals of Care: Yes, Screen for Pain: Yes, If Pain Regimen Started, Initiate Bowel Regimen: Yes, Screen for Nausea/Vomitting: Yes Code Status: 07/25/17 13:52 DNR [Resuscitation Status: Active] [RES] Routine Comment: With intubation patient on ventilator Resuscitation Status: DNR-Comfort Care-Arrest 07/28/17 18:53 CODE [Resuscitation Status: Active] [RES] Routine Comment: Resuscitation Status: [id number] CODE [Resuscitation Status: Active] [RES] Routine Comment: Resuscitation Status: DNR-Comfort Care - Labs CBC & Chem 7: 07/31/17 03:55 07/31/17 03:55 Labs: Laboratory Results - last 24 hr 07/30/17 07/31/17 20:16 20:28 POC Glucose 173 H 145 H - ABG Interpretation ABG results: ABG ABG pH 7.44 pH Units (7.32-7.45) 07/28/17 04:55 ABG pCO2 44 mmHg (35-45) 07/28/17 04:55 ABG pO2 91 mmHg (85-104) 07/28/17 04:55 ABG O2 Saturation 97 % (95-98) 07/28/17 04:55 PT/INR, D-dimer PT 13.7 Seconds (9.4-12.1) H 07/24/17 06:09 Consult Discharge Plan - Plan Referrals: NONE,PCP [Primary Care Provider] - (patient is from [facility])
[2017-08-01] MEDS: *HR* LORazepam 2 MG/ML VIAL IVP PRN (16:32)
[2017-08-01 19:27] VITALS: BP 144/75
[2017-08-02] MEDS: *HR* LORazepam 2 MG/ML VIAL IVP PRN (01:55)
[2017-08-02] MEDS: Ipratropium/Albuterol Neb 3 ML IH SCH ×3 (03:54→07:42)
--- NOTE | 2017-08-02 05:44 | Death Note ---
Discharge Sum: Summary - Date and Time Date of admission: 07/22/17 23:58 Date of : 08/02/17 Time of : 04:10 - Summary Details: Mr. Manzo was an 87 year old gentleman with medical history of diabetes and hypertension was admitted to [facility] on 07/22/17 with sepsis from likely UTI, altered mental status, elevated troponins, and hyperkalemia. He was initially started on broad-spectrum IV antibiotics and IV fluids initial CT scans the patient had an chest x-ray performed to rule out intracranial bleed cardiopulmonary process. Patient was monitored closely but there are no ischemic changes seen on patient EKG, due to the increased troponins patient was started on IV heparin and a cardiology consult was placed. He was given calcium gluconate, IV insulin, and Kayexalate to stabilize his hyperkalemia. He was seen by cardiology and it was felt that his elevated troponins were due to demand ischemia with patient sepsis. The following day he appeared to be improving with decreased lactic acid, potassium, and troponins. Unfortunately at 2 AM the following morning patient suffered from a cardiac arrest. Return of spontaneous circulation was achieved and he was transferred to the ICU. During the resuscitation, the patient suffered rib fractures and had developed subcutaneous emphysema on the left side of his chest. A cardiothoracic surgeon was consulted for concern that he might need a chest tube due to suspected pneumothorax. When I by CT was determined the chest tube was not needed. He remained intubated in the ICU all being evaluated by cardiology, pulmonology, nephrology. All in the ICU he required mechanical ventilation to maintain oxygen saturation as well as vasopressor support of his blood pressure. After an increase of his troponins was seen post cardiac arrest, they began to trend downward after which cardiology signed off. He was maintained on mechanical ventilation, but was determined that the patient had a poor prognosis. This was discussed with patient and it was determined that encroaches the patient's living will, which stated that he would not be wanting to be kept alive if there is no meaningful hope for recovery of functional status, his CODE STATUS will be changed if no recovery was seen. The palliative medicine team at [facility] was consulted to help address long-term goals of care with the patient's family and after discussion with patient's and family history status was changed to DNR CCA. He began to show hemodynamic improvement was displaying myoclonic, hypoxic jerks when sedation was lessened. The EEG was performed that showed mild to moderate diffuse cerebral dysfunction that was consistent with his hypoxic encephalopathy. After several CPAP trials, patient was able to CPAP for several hours suggesting that he might be extubated, and plan discussed with is determined that if he required to be reintubated that he would not want that. Patient was successfully extubated, though with the extent of his anoxic brain injury he was unable to follow commands, communicate, or swallow. It was difficult to fully assess his mental status is still weaning off sedation while in the ICU. After being transferred out of ICU, he did not show any meaningful recovery was mental status. Without a chance of meaningful recovery, patient's decided to change his CODE STATUS from DNR CCA/DNI to DNR CC on 07/31/17. Our palliative team continued to follow him and the plan was to discharge patient to [facility] on Friday. At 0410 nursing staff brought to my attention that patient had passed. Upon arrival to patient's room, the patient's and nursing staff were present. The patient was lying in the bed asystolic, apneic, no heart sounds were auscultated, and pupils were fixed and dilated. The patient the morning of 08/02/17, likely due to acute respiratory failure in the background of anoxic brain injury and prior cardiac arrest. Time of was pronounced at 0410. - Additional Data Confirmation of as documented by pronouncing clinician: no pulse, no respirations, no heart sounds, pupils fixed and dilated Family: at bedside Additional persons at bedside: other (Nursing staff) Attending/PCP notified?: Yes Attending physician: Avery Nash, DO Was code activated?: No Autopsy requested?: No mail examiner notified?: No Organ bank notified?: Yes (Not a candidate) Advance directives: Yes Hospice patient?: No (Was scheduled to join [facility] hosp[facility] on Friday) Discharge Sum: Diag - PCOD Probable Cause of : Acute respiratory failure Discharge Sum: Prov - Provider Primary care physician: PCP NONE Admitting clinician: Eligio aJvier Attending physician on admission: Avery Nash Consults: 07/23/17 04:00 Consult to Cardiology [CONS] Routine Comment: Consulting Provider: Cardiology Mallika Reason for Consult: elevated troponin Call Completed: No 07/23/17 10:13 Consult to Fixed Income Trading Vice President [CONS] Routine Reason for SW Consult: FROM [facility]. unable to contact . need assistance with code status 07/25/17 09:12 Consult to Palliative Care [CONS] Routine Comment: Consulting Provider: Palliative Care Mallika Reason for Consult: Patient is intubated. POA is low functioning and unable to understand patient's living will of DNR and wishes to keep patient on full code. Call Completed: No 07/28/17 12:21 Consult to Interpret Exam [CONS] Routine Consulting Provider: Ramón Friend Consult to Interpret Exam: Interpret EEG 07/29/17 07:26 Consult to Speech Therapy [CONS] Stat Comment: Evaluate, develop and implement POC Reason for Consult: Extubated, swallow study Call Completed: Yes 07/30/17 14:41 Consult to Speech Therapy [CONS] Routine Comment: Evaluate, develop and implement POC Reason for Consult: Called and talked to Lakisha Lopez Notified: 14:42 Call Completed: Yes Pronouncing clinician: Roshan Washington
== END 2017-08-02 10:50 | disposition expired | DRG 698 ==
LOC: EMEROO 18:00 → 2ANU 18:00 → ICNU 07-24 01:04 → 2ANU 07-29 18:27
PROVIDERS: ADMIT Internal Medicine; ATTEND Internal Medicine